=== PATIENT | female | born 1950 | race African-American/Black ===

== ENCOUNTER 2020-08-02 10:29 | Outpatient (CLI) | payer MEDICARE, MEDICAID ==
[~2020-08-02] VITALS: Ht 157.5 cm; Wt 80.3 kg
[2020-08-02 11:04] VITALS: BP 128/70
--- NOTE | 2020-08-02 14:30 | Consultation ---
DATE OF CONSULTATION: 08/02/2020 CONSULTING PHYSICIAN: Nikolas Celestin MD. CHIEF COMPLAINT: Pancreatic cyst. HISTORY OF PRESENT ILLNESS: The patient is a very pleasant 70-year-old female, seen in followup, referred to us by gastroenterology. She has had endoscopy and colonoscopy. Results are not available. Apparently, she had abdominal pain, had a CT of the abdomen and pelvis, which again we do not have the results showed evidence of pancreatic cyst and she was referred for EUS. PAST MEDICAL HISTORY: 1. History of NE. 2. Anemia. 3. Asthma. 4. Hypertension. 5. Hypercholesterolemia. 6. Diabetes. 7. COPD. 8. Hypothyroidism. PAST SURGICAL HISTORY: She had a hysterectomy, cholecystectomy, hernia repair and multiple back surgeries. MEDICATIONS: Please see medication reconciliation list. FAMILY HISTORY: Noncontributory. SOCIAL HISTORY: The patient denies any alcohol, but used to drink, quit in 2018. No IV drug abuse. ALLERGIES: To codeine. REVIEW OF SYSTEMS: Positive for constipation, rectal pain, bloating, and nausea. PHYSICAL EXAMINATION: VITAL SIGNS: Temperature is 97.4, blood pressure is 122/70, pulse is 62, respirations 20. HEENT: Normocephalic, atraumatic. Sclerae anicteric. NECK: Supple. No evidence of obvious lymphadenopathy. CARDIOVASCULAR: Regular rate and rhythm. Plus S1 and S2. LUNGS: Clear to auscultation bilaterally. ABDOMEN: Positive bowel sounds. Soft and nontender. No rebound. No guarding. No peritoneal sign. EXTREMITIES: No cyanosis, no clubbing, no edema. ASSESSMENT AND PLAN: This is a 70-year-old female, referred to us for evaluation of pancreatic cyst. Plan is to obtain the records including CT scan . Given the pancreatic cyst, age of 70, the patient will benefit from an endoscopic ultrasound evaluation. We will schedule as soon as authorization is obtained. Nikolas Celestin M.D. DR: YARED JOB#: [id number] CC:
[2020-08-03] MEDS ORDERED: GABAPENTIN600 MG ORAL (07:47)
[2020-08-03] MEDS ORDERED: METFORMIN HCL500 M1 ORAL (07:47)
[2020-08-03] MEDS ORDERED: FUROSEMIDE20 M1 ORAL (07:47)
[2020-08-03] MEDS ORDERED: FERROUS SULFAT325 MG ORAL (07:47)
[2020-08-03] MEDS ORDERED: ATORVASTATIN CA40 MG ORAL (07:47)
[2020-08-03] MEDS ORDERED: HYDRALAZINE HCL10 MG ORAL (07:47)
[2020-08-03] MEDS ORDERED: LISINOPRIL40 MG ORAL (07:47)
[2020-08-03] MEDS ORDERED: METHIMAZOLE10 MG PO (07:47)
[2020-08-03] MEDS ORDERED: HYDROCHLOROTHIA25 MG ORAL (07:47)
== END 2020-08-02 12:29 | disposition home or self-care (01) ==
LOC: PAN 10:29
DX: R10.9 Unspecified abdominal pain (principal); I25.2 Old myocardial infarction; I10 Essential (primary) hypertension; E78.00 Pure hypercholesterolemia, unspecified; E11.9 Type 2 diabetes mellitus without complications; J44.9 Chronic obstructive pulmonary disease, unspecified; E03.9 Hypothyroidism, unspecified; Z90.710 Acquired absence of both cervix and uterus; Z90.49 Acquired absence of other specified parts of digestive tract; Z88.6 Allergy status to analgesic agent; K59.00 Constipation, unspecified; R11.0 Nausea; R14.0 Abdominal distension (gaseous)
CPT/HCPCS: G0463

== ENCOUNTER 2020-09-20 10:57 | Outpatient (CLI) | payer MEDICARE, MEDICAID ==
[~2020-09-20 10:57] MED LIST: ATORVASTATIN CA40 MG ORAL; FERROUS SULFAT325 MG ORAL; FUROSEMIDE20 M1 ORAL; GABAPENTIN600 MG ORAL; HYDRALAZINE HCL10 MG ORAL; HYDROCHLOROTHIA25 MG ORAL; LISINOPRIL40 MG ORAL; METFORMIN HCL500 M1 ORAL; METHIMAZOLE10 MG PO
[2020-09-20 11:17] VITALS: BP 132/70
--- NOTE | 2020-09-20 12:11 | General Progress Note ---
Subjective ROS Limited/Unobtainable: Yes Allergies: Coded Allergies: CODEINE (Verified Allergy, Severe, Itching, 08/11/20) Objective Last 24 Hour Vital Signs Date Time Temp Pulse Resp B/P (MAP) Pulse Ox O2 Delivery O2 Flow Rate FiO2 09/20/20 11:17 97.7 77 16 132/70 93 General Appearance: alert EENT: normal ENT inspection Neck: supple Cardiovascular: normal rate Respiratory/Chest: decreased breath sounds Abdomen: normal bowel sounds, non tender, soft Extremities: non-tender Assessment/Plan Assessment/Plan: s/p EUS: SUMMARY OF FINDINGS: 1. Dilated pancreatic duct to about 5 mm. 2. Dilated common bile duct and proximally measured about 1 cm, went down to 8 and then at the ampulla above 4. 3. 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 4. A 1.2 cm calcification in the head of the pancreas with shadowing. RECOMMENDATIONS: At this time, we recommend patient to be observed. If patient becomes symptomatic, might benefit from ERCP and sphincterotomy for possible papillary stenosis causing both pancreatic duct and common bile duct dilatation. Also, patient needs followup imaging in 1 year for this cyst. patient still has symptoms plan ERCP for papillary stenosis labs on procedure day Nikolas Celestin MD Sep 20, 2020 12:11
== END 2020-09-20 12:57 | disposition home or self-care (01) ==
LOC: PAN 10:57
DX: K86.2 Cyst of pancreas (principal)
CPT/HCPCS: 99212

== ENCOUNTER 2020-10-10 07:49 | Inpatient (IN) | payer MEDICARE, MEDICAID ==
[2020-10-10] VITALS (11 sets, daily range): BP systolic 122–153; BP diastolic 75–84
[~2020-10-10] VITALS: Ht 160 cm; Wt 80.3 kg
[2020-10-10] MEDS ORDERED: Midazolam 2mg/2ml Inj ONE (07:50)
[2020-10-10] MEDS ORDERED: fentaNYL 100 mcg/2 mL IV ONE (07:50)
--- NOTE | 2020-10-10 07:56 | Anethesia Preoperative Eval ---
Anesthesia Pre-op PMH/ROS General Date of Evaluation: Oct 10, 2020 Time of Evaluation: 08:43 Anesthesiologist: christiano ASA Score: ASA 4 Mallampati Score Class I : Soft palate, uvula, fauces, pillars visible Class II: Soft palate, uvula, fauces visible Class III: Soft palate, base of uvula visible Class IV: Only hard plate visible Mallampati Classification: Class II Surgeon: emerson Diagnosis: pancreatic cysts Surgical Procedure: ercp Anesthesia History: none Social History: smoking - former tobacco Family History: no anesthesia problems Allergies: Coded Allergies: CODEINE (Verified Allergy, Severe, Itching, 10/10/20) Medications: see eMAR Patient NPO?: Yes Past Medical History Cardiovascular: Reports: HTN, other - hypercholesterolemia Pulmonary: Reports: asthma Gastrointestinal/Genitourinary: Reports: other - pancreatic cyst Endocrine: Reports: DM, hypothyroidism Musculoskeletal/Integumentary: Reports: OA PSxH Narrative: hysterectomy, bunionectomy, rotator cuff repair, back fusion, inguinal herniorrhapy, umbilical herniorrhaphy, cholecystectomy Anesthesia Pre-op Phys. Exam Physician Exam Last Vital Signs Date Time Temp Pulse Resp B/P (MAP) Pulse Ox O2 Delivery O2 Flow Rate FiO2 10/10/20 08:28 Room Air Constitutional: NAD Neurologic: CN 2-12 intact Cardiovascular: RRR Respiratory: CTA Gastrointestinal: S/NT/ND Airway Exam Mallampati Score: Class II MO: limited Neck: flexible TMD: 2fb ROM: limited Anesthesia Pre-op A/P Labs Labs Test 10/10/20 08:35 White Blood Count 8.0 K/UL (4.8-10.8) Red Blood Count 4.15 M/UL (4.20-5.40) Hemoglobin 11.0 G/DL (12.0-16.0) Hematocrit 32.2 % (37.0-47.0) Mean Corpuscular Volume 77 FL (80-99) Mean Corpuscular Hemoglobin 26.5 PG (27.0-31.0) Mean Corpuscular Hemoglobin Concent 34.2 G/DL (32.0-36.0) Red Cell Distribution Width 16.0 % (11.6-14.8) Platelet Count 352 K/UL (150-450) Mean Platelet Volume 5.4 FL (6.5-10.1) Neutrophils (%) (Auto) 57.4 % (45.0-75.0) Lymphocytes (%) (Auto) 29.5 % (20.0-45.0) Monocytes (%) (Auto) 6.6 % (1.0-10.0) Eosinophils (%) (Auto) 5.1 % (0.0-3.0) Basophils (%) (Auto) 1.4 % (0.0-2.0) Sodium Level 139 MMOL/L (136-145) Potassium Level 4.0 MMOL/L (3.5-5.1) Chloride Level 106 MMOL/L (98-107) Carbon Dioxide Level 25 MMOL/L (21-32) Anion Gap 9 mmol/L (5-15) Blood Urea Nitrogen 15 mg/dL (7-18) Creatinine 1.4 MG/DL (0.55-1.30) Estimat Glomerular Filtration Rate 45.1 mL/min (>60) Glucose Level 128 MG/DL (74-106) POC Whole Blood Glucose 138 MG/DL (74-106) Calcium Level 8.9 MG/DL (8.5-10.1) Total Bilirubin 0.3 MG/DL (0.2-1.0) Aspartate Amino Transf (AST/SGOT) 19 U/L (15-37) Alanine Aminotransferase (ALT/SGPT) 26 U/L (12-78) Alkaline Phosphatase 95 U/L (46-116) Total Protein 7.6 G/DL (6.4-8.2) Albumin 3.8 G/DL (3.4-5.0) Globulin 3.8 g/dL Albumin/Globulin Ratio 1.0 (1.0-2.7) Amylase Level 209 U/L (25-115) Lipase > 2000 U/L (73-393) Microbiology Date/Time Source Procedure Growth Status 10/10/20 08:05 Nasopharynx SARS-CoV-2 RdRp Gene Assay - Final Complete Labs Test 10/10/20 08:35 POC Whole Blood Glucose 138 MG/DL (74-106) Studies Pre-op Studies: EKG - sinus bradycardia Risk Assessment & Plan Assessment: asa4 Plan: mac Status Change Before Surgery: No Pre-Antibiotics Drug: Shaista Foster MD Oct 10, 2020 07:56
[2020-10-10] MEDS ORDERED: Midazolam 2mg/2ml Inj IVP PRN (08:00)
[2020-10-10] MEDS ORDERED: Atropine Inj 1mg/10ml Syr IVP PRN (08:00)
[2020-10-10] MEDS ORDERED: LR 1000ml 1,000 ML IVLG SCH (08:00)
[2020-10-10] MEDS ORDERED: DiphenhydrAMINE 50mg/ml Inj IVP PRN (08:00)
[2020-10-10] MEDS ORDERED: fentaNYL 100 mcg/2 mL IV PRN (08:00)
[2020-10-10 08:56] LABS: BASOPHILS % (AUTO) 1.4 % (0.0-2.0); EOSINOPHILS % (AUTO) 5.1 % (0.0-3.0); HEMATOCRIT 32.2 % (37.0-47.0); LYMPHOCYTES % (AUTO) 29.5 % (20.0-45.0); MEAN CORPUSCULAR VOLUME 77 FL (80-99); MONOCYTES % (AUTO) 6.6 % (1.0-10.0); NEUTROPHILS % (AUTO) 57.4 % (45.0-75.0); PLATELET COUNT 352 K/UL (150-450); RED BLOOD COUNT 4.15 M/UL (4.20-5.40)
[2020-10-10 09:18] LABS: ANION GAP 9 mmol/L (5-15); BLOOD UREA NITROGEN 15 mg/dL (7-18); CALCIUM 8.9 MG/DL (8.5-10.1); CARBON DIOXIDE 25 MMOL/L (21-32); CHLORIDE 106 MMOL/L (98-107); CREATININE 1.4 MG/DL (0.55-1.30); SODIUM 139 MMOL/L (136-145)
[2020-10-10 09:30] LABS: ALANINE AMINOTRANSFERASE 26 U/L (12-78); ALBUMIN 3.8 G/DL (3.4-5.0); ALKALINE PHOSPHATASE 95 U/L (46-116); AMYLASE 209 U/L (25-115); ASPARTATE AMINO TRANSFERASE 19 U/L (15-37); BILIRUBIN,TOTAL 0.3 MG/DL (0.2-1.0)
[2020-10-10] MEDS ORDERED: Iothalamate Meglumine 60% 30ML INJ ONE (09:43)
[2020-10-10] MEDS ORDERED: LR 1000ml 1,000 ML IV SCH (10:00)
--- NOTE | 2020-10-10 10:27 | Pre-Procedure Note/Attestation ---
Pre-Procedure Note/Attestation Complete Prior to Procedure Planned Procedure: not applicable Procedure Narrative: ercp Indications for Procedure Pre-Operative Diagnosis: papillary stenosis Attestation I attest that I discussed the nature of the procedure; its benefits; risks and complications; and alternatives (and the risks and benefits of such alternatives), prior to the procedure, with the patient (or the patient's legal small business sales representative). I attest that, if there was a reasonable possibility of needing a blood t ransfusion, the patient (or the patient's legal small business sales representative) was given the [facility] standardized written summary, pursuant to the Dar[place] Blood Safety Act ([place] Health and Safety Code # 1645, as amended). I attest that I re-evaluated the patient just prior to the surgery and that there has been no change in the patient's H&P, except as documented below: Nikolas Celestin MD Oct 10, 2020 10:27
--- NOTE | 2020-10-10 10:27 | Short Stay Surgery H&P ---
History of Present Illness History of Present Illness Chief Complaint see office note HPI Mirta Estrada is a 70 year old female who was admitted on for Pancriatic Cyst Patient History Allergies: Coded Allergies: CODEINE (Verified Allergy, Severe, Itching, 10/10/20) Medication History Scheduled Atorvastatin Calcium* (Atorvastatin Calcium*), Unknown Dose ORAL BEDTIME, (Reported) Ferrous Sulfate* (Ferrous Sulfate*), 325 MG ORAL DAILY, (Reported) Furosemide* (Lasix*), 20 MG ORAL PRN, (Reported) Gabapentin* (Gabapentin*), Unknown Dose ORAL THREE TIMES A DAY, (Reported) Hydralazine Hcl* (Hydralazine Hcl*), Unknown Dose ORAL EVERY 6 HOURS, (Reported) Hydrochlorothiazide* (Hydrochlorothiazide*), Unknown Dose ORAL DAILY, (Reported) Lisinopril* (Lisinopril*), 40 MG ORAL DAILY, (Reported) Metformin Hcl* (Metformin Hcl*), 500 MG ORAL TWICE A DAY, (Reported) Methimazole (Methimazole), Unknown Dose PO DAILY, (Reported) Physical Exam Vital Signs Last Vital Signs Date Time Temp Pulse Resp B/P (MAP) Pulse Ox O2 Delivery O2 Flow Rate FiO2 10/10/20 08:47 97.0 65 20 122/81 98 Room Air Labs Laboratory Tests Test 10/10/20 08:35 White Blood Count 8.0 K/UL (4.8-10.8) Red Blood Count 4.15 M/UL (4.20-5.40) L Hemoglobin 11.0 G/DL (12.0-16.0) L Hematocrit 32.2 % (37.0-47.0) L Mean Corpuscular Volume 77 FL (80-99) L Mean Corpuscular Hemoglobin 26.5 PG (27.0-31.0) L Mean Corpuscular Hemoglobin Concent 34.2 G/DL (32.0-36.0) Red Cell Distribution Width 16.0 % (11.6-14.8) H Platelet Count 352 K/UL (150-450) Mean Platelet Volume 5.4 FL (6.5-10.1) L Neutrophils (%) (Auto) 57.4 % (45.0-75.0) Lymphocytes (%) (Auto) 29.5 % (20.0-45.0) Monocytes (%) (Auto) 6.6 % (1.0-10.0) Eosinophils (%) (Auto) 5.1 % (0.0-3.0) H Basophils (%) (Auto) 1.4 % (0.0-2.0) Sodium Level 139 MMOL/L (136-145) Potassium Level 4.0 MMOL/L (3.5-5.1) Chloride Level 106 MMOL/L (98-107) Carbon Dioxide Level 25 MMOL/L (21-32) Anion Gap 9 mmol/L (5-15) Blood Urea Nitrogen 15 mg/dL (7-18) Creatinine 1.4 MG/DL (0.55-1.30) H Estimat Glomerular Filtration Rate 45.1 mL/min (>60) Glucose Level 128 MG/DL (74-106) H POC Whole Blood Glucose 138 MG/DL (74-106) H Calcium Level 8.9 MG/DL (8.5-10.1) Total Bilirubin 0.3 MG/DL (0.2-1.0) Aspartate Amino Transf (AST/SGOT) 19 U/L (15-37) Alanine Aminotransferase (ALT/SGPT) 26 U/L (12-78) Alkaline Phosphatase 95 U/L (46-116) Total Protein 7.6 G/DL (6.4-8.2) Albumin 3.8 G/DL (3.4-5.0) Globulin 3.8 g/dL Albumin/Globulin Ratio 1.0 (1.0-2.7) Amylase Level 209 U/L (25-115) H Lipase > 2000 U/L (73-393) H Plan Attestation Are the patient's medical conditions optimized for surgery? Nikolas Celestin MD Oct 10, 2020 10:27
[2020-10-10] MEDS ORDERED: LR 1000ml ONE (10:30)
[2020-10-10] MEDS ORDERED: Lidocaine 1% MPF 10mg/ml 5ml ONE (10:30)
[2020-10-10] MEDS ORDERED: Hydromorphone 0.5mg/0.5ml inj IVP SCH (12:00)
[2020-10-10] MEDS ORDERED: Hydromorphone 0.5mg/0.5ml inj ONE (12:01)
--- NOTE | 2020-10-10 12:05 | Immediate Post-Op Evaluation ---
Immediate Post-Op Evalulation Immediate Post-Op Evalulation Procedure: egd/ercp Date of Evaluation: Oct 10, 2020 Time of Evaluation: 11:58 IV Fluids: 525ml lr Blood Products: none Estimated Blood Loss: negligible Blood Pressure Systolic: 140 Blood Pressure Diastolic: 83 Pulse Rate: 93 Respiratory Rate: 18 O2 Sat by Pulse Oximetry: 100 Temperature (Fahrenheit): 97.1 Pain Score (1-10): 0 Nausea: No Vomiting: No Complications none Patient Status: awake, reacts, patent Hydration Status: adequate Drug: Shaista Foster MD Oct 10, 2020 12:05
--- NOTE | 2020-10-10 12:06 | 48 Hour Post Anesthesia Eval ---
Post Anesthesia Evaluation Procedure: egd/ercp Date of Evaluation: Oct 10, 2020 Time of Evaluation: 12:05 Blood Pressure Systolic: 147 0: 80 Pulse Rate: 80 Respiratory Rate: 18 Temperature (Fahrenheit): 97.1 O2 Sat by Pulse Oximetry: 100 Airway: patent Nausea: No Vomiting: No Pain Intensity: 0 Hydration Status: adequate Cardiopulmonary Status: stable Mental Status/LOC: patient returned to baseline Post-Anesthesia Complications: none Follow-up care needed: N/A Shaista Azar MD Oct 10, 2020 12:06
--- NOTE | 2020-10-10 13:14 | Endoscopy Procedure Note ---
Endoscopy Procedure Note General Indication for Procedure: pancreatitis Procedures Performed: ERCP Operative Findings/Diagnosis: same Specimen: none Pt Tolerated Procedure Well: Yes Estimated Blood Loss: none Anesthesia Anesthesiologist: irene Anesthesia: MAC Inserted Devices Implant(s) used?: No GI Core Measures 50 yrs or older w/o bx or poly: Not Applicable 10yrs. F/U recommended: Not Applicable Nikolas Celestin MD Oct 10, 2020 13:14
--- NOTE | 2020-10-10 14:22 | Diagnostic Imaging Report ---
INDICATION: Pain, intraoperative TECHNIQUE: Intraoperative imaging Fluoroscopy time: 135.3 seconds Total dose: 1.14 mGym2 Total number of images: 9 COMPARISON: None FINDINGS: Intraoperative images document opacification of the common bile duct, subsequent opacification of intrahepatic ducts, subsequent deployment of stone extraction balloon IMPRESSION: Intraoperative imaging as described
--- NOTE | 2020-10-10 15:00 | Procedure Note ---
DATE OF PROCEDURE: 10/10/2020 NOTE: INCOMPLETE DICTATION SURGEON: Nikolas Celestin M.D. ANESTHESIOLOGIST: Shaista Edmondson M.D. PROCEDURE: ERCP, sphincterotomy, balloon sweep. USED INSTRUMENT: Olympus ERCP Scope. INDICATION: . The procedure, risks, benefits, and possible consequences, including hemorrhage, aspiration, perforation and infection, and alternative treatments, were explained to the patient/legal guardian by Dr. Nikolas Celestin and the patient/legal guardian understood and accepted these risks. Nikolas Celestin M.D. DR: KATIANA JOB#: [id number] CC:
--- NOTE | 2020-10-10 15:00 | Procedure Note ---
DATE OF PROCEDURE: 10/10/2020 SURGEON: Nikolas Celestin MD CHIEF COMPLAINT: Abdominal pain, pancreatitis. REASON FOR PROCEDURE: The procedure, risks, benefits, and possible consequences, including hemorrhage, aspiration, perforation and infection, and alternative treatments, were explained to the patient/legal guardian by Dr. Nikolas Celestin and the patient/legal guardian understood and accepted these risks. DESCRIPTION OF PROCEDURE: After informed consent was obtained and patient was adequately sedated, first upper endoscopy was performed because patient had evidence of black tarry stools. Olympus upper endoscope was advanced from mouth into the second portion of the duodenum and retroflexion was performed in the stomach. Patient had evidence of hiatal hernia, small. No evidence of any esophagitis. In the stomach, there was some mild gastritis. At this time, the upper endoscope was retrieved. ERCP scope was introduced. Using a sphincterotome, common bile duct was selectively cannulated. Initial cholangiogram showed dilated common bile duct to about roughly 10 mm with tapering down at the ampulla above 4 mm. This suggestive of papillary stenosis. Patient has no gallbladder. Over a guidewire, 95% sphincterotomy was performed and then a balloon was used to sweep the duct multiple times and perform balloon occlusion cholangiogram. At this time, the scope was retrieved and procedure was terminated. SUMMARY OF FINDINGS: 1. Positive papillary stenosis with dilated common bile duct to about 10 mm. 2. Status post ERCP and sphincterotomy. 3. Status post balloon occlusion cholangiogram. 4. Status post EGD. RECOMMENDATIONS: Patient had evidence of lipase on admission before procedure of over 2000, so patient has currently pancreatitis. Given, we also performed ERCP, we are going to admit the patient for observation overnight. IV fluids for hydration. Pain management and we will see if the procedure helped with her symptoms. Nikolas Celestin M.D. DR: JAYJAY JOB#: [id number] CC:
[2020-10-10] MEDS: Hydromorphone 0.5mg/0.5ml inj IVP PRN ×3 (16:27→23:30)
--- NOTE | 2020-10-10 22:56 | Internal Med Progress Note ---
Subjective Physician Name Zacarias Escobar Attending Physician Nikolas Celestin MD Current Medications Medications (Trade) Dose Ordered Sig/Angely Route PRN Reason Start Time Stop Time Status Last Admin Dose Admin Hydromorphone HCl (Dilaudid) 0.5 mg Q4H PRN IVP Pain Scale (6-10) 10/10/20 13:15 10/17/20 13:14 10/10/20 20:28 Lactated Ringer's 1,000 ml @ 0 mls/hr Q0M IV 10/10/20 10:00 11/09/20 09:59 Sodium Chloride 1,000 ml @ 125 mls/hr Q8H IV 10/10/20 11:45 11/09/20 11:44 10/10/20 16:16 Allergies: Coded Allergies: CODEINE (Verified Allergy, Severe, Itching, 10/10/20) Subjective awake, alert. responsive, C/O severe epigastric pain, S/P ERCP today Objective Last Vital Signs Date Time Temp Pulse Resp B/P (MAP) Pulse Ox O2 Delivery O2 Flow Rate FiO2 10/10/20 21:00 Room Air 10/10/20 20:00 99.0 65 18 153/80 (104) 95 10/10/20 12:20 3 Laboratory Tests Test 10/10/20 08:35 White Blood Count 8.0 K/UL (4.8-10.8) Red Blood Count 4.15 M/UL (4.20-5.40) L Hemoglobin 11.0 G/DL (12.0-16.0) L Hematocrit 32.2 % (37.0-47.0) L Mean Corpuscular Volume 77 FL (80-99) L Mean Corpuscular Hemoglobin 26.5 PG (27.0-31.0) L Mean Corpuscular Hemoglobin Concent 34.2 G/DL (32.0-36.0) Red Cell Distribution Width 16.0 % (11.6-14.8) H Platelet Count 352 K/UL (150-450) Mean Platelet Volume 5.4 FL (6.5-10.1) L Neutrophils (%) (Auto) 57.4 % (45.0-75.0) Lymphocytes (%) (Auto) 29.5 % (20.0-45.0) Monocytes (%) (Auto) 6.6 % (1.0-10.0) Eosinophils (%) (Auto) 5.1 % (0.0-3.0) H Basophils (%) (Auto) 1.4 % (0.0-2.0) Sodium Level 139 MMOL/L (136-145) Potassium Level 4.0 MMOL/L (3.5-5.1) Chloride Level 106 MMOL/L (98-107) Carbon Dioxide Level 25 MMOL/L (21-32) Anion Gap 9 mmol/L (5-15) Blood Urea Nitrogen 15 mg/dL (7-18) Creatinine 1.4 MG/DL (0.55-1.30) H Estimat Glomerular Filtration Rate 45.1 mL/min (>60) Glucose Level 128 MG/DL (74-106) H POC Whole Blood Glucose 138 MG/DL (74-106) H Calcium Level 8.9 MG/DL (8.5-10.1) Total Bilirubin 0.3 MG/DL (0.2-1.0) Aspartate Amino Transf (AST/SGOT) 19 U/L (15-37) Alanine Aminotransferase (ALT/SGPT) 26 U/L (12-78) Alkaline Phosphatase 95 U/L (46-116) Total Protein 7.6 G/DL (6.4-8.2) Albumin 3.8 G/DL (3.4-5.0) Globulin 3.8 g/dL Albumin/Globulin Ratio 1.0 (1.0-2.7) Amylase Level 209 U/L (25-115) H Lipase > 2000 U/L (73-393) H Microbiology Date/Time Source Procedure Growth Status 10/10/20 08:05 Nasopharynx SARS-CoV-2 RdRp Gene Assay - Final Complete Objective General: No acute distress, awake and alert HEENT: NCAT, sclera anicteric, PERRL, EOMI. Neck: Supple, no significant jugular venous distention, Lungs: Good inspiratory effort, clear to auscultation bilaterally, no Wheeze or Rales. Heart: Regular rate and rhythm, normal S1/S2, no murmurs/gallops Abdomen: soft, Epigastric tender, nondistended. Normoactive bowel sounds, Obesity. / Rectal: Refused and deferred. Extremities: No Cyanosis , clubbing or edema. Neuro: A&O x 3, Able to move all extremities Skin: warm, no rashes or lesions Psych: Normal mood and affect Assessment/Plan Assessment/Plan 1. Pancreatic cyst, S/P ERCP. 2. DM T2 3. HTN 4. Obesity 5. Hyperthyroidism 6. Dyslipidemia. Plan: Pain control monitor BS F/U with Dr. Celestin recommendations IVF Monitor BP Zacarias Escobar MD Oct 10, 2020 22:56
[2020-10-10] MEDS: HydrALAZINE 25mg tab ORAL SCH (23:16)
[2020-10-10] MEDS: methIMAzole 10mg tab ORAL SCH (23:16)
[2020-10-11] VITALS: BP 154/84
[2020-10-11 04:00] VITALS: BP 125/71
[2020-10-11] MEDS: Hydromorphone 0.5mg/0.5ml inj IVP PRN ×6 (04:20→21:52)
[2020-10-11] MEDS: NovoLOG Insulin Flexpen SUBQ SCH ×4 (06:27→21:21)
[2020-10-11 08:00] VITALS: BP 162/85
[2020-10-11 08:40] LABS: BASOPHILS % (AUTO) 0.9 % (0.0-2.0); EOSINOPHILS % (AUTO) 3.7 % (0.0-3.0); HEMATOCRIT 31.7 % (37.0-47.0); HEMOGLOBIN 10.3 G/DL (12.0-16.0); LYMPHOCYTES % (AUTO) 36.2 % (20.0-45.0); MEAN CORPUSCULAR VOLUME 81 FL (80-99); MONOCYTES % (AUTO) 7.8 % (1.0-10.0); NEUTROPHILS % (AUTO) 51.4 % (45.0-75.0); PLATELET COUNT 316 K/UL (150-450); RED BLOOD COUNT 3.91 M/UL (4.20-5.40); WHITE BLOOD COUNT 7.4 K/UL (4.8-10.8)
[2020-10-11] MEDS ORDERED: methIMAzole 10mg tab ORAL SCH (09:00)
[2020-10-11] MEDS: HydrALAZINE 25mg tab ORAL SCH ×4 (09:03→23:28)
[2020-10-11 09:09] LABS: ALANINE AMINOTRANSFERASE 27 U/L (12-78); ALBUMIN 3.4 G/DL (3.4-5.0); ALBUMIN/GLOBULIN RATIO 0.9 (1.0-2.7); ALKALINE PHOSPHATASE 95 U/L (46-116); AMYLASE 269 U/L (25-115); ANION GAP 8 mmol/L (5-15); ASPARTATE AMINO TRANSFERASE 22 U/L (15-37); BILIRUBIN,TOTAL 0.4 MG/DL (0.2-1.0); BLOOD UREA NITROGEN 11 mg/dL (7-18); CALCIUM 8.6 MG/DL (8.5-10.1); CARBON DIOXIDE 25 MMOL/L (21-32); CHLORIDE 103 MMOL/L (98-107); CHOLESTEROL 180 MG/DL (< 200); CREATININE 1.1 MG/DL (0.55-1.30); HDL CHOLESTEROL 36 MG/DL (40-60); SODIUM 136 MMOL/L (136-145); TRIGLYCERIDES 187 MG/DL (30-150)
[2020-10-11 09:11] LABS: PHOSPHORUS 3.8 MG/DL (2.5-4.9)
[2020-10-11] MEDS: methIMAzole 10mg tab ORAL SCH (09:16)
[2020-10-11] MEDS: Lisinopril 20mg tab ORAL SCH (09:16)
[2020-10-11 12:00] VITALS: BP 173/73
--- NOTE | 2020-10-11 12:23 | General Progress Note ---
Subjective ROS Limited/Unobtainable: Yes Allergies: Coded Allergies: CODEINE (Verified Allergy, Severe, Itching, 10/10/20) Objective Last 24 Hour Vital Signs Date Time Temp Pulse Resp B/P (MAP) Pulse Ox O2 Delivery O2 Flow Rate FiO2 10/11/20 09:16 162/85 10/11/20 09:03 162/85 10/11/20 09:00 Room Air 10/11/20 08:00 98.0 68 18 162/85 (110) 98 10/11/20 04:00 98.3 65 18 125/71 (89) 98 10/11/20 00:00 98.6 63 18 154/84 (107) 99 10/10/20 23:16 153/80 10/10/20 21:00 Room Air 10/10/20 20:00 99.0 65 18 153/80 (104) 95 10/10/20 16:00 98.4 75 18 138/84 (102) 99 10/10/20 15:00 Room Air 10/10/20 14:20 96.9 62 16 134/80 (98) 98 10/10/20 12:50 97.1 73 15 137/84 100 Room Air 10/10/20 12:36 97.2 10/10/20 12:35 78 13 132/82 100 Room Air Intake and Output 10/10/20 10/11/20 19:00 07:00 Intake Total 625 ml 750 ml Output Total 1000 ml Balance 625 ml -250 ml Intake IV Total 625 ml 750 ml Output Urine Total 1000 ml # Voids 3 3 Laboratory Tests 10/11/20 05:36: POC Whole Blood Glucose 104 10/11/20 07:45: White Blood Count 7.4, Red Blood Count 3.91L, Hemoglobin 10.3L, Hematocrit 31.7L , Mean Corpuscular Volume 81, Mean Corpuscular Hemoglobin 26.4L, Mean Corpuscular Hemoglobin Concent 32.6, Red Cell Distribution Width 15.0H, Platelet Count 316, Mean Platelet Volume 5.9L, Neutrophils (%) (Auto) 51.4, Lymphocytes (%) (Auto) 36.2, Monocytes (%) (Auto) 7.8, Eosinophils (%) (Auto) 3.7H, Basophils (%) (Auto) 0.9, Sodium Level 136, Potassium Level 4.0, Chloride Level 103, Carbon Dioxide Level 25, Anion Gap 8, Blood Urea Nitrogen 11, Creatinine 1.1, Estimat Glomerular Filtration Rate 59.5, Glucose Level 87, Calcium Level 8.6, Phosphorus Level 3.8, Magnesium Level 1.7L, Total Bilirubin 0.4, Aspartate Amino Transf (AST/SGOT) 22, Alanine Aminotransferase (ALT/SGPT) 27, Alkaline Phosphatase 95, Total Protein 7.0, Albumin 3.4, Globulin 3.6, Albumin/Globulin Ratio 0.9L, Triglycerides Level 187H, Cholesterol Level 180, LDL Cholesterol 113H, HDL Cholesterol 36L, Cholesterol/HDL Ratio 5.0H, Amylase Level 269H, Lipase > 2000H, CA 19-9 Antigen [Pending] Height (Feet): 5 Height (Inches): 3.00 Weight (Pounds): 177 General Appearance: alert EENT: PERRL/EOMI Neck: supple Cardiovascular: normal rate Abdomen: hypoactive bowel sounds, tender Extremities: non-tender Assessment/Plan Assessment/Plan: pancreatitis panc cyst s/p ERCP ivf pain control clears repeat labs will fu Nikolas Celestin MD Oct 11, 2020 12:23
[2020-10-11] MEDS: D5NS 1,000 ML IV SCH ×2 (14:26→23:28)
[2020-10-11 16:00] VITALS: BP 167/76
--- NOTE | 2020-10-11 17:16 | Internal Med Progress Note ---
Subjective Date of Service: Oct 11, 2020 Physician Name Pierce Sánchez Attending Physician Nikolas Celestin MD Current Medications Medications (Trade) Dose Ordered Sig/Angely Route PRN Reason Start Time Stop Time Status Last Admin Dose Admin Dextrose (Dextrose 50%) 25 ml Q30M PRN IV Hypoglycemia 10/10/20 23:00 01/08/21 22:59 Dextrose (Dextrose 50%) 50 ml Q30M PRN IV Hypoglycemia 10/10/20 23:00 01/08/21 22:59 Dextrose/Sodium Chloride 1,000 ml @ 100 mls/hr Q10H IV 10/11/20 13:15 11/10/20 13:14 10/11/20 14:26 Gabapentin (Neurontin) 300 mg THREE TIMES A DAY ORAL 10/10/20 23:00 11/09/20 22:59 10/11/20 12:48 Hydralazine HCl (Apresoline) 25 mg TID ORAL 10/10/20 23:00 01/08/21 22:59 10/11/20 12:49 Hydromorphone HCl (Dilaudid) 0.5 mg EVERY 3 HOURS PRN IVP For Pain 10/10/20 22:45 10/17/20 22:44 10/11/20 14:27 Insulin Aspart (NovoLOG) BEFORE MEALS AND HS SUBQ 10/11/20 06:30 01/09/21 06:29 Lisinopril (PriniviL) 40 mg DAILY ORAL 10/11/20 09:00 11/10/20 08:59 10/11/20 09:16 Methimazole (Tapazole) 10 mg DAILY ORAL 10/10/20 23:00 11/10/20 08:59 10/11/20 09:16 Allergies: Coded Allergies: CODEINE (Verified Allergy, Severe, Itching, 10/10/20) ROS Limited/Unobtainable: No Constitutional: Reports: no symptoms HEENT: Reports: no symptoms Cardiovascular: Reports: no symptoms Respiratory: Reports: no symptoms Gastrointestinal/Abdominal: Reports: no symptoms Genitourinary: Reports: no symptoms Neurologic/Psychiatric: Reports: no symptoms Subjective 70 YO F admitted with pancreatic cyst. S/P ERCP and sphincterotomy 10/10/20. Cover for [facility] - Dr Escobar Objective Last Vital Signs Date Time Temp Pulse Resp B/P (MAP) Pulse Ox O2 Delivery O2 Flow Rate FiO2 10/11/20 16:00 98.2 58 18 167/76 (106) 98 10/11/20 09:00 Room Air 10/10/20 12:20 3 Laboratory Tests Test 10/11/20 05:36 10/11/20 07:45 10/11/20 12:37 10/11/20 16:51 POC Whole Blood Glucose 104 MG/DL (74-106) 83 MG/DL (74-106) 110 MG/DL (74-106) H White Blood Count 7.4 K/UL (4.8-10.8) Red Blood Count 3.91 M/UL (4.20-5.40) L Hemoglobin 10.3 G/DL (12.0-16.0) L Hematocrit 31.7 % (37.0-47.0) L Mean Corpuscular Volume 81 FL (80-99) Mean Corpuscular Hemoglobin 26.4 PG (27.0-31.0) L Mean Corpuscular Hemoglobin Concent 32.6 G/DL (32.0-36.0) Red Cell Distribution Width 15.0 % (11.6-14.8) H Platelet Count 316 K/UL (150-450) Mean Platelet Volume 5.9 FL (6.5-10.1) L Neutrophils (%) (Auto) 51.4 % (45.0-75.0) Lymphocytes (%) (Auto) 36.2 % (20.0-45.0) Monocytes (%) (Auto) 7.8 % (1.0-10.0) Eosinophils (%) (Auto) 3.7 % (0.0-3.0) H Basophils (%) (Auto) 0.9 % (0.0-2.0) Sodium Level 136 MMOL/L (136-145) Potassium Level 4.0 MMOL/L (3.5-5.1) Chloride Level 103 MMOL/L (98-107) Carbon Dioxide Level 25 MMOL/L (21-32) Anion Gap 8 mmol/L (5-15) Blood Urea Nitrogen 11 mg/dL (7-18) Creatinine 1.1 MG/DL (0.55-1.30) Estimat Glomerular Filtration Rate 59.5 mL/min (>60) Glucose Level 87 MG/DL (74-106) Calcium Level 8.6 MG/DL (8.5-10.1) Phosphorus Level 3.8 MG/DL (2.5-4.9) Magnesium Level 1.7 MG/DL (1.8-2.4) L Total Bilirubin 0.4 MG/DL (0.2-1.0) Aspartate Amino Transf (AST/SGOT) 22 U/L (15-37) Alanine Aminotransferase (ALT/SGPT) 27 U/L (12-78) Alkaline Phosphatase 95 U/L (46-116) Total Protein 7.0 G/DL (6.4-8.2) Albumin 3.4 G/DL (3.4-5.0) Globulin 3.6 g/dL Albumin/Globulin Ratio 0.9 (1.0-2.7) L Triglycerides Level 187 MG/DL (30-150) H Cholesterol Level 180 MG/DL (< 200) LDL Cholesterol 113 mg/dL (<100) H HDL Cholesterol 36 MG/DL (40-60) L Cholesterol/HDL Ratio 5.0 (3.3-4.4) H Amylase Level 269 U/L (25-115) H Lipase > 2000 U/L (73-393) H CA 19-9 Antigen Pending Microbiology Date/Time Source Procedure Growth Status 10/10/20 08:05 Nasopharynx SARS-CoV-2 RdRp Gene Assay - Final Complete Intake and Output 10/10/20 10/11/20 19:00 07:00 Intake Total 625 ml 750 ml Output Total 1000 ml Balance 625 ml -250 ml Intake IV Total 625 ml 750 ml Output Urine Total 1000 ml # Voids 3 3 Objective Objective General: No acute distress, awake and alert HEENT: NCAT, sclera anicteric, PERRL, EOMI. Neck: Supple, no significant jugular venous distention, Lungs: Good inspiratory effort, clear to auscultation bilaterally, no Wheeze or Rales. Heart: Regular rate and rhythm, normal S1/S2, no murmurs/gallops Abdomen: soft, Epigastric tender, nondistended. Normoactive bowel sounds, Obesity. / Rectal: Refused and deferred. Extremities: No Cyanosis , clubbing or edema. Neuro: A&O x 3, Able to move all extremities Skin: warm, no rashes or lesions Psych: Normal mood and affect Assessment/Plan Assessment/Plan Assessment/Plan Assessment/Plan 1. Pancreatic cyst, S/P ERCP. 2. DM T2 3. HTN 4. Obesity 5. Hyperthyroidism 6. Dyslipidemia. Plan: Pain control monitor BS F/U with Dr. Celestin recommendations IVF Monitor BP S/P ERCP and sphincterotomy 10/10/20 Pierce Sánchez MD Oct 11, 2020 17:16
[2020-10-11 19:53] VITALS: BP 132/68
[2020-10-12] VITALS (7 sets, daily range): BP systolic 150–167; BP diastolic 67–87
[2020-10-12] MEDS: Hydromorphone 0.5mg/0.5ml inj IVP PRN ×7 (01:08→23:55)
[2020-10-12] MEDS: NovoLOG Insulin Flexpen SUBQ SCH ×4 (05:40→20:50)
[2020-10-12 07:28] LABS: BASOPHILS % (AUTO) 1.4 % (0.0-2.0); HEMATOCRIT 30.5 % (37.0-47.0); LYMPHOCYTES % (AUTO) 27.6 % (20.0-45.0); MEAN CORPUSCULAR VOLUME 80 FL (80-99); MONOCYTES % (AUTO) 9.2 % (1.0-10.0); NEUTROPHILS % (AUTO) 57.9 % (45.0-75.0); PLATELET COUNT 314 K/UL (150-450); RED BLOOD COUNT 3.83 M/UL (4.20-5.40); RED CELL DISTRIBUTION WIDTH 14.1 % (11.6-14.8); WHITE BLOOD COUNT 6.8 K/UL (4.8-10.8)
[2020-10-12 07:46] LABS: ALANINE AMINOTRANSFERASE 23 U/L (12-78); ALBUMIN 3.3 G/DL (3.4-5.0); ALKALINE PHOSPHATASE 94 U/L (46-116); AMYLASE 159 U/L (25-115); ANION GAP 6 mmol/L (5-15); ASPARTATE AMINO TRANSFERASE 18 U/L (15-37); BILIRUBIN,TOTAL 0.4 MG/DL (0.2-1.0); BLOOD UREA NITROGEN 9 mg/dL (7-18); CALCIUM 8.8 MG/DL (8.5-10.1); CARBON DIOXIDE 27 MMOL/L (21-32); CHLORIDE 104 MMOL/L (98-107); CREATININE 1.1 MG/DL (0.55-1.30); POTASSIUM 3.7 MMOL/L (3.5-5.1); SODIUM 136 MMOL/L (136-145)
--- NOTE | 2020-10-12 08:40 | General Progress Note ---
Subjective ROS Limited/Unobtainable: Yes Allergies: Coded Allergies: CODEINE (Verified Allergy, Severe, Itching, 10/10/20) Objective Last 24 Hour Vital Signs Date Time Temp Pulse Resp B/P (MAP) Pulse Ox O2 Delivery O2 Flow Rate FiO2 10/12/20 04:00 98.1 98 18 152/83 (106) 98 10/12/20 00:00 98.2 72 20 150/84 (106) 99 10/11/20 23:28 150/84 10/11/20 20:14 Room Air 10/11/20 19:53 97.8 64 18 132/68 (89) 96 10/11/20 17:17 167/76 10/11/20 16:00 98.2 58 18 167/76 (106) 98 10/11/20 12:49 173/73 10/11/20 12:00 98.8 73 18 173/73 (106) 98 10/11/20 09:16 162/85 10/11/20 09:03 162/85 10/11/20 09:00 Room Air Intake and Output 10/11/20 10/12/20 19:00 07:00 Intake Total 800 ml 600 ml Balance 800 ml 600 ml Intake Oral 400 ml 600 ml IV Total 400 ml # Voids 4 4 Laboratory Tests 10/11/20 12:37: POC Whole Blood Glucose 83 10/11/20 16:51: POC Whole Blood Glucose 110H 10/11/20 21:06: POC Whole Blood Glucose 201H 10/12/20 05:35: POC Whole Blood Glucose 184H 10/12/20 07:04: White Blood Count 6.8, Red Blood Count 3.83L, Hemoglobin 10.0L, Hematocrit 30.5L , Mean Corpuscular Volume 80, Mean Corpuscular Hemoglobin 26.1L, Mean Corpuscular Hemoglobin Concent 32.8, Red Cell Distribution Width 14.1, Platelet Count 314, Mean Platelet Volume 5.9L, Neutrophils (%) (Auto) 57.9, Lymphocytes (%) (Auto) 27.6, Monocytes (%) (Auto) 9.2, Eosinophils (%) (Auto) 4.0H, Basophils (%) (Auto) 1.4, Sodium Level 136, Potassium Level 3.7, Chloride Level 104, Carbon Dioxide Level 27, Anion Gap 6, Blood Urea Nitrogen 9, Creatinine 1.1, Estimat Glomerular Filtration Rate 59.5, Glucose Level 157H, Calcium Level 8.8, Total Bilirubin 0.4, Aspartate Amino Transf (AST/SGOT) 18, Alanine Aminotransferase (ALT/SGPT) 23, Alkaline Phosphatase 94, Total Protein 6.7, Albumin 3.3L, Globulin 3.4, Albumin/Globulin Ratio 1.0, Amylase Level 159H, Lipase > 2000H Height (Feet): 5 Height (Inches): 3.00 Weight (Pounds): 177 General Appearance: alert EENT: normal ENT inspection Neck: supple Cardiovascular: normal rate Respiratory/Chest: lungs clear Abdomen: hypoactive bowel sounds, tender Extremities: non-tender Assessment/Plan Assessment/Plan: pancreatitis panc cyst s/p ERCP ivf pain control full liquid diet CT fu ca 19-9 repeat labs will fu Nikolas Celestin MD Oct 12, 2020 08:40
[2020-10-12] MEDS ORDERED: 1/2 NS 1000ml IV ONE (09:00)
[2020-10-12] MEDS: Lisinopril 20mg tab ORAL SCH (09:06)
[2020-10-12] MEDS: methIMAzole 10mg tab ORAL SCH (09:07)
[2020-10-12] MEDS: HydrALAZINE 25mg tab ORAL SCH ×3 (09:07→17:04)
[2020-10-12] MEDS: D5NS 1,000 ML IV SCH ×2 (09:15→17:04)
--- NOTE | 2020-10-12 12:21 | Diagnostic Imaging Report ---
Clinical Indication: Abdominal pain, history of pancreatitis and pancreatic cyst Technique: No oral contrast utilized, per emergency room physician request IV administration nonionic contrast. Arterial and venous phase spiral acquisitions obtained through the abdomen and pelvis. Multiplanar reconstructions were generated. Total dose length product 908 mGycm. CTDIvol(s) 23 mGy. Dose reduction achieved using automated exposure control Comparison: none Findings: Exam is limited, as streak artifact from spinal fusion hardware obscures a significant portion of the pancreatic head and uncinate process. The pancreatic duct is dilated, measuring up to 9 mm in diameter. Numerous calcifications are seen within the pancreatic head and uncinate process. There is what appears to be a cyst posterior to the pancreatic head/uncinate. This measures approximately 2.5 x 1.6 by approximately 5.7 cm craniocaudad. It is not well demonstrated due to the above-mentioned artifacts. It is equivocally bilobed. Numerous calcifications are seen about the pancreatic head. The common bile duct is likewise poorly visualized, probably not dilated. There is very mild prominence of the central intrahepatic ducts. A few gas bubbles are seen in the segment 8 duct, presumably related to recent intervention. No focal liver lesion. The spleen, adrenals are unremarkable. Subcentimeter low attenuation lesions are seen in the kidneys bilaterally, too small to characterize but most likely representing benign simple cysts. No renal or ureteral calculi, hydronephrosis, or hydroureter. The uterus is absent. No pelvic mass or adenopathy. There is fairly extensive colonic diverticulosis. No evidence of acute diverticulitis. No small bowel distention or small bowel wall thickening. The appendix is normal. No free or loculated intraperitoneal gas or fluid is evident. There is wall thickening of the distal esophagus. The stomach is unremarkable. The included lung bases demonstrate posterior dependent atelectatic changes. The heart is borderline enlarged. The bones demonstrate evidence of prior laminectomies of L1-L4, posterior fusion hardware bridging L1-L3, and bone graft material bridging the lower lumbar posterior elements. There is evidence of prior hardware removal in the lower segments. Impression: Limited exam, due to streak artifact from spinal fusion hardware obscuring the area of interest Evidence of chronic calcifying pancreatitis, with calcification of the pancreatic head and uncinate and marked ectasia of the pancreatic duct 2.5 x 1.6 x 5.7 cm cystic lesion posterior to the pancreatic head and uncinate process. This is not well-demonstrated, due to streak artifact. Given the above findings, most likely represents a pseudocyst. Cystic neoplasm is also possible. Gas bubbles within the intrahepatic bile ducts, presumably related to recent biliary intervention Thick-walled distal esophagus. Could indicate esophagitis. Correlate with clinical findings Colonic diverticulosis. No evidence of diverticulitis Borderline cardiomegaly Other findings as noted, including evidence of prior spinal fusion surgery, posterior dependent pulmonary atelectatic changes, prior hysterectomy, probable bilateral renal cysts The CT scanner at [facility] is accredited by the [employer] and the scans are performed using protocols designed to limit radiation exposure to as low as reasonably achievable to attain images of sufficient resolution adequate for diagnostic evaluation.
--- NOTE | 2020-10-12 16:51 | Internal Med Progress Note ---
Subjective Date of Service: Oct 12, 2020 Physician Name Pierce Sánchez Attending Physician Nikolas Celestin MD Current Medications Medications (Trade) Dose Ordered Sig/Angely Route PRN Reason Start Time Stop Time Status Last Admin Dose Admin Dextrose (Dextrose 50%) 25 ml Q30M PRN IV Hypoglycemia 10/10/20 23:00 01/08/21 22:59 Dextrose (Dextrose 50%) 50 ml Q30M PRN IV Hypoglycemia 10/10/20 23:00 01/08/21 22:59 Dextrose/Sodium Chloride 1,000 ml @ 100 mls/hr Q10H IV 10/11/20 13:15 11/10/20 13:14 10/11/20 23:28 Gabapentin (Neurontin) 300 mg THREE TIMES A DAY ORAL 10/10/20 23:00 11/09/20 22:59 10/12/20 12:29 Hydralazine HCl (Apresoline) 50 mg TID ORAL 10/11/20 22:15 01/08/21 22:59 10/12/20 12:29 Hydromorphone HCl (Dilaudid) 0.5 mg EVERY 3 HOURS PRN IVP For Pain 10/10/20 22:45 10/17/20 22:44 10/12/20 12:40 Insulin Aspart (NovoLOG) BEFORE MEALS AND HS SUBQ 10/11/20 06:30 01/09/21 06:29 10/12/20 12:35 Lisinopril (PriniviL) 40 mg DAILY ORAL 10/11/20 09:00 11/10/20 08:59 10/12/20 09:06 Methimazole (Tapazole) 10 mg DAILY ORAL 10/10/20 23:00 11/10/20 08:59 10/12/20 09:07 Allergies: Coded Allergies: CODEINE (Verified Allergy, Severe, Itching, 10/10/20) ROS Limited/Unobtainable: No Constitutional: Reports: no symptoms HEENT: Reports: no symptoms Cardiovascular: Reports: no symptoms Respiratory: Reports: no symptoms Gastrointestinal/Abdominal: Reports: abdominal pain Genitourinary: Reports: no symptoms Neurologic/Psychiatric: Reports: no symptoms Subjective 70 YO F admitted with pancreatic cyst. S/P ERCP and sphincterotomy 10/10/20. Cover for [facility] - Dr Escobar Objective Last Vital Signs Date Time Temp Pulse Resp B/P (MAP) Pulse Ox O2 Delivery O2 Flow Rate FiO2 10/12/20 16:00 97.7 67 18 163/83 (109) 97 10/11/20 20:14 Room Air 10/10/20 12:20 3 Laboratory Tests Test 10/11/20 16:51 10/11/20 21:06 10/12/20 05:35 10/12/20 07:04 POC Whole Blood Glucose 110 MG/DL (74-106) H 201 MG/DL (74-106) H 184 MG/DL (74-106) H White Blood Count 6.8 K/UL (4.8-10.8) Red Blood Count 3.83 M/UL (4.20-5.40) L Hemoglobin 10.0 G/DL (12.0-16.0) L Hematocrit 30.5 % (37.0-47.0) L Mean Corpuscular Volume 80 FL (80-99) Mean Corpuscular Hemoglobin 26.1 PG (27.0-31.0) L Mean Corpuscular Hemoglobin Concent 32.8 G/DL (32.0-36.0) Red Cell Distribution Width 14.1 % (11.6-14.8) Platelet Count 314 K/UL (150-450) Mean Platelet Volume 5.9 FL (6.5-10.1) L Neutrophils (%) (Auto) 57.9 % (45.0-75.0) Lymphocytes (%) (Auto) 27.6 % (20.0-45.0) Monocytes (%) (Auto) 9.2 % (1.0-10.0) Eosinophils (%) (Auto) 4.0 % (0.0-3.0) H Basophils (%) (Auto) 1.4 % (0.0-2.0) Sodium Level 136 MMOL/L (136-145) Potassium Level 3.7 MMOL/L (3.5-5.1) Chloride Level 104 MMOL/L (98-107) Carbon Dioxide Level 27 MMOL/L (21-32) Anion Gap 6 mmol/L (5-15) Blood Urea Nitrogen 9 mg/dL (7-18) Creatinine 1.1 MG/DL (0.55-1.30) Estimat Glomerular Filtration Rate 59.5 mL/min (>60) Glucose Level 157 MG/DL (74-106) H Calcium Level 8.8 MG/DL (8.5-10.1) Total Bilirubin 0.4 MG/DL (0.2-1.0) Aspartate Amino Transf (AST/SGOT) 18 U/L (15-37) Alanine Aminotransferase (ALT/SGPT) 23 U/L (12-78) Alkaline Phosphatase 94 U/L (46-116) Total Protein 6.7 G/DL (6.4-8.2) Albumin 3.3 G/DL (3.4-5.0) L Globulin 3.4 g/dL Albumin/Globulin Ratio 1.0 (1.0-2.7) Amylase Level 159 U/L (25-115) H Lipase > 2000 U/L (73-393) H Test 10/12/20 12:26 POC Whole Blood Glucose 154 MG/DL (74-106) H Microbiology Date/Time Source Procedure Growth Status 10/10/20 08:05 Nasopharynx SARS-CoV-2 RdRp Gene Assay - Final Complete Intake and Output 10/11/20 10/12/20 19:00 07:00 Intake Total 800 ml 700 ml Balance 800 ml 700 ml Intake Oral 400 ml 600 ml IV Total 400 ml 100 ml # Voids 4 4 Objective Objective General: No acute distress, awake and alert HEENT: NCAT, sclera anicteric, PERRL, EOMI. Neck: Supple, no significant jugular venous distention, Lungs: Good inspiratory effort, clear to auscultation bilaterally, no Wheeze or Rales. Heart: Regular rate and rhythm, normal S1/S2, no murmurs/gallops Abdomen: soft, Epigastric tender, nondistended. Normoactive bowel sounds, Obesity. / Rectal: Refused and deferred. Extremities: No Cyanosis , clubbing or edema. Neuro: A&O x 3, Able to move all extremities Skin: warm, no rashes or lesions Psych: Normal mood and affect Assessment/Plan Assessment/Plan Assessment/Plan Assessment/Plan 1. Pancreatic cyst, S/P ERCP. 2. DM T2 3. HTN 4. Obesity 5. Hyperthyroidism 6. Dyslipidemia. Plan: Pain control monitor BS F/U with Dr. Celestin recommendations IVF Monitor BP S/P ERCP and sphincterotomy 10/10/20 Pierce Sánchez MD Oct 12, 2020 16:51
[2020-10-13] VITALS (7 sets, daily range): BP systolic 143–169; BP diastolic 70–93
[2020-10-13] MEDS: D5NS 1,000 ML IV SCH (04:03)
[2020-10-13] MEDS: Hydromorphone 0.5mg/0.5ml inj IVP PRN ×6 (05:00→23:29)
[2020-10-13] MEDS: NovoLOG Insulin Flexpen SUBQ SCH ×4 (06:11→20:16)
[2020-10-13 07:57] LABS: BASOPHILS % (AUTO) 0.7 % (0.0-2.0); EOSINOPHILS % (AUTO) 4.8 % (0.0-3.0); HEMATOCRIT 32.4 % (37.0-47.0); HEMOGLOBIN 9.8 G/DL (12.0-16.0); LYMPHOCYTES % (AUTO) 31.2 % (20.0-45.0); MEAN CORPUSCULAR VOLUME 86 FL (80-99); MONOCYTES % (AUTO) 9.9 % (1.0-10.0); NEUTROPHILS % (AUTO) 53.4 % (45.0-75.0); PLATELET COUNT 287 K/UL (150-450); RED BLOOD COUNT 3.77 M/UL (4.20-5.40); RED CELL DISTRIBUTION WIDTH 14.2 % (11.6-14.8)
[2020-10-13 08:07] LABS: ALANINE AMINOTRANSFERASE 20 U/L (12-78); ALBUMIN 3.3 G/DL (3.4-5.0); ALBUMIN/GLOBULIN RATIO 0.9 (1.0-2.7); ALKALINE PHOSPHATASE 90 U/L (46-116); AMYLASE 106 U/L (25-115); ANION GAP 9 mmol/L (5-15); ASPARTATE AMINO TRANSFERASE 18 U/L (15-37); BILIRUBIN,TOTAL 0.3 MG/DL (0.2-1.0); BLOOD UREA NITROGEN 6 mg/dL (7-18); CALCIUM 8.4 MG/DL (8.5-10.1); CARBON DIOXIDE 25 MMOL/L (21-32); CHLORIDE 105 MMOL/L (98-107); POTASSIUM 3.6 MMOL/L (3.5-5.1); SODIUM 139 MMOL/L (136-145)
[2020-10-13] MEDS: methIMAzole 10mg tab ORAL SCH (08:56)
[2020-10-13] MEDS: HydrALAZINE 25mg tab ORAL SCH ×3 (08:56→17:58)
[2020-10-13] MEDS: Lisinopril 20mg tab ORAL SCH (08:56)
[2020-10-13] MEDS ORDERED: Creon DR 36,000 units cap ORAL PRN (09:30)
--- NOTE | 2020-10-13 09:30 | General Progress Note ---
Subjective ROS Limited/Unobtainable: Yes Allergies: Coded Allergies: CODEINE (Verified Allergy, Severe, Itching, 10/10/20) Objective Last 24 Hour Vital Signs Date Time Temp Pulse Resp B/P (MAP) Pulse Ox O2 Delivery O2 Flow Rate FiO2 10/13/20 08:56 156/77 10/13/20 08:56 156/77 10/13/20 08:00 98.0 62 16 156/77 (103) 98 10/13/20 05:00 97.5 64 18 158/79 (105) 97 10/13/20 00:00 98.0 75 18 169/93 (118) 97 10/12/20 21:00 Room Air 10/12/20 20:00 97.8 65 18 165/87 (113) 97 10/12/20 19:01 70 167/81 (109) 10/12/20 17:04 163/83 10/12/20 16:00 97.7 67 18 163/83 (109) 97 10/12/20 12:29 160/74 10/12/20 12:00 97.8 66 18 160/74 (102) 97 Intake and Output 10/12/20 10/13/20 19:00 07:00 Intake Total 2000 ml 1650 ml Balance 2000 ml 1650 ml Intake Oral 1200 ml 450 ml IV Total 800 ml 1200 ml # Voids 6 4 # Bowel Movements 2 Laboratory Tests 10/12/20 12:26: POC Whole Blood Glucose 154H 10/12/20 16:50: POC Whole Blood Glucose 131H 10/12/20 20:48: POC Whole Blood Glucose 163H 10/13/20 05:20: White Blood Count 6.0, Red Blood Count 3.77L, Hemoglobin 9.8L, Hematocrit 32.4L, Mean Corpuscular Volume 86, Mean Corpuscular Hemoglobin 26.1L, Mean Corpuscular Hemoglobin Concent 30.4L, Red Cell Distribution Width 14.2, Platelet Count 287, Mean Platelet Volume 5.8L, Neutrophils (%) (Auto) 53.4, Lymphocytes (%) (Auto) 31.2, Monocytes (%) (Auto) 9.9, Eosinophils (%) (Auto) 4.8H, Basophils (%) (Auto) 0.7, Sodium Level 139, Potassium Level 3.6, Chloride Level 105, Carbon Dioxide Level 25, Anion Gap 9, Blood Urea Nitrogen 6L, Creatinine 1.0, Estimat Glomerular Filtration Rate > 60, Glucose Level 155H, Calcium Level 8.4L, Total Bilirubin 0.3, Aspartate Amino Transf (AST/SGOT) 18, Alanine Aminotransferase (ALT/SGPT) 20, Alkaline Phosphatase 90, Total Protein 6.9, Albumin 3.3L, Globulin 3.6, Albumin/Globulin Ratio 0.9L, Amylase Level 106, Lipase 1643H 10/13/20 06:08: POC Whole Blood Glucose 184H Height (Feet): 5 Height (Inches): 3.00 Weight (Pounds): 177 General Appearance: no apparent distress EENT: normal ENT inspection Neck: supple Cardiovascular: normal rate Respiratory/Chest: decreased breath sounds Abdomen: normal bowel sounds, non tender, soft Extremities: non-tender Assessment/Plan Assessment/Plan: pancreatitis panc cyst s/p ERCP ivf>>will mariposa pain control low fat diet CT >> reviewed fu ca 19-9 repeat labs add juve monge planning will fu Nikolas Celestin MD Oct 13, 2020 09:30
[2020-10-13] MEDS: Creon DR 36,000 units cap ORAL SCH ×2 (12:21→16:52)
--- NOTE | 2020-10-13 19:36 | Internal Med Progress Note ---
Subjective Date of Service: Oct 13, 2020 Physician Name PrincessPierce Attending Physician Nikolas Celestin MD Current Medications Medications (Trade) Dose Ordered Sig/Angely Route PRN Reason Start Time Stop Time Status Last Admin Dose Admin Amylase/Lipase/ Protease (Herbert OLIVAS 36,000 units cap) 1 ea TIWM ORAL 10/13/20 12:00 01/11/21 11:59 10/13/20 16:52 Amylase/Lipase/ Protease (Herbert OLIVAS 36,000 units cap) 1 ea WITH SNACKS PRN ORAL with snacks 10/13/20 09:30 01/11/21 09:29 Dextrose (Dextrose 50%) 25 ml Q30M PRN IV Hypoglycemia 10/10/20 23:00 01/08/21 22:59 Dextrose (Dextrose 50%) 50 ml Q30M PRN IV Hypoglycemia 10/10/20 23:00 01/08/21 22:59 Gabapentin (Neurontin) 300 mg THREE TIMES A DAY ORAL 10/10/20 23:00 11/09/20 22:59 10/13/20 17:58 Hydralazine HCl (Apresoline) 50 mg TID ORAL 10/11/20 22:15 01/08/21 22:59 10/13/20 17:58 Hydromorphone HCl (Dilaudid) 0.5 mg EVERY 3 HOURS PRN IVP For Pain 10/10/20 22:45 10/17/20 22:44 10/13/20 16:45 Insulin Aspart (NovoLOG) BEFORE MEALS AND HS SUBQ 10/11/20 06:30 01/09/21 06:29 10/13/20 06:11 Lisinopril (PriniviL) 40 mg DAILY ORAL 10/11/20 09:00 11/10/20 08:59 10/13/20 08:56 Methimazole (Tapazole) 10 mg DAILY ORAL 10/10/20 23:00 11/10/20 08:59 10/13/20 08:56 Allergies: Coded Allergies: CODEINE (Verified Allergy, Severe, Itching, 10/10/20) ROS Limited/Unobtainable: No Constitutional: Reports: no symptoms HEENT: Reports: no symptoms Cardiovascular: Reports: no symptoms Respiratory: Reports: no symptoms Gastrointestinal/Abdominal: Reports: abdominal pain Genitourinary: Reports: no symptoms Neurologic/Psychiatric: Reports: no symptoms Subjective 70 YO F admitted with pancreatic cyst. S/P ERCP and sphincterotomy 10/10/20. Cover for Int [facility] - Dr Escobar Objective Last Vital Signs Date Time Temp Pulse Resp B/P (MAP) Pulse Ox O2 Delivery O2 Flow Rate FiO2 10/13/20 17:58 151/92 10/13/20 16:00 98.6 73 20 100 10/13/20 09:00 Room Air 10/10/20 12:20 3 Laboratory Tests Test 10/12/20 20:48 10/13/20 05:20 10/13/20 06:08 10/13/20 12:20 POC Whole Blood Glucose 163 MG/DL (74-106) H 184 MG/DL (74-106) H Pending White Blood Count 6.0 K/UL (4.8-10.8) Red Blood Count 3.77 M/UL (4.20-5.40) L Hemoglobin 9.8 G/DL (12.0-16.0) L Hematocrit 32.4 % (37.0-47.0) L Mean Corpuscular Volume 86 FL (80-99) Mean Corpuscular Hemoglobin 26.1 PG (27.0-31.0) L Mean Corpuscular Hemoglobin Concent 30.4 G/DL (32.0-36.0) L Red Cell Distribution Width 14.2 % (11.6-14.8) Platelet Count 287 K/UL (150-450) Mean Platelet Volume 5.8 FL (6.5-10.1) L Neutrophils (%) (Auto) 53.4 % (45.0-75.0) Lymphocytes (%) (Auto) 31.2 % (20.0-45.0) Monocytes (%) (Auto) 9.9 % (1.0-10.0) Eosinophils (%) (Auto) 4.8 % (0.0-3.0) H Basophils (%) (Auto) 0.7 % (0.0-2.0) Sodium Level 139 MMOL/L (136-145) Potassium Level 3.6 MMOL/L (3.5-5.1) Chloride Level 105 MMOL/L (98-107) Carbon Dioxide Level 25 MMOL/L (21-32) Anion Gap 9 mmol/L (5-15) Blood Urea Nitrogen 6 mg/dL (7-18) L Creatinine 1.0 MG/DL (0.55-1.30) Estimat Glomerular Filtration Rate > 60 mL/min (>60) Glucose Level 155 MG/DL (74-106) H Calcium Level 8.4 MG/DL (8.5-10.1) L Total Bilirubin 0.3 MG/DL (0.2-1.0) Aspartate Amino Transf (AST/SGOT) 18 U/L (15-37) Alanine Aminotransferase (ALT/SGPT) 20 U/L (12-78) Alkaline Phosphatase 90 U/L (46-116) Total Protein 6.9 G/DL (6.4-8.2) Albumin 3.3 G/DL (3.4-5.0) L Globulin 3.6 g/dL Albumin/Globulin Ratio 0.9 (1.0-2.7) L Amylase Level 106 U/L (25-115) Lipase 1643 U/L (73-393) H Test 10/13/20 16:43 POC Whole Blood Glucose Pending Intake and Output 10/12/20 10/13/20 19:00 07:00 Intake Total 2000 ml 1650 ml Balance 2000 ml 1650 ml Intake Oral 1200 ml 450 ml IV Total 800 ml 1200 ml # Voids 6 4 # Bowel Movements 2 Objective Objective General: No acute distress, awake and alert HEENT: NCAT, sclera anicteric, PERRL, EOMI. Neck: Supple, no significant jugular venous distention, Lungs: Good inspiratory effort, clear to auscultation bilaterally, no Wheeze or Rales. Heart: Regular rate and rhythm, normal S1/S2, no murmurs/gallops Abdomen: soft, Epigastric tender, nondistended. Normoactive bowel sounds, Obesity. / Rectal: Refused and deferred. Extremities: No Cyanosis , clubbing or edema. Neuro: A&O x 3, Able to move all extremities Skin: warm, no rashes or lesions Psych: Normal mood and affect Assessment/Plan Assessment/Plan Assessment/Plan Assessment/Plan 1. Pancreatic cyst, S/P ERCP. 2. DM T2 3. HTN 4. Obesity 5. Hyperthyroidism 6. Dyslipidemia. Plan: Pain control monitor BS F/U with Dr. Celestin recommendations IVF Monitor BP S/P ERCP and sphincterotomy 10/10/20 Tolerating low fat diet Continue Pierce Tanner MD Oct 13, 2020 19:36
[2020-10-14] MEDS: Hydromorphone 0.5mg/0.5ml inj IVP PRN ×6 (03:33→23:19)
[2020-10-14 04:00] VITALS: BP 152/80
[2020-10-14] MEDS: NovoLOG Insulin Flexpen SUBQ SCH ×4 (05:57→20:34)
[2020-10-14] MEDS: Creon DR 36,000 units cap ORAL SCH ×3 (06:29→17:06)
[2020-10-14 07:20] LABS: BASOPHILS % (AUTO) 1.3 % (0.0-2.0); EOSINOPHILS % (AUTO) 5.6 % (0.0-3.0); HEMATOCRIT 32.8 % (37.0-47.0); HEMOGLOBIN 9.9 G/DL (12.0-16.0); LYMPHOCYTES % (AUTO) 35.2 % (20.0-45.0); MEAN CORPUSCULAR VOLUME 87 FL (80-99); MONOCYTES % (AUTO) 9.6 % (1.0-10.0); NEUTROPHILS % (AUTO) 48.3 % (45.0-75.0); PLATELET COUNT 295 K/UL (150-450); RED BLOOD COUNT 3.75 M/UL (4.20-5.40); RED CELL DISTRIBUTION WIDTH 14.8 % (11.6-14.8); WHITE BLOOD COUNT 6.7 K/UL (4.8-10.8)
[2020-10-14 07:46] LABS: CALCIUM 9.2 MG/DL (8.5-10.1); CREATININE 1.1 MG/DL (0.55-1.30)
[2020-10-14 07:48] VITALS: BP 132/68
[2020-10-14] MEDS: methIMAzole 10mg tab ORAL SCH (08:17)
[2020-10-14] MEDS: HydrALAZINE 25mg tab ORAL SCH ×3 (08:18→17:06)
[2020-10-14] MEDS: Lisinopril 20mg tab ORAL SCH (08:18)
[2020-10-14 12:07] VITALS: BP 143/80
--- NOTE | 2020-10-14 15:20 | Internal Med Progress Note ---
Subjective Date of Service: Oct 14, 2020 Physician Name Pierce Sánchez Attending Physician Nikolas Celestin MD Current Medications Medications (Trade) Dose Ordered Sig/Angely Route PRN Reason Start Time Stop Time Status Last Admin Dose Admin Amylase/Lipase/ Protease (Herbert OLIVAS 36,000 units cap) 1 ea TIWM ORAL 10/13/20 12:00 01/11/21 11:59 10/14/20 12:19 Amylase/Lipase/ Protease (Herbert OLIVAS 36,000 units cap) 1 ea WITH SNACKS PRN ORAL with snacks 10/13/20 09:30 01/11/21 09:29 Dextrose (Dextrose 50%) 25 ml Q30M PRN IV Hypoglycemia 10/10/20 23:00 01/08/21 22:59 Dextrose (Dextrose 50%) 50 ml Q30M PRN IV Hypoglycemia 10/10/20 23:00 01/08/21 22:59 Gabapentin (Neurontin) 300 mg THREE TIMES A DAY ORAL 10/10/20 23:00 11/09/20 22:59 10/14/20 12:16 Hydralazine HCl (Apresoline) 50 mg TID ORAL 10/11/20 22:15 01/08/21 22:59 10/14/20 12:16 Hydromorphone HCl (Dilaudid) 0.5 mg EVERY 3 HOURS PRN IVP For Pain 10/10/20 22:45 10/17/20 22:44 10/14/20 12:25 Insulin Aspart (NovoLOG) BEFORE MEALS AND HS SUBQ 10/11/20 06:30 01/09/21 06:29 10/14/20 12:18 Lisinopril (PriniviL) 40 mg DAILY ORAL 10/11/20 09:00 11/10/20 08:59 10/14/20 08:18 Methimazole (Tapazole) 10 mg DAILY ORAL 10/10/20 23:00 11/10/20 08:59 10/14/20 08:17 Allergies: Coded Allergies: CODEINE (Verified Allergy, Severe, Itching, 10/10/20) ROS Limited/Unobtainable: No Constitutional: Reports: no symptoms HEENT: Reports: no symptoms Cardiovascular: Reports: no symptoms Respiratory: Reports: no symptoms Gastrointestinal/Abdominal: Reports: abdominal pain Genitourinary: Reports: no symptoms Neurologic/Psychiatric: Reports: no symptoms Subjective 70 YO F admitted with pancreatic cyst. S/P ERCP and sphincterotomy 10/10/20. Cover for [facility] - Dr Escobar Objective Last Vital Signs Date Time Temp Pulse Resp B/P (MAP) Pulse Ox O2 Delivery O2 Flow Rate FiO2 10/14/20 12:16 143/80 10/14/20 12:07 98.5 61 18 98 10/14/20 09:00 Room Air 10/10/20 12:20 3 Laboratory Tests Test 10/13/20 16:43 10/13/20 20:14 10/14/20 05:20 10/14/20 05:37 POC Whole Blood Glucose Pending 133 MG/DL (74-106) H 122 MG/DL (74-106) H White Blood Count 6.7 K/UL (4.8-10.8) Red Blood Count 3.75 M/UL (4.20-5.40) L Hemoglobin 9.9 G/DL (12.0-16.0) L Hematocrit 32.8 % (37.0-47.0) L Mean Corpuscular Volume 87 FL (80-99) Mean Corpuscular Hemoglobin 26.5 PG (27.0-31.0) L Mean Corpuscular Hemoglobin Concent 30.4 G/DL (32.0-36.0) L Red Cell Distribution Width 14.8 % (11.6-14.8) Platelet Count 295 K/UL (150-450) Mean Platelet Volume 5.7 FL (6.5-10.1) L Neutrophils (%) (Auto) 48.3 % (45.0-75.0) Lymphocytes (%) (Auto) 35.2 % (20.0-45.0) Monocytes (%) (Auto) 9.6 % (1.0-10.0) Eosinophils (%) (Auto) 5.6 % (0.0-3.0) H Basophils (%) (Auto) 1.3 % (0.0-2.0) Sodium Level 139 MMOL/L (136-145) Potassium Level 4.0 MMOL/L (3.5-5.1) Chloride Level 104 MMOL/L (98-107) Carbon Dioxide Level 29 MMOL/L (21-32) Anion Gap 6 mmol/L (5-15) Blood Urea Nitrogen 6 mg/dL (7-18) L Creatinine 1.1 MG/DL (0.55-1.30) Estimat Glomerular Filtration Rate 59.5 mL/min (>60) Glucose Level 111 MG/DL (74-106) H Calcium Level 9.2 MG/DL (8.5-10.1) Amylase Level 107 U/L (25-115) Lipase 1767 U/L (73-393) H Test 10/14/20 11:03 POC Whole Blood Glucose 142 MG/DL (74-106) H Intake and Output 10/13/20 10/14/20 19:00 07:00 Intake Total 700 ml 480 ml Balance 700 ml 480 ml Intake Oral 700 ml 480 ml # Voids 4 Objective Objective General: No acute distress, awake and alert HEENT: NCAT, sclera anicteric, PERRL, EOMI. Neck: Supple, no significant jugular venous distention, Lungs: Good inspiratory effort, clear to auscultation bilaterally, no Wheeze or Rales. Heart: Regular rate and rhythm, normal S1/S2, no murmurs/gallops Abdomen: soft, Epigastric tender, nondistended. Normoactive bowel sounds, Obesity. / Rectal: Refused and deferred. Extremities: No Cyanosis , clubbing or edema. Neuro: A&O x 3, Able to move all extremities Skin: warm, no rashes or lesions Psych: Normal mood and affect Assessment/Plan Assessment/Plan Assessment/Plan Assessment/Plan 1. Pancreatic cyst, S/P ERCP. 2. DM T2 3. HTN 4. Obesity 5. Hyperthyroidism 6. Dyslipidemia. Plan: Pain control monitor BS F/U with Dr. Celestin recommendations IVF Monitor BP S/P ERCP and sphincterotomy 10/10/20 Tolerating full liquid diet Continue Pierce Tanner MD Oct 14, 2020 15:20
[2020-10-14] MEDS ORDERED: D5NS 1000ml IV ONE (15:53)
[2020-10-14 15:57] VITALS: BP 142/74
[2020-10-14 20:28] VITALS: BP 160/82
--- NOTE | 2020-10-14 21:35 | General Progress Note ---
Subjective Allergies: Coded Allergies: CODEINE (Verified Allergy, Severe, Itching, 10/10/20) Objective Last 24 Hour Vital Signs Date Time Temp Pulse Resp B/P (MAP) Pulse Ox O2 Delivery O2 Flow Rate FiO2 10/14/20 21:00 Room Air 10/14/20 20:28 98.1 62 18 160/82 (108) 97 10/14/20 17:06 142/74 10/14/20 16:52 98.5 10/14/20 15:57 98.5 56 16 142/74 (96) 100 10/14/20 12:16 143/80 10/14/20 12:07 98.5 61 18 143/80 (101) 98 10/14/20 09:00 Room Air 10/14/20 08:51 98.5 10/14/20 08:18 132/68 10/14/20 08:18 132/68 10/14/20 07:48 98.5 62 16 132/68 (89) 96 10/14/20 04:00 98.0 61 20 152/80 (104) 98 10/13/20 23:57 97.5 66 20 154/77 (102) 98 Intake and Output 10/13/20 10/14/20 19:00 07:00 Intake Total 700 ml 480 ml Balance 700 ml 480 ml Intake Oral 700 ml 480 ml # Voids 4 Laboratory Tests 10/14/20 05:20: White Blood Count 6.7, Red Blood Count 3.75L, Hemoglobin 9.9L, Hematocrit 32.8L, Mean Corpuscular Volume 87, Mean Corpuscular Hemoglobin 26.5L, Mean Corpuscular Hemoglobin Concent 30.4L, Red Cell Distribution Width 14.8, Platelet Count 295, Mean Platelet Volume 5.7L, Neutrophils (%) (Auto) 48.3, Lymphocytes (%) (Auto) 35.2, Monocytes (%) (Auto) 9.6, Eosinophils (%) (Auto) 5.6H, Basophils (%) (Auto) 1.3, Sodium Level 139, Potassium Level 4.0, Chloride Level 104, Carbon Dioxide Level 29, Anion Gap 6, Blood Urea Nitrogen 6L, Creatinine 1.1, Estimat Glomerular Filtration Rate 59.5, Glucose Level 111H, Calcium Level 9.2, Amylase Level 107, Lipase 1767H 10/14/20 05:37: POC Whole Blood Glucose 122H 10/14/20 11:03: POC Whole Blood Glucose 142H 10/14/20 16:44: POC Whole Blood Glucose 121H 10/14/20 20:31: POC Whole Blood Glucose 167H Height (Feet): 5 Height (Inches): 3.00 Weight (Pounds): 177 Assessment/Plan Assessment/Plan: Assessment - chronic calcific pancreatitis - pancreas cyst - s/p ERCP - pancreatitis - diverticulosis Recommendations - po as tolerated - supportive care - pain control - IVF - follow labs - follow symptoms Nirmal Pardo MD Oct 14, 2020 21:35
[2020-10-14 23:23] VITALS: BP 143/73
[2020-10-15] MEDS: Hydromorphone 0.5mg/0.5ml inj IVP PRN ×6 (03:41→23:30)
[2020-10-15 03:47] VITALS: BP 153/72
[2020-10-15 05:55] LABS: BASOPHILS % (AUTO) 1.6 % (0.0-2.0); EOSINOPHILS % (AUTO) 6.3 % (0.0-3.0); HEMATOCRIT 34.4 % (37.0-47.0); HEMOGLOBIN 10.9 G/DL (12.0-16.0); LYMPHOCYTES % (AUTO) 35.7 % (20.0-45.0); MEAN CORPUSCULAR VOLUME 82 FL (80-99); MONOCYTES % (AUTO) 9.7 % (1.0-10.0); NEUTROPHILS % (AUTO) 46.7 % (45.0-75.0); PLATELET COUNT 306 K/UL (150-450); RED BLOOD COUNT 4.18 M/UL (4.20-5.40); RED CELL DISTRIBUTION WIDTH 14.7 % (11.6-14.8); WHITE BLOOD COUNT 5.5 K/UL (4.8-10.8)
[2020-10-15 06:15] LABS: CREATININE 1.1 MG/DL (0.55-1.30); POTASSIUM 3.6 MMOL/L (3.5-5.1)
[2020-10-15 06:21] LABS: CALCIUM 9.4 MG/DL (8.5-10.1)
[2020-10-15] MEDS: NovoLOG Insulin Flexpen SUBQ SCH ×4 (06:24→20:32)
[2020-10-15] MEDS: Creon DR 36,000 units cap ORAL SCH ×3 (06:25→17:09)
[2020-10-15 08:00] VITALS: BP 135/80
[2020-10-15] MEDS ORDERED: D5NS 1000ml IV ONE ×2 (09:30→09:31)
[2020-10-15] MEDS: methIMAzole 10mg tab ORAL SCH (09:44)
[2020-10-15] MEDS: Lisinopril 20mg tab ORAL SCH (09:44)
[2020-10-15] MEDS: HydrALAZINE 25mg tab ORAL SCH ×3 (09:45→17:09)
[2020-10-15 12:00] VITALS: BP 157/69
--- NOTE | 2020-10-15 14:43 | Internal Med Progress Note ---
Subjective Date of Service: Oct 15, 2020 Physician Name Pierce Sánchez Attending Physician Nikolas Celestin MD Current Medications Medications (Trade) Dose Ordered Sig/Angely Route PRN Reason Start Time Stop Time Status Last Admin Dose Admin Amylase/Lipase/ Protease (Herbert OLIVAS 36,000 units cap) 1 ea TIWM ORAL 10/13/20 12:00 01/11/21 11:59 10/15/20 12:40 Amylase/Lipase/ Protease (Herbert OLIVAS 36,000 units cap) 1 ea WITH SNACKS PRN ORAL with snacks 10/13/20 09:30 01/11/21 09:29 Dextrose (Dextrose 50%) 25 ml Q30M PRN IV Hypoglycemia 10/10/20 23:00 01/08/21 22:59 Dextrose (Dextrose 50%) 50 ml Q30M PRN IV Hypoglycemia 10/10/20 23:00 01/08/21 22:59 Gabapentin (Neurontin) 300 mg THREE TIMES A DAY ORAL 10/10/20 23:00 11/09/20 22:59 10/15/20 12:41 Hydralazine HCl (Apresoline) 50 mg TID ORAL 10/11/20 22:15 01/08/21 22:59 10/15/20 12:41 Hydromorphone HCl (Dilaudid) 0.5 mg EVERY 3 HOURS PRN IVP For Pain 10/10/20 22:45 10/17/20 22:44 10/15/20 10:54 Insulin Aspart (NovoLOG) BEFORE MEALS AND HS SUBQ 10/11/20 06:30 01/09/21 06:29 10/15/20 12:40 Lisinopril (PriniviL) 40 mg DAILY ORAL 10/11/20 09:00 11/10/20 08:59 10/15/20 09:44 Methimazole (Tapazole) 10 mg DAILY ORAL 10/10/20 23:00 11/10/20 08:59 10/15/20 09:44 Allergies: Coded Allergies: CODEINE (Verified Allergy, Severe, Itching, 10/10/20) ROS Limited/Unobtainable: No Constitutional: Reports: no symptoms HEENT: Reports: no symptoms Cardiovascular: Reports: no symptoms Respiratory: Reports: no symptoms Gastrointestinal/Abdominal: Reports: abdominal pain Genitourinary: Reports: no symptoms Neurologic/Psychiatric: Reports: no symptoms Subjective 70 YO F admitted with pancreatic cyst. S/P ERCP and sphincterotomy 10/10/20. Cover for [facility] - Dr Escobar Objective Last Vital Signs Date Time Temp Pulse Resp B/P (MAP) Pulse Ox O2 Delivery O2 Flow Rate FiO2 10/15/20 12:41 157/69 10/15/20 12:00 98.1 58 18 96 10/15/20 09:00 Room Air 10/10/20 12:20 3 Laboratory Tests Test 10/14/20 16:44 10/14/20 20:31 10/15/20 05:05 10/15/20 06:24 POC Whole Blood Glucose 121 MG/DL (74-106) H 167 MG/DL (74-106) H 136 MG/DL (74-106) H White Blood Count 5.5 K/UL (4.8-10.8) Red Blood Count 4.18 M/UL (4.20-5.40) L Hemoglobin 10.9 G/DL (12.0-16.0) L Hematocrit 34.4 % (37.0-47.0) L Mean Corpuscular Volume 82 FL (80-99) Mean Corpuscular Hemoglobin 26.1 PG (27.0-31.0) L Mean Corpuscular Hemoglobin Concent 31.8 G/DL (32.0-36.0) L Red Cell Distribution Width 14.7 % (11.6-14.8) Platelet Count 306 K/UL (150-450) Mean Platelet Volume 5.8 FL (6.5-10.1) L Neutrophils (%) (Auto) 46.7 % (45.0-75.0) Lymphocytes (%) (Auto) 35.7 % (20.0-45.0) Monocytes (%) (Auto) 9.7 % (1.0-10.0) Eosinophils (%) (Auto) 6.3 % (0.0-3.0) H Basophils (%) (Auto) 1.6 % (0.0-2.0) Sodium Level 138 MMOL/L (136-145) Potassium Level 3.6 MMOL/L (3.5-5.1) Chloride Level 103 MMOL/L (98-107) Carbon Dioxide Level 29 MMOL/L (21-32) Anion Gap 6 mmol/L (5-15) Blood Urea Nitrogen 8 mg/dL (7-18) Creatinine 1.1 MG/DL (0.55-1.30) Estimat Glomerular Filtration Rate 59.5 mL/min (>60) Glucose Level 121 MG/DL (74-106) H Calcium Level 9.4 MG/DL (8.5-10.1) Test 10/15/20 12:29 POC Whole Blood Glucose 192 MG/DL (74-106) H Intake and Output 10/14/20 10/15/20 19:00 07:00 Intake Total 480 ml 600 ml Balance 480 ml 600 ml Intake Oral 480 ml 600 ml # Voids 2 3 Objective Objective General: No acute distress, awake and alert HEENT: NCAT, sclera anicteric, PERRL, EOMI. Neck: Supple, no significant jugular venous distention, Lungs: Good inspiratory effort, clear to auscultation bilaterally, no Wheeze or Rales. Heart: Regular rate and rhythm, normal S1/S2, no murmurs/gallops Abdomen: soft, Epigastric tender, nondistended. Normoactive bowel sounds, Obesity. / Rectal: Refused and deferred. Extremities: No Cyanosis , clubbing or edema. Neuro: A&O x 3, Able to move all extremities Skin: warm, no rashes or lesions Psych: Normal mood and affect Assessment/Plan Assessment/Plan Assessment/Plan Assessment/Plan 1. Pancreatic cyst, S/P ERCP. 2. DM T2 3. HTN 4. Obesity 5. Hyperthyroidism 6. Dyslipidemia. Plan: Pain control monitor BS F/U with Dr. Celestin recommendations IVF Monitor BP S/P ERCP and sphincterotomy 10/10/20 Tolerating full liquid diet Continue Pierce Tanner MD Oct 15, 2020 14:43
[2020-10-15] MEDS ORDERED: CREON DR 36,001 EACH ORAL (14:47)
[2020-10-15 16:00] VITALS: BP 149/75
[2020-10-15 16:18] LABS: AMYLASE 102 U/L (25-115)
--- NOTE | 2020-10-15 19:36 | General Progress Note ---
Subjective Allergies: Coded Allergies: CODEINE (Verified Allergy, Severe, Itching, 10/10/20) Subjective above noted feels better less pain tolerating liquids Objective Last 24 Hour Vital Signs Date Time Temp Pulse Resp B/P (MAP) Pulse Ox O2 Delivery O2 Flow Rate FiO2 10/15/20 17:09 149/75 10/15/20 16:00 98.9 59 18 149/75 (99) 100 10/15/20 12:41 157/69 10/15/20 12:00 98.1 58 18 157/69 (98) 96 10/15/20 09:45 135/80 10/15/20 09:44 135/80 10/15/20 09:00 Room Air 10/15/20 08:00 98.2 58 16 135/80 (98) 96 10/15/20 03:47 97.3 55 16 153/72 (99) 97 10/14/20 23:23 98.1 57 18 143/73 (96) 98 10/14/20 21:00 Room Air 10/14/20 20:28 98.1 62 18 160/82 (108) 97 Intake and Output 10/14/20 10/15/20 19:00 07:00 Intake Total 480 ml 600 ml Balance 480 ml 600 ml Intake Oral 480 ml 600 ml # Voids 2 3 Laboratory Tests 10/14/20 20:31: POC Whole Blood Glucose 167H 10/15/20 05:05: White Blood Count 5.5, Red Blood Count 4.18L, Hemoglobin 10.9L, Hematocrit 34.4L , Mean Corpuscular Volume 82, Mean Corpuscular Hemoglobin 26.1L, Mean Corpuscular Hemoglobin Concent 31.8L, Red Cell Distribution Width 14.7, Platelet Count 306, Mean Platelet Volume 5.8L, Neutrophils (%) (Auto) 46.7, Lymphocytes (%) (Auto) 35.7, Monocytes (%) (Auto) 9.7, Eosinophils (%) (Auto) 6.3H, Basophils (%) (Auto) 1.6, Sodium Level 138, Potassium Level 3.6, Chloride Level 103, Carbon Dioxide Level 29, Anion Gap 6, Blood Urea Nitrogen 8, Creatinine 1.1, Estimat Glomerular Filtration Rate 59.5, Glucose Level 121H, Calcium Level 9.4, Amylase Level 102, Lipase 1617H 10/15/20 06:24: POC Whole Blood Glucose 136H 10/15/20 12:29: POC Whole Blood Glucose 192H 10/15/20 17:03: POC Whole Blood Glucose 121H Height (Feet): 5 Height (Inches): 3.00 Weight (Pounds): 177 Objective WDWN NCAT supple CTA RR abd soft ND, ? minimal central TTP no edema Assessment/Plan Assessment/Plan: Assessment - chronic calcific pancreatitis - pancreas cyst - s/p ERCP - pancreatitis - diverticulosis Recommendations - advance to low fat diet - supportive care - pain control - IVF - follow labs - follow symptoms - d/c planning for tomorrow. D/C with CREON 36,000 units, 2 PO TID with meals and 1 po TID prn with snacks Nirmal Pardo MD Oct 15, 2020 19:36
[2020-10-15 20:00] VITALS: BP 137/71
[2020-10-16] MEDS: Hydromorphone 0.5mg/0.5ml inj IVP PRN ×6 (03:32→20:40)
[2020-10-16 03:42] VITALS: BP 142/77
[2020-10-16 05:37] LABS: BASOPHILS % (AUTO) 1.6 % (0.0-2.0); EOSINOPHILS % (AUTO) 6.6 % (0.0-3.0); HEMATOCRIT 33.9 % (37.0-47.0); LYMPHOCYTES % (AUTO) 31.3 % (20.0-45.0); MEAN CORPUSCULAR VOLUME 82 FL (80-99); MONOCYTES % (AUTO) 9.3 % (1.0-10.0); NEUTROPHILS % (AUTO) 51.3 % (45.0-75.0); PLATELET COUNT 298 K/UL (150-450); RED BLOOD COUNT 4.15 M/UL (4.20-5.40); WHITE BLOOD COUNT 5.7 K/UL (4.8-10.8)
[2020-10-16 06:01] LABS: CALCIUM 9.5 MG/DL (8.5-10.1); CREATININE 1.1 MG/DL (0.55-1.30); POTASSIUM 3.6 MMOL/L (3.5-5.1)
[2020-10-16] MEDS: NovoLOG Insulin Flexpen SUBQ SCH ×4 (06:08→20:49)
[2020-10-16] MEDS: Creon DR 36,000 units cap ORAL SCH ×3 (07:04→16:49)
[2020-10-16 08:00] VITALS: BP 114/59
[2020-10-16] MEDS: HydrALAZINE 25mg tab ORAL SCH ×3 (09:00→17:27)
[2020-10-16] MEDS: Lisinopril 20mg tab ORAL SCH (09:36)
[2020-10-16] MEDS: methIMAzole 10mg tab ORAL SCH (09:36)
[2020-10-16 12:00] VITALS: BP 128/69
--- NOTE | 2020-10-16 15:29 | Internal Med Progress Note ---
Subjective Date of Service: Oct 16, 2020 Physician Name Pierce Sánchez Attending Physician Nikolas Celestin MD Current Medications Medications (Trade) Dose Ordered Sig/Angely Route PRN Reason Start Time Stop Time Status Last Admin Dose Admin Amylase/Lipase/ Protease (Herbert OLIVAS 36,000 units cap) 1 ea TIWM ORAL 10/13/20 12:00 01/11/21 11:59 10/16/20 12:07 Amylase/Lipase/ Protease (Herbert OLIVAS 36,000 units cap) 1 ea WITH SNACKS PRN ORAL with snacks 10/13/20 09:30 01/11/21 09:29 Dextrose (Dextrose 50%) 25 ml Q30M PRN IV Hypoglycemia 10/10/20 23:00 01/08/21 22:59 Dextrose (Dextrose 50%) 50 ml Q30M PRN IV Hypoglycemia 10/10/20 23:00 01/08/21 22:59 Gabapentin (Neurontin) 300 mg THREE TIMES A DAY ORAL 10/10/20 23:00 11/09/20 22:59 10/16/20 12:07 Hydralazine HCl (Apresoline) 50 mg TID ORAL 10/11/20 22:15 01/08/21 22:59 10/16/20 12:07 Hydromorphone HCl (Dilaudid) 0.5 mg EVERY 3 HOURS PRN IVP For Pain 10/10/20 22:45 10/17/20 22:44 10/16/20 13:11 Insulin Aspart (NovoLOG) BEFORE MEALS AND HS SUBQ 10/11/20 06:30 01/09/21 06:29 10/16/20 12:11 Lisinopril (PriniviL) 40 mg DAILY ORAL 10/11/20 09:00 11/10/20 08:59 10/16/20 09:36 Methimazole (Tapazole) 10 mg DAILY ORAL 10/10/20 23:00 11/10/20 08:59 10/16/20 09:36 Allergies: Coded Allergies: CODEINE (Verified Allergy, Severe, Itching, 10/10/20) ROS Limited/Unobtainable: No Constitutional: Reports: no symptoms HEENT: Reports: no symptoms Cardiovascular: Reports: no symptoms Respiratory: Reports: no symptoms Gastrointestinal/Abdominal: Reports: abdominal pain Genitourinary: Reports: no symptoms Neurologic/Psychiatric: Reports: no symptoms Subjective 70 YO F admitted with pancreatic cyst. S/P ERCP and sphincterotomy 10/10/20. Cover for [facility] - Dr Escobar Objective Last Vital Signs Date Time Temp Pulse Resp B/P (MAP) Pulse Ox O2 Delivery O2 Flow Rate FiO2 10/16/20 12:07 128/69 10/16/20 12:00 98.4 60 16 98 10/16/20 08:29 Room Air 10/10/20 12:20 3 Laboratory Tests Test 10/15/20 17:03 10/15/20 20:30 10/16/20 05:15 10/16/20 05:59 POC Whole Blood Glucose 121 MG/DL (74-106) H Pending 119 MG/DL (74-106) H White Blood Count 5.7 K/UL (4.8-10.8) Red Blood Count 4.15 M/UL (4.20-5.40) L Hemoglobin 11.0 G/DL (12.0-16.0) L Hematocrit 33.9 % (37.0-47.0) L Mean Corpuscular Volume 82 FL (80-99) Mean Corpuscular Hemoglobin 26.4 PG (27.0-31.0) L Mean Corpuscular Hemoglobin Concent 32.4 G/DL (32.0-36.0) Red Cell Distribution Width 15.0 % (11.6-14.8) H Platelet Count 298 K/UL (150-450) Mean Platelet Volume 6.3 FL (6.5-10.1) L Neutrophils (%) (Auto) 51.3 % (45.0-75.0) Lymphocytes (%) (Auto) 31.3 % (20.0-45.0) Monocytes (%) (Auto) 9.3 % (1.0-10.0) Eosinophils (%) (Auto) 6.6 % (0.0-3.0) H Basophils (%) (Auto) 1.6 % (0.0-2.0) Sodium Level 137 MMOL/L (136-145) Potassium Level 3.6 MMOL/L (3.5-5.1) Chloride Level 103 MMOL/L (98-107) Carbon Dioxide Level 29 MMOL/L (21-32) Anion Gap 5 mmol/L (5-15) Blood Urea Nitrogen 10 mg/dL (7-18) Creatinine 1.1 MG/DL (0.55-1.30) Estimat Glomerular Filtration Rate 59.5 mL/min (>60) Glucose Level 138 MG/DL (74-106) H Calcium Level 9.5 MG/DL (8.5-10.1) Lipase 1923 U/L (73-393) H Test 10/16/20 12:01 POC Whole Blood Glucose 158 MG/DL (74-106) H Intake and Output 10/15/20 10/16/20 19:00 07:00 Intake Total 800 ml 480 ml Balance 800 ml 480 ml Intake Oral 800 ml 480 ml # Voids 6 2 Objective Objective General: No acute distress, awake and alert HEENT: NCAT, sclera anicteric, PERRL, EOMI. Neck: Supple, no significant jugular venous distention, Lungs: Good inspiratory effort, clear to auscultation bilaterally, no Wheeze or Rales. Heart: Regular rate and rhythm, normal S1/S2, no murmurs/gallops Abdomen: soft, Epigastric tender, nondistended. Normoactive bowel sounds, Obesity. / Rectal: Refused and deferred. Extremities: No Cyanosis , clubbing or edema. Neuro: A&O x 3, Able to move all extremities Skin: warm, no rashes or lesions Psych: Normal mood and affect Assessment/Plan Assessment/Plan Assessment/Plan Assessment/Plan 1. Pancreatic cyst, S/P ERCP. 2. DM T2 3. HTN 4. Obesity 5. Hyperthyroidism 6. Dyslipidemia. Plan: Pain control monitor BS F/U with Dr. Celestin recommendations IVF Monitor BP S/P ERCP and sphincterotomy 10/10/20 Tolerating full liquid diet Continue Pierce Tanner MD Oct 16, 2020 15:29
[2020-10-16 16:00] VITALS: BP 142/70
--- NOTE | 2020-10-16 19:42 | General Progress Note ---
Subjective Allergies: Coded Allergies: CODEINE (Verified Allergy, Severe, Itching, 10/10/20) Subjective above noted feels better less pain tolerating po Objective Last 24 Hour Vital Signs Date Time Temp Pulse Resp B/P (MAP) Pulse Ox O2 Delivery O2 Flow Rate FiO2 10/16/20 17:27 142/70 10/16/20 16:00 98.8 62 16 142/70 (94) 98 10/16/20 12:07 128/69 10/16/20 12:00 98.4 60 16 128/69 (88) 98 10/16/20 09:36 114/59 10/16/20 09:00 114/59 10/16/20 08:29 Room Air 10/16/20 08:00 98.5 64 16 114/59 (77) 95 10/16/20 03:42 98.1 61 16 142/77 (98) 97 10/15/20 21:00 Room Air 10/15/20 20:00 98.0 60 17 137/71 (93) 95 Intake and Output 10/15/20 10/16/20 19:00 07:00 Intake Total 800 ml 480 ml Balance 800 ml 480 ml Intake Oral 800 ml 480 ml # Voids 6 2 Laboratory Tests 10/15/20 20:30: POC Whole Blood Glucose [Pending] 10/16/20 05:15: White Blood Count 5.7, Red Blood Count 4.15L, Hemoglobin 11.0L, Hematocrit 33.9L , Mean Corpuscular Volume 82, Mean Corpuscular Hemoglobin 26.4L, Mean Corpuscular Hemoglobin Concent 32.4, Red Cell Distribution Width 15.0H, Platelet Count 298, Mean Platelet Volume 6.3L, Neutrophils (%) (Auto) 51.3, Lymphocytes (%) (Auto) 31.3, Monocytes (%) (Auto) 9.3, Eosinophils (%) (Auto) 6.6H, Basophils (%) (Auto) 1.6, Sodium Level 137, Potassium Level 3.6, Chloride Level 103, Carbon Dioxide Level 29, Anion Gap 5, Blood Urea Nitrogen 10, Creatinine 1.1, Estimat Glomerular Filtration Rate 59.5, Glucose Level 138H, Calcium Level 9.5, Lipase 1923H 10/16/20 05:59: POC Whole Blood Glucose 119H 10/16/20 12:01: POC Whole Blood Glucose 158H 10/16/20 16:42: POC Whole Blood Glucose 137H Height (Feet): 5 Height (Inches): 3.00 Weight (Pounds): 177 Objective WDWN NCAT supple CTA RR abd soft ND, ? minimal central TTP no edema Assessment/Plan Assessment/Plan: Assessment - chronic calcific pancreatitis - pancreas cyst - s/p ERCP - pancreatitis - diverticulosis Recommendations - low fat diet diet - supportive care - pain control - IVF - follow labs - follow symptoms - D/C planning with CREON 36,000 units, 2 PO TID with meals and 1 po TID prn with snacks Nirmal Pardo MD Oct 16, 2020 19:42
[2020-10-16 20:00] VITALS: BP 153/66
[2020-10-17] MEDS: Hydromorphone 0.5mg/0.5ml inj IVP PRN ×4 (03:38→14:43)
[2020-10-17 04:00] VITALS: BP 143/64
[2020-10-17] MEDS: NovoLOG Insulin Flexpen SUBQ SCH ×2 (05:47→11:26)
[2020-10-17 06:36] LABS: BASOPHILS % (AUTO) 1.6 % (0.0-2.0); EOSINOPHILS % (AUTO) 7.4 % (0.0-3.0); HEMATOCRIT 34.4 % (37.0-47.0); LYMPHOCYTES % (AUTO) 37.6 % (20.0-45.0); MEAN CORPUSCULAR VOLUME 82 FL (80-99); MONOCYTES % (AUTO) 9.6 % (1.0-10.0); NEUTROPHILS % (AUTO) 43.8 % (45.0-75.0); PLATELET COUNT 302 K/UL (150-450); RED BLOOD COUNT 4.19 M/UL (4.20-5.40); RED CELL DISTRIBUTION WIDTH 14.6 % (11.6-14.8); WHITE BLOOD COUNT 5.1 K/UL (4.8-10.8)
[2020-10-17] MEDS: Creon DR 36,000 units cap ORAL SCH ×2 (06:58→11:23)
[2020-10-17 07:21] LABS: ALANINE AMINOTRANSFERASE 21 U/L (12-78); ALBUMIN 3.4 G/DL (3.4-5.0); ALBUMIN/GLOBULIN RATIO 0.9 (1.0-2.7); ALKALINE PHOSPHATASE 96 U/L (46-116); ANION GAP 6 mmol/L (5-15); ASPARTATE AMINO TRANSFERASE 18 U/L (15-37); BILIRUBIN,TOTAL 0.3 MG/DL (0.2-1.0); BLOOD UREA NITROGEN 15 mg/dL (7-18); CALCIUM 9.6 MG/DL (8.5-10.1); CARBON DIOXIDE 28 MMOL/L (21-32); CHLORIDE 103 MMOL/L (98-107); CREATININE 1.2 MG/DL (0.55-1.30); POTASSIUM 3.8 MMOL/L (3.5-5.1); SODIUM 137 MMOL/L (136-145)
[2020-10-17 08:00] VITALS: BP 109/63
[2020-10-17] MEDS: Lisinopril 20mg tab ORAL SCH (09:15)
[2020-10-17] MEDS: methIMAzole 10mg tab ORAL SCH (09:16)
[2020-10-17] MEDS: HydrALAZINE 25mg tab ORAL SCH ×2 (09:16→13:42)
--- NOTE | 2020-10-17 11:39 | General Progress Note ---
Subjective ROS Limited/Unobtainable: Yes Allergies: Coded Allergies: CODEINE (Verified Allergy, Severe, Itching, 10/10/20) Objective Last 24 Hour Vital Signs Date Time Temp Pulse Resp B/P (MAP) Pulse Ox O2 Delivery O2 Flow Rate FiO2 10/17/20 09:16 109/63 10/17/20 09:15 109/63 10/17/20 04:00 98.6 63 17 143/64 (90) 93 10/16/20 21:00 Room Air 10/16/20 20:00 99.0 62 17 153/66 (95) 95 10/16/20 17:27 142/70 10/16/20 16:00 98.8 62 16 142/70 (94) 98 10/16/20 12:07 128/69 10/16/20 12:00 98.4 60 16 128/69 (88) 98 Intake and Output 10/16/20 10/17/20 19:00 07:00 Intake Total 1500 ml 500 ml Balance 1500 ml 500 ml Intake Oral 1500 ml 500 ml # Voids 4 2 Laboratory Tests 10/16/20 12:01: POC Whole Blood Glucose 158H 10/16/20 16:42: POC Whole Blood Glucose 137H 10/16/20 20:44: POC Whole Blood Glucose 150H 10/17/20 05:10: White Blood Count 5.1, Red Blood Count 4.19L, Hemoglobin 11.0L, Hematocrit 34.4L , Mean Corpuscular Volume 82, Mean Corpuscular Hemoglobin 26.1L, Mean Corpuscular Hemoglobin Concent 31.8L, Red Cell Distribution Width 14.6, Platelet Count 302, Mean Platelet Volume 6.0L, Neutrophils (%) (Auto) 43.8L, Lymphocytes (%) (Auto) 37.6, Monocytes (%) (Auto) 9.6, Eosinophils (%) (Auto) 7.4H, Basophils (%) (Auto) 1.6, Sodium Level 137, Potassium Level 3.8, Chloride Level 103, Carbon Dioxide Level 28, Anion Gap 6, Blood Urea Nitrogen 15, Creatinine 1.2, Estimat Glomerular Filtration Rate 53.8, Glucose Level 137H, Calcium Level 9.6, Total Bilirubin 0.3, Aspartate Amino Transf (AST/SGOT) 18, Alanine Aminotransferase (ALT/SGPT) 21, Alkaline Phosphatase 96, Total Protein 7.2, Albumin 3.4, Globulin 3.8, Albumin/Globulin Ratio 0.9L, Lipase > 2000H 10/17/20 05:45: POC Whole Blood Glucose 182H 10/17/20 11:02: POC Whole Blood Glucose [Pending] Height (Feet): 5 Height (Inches): 3.00 Weight (Pounds): 177 General Appearance: no apparent distress EENT: PERRL/EOMI Neck: supple Cardiovascular: normal rate Respiratory/Chest: decreased breath sounds Abdomen: normal bowel sounds, non tender, soft Extremities: non-tender Assessment/Plan Assessment/Plan: pancreatitis panc cyst s/p ERCP pain control low fat diet CT >> reviewed fu ca 19-9 repeat labs juve monge planning will fu Nikolas Celestin MD Oct 17, 2020 11:39
[2020-10-17 12:00] VITALS: BP 112/63
[2020-10-17 13:42] VITALS: BP 112/63
--- NOTE | 2020-10-20 13:14 | Discharge Summary ---
Discharge Summary Discharge Summary _ DATE OF ADMISSION: 10/10/2020 DATE OF DISCHARGE: 10/17/2020 DISCHARGED BY:Dr Escobar REASON FOR ADMISSION: 70 years old female with past medical history of hypertension, hypercholesterolemia, hypothyroidism, diabetes mellitus, admitted for pancreatic cyst. CONSULTANTS: GI specialist Dr. Celestin [facility] COURSE: Patient admitted to medical surgical floor. Lipase was over 2000. Patient required ERCP Patient started on the IV hydration Pain management was addressed Patient undergone endoscopy , since she complained of black tarry stools. 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 Patient also undergone ERCP and sphincterectomy and balloon occlusion cholang iogram. Postprocedure patient started on clear liquid diet , advanced as tolerated. CT scan of abdomen and pelvis revealed chronic calcifying pancreatitis with calcification of the pancreatic head and uncinate and marked ectasia of the pancreatic duct. 2.5 x 1.6 x 5.7 cm cystic lesion posterior to the pancreatic head and uncinate process. Most likely representing a pseudocyst. Cystic neoplasm was possibility. Colonic diverticulosis without evidence of diverticulitis. Pain was controlled . Patient was advanced to low-fat diet and was able to tolerate it. Patient started on Creon. CA 19-9 pending at the time of this dictation. Home medication continued . Lipid panel was stable. Blood pressure and blood sugar were stable with current regimen. Tapazole provided. Patient clinically stabilized and was ready for discharge . FINAL DIAGNOSES: Chronic calcific pancreatitis Pancreatic cyst Status post ERCP and sphincterotomy Status post balloon occlusion cholangiogram Status post EGD Diverticulosis Hypertension Diabetes mellitus type 2 Dyslipidemia Hyperthyroidism Obesity DISCHARGE MEDICATIONS: See Medication Reconciliation list. DISCHARGE INSTRUCTIONS: Patient was discharged home. Follow-up with a primary care provider in 1 week. I have been assigned to dictate discharge summary for this account. I was not involved in the patient's management. Kaur Gagnon NP Oct 20, 2020 13:14
== END 2020-10-17 15:07 | disposition home or self-care (01) | DRG 282 ==
LOC: GAS 07:49 → 3E 14:38
PROC: 0F798ZZ Dilation of Common Bile Duct, Via Natural or Artificial Opening Endoscopic (ICD-10-PCS; principal; 2020-10-10 11:19)
PROC: BF101ZZ Fluoroscopy of Bile Ducts using Low Osmolar Contrast (ICD-10-PCS; 2020-10-10 11:19)
DX: K86.2 Cyst of pancreas (principal); K83.1 Obstruction of bile duct; E66.9 Obesity, unspecified; K85.90 Acute pancreatitis without necrosis or infection, unspecified; Z68.31 Body mass index [BMI] 31.0-31.9, adult; I10 Essential (primary) hypertension; K86.1 Other chronic pancreatitis; E05.90 Thyrotoxicosis, unspecified without thyrotoxic crisis or storm; K44.9 Diaphragmatic hernia without obstruction or gangrene; K29.70 Gastritis, unspecified, without bleeding; Z88.6 Allergy status to analgesic agent; Z90.49 Acquired absence of other specified parts of digestive tract; E11.9 Type 2 diabetes mellitus without complications; E78.5 Hyperlipidemia, unspecified; K57.90 Diverticulosis of intestine, part unspecified, without perforation or abscess without bleeding
CPT/HCPCS: 36415; 74177; 74328; 76000; 80048; 80053; 80061; 82150; 82962; 83690; 83735; 84100; 85025; 93005; 94003; 94150; J1815; J2250; U0002

== ENCOUNTER 2020-10-24 13:48 | Outpatient (CLI) | payer MEDICARE, MEDICAID ==
[~2020-10-24 13:48] MED LIST changes: +CREON DR 36,001 EACH ORAL
--- NOTE | 2020-10-25 15:05 | General Progress Note ---
Subjective ROS Limited/Unobtainable: Yes Allergies: Coded Allergies: CODEINE (Verified Allergy, Severe, Itching, 10/10/20) Objective General Appearance: alert EENT: PERRL/EOMI Neck: normal alignment Cardiovascular: normal rate Respiratory/Chest: lungs clear Abdomen: soft, hypoactive bowel sounds, tender Extremities: non-tender Assessment/Plan Assessment/Plan: pancreatitis panc cyst s/p ERCP pain control low fat diet CT >> reviewed fu ca 19-9>> normal repeat labs for today needs close out patient fu creon will Nikolas Kathleen MD Oct 25, 2020 15:05
== END 2020-10-24 15:48 | disposition home or self-care (01) ==
LOC: PAN 13:48
DX: K85.90 Acute pancreatitis without necrosis or infection, unspecified (principal); K86.2 Cyst of pancreas; Z88.6 Allergy status to analgesic agent
CPT/HCPCS: 99212

== ENCOUNTER 2020-11-30 13:54 | Inpatient (IN) | payer MEDICARE, MEDICAID ==
[~2020-11-30] VITALS: Ht 160 cm; Wt 77.6 kg
[2020-11-30] MEDS ORDERED: Morphine Sulfate 4mg/ml Inj (IV USE ONLY) IVP ONE ×2 (15:00→17:30)
--- NOTE | 2020-11-30 15:03 | Emergency Room Report ---
History of Present Illness General Chief Complaint: Abdominal Pain Present Illness HPI 70-year-old female with a history of idiopathic pancreatitis here with abdominal pain and nausea and vomiting. Patient says that this feels similar to her pancreatitis attacks in the past. Says the pain is sharp in nature, located in the epigastrium, does not otherwise radiate. Says that she has been vomiting multiple times per day for 3 days. Nonbilious nonbloody vomit. Denies headache, vision change, fevers, chills, chest pain, palpitations, shortness of breath, back pain, diarrhea, dysuria, change in stool color or caliber. 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 COVID-19 Screening: Negative COVID-19 COVID-19 Testing Source: JOB DEVELOPMENT SPECIALIST Nursing Documentation-[facility] Past Medical History: No History, Except For Hx Cardiac Problems: Yes - angina Hx Hypertension: Yes - high cholesterol Hx Asthma: Yes Hx Diabetes: Yes Hx Cancer: No Hx Gastrointestinal Problems: Yes - PANCREATIC CYST Hx Neurological Problems: No Review of Systems All Other Systems: negative except mentioned in HPI Physical Exam Vital Signs Date Time Temp Pulse Resp B/P (MAP) Pulse Ox O2 Delivery O2 Flow Rate FiO2 11/30/20 14:06 99.0 106 20 167/104 (125) 97 Room Air Sp02 EP Interpretation: reviewed, normal General Appearance: no apparent distress, alert, non-toxic Head: normocephalic, atraumatic Eyes: bilateral eye normal inspection, bilateral eye PERRL ENT: hearing grossly normal, normal pharynx, no angioedema, normal voice Neck: full range of motion, supple/symm/no masses Respiratory: chest non-tender, lungs clear, normal breath sounds, speaking full sentences Cardiovascular #1: regular rate, rhythm, no edema Cardiovascular #2: 2+ carotid (R), 2+ carotid (L), 2+ radial (R), 2+ radial (L), 2+ dorsalis pedis (R), 2+ dorsalis pedis (L) Gastrointestinal: normal bowel sounds, soft, non-distended, no guarding, no rebound, other - Moderate epigastric abdominal tenderness on palpation. No rebound or guarding or distention Rectal: deferred Genitourinary: normal inspection, no CVA tenderness Musculoskeletal: back normal, normal range of motion, gait/station normal, non- tender Neurologic: alert, motor strength/tone normal, oriented x3, sensory intact, responsive, speech normal Psychiatric: judgement/insight normal, memory normal, mood/affect normal, no suicidal/homicidal ideation Lymphatic: no adenopathy Medical Decision Making Diagnostic Impression: Primary Impression: Abdominal pain Additional Impressions: Pancreatitis UTI (urinary tract infection) ER Course Laboratory Tests Test 11/30/20 14:50 11/30/20 16:00 White Blood Count 9.9 K/UL (4.8-10.8) Red Blood Count 5.37 M/UL (4.20-5.40) Hemoglobin 13.7 G/DL (12.0-16.0) Hematocrit 42.8 % (37.0-47.0) Mean Corpuscular Volume 80 FL (80-99) Mean Corpuscular Hemoglobin 25.4 PG (27.0-31.0) L Mean Corpuscular Hemoglobin Concent 32.0 G/DL (32.0-36.0) Red Cell Distribution Width 14.6 % (11.6-14.8) Platelet Count 385 K/UL (150-450) Mean Platelet Volume 5.9 FL (6.5-10.1) L Neutrophils (%) (Auto) 70.4 % (45.0-75.0) Lymphocytes (%) (Auto) 20.6 % (20.0-45.0) Monocytes (%) (Auto) 7.4 % (1.0-10.0) Eosinophils (%) (Auto) 0.7 % (0.0-3.0) Basophils (%) (Auto) 0.9 % (0.0-2.0) Urine Color Yellow Urine Appearance Slightly cloudy Urine pH 5 (4.5-8.0) Urine Specific [place] 1.015 (1.005-1.035) Urine Protein 3+ (NEGATIVE) H Urine Glucose (UA) Negative (NEGATIVE) Urine Ketones 1+ (NEGATIVE) H Urine Blood 1+ (NEGATIVE) H Urine Nitrite Negative (NEGATIVE) Urine Bilirubin Negative (NEGATIVE) Urine Urobilinogen 1 MG/DL (0.0-1.0) H Urine Leukocyte Esterase 1+ (NEGATIVE) H Urine RBC 0-2 /HPF (0 - 2) Urine WBC 2-4 /HPF (0 - 2) Urine Squamous Epithelial Cells Moderate /LPF (NONE/OCC) H Urine Bacteria Few /HPF (NONE) Urine Opiates Screen Negative (NEGATIVE) Urine Barbiturates Screen Negative (NEGATIVE) Phencyclidine (PCP) Screen Negative (NEGATIVE) Urine Amphetamines Screen Negative (NEGATIVE) Urine Benzodiazepines Screen Negative (NEGATIVE) Urine Cocaine Screen Negative (NEGATIVE) Urine Marijuana (THC) Screen Negative (NEGATIVE) Sodium Level 137 MMOL/L (136-145) Potassium Level 4.9 MMOL/L (3.5-5.1) Chloride Level 100 MMOL/L (98-107) Carbon Dioxide Level 26 MMOL/L (21-32) Anion Gap 11 mmol/L (5-15) Blood Urea Nitrogen 34 mg/dL (7-18) H Creatinine 2.1 MG/DL (0.55-1.30) H Estimated Glomerular Filtration Rate 28.2 mL/min (>60) Glucose Level 149 MG/DL (74-106) H Calcium Level 10.2 MG/DL (8.5-10.1) H Total Bilirubin 0.4 MG/DL (0.2-1.0) Aspartate Amino Transferase (AST) 16 U/L (15-37) Alanine Aminotransferase (ALT) 15 U/L (12-78) Alkaline Phosphatase 134 U/L (46-116) H Troponin I 0.007 ng/mL (0.000-0.056) Total Protein 8.3 G/DL (6.4-8.2) H Albumin 4.1 G/DL (3.4-5.0) Globulin 4.2 g/dL Albumin/Globulin Ratio 1.0 (1.0-2.7) Lipase 1792 U/L (73-393) H Serum Alcohol < 3 mg/dL 70-year-old female with history of idiopathic pancreatitis here with abdominal pain. Patient was hemodynamically stable and neurovascular intact in the emergency department but complaining of severe epigastric abdominal pain. She required multiple doses of antiemetics and analgesic medication. Lipase around 1800. Other labs largely unremarkable. Patient also had evidence of urinary tract infection. She received ceftriaxone in the emergency department. To be admitted to [facility]. Last Vital Signs Date Time Temp Pulse Resp B/P (MAP) Pulse Ox O2 Delivery O2 Flow Rate FiO2 11/30/20 14:06 99.0 106 20 167/104 (125) 97 Room Air Devin Colby M.D. Nov 30, 2020 15:03
[2020-11-30 15:14] LABS: APPEARANCE,URINE SLIGHTLY CLOUDY; BILIRUBIN, URINE NEGATIVE (NEGATIVE); GLUCOSE, URINE (UA) NEGATIVE (NEGATIVE); KETONES,URINE 1+ (NEGATIVE); LEUKOCYTE ESTERASE ,URINE 1+ (NEGATIVE); NITRITE,URINE NEGATIVE (NEGATIVE); PH,URINE 5 (4.5-8.0); PROTEIN,URINE 3+ (NEGATIVE); UROBILINOGEN,URINE 1 MG/DL (0.0-1.0)
[2020-11-30 15:16] LABS: COLOR,URINE YELLOW
[2020-11-30 15:18] LABS: BASOPHILS % (AUTO) 0.9 % (0.0-2.0); EOSINOPHILS % (AUTO) 0.7 % (0.0-3.0); HEMATOCRIT 42.8 % (37.0-47.0); HEMOGLOBIN 13.7 G/DL (12.0-16.0); LYMPHOCYTES % (AUTO) 20.6 % (20.0-45.0); MEAN CORPUSCULAR VOLUME 80 FL (80-99); MONOCYTES % (AUTO) 7.4 % (1.0-10.0); NEUTROPHILS % (AUTO) 70.4 % (45.0-75.0); PLATELET COUNT 385 K/UL (150-450); RED BLOOD COUNT 5.37 M/UL (4.20-5.40); RED CELL DISTRIBUTION WIDTH 14.6 % (11.6-14.8); WHITE BLOOD COUNT 9.9 K/UL (4.8-10.8)
--- NOTE | 2020-11-30 15:18 | NUR ---
Patient presents to ER with a history of idiopathic pancreatitis. She is here with c/o of abdominal pain, nausea and vomiting up to 3 times daily. Patient says that this feels similar to her pancreatitis attacks in the past. Reports that her pain is sharp in the epigastrium area with no radiation. AAOX4.
[2020-11-30] MEDS ORDERED: cefTRIAXone 1 GM in NS 55 ML IVPB ONE (15:30)
[2020-11-30 16:16] LABS: ANION GAP 11 mmol/L (5-15); BLOOD UREA NITROGEN 34 mg/dL (7-18); CALCIUM 10.2 MG/DL (8.5-10.1); CARBON DIOXIDE 26 MMOL/L (21-32); CHLORIDE 100 MMOL/L (98-107); CREATININE 2.1 MG/DL (0.55-1.30); POTASSIUM 4.9 MMOL/L (3.5-5.1); SODIUM 137 MMOL/L (136-145)
[2020-11-30 16:21] LABS: ALANINE AMINOTRANSFERASE 15 U/L (12-78); ALBUMIN 4.1 G/DL (3.4-5.0); ALKALINE PHOSPHATASE 134 U/L (46-116); ASPARTATE AMINO TRANSFERASE 16 U/L (15-37); BILIRUBIN,TOTAL 0.4 MG/DL (0.2-1.0)
--- NOTE | 2020-11-30 19:10 | NUR ---
Report received from GONZALES Perry offgoing nurse. Patient is pleasant AOX4, Abdominal pain tolerable 3/10, no N/V at this time, pt is calm and comfortable. PBP right arm sitting 145/95, HR 108. 98.4 temp 100% on Room Air.
--- NOTE | 2020-11-30 19:42 | NUR ---
NURSE NOTES: Received telephone report from GONZALES Mcelroy (ED).
--- NOTE | 2020-11-30 19:45 | NUR ---
TRANSFER TO FLOOR: Patient transferred to [facility] as ordered, per Dr Lasha Arce. Report given to GONZALES Cheng. Belongings given to patient. Belonging log signed.
--- NOTE | 2020-11-30 19:54 | NUR ---
Patient transported to [facility]. Stable condition.
--- NOTE | 2020-11-30 20:00 | NUR ---
NURSE NOTES: Received pt from ED via gurney. Pt in bed, a&ox4, in room air. No s/s of acute distress & c/o 10/10 abdominal pain. Pt belongings checked & accounted for. Oriented to hospital facility and room. Med-recon done. Skin intact. IV site intact & S/L'd. Bed in lowest position, call light within reach. Will call Dr. Escobar for admission orders.
[2020-11-30 20:17] VITALS: BP 145/95
[2020-11-30 20:25] VITALS: BP 143/94
[2020-11-30] MEDS ORDERED: Morphine Sulfate 2mg/ml Inj(IV/IM USE ONLY) IVP PRN (20:45)
--- NOTE | 2020-11-30 20:45 | NUR ---
NURSE NOTES: Received admission orders from Dr. Escobar. Entered & carried out.
[2020-11-30] MEDS: Morphine Sulfate 4mg/ml Inj (IV USE ONLY) IVP PRN (21:42)
[2020-11-30] MEDS: NovoLOG Insulin Flexpen SUBQ SCH (22:00)
[2020-11-30] MEDS: Heparin 5000 units/ml inj SUBQ SCH (22:11)
--- NOTE | 2020-11-30 23:07 | History & Physical ---
History and Physical History & Physicial Job # Zacarias Escobar MD Nov 30, 2020 23:07
[2020-12-01] VITALS: BP 159/89
[2020-12-01] MEDS: HydrALAZINE 10mg Tab ORAL SCH ×3 (00:16→12:00)
--- NOTE | 2020-12-01 00:25 | NUR ---
NURSE NOTES: Pt's midnight med given. In no acute distress. Pain still 8/10; will give PRN pain med when due & pt verbalized understanding.
[2020-12-01] MEDS: Morphine Sulfate 4mg/ml Inj (IV USE ONLY) IVP PRN ×5 (03:24→23:50)
[2020-12-01 04:00] VITALS: BP 107/66
[2020-12-01] MEDS: Heparin 5000 units/ml inj SUBQ SCH ×3 (05:51→22:08)
[2020-12-01] MEDS: NovoLOG Insulin Flexpen SUBQ SCH ×4 (06:18→21:00)
[2020-12-01 06:36] LABS: BASOPHILS % (AUTO) 1.8 % (0.0-2.0); EOSINOPHILS % (AUTO) 2.1 % (0.0-3.0); HEMATOCRIT 38.9 % (37.0-47.0); LYMPHOCYTES % (AUTO) 36.7 % (20.0-45.0); MEAN CORPUSCULAR VOLUME 80 FL (80-99); MONOCYTES % (AUTO) 10.4 % (1.0-10.0); PLATELET COUNT 381 K/UL (150-450); RED BLOOD COUNT 4.84 M/UL (4.20-5.40); RED CELL DISTRIBUTION WIDTH 13.5 % (11.6-14.8); WHITE BLOOD COUNT 6.3 K/UL (4.8-10.8)
--- NOTE | 2020-12-01 06:41 | NUR ---
NURSE HAND-OFF: Important Events on Shift:new admit, iv hydration, pain management Patient Status: stable Diet: NPO except ice chips & PO meds Pending Orders: none Pending Results/Labs:none Pending MD notification:none Latest Vital Signs: Temperature 97.9 , Pulse 76 , B/P 107 /66 , Respiratory Rate 18 , O2 SAT 96 , Room Air, O2 Flow Rate . Vital Sign Comment: none Latest Montesinos Fall Score: 50 Fall Risk: High Risk Safety Measures: Call light Within Reach, Bed Alarm , Side Rails Side Rails x2, Bed position Low and Locked. Fall Precautions: Yellow Socks Door Sign Patient Fall Education Report given to GONZALES Oleary .
[2020-12-01 06:59] LABS: ALANINE AMINOTRANSFERASE 17 U/L (12-78); ALBUMIN 3.7 G/DL (3.4-5.0); ALBUMIN/GLOBULIN RATIO 0.9 (1.0-2.7); ALKALINE PHOSPHATASE 124 U/L (46-116); ANION GAP 12 mmol/L (5-15); ASPARTATE AMINO TRANSFERASE 17 U/L (15-37); BILIRUBIN,TOTAL 0.5 MG/DL (0.2-1.0); BLOOD UREA NITROGEN 31 mg/dL (7-18); CALCIUM 9.6 MG/DL (8.5-10.1); CARBON DIOXIDE 23 MMOL/L (21-32); CHLORIDE 103 MMOL/L (98-107); CHOLESTEROL 146 MG/DL (< 200); CREATININE 1.8 MG/DL (0.55-1.30); HDL CHOLESTEROL 29 MG/DL (40-60); PHOSPHORUS 4.4 MG/DL (2.5-4.9); POTASSIUM 4.1 MMOL/L (3.5-5.1); SODIUM 138 MMOL/L (136-145); TRIGLYCERIDES 149 MG/DL (30-150)
[2020-12-01 08:00] VITALS: BP 151/85
--- NOTE | 2020-12-01 08:33 | NUR ---
NURSE NOTES: Patient awake and alert and oriented,IV fluids infusing as ordered .Patient stating she has abdominal pain.Patient medicated for pain and patient requesting Zofran.Zofran given as ordered.Call light within reach.Patient is NPO.
[2020-12-01] MEDS ORDERED: Lisinopril 20mg tab ORAL SCH (09:00)
[2020-12-01] MEDS: methIMAzole 10mg tab ORAL SCH (10:02)
--- NOTE | 2020-12-01 10:55 | Consultation ---
History of Present Illness General Date patient seen: Dec 01, 2020 Reason for Hospitalization: Abdominal Pain Present Illness HPI This is a 70-year-old female known to me from prior presents with acute onset abdominal pain noted to have pancreatitis. Patient with history of open cho lecystectomy when she was 19 years old since has had intermittent episodes of pancreatitis states this is a very bad 1 with 9 out of 10 pain epigastric right upper quadrant. Positive nausea and emesis prior to arrival to hospital. Now feels a little bit better. Pain better with pain medication. Labs noted. Surgery called to evaluate assist with care. Patient seen, patient evaluate, chart reviewed. Allergies: Coded Allergies: CODEINE (Verified Allergy, Severe, Itching, 10/10/20) COVID-19 Screening Contact w/high risk pt: No Recent Travel to affected area: No Experienced COVID-19 symptoms?: No Medication History Scheduled Atorvastatin Calcium* (Atorvastatin Calcium*), Unknown Dose ORAL BEDTIME, (Reported) Ferrous Sulfate* (Ferrous Sulfate*), 325 MG ORAL DAILY, (Reported) Gabapentin* (Gabapentin*), Unknown Dose ORAL THREE TIMES A DAY, (Reported) Hydralazine Hcl* (Hydralazine Hcl*), Unknown Dose ORAL EVERY 6 HOURS, (Reported) Hydrochlorothiazide* (Hydrochlorothiazide*), Unknown Dose ORAL DAILY, (Reported) Lipase/Protease/Amylase (Creon Dr 36,000 Units Capsule), 1 EA ORAL TIWM Lisinopril* (Lisinopril*), 40 MG ORAL DAILY, (Reported) Metformin Hcl* (Metformin Hcl*), 500 MG ORAL TWICE A DAY, (Reported) Methimazole (Methimazole), Unknown Dose PO DAILY, (Reported) Patient History History Provided By: Patient, Medical Record, PMD Healthcare decision maker N Resuscitation status Advanced Directive on File Past Medical/Surgical History Past Medical/Surgical History: (1) FRANCISCA (acute kidney injury) (2) Dehydration (3) Electrolyte imbalance (4) DMII (diabetes mellitus, type 2) (5) HTN (hypertension) (6) UTI (urinary tract infection) (7) Abdominal pain (8) Pancreatitis Review of Systems Review of Symptoms General ROS: no weight loss or fever Psychological ROS: no depression or mood changes, no memory loss Ophthalmic ROS: no visual changes or eye irritation ENT ROS: no nasal congestion, hearing loss, dizziness Allergy and Immunology ROS: no allergic symptoms or urticaria Hematological and Lymphatic ROS: no swollen glands, unusual bleeding or bruising Endocrine ROS: no polyuria, polydipsia, weight changes, temperature intolerance Respiratory ROS: no cough, shortness of breath, or wheezing Cardiovascular ROS: no chest pain or dyspnea on exertion Gastrointestinal ROS: + abdominal pain, bright red blood in stool. Musculoskeletal ROS: no myalgias or arthralgias Neurological ROS: no TIA or stroke symptoms Dermatological ROS: no new or changing skin lesions, rashes or pruritis Physical Exam Physical Exam General appearance: alert, cooperative, no distress, appears stated age Head: Normocephalic, without obvious abnormality, atraumatic Eyes: conjunctivae/corneas clear. PERRL, EOM's intact. Fundi benign Throat: Lips, mucosa, and tongue normal. Teeth and gums normal Neck: supple, symmetrical, trachea midline, no adenopathy, thyroid: not enlarged, symmetric, no tenderness/mass/nodules, no carotid bruit and no JVD Lungs: clear to auscultation bilaterally Heart: regular rate and rhythm, S1, S2 normal, no murmur, click, rub or gallop Abdomen: soft, epigastric-tender. Bowel sounds normal. No masses, no organomegaly Extremities: extremities normal, atraumatic, no cyanosis or edema Pulses: 2+ and symmetric Skin: Skin color, texture, turgor normal. No rashes or lesions Neurologic: Grossly normal Last 24 Hour Vital Signs Date Time Temp Pulse Resp B/P (MAP) Pulse Ox O2 Delivery O2 Flow Rate FiO2 12/01/20 10:01 151/89 12/01/20 09:00 Room Air 12/01/20 08:00 97.9 96 22 151/85 (107) 100 12/01/20 05:50 107/66 12/01/20 04:00 97.9 76 18 107/66 (80) 96 12/01/20 00:16 159/89 12/01/20 00:00 99.0 88 17 159/89 (112) 97 11/30/20 22:14 Room Air 11/30/20 20:25 98.8 112 20 143/94 (110) 98 11/30/20 20:17 98.4 108 18 145/95 100 11/30/20 19:58 98.4 108 18 145/95 100 11/30/20 15:05 Room Air 11/30/20 15:05 Room Air 11/30/20 14:06 99.0 106 20 167/104 (125) 97 Room Air Intake and Output 11/30/20 12/01/20 19:00 07:00 Intake Total 675 ml Balance 675 ml Intake IV Total 675 ml # Voids 2 Laboratory Tests Test 11/30/20 14:50 11/30/20 16:00 11/30/20 22:20 12/01/20 06:00 White Blood Count 9.9 K/UL (4.8-10.8) 6.3 K/UL (4.8-10.8) Red Blood Count 5.37 M/UL (4.20-5.40) 4.84 M/UL (4.20-5.40) Hemoglobin 13.7 G/DL (12.0-16.0) 12.0 G/DL (12.0-16.0) Hematocrit 42.8 % (37.0-47.0) 38.9 % (37.0-47.0) Mean Corpuscular Volume 80 FL (80-99) 80 FL (80-99) Mean Corpuscular Hemoglobin 25.4 PG (27.0-31.0) L 24.9 PG (27.0-31.0) L Mean Corpuscular Hemoglobin Concent 32.0 G/DL (32.0-36.0) 31.0 G/DL (32.0-36.0) L Red Cell Distribution Width 14.6 % (11.6-14.8) 13.5 % (11.6-14.8) Platelet Count 385 K/UL (150-450) 381 K/UL (150-450) Mean Platelet Volume 5.9 FL (6.5-10.1) L 5.7 FL (6.5-10.1) L Neutrophils (%) (Auto) 70.4 % (45.0-75.0) 49.0 % (45.0-75.0) Lymphocytes (%) (Auto) 20.6 % (20.0-45.0) 36.7 % (20.0-45.0) Monocytes (%) (Auto) 7.4 % (1.0-10.0) 10.4 % (1.0-10.0) H Eosinophils (%) (Auto) 0.7 % (0.0-3.0) 2.1 % (0.0-3.0) Basophils (%) (Auto) 0.9 % (0.0-2.0) 1.8 % (0.0-2.0) Urine Color Yellow Urine Appearance Slightly cloudy Urine pH 5 (4.5-8.0) Urine Specific [place] 1.015 (1.005-1.035) Urine Protein 3+ (NEGATIVE) H Urine Glucose (UA) Negative (NEGATIVE) Urine Ketones 1+ (NEGATIVE) H Urine Blood 1+ (NEGATIVE) H Urine Nitrite Negative (NEGATIVE) Urine Bilirubin Negative (NEGATIVE) Urine Urobilinogen 1 MG/DL (0.0-1.0) H Urine Leukocyte Esterase 1+ (NEGATIVE) H Urine RBC 0-2 /HPF (0 - 2) Urine WBC 2-4 /HPF (0 - 2) Urine Squamous Epithelial Cells Moderate /LPF (NONE/OCC) H Urine Bacteria Few /HPF (NONE) Urine Opiates Screen Negative (NEGATIVE) Urine Barbiturates Screen Negative (NEGATIVE) Phencyclidine (PCP) Screen Negative (NEGATIVE) Urine Amphetamines Screen Negative (NEGATIVE) Urine Benzodiazepines Screen Negative (NEGATIVE) Urine Cocaine Screen Negative (NEGATIVE) Urine Marijuana (THC) Screen Negative (NEGATIVE) Sodium Level 137 MMOL/L (136-145) 138 MMOL/L (136-145) Potassium Level 4.9 MMOL/L (3.5-5.1) 4.1 MMOL/L (3.5-5.1) Chloride Level 100 MMOL/L (98-107) 103 MMOL/L (98-107) Carbon Dioxide Level 26 MMOL/L (21-32) 23 MMOL/L (21-32) Anion Gap 11 mmol/L (5-15) 12 mmol/L (5-15) Blood Urea Nitrogen 34 mg/dL (7-18) H 31 mg/dL (7-18) H Creatinine 2.1 MG/DL (0.55-1.30) H 1.8 MG/DL (0.55-1.30) H Estimat Glomerular Filtration Rate 28.2 mL/min (>60) 33.7 mL/min (>60) Glucose Level 149 MG/DL (74-106) H 106 MG/DL (74-106) Calcium Level 10.2 MG/DL (8.5-10.1) H 9.6 MG/DL (8.5-10.1) Total Bilirubin 0.4 MG/DL (0.2-1.0) 0.5 MG/DL (0.2-1.0) Aspartate Amino Transf (AST/SGOT) 16 U/L (15-37) 17 U/L (15-37) Alanine Aminotransferase (ALT/SGPT) 15 U/L (12-78) 17 U/L (12-78) Alkaline Phosphatase 134 U/L (46-116) H 124 U/L (46-116) H Troponin I 0.007 ng/mL (0.000-0.056) Total Protein 8.3 G/DL (6.4-8.2) H 7.7 G/DL (6.4-8.2) Albumin 4.1 G/DL (3.4-5.0) 3.7 G/DL (3.4-5.0) Globulin 4.2 g/dL 4.0 g/dL Albumin/Globulin Ratio 1.0 (1.0-2.7) 0.9 (1.0-2.7) L Lipase 1792 U/L (73-393) H 703 U/L (73-393) H Serum Alcohol < 3 mg/dL POC Whole Blood Glucose 115 MG/DL (74-106) H Hemoglobin A1c 7.8 % (4.3-6.0) H Phosphorus Level 4.4 MG/DL (2.5-4.9) Magnesium Level 2.0 MG/DL (1.8-2.4) Triglycerides Level 149 MG/DL (30-150) Cholesterol Level 146 MG/DL (< 200) LDL Cholesterol 94 mg/dL (<100) HDL Cholesterol 29 MG/DL (40-60) L Cholesterol/HDL Ratio 5.0 (3.3-4.4) H Height (Feet): 5 Height (Inches): 3.00 Weight (Pounds): 171 Medications Current Medications Medications (Trade) Dose Ordered Sig/Angely Route PRN Reason Start Time Stop Time Status Last Admin Dose Admin Acetaminophen (Tylenol) 650 mg Q6H PRN ORAL Headache 11/30/20 20:45 12/30/20 20:44 Acetaminophen (Tylenol) 650 mg Q6H PRN ORAL fever>100.4 11/30/20 21:00 12/30/20 20:59 Acetaminophen (Tylenol) 650 mg Q6H PRN ORAL pain 1-3 11/30/20 21:00 12/30/20 20:59 Dextrose (Dextrose 50%) 25 ml Q30M PRN IV Hypoglycemia 11/30/20 20:45 02/28/21 20:44 Dextrose (Dextrose 50%) 50 ml Q30M PRN IV Hypoglycemia 11/30/20 20:45 02/28/21 20:44 Gabapentin (Neurontin) 600 mg THREE TIMES A DAY ORAL 12/01/20 09:00 12/31/20 08:59 12/01/20 10:01 Heparin Sodium (Porcine) (Heparin 5000 units/ml) 5,000 units EVERY 8 HOURS SUBQ 11/30/20 22:00 01/14/21 21:59 12/01/20 05:51 Hydralazine HCl (Apresoline) 10 mg Q6HR ORAL 12/01/20 00:00 03/01/21 00:00 12/01/20 00:16 Insulin Aspart (NovoLOG) BEFORE MEALS AND HS SUBQ 11/30/20 22:00 02/28/21 21:59 Lisinopril (PriniviL) 40 mg DAILY ORAL 12/01/20 09:00 12/31/20 08:59 12/01/20 10:01 Methimazole (Tapazole) 10 mg DAILY ORAL 12/01/20 09:00 12/31/20 08:59 12/01/20 10:02 Morphine Sulfate (Morphine Sulfate) 2 mg Q4H PRN IVP Moderate Pain (Pain Scale 4-6) 11/30/20 20:45 12/07/20 20:44 Morphine Sulfate (Morphine Sulfate) 4 mg Q4H PRN IVP Severe Pain (Pain Scale 7-10) 11/30/20 20:45 12/07/20 20:44 12/01/20 08:33 Ondansetron HCl (Zofran) 4 mg Q4H PRN IVP Nausea & Vomiting 11/30/20 20:45 12/30/20 20:44 12/01/20 08:29 Sodium Chloride 1,000 ml @ 75 mls/hr [id number] IV 11/30/20 21:00 12/30/20 20:59 11/30/20 21:52 Assessment/Plan Problem List: (1) UTI (urinary tract infection) ICD Codes: N39.0 - Urinary tract infection, site not specified SNOMED: 46358712 (2) Abdominal pain ICD Codes: R10.9 - Unspecified abdominal pain SNOMED: 69202513 (3) Dehydration ICD Codes: E86.0 - Dehydration SNOMED: 85703306 (4) Pancreatitis Assessment & Plan: 7-year-old female with recurrent pancreatitis. History of cholecystectomy. Nausea vomiting now resolving. Abdominal pain significant states that this is a much worse episode than priors. Labs noted. No current imaging. Imaging from last admission about a month ago reviewed. Recommend repeating CT/MRI to ensure no pancreatic necrosis or complication or worsening fluid collection or cyst. N.p.o. IV fluids IV antibiotics pain control monitor urine output with fall with recommendations. Thank you letting participate in patient's care MRI from 10/2020 As noted on the CT scan, there is extensive pancreatic ductal dilation. This is most pronounced proximally, where the duct measures up to 1.3 cm in diameter. There is some distal tapering, but still with substantial dilation out to the tail. Side branches are also distended. There are calcifications in the region of the pancreatic head, better demonstrated on CT. Some of these presumably reflect sequela of chronic pancreatitis. 1 of these calcifications may correlate with a filling defect in the proximal duct in the pancreatic head measuring maximum of 8 mm in the coronal plane on series 3, image 21 and 6 mm in the axial plane on series 5, image 25. Question an intraductal stone contributing to the dilation/obstruction. Complicating assessment is a mass along the posterior-leftward aspect of the pancreatic head and uncinate process. This correlates with the cystic lesion seen on CT. It measures 6 x 3.4 x 3 cm in greatest craniocaudal, transverse, and anteroposterior dimensions respectively on series 9, image 67 and series 5, image 26. The mass is markedly hyperintense on T2 and mildly hypointense on T1-weighted sequences. It is primarily cystic with numerous locules. Postcontrast, there is no clear enhancing nodular or other component. It is difficult to exclude a connection with the main pancreatic duct as this is immediately adjacent. The common bile duct is of normal caliber for patient's age. No choledocholithiasis is. The gallbladder is absent. Bilateral renal cysts, largest in the parapelvic lower pole measures 2 cm. No hydronephrosis. Incidental note of cardiomegaly, colonic diverticula, and lumbar fusion. IMPRESSION: Pancreatic ductal dilation. While this can be seen with chronic pancreatitis, would question an obstructing calculus in the proximal main duct. Consider ERCP. 6 cm cystic mass along the posterior pancreatic head and uncinate process. Some features suggesting a serous cystic neoplasm, but not entirely classic appearance. This would be extremely large for a side branch intraductal papillary mucinous neoplasm, but this possibility is not excluded. I am not confident that this is a pseudocyst. Consideration for a endoscopic ultrasound evaluation. If this is not pursued, would at least recommend a 6 month follow-up to assess for stability. ICD Codes: K85.90 - Acute pancreatitis without necrosis or infection, unspecified SNOMED: 18258518 (5) Electrolyte imbalance ICD Codes: E87.8 - Other disorders of electrolyte and fluid balance, not elsewhere classified SNOMED: 886910532 (6) HTN (hypertension) ICD Codes: I10 - Essential (primary) hypertension SNOMED: 10187260 (7) FRANCISCA (acute kidney injury) ICD Codes: N17.9 - Acute kidney failure, unspecified SNOMED: 6233750, 65852770 (8) DMII (diabetes mellitus, type 2) ICD Codes: E11.9 - Type 2 diabetes mellitus without complications SNOMED: 28707553 Eriberto Bailey Dec 01, 2020 10:55
[2020-12-01 12:00] VITALS: BP 152/82
--- NOTE | 2020-12-01 12:36 | Consultation ---
Consult Note Consult Note I am asked to evaluate the patient at the request of Dr. Escobar for management of renal failure and fluid and electrolyte imbalance Patient known to me from her previous admissions in third week of October is here at the [facility] Emergency room note: Chief Complaint: Abdominal Pain 70-year-old female with a history of idiopathic pancreatitis here with abdominal pain and nausea and vomiting. Patient says that this feels similar to her pancreatitis attacks in the past. Says the pain is sharp in nature, located in the epigastrium, does not otherwise radiate. Says that she has been vomiting multiple times per day for 3 days. Nonbilious nonbloody vomit. Denies headache, vision change, fevers, chills, chest pain, palpitations, shortness of breath, back pain, diarrhea, dysuria, change in stool color or caliber. 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 GENERAL: Patient awake, responsive, in no acute distress. HEAD AND NECK: Pupils are equal and reactive to light. Extraocular movements are intact. Neck was supple. No JVD. LUNGS: Good air entry with no wheezing or rales. HEART: S1, S2. Regular rhythm. No murmurs or gallops. ABDOMEN: Soft, nondistended. Tender in the epigastric area. No rebound tenderness. No fluid shift. EXTREMITIES: No cyanosis, clubbing, or edema. NEUROLOGIC: Cranial nerves II through XII are grossly intact. Motor strength is 5/5 in all extremities. Gait is intact. RECTAL/GENITOURINARY: Refused and deferred. PSYCHIATRIC: Mood and affect is intact. LABORATORY DATA: WBC of 9.9, hemoglobin of 13, hematocrit 42, platelets 385. Sodium 137, potassium 4.9, chloride 100, bicarb 26, BUN 34, creatinine 2.1, GFR is 28, glucose level is 149, calcium is 10.2. Alkaline phosphatase 134, ALT of 16, AST of 15. First troponin 0.007. Lipase is 1792. UA is +3 protein, +1 ketone, +1 leukocytes. Urine drug screen is negative. Alcohol level is less than 3. . Assessment/Plan 70-year-old female admitted with abdominal pain Serum creatinine 2.1 on admission Acute kidney injury Dehydration Diabetes type 2 Pancreatitis Hypertension Thyroid disease Asthma Previous ERCP UTI Hydrate BP control, adjust blood pressure medications Keep the blood sugar in check Avoid nephrotoxic's Urine studies Monitor renal parameters Per consultants Bhupinder Huynh MD Dec 01, 2020 12:36
[2020-12-01] MEDS ORDERED: Creon DR 36,000 units cap ORAL SCH (13:30)
--- NOTE | 2020-12-01 13:30 | General Progress Note ---
Subjective ROS Limited/Unobtainable: Yes Allergies: Coded Allergies: CODEINE (Verified Allergy, Severe, Itching, 10/10/20) Objective Last 24 Hour Vital Signs Date Time Temp Pulse Resp B/P (MAP) Pulse Ox O2 Delivery O2 Flow Rate FiO2 12/01/20 10:01 151/89 12/01/20 09:00 Room Air 12/01/20 08:00 97.9 96 22 151/85 (107) 100 12/01/20 05:50 107/66 12/01/20 04:00 97.9 76 18 107/66 (80) 96 12/01/20 00:16 159/89 12/01/20 00:00 99.0 88 17 159/89 (112) 97 11/30/20 22:14 Room Air 11/30/20 20:25 98.8 112 20 143/94 (110) 98 11/30/20 20:17 98.4 108 18 145/95 100 11/30/20 19:58 98.4 108 18 145/95 100 11/30/20 15:05 Room Air 11/30/20 15:05 Room Air 11/30/20 14:06 99.0 106 20 167/104 (125) 97 Room Air l Intake and Output 11/30/20 12/01/20 19:00 07:00 Intake Total 675 ml Balance 675 ml Intake IV Total 675 ml # Voids 2 Laboratory Tests 11/30/20 14:50: White Blood Count 9.9, Red Blood Count 5.37, Hemoglobin 13.7, Hematocrit 42.8, Mean Corpuscular Volume 80, Mean Corpuscular Hemoglobin 25.4L, Mean Corpuscular Hemoglobin Concent 32.0, Red Cell Distribution Width 14.6, Platelet Count 385, Mean Platelet Volume 5.9L, Neutrophils (%) (Auto) 70.4, Lymphocytes (%) (Auto) 20.6, Monocytes (%) (Auto) 7.4, Eosinophils (%) (Auto) 0.7, Basophils (%) (Auto) 0.9, Urine Color Yellow, Urine Appearance Slightly cloudy, Urine pH 5, Urine Specific [place] 1.015, Urine Protein 3+H, Urine Glucose (UA) Negative, Urine Ketones 1+H, Urine Blood 1+H, Urine Nitrite Negative, Urine Bilirubin Negative, Urine Urobilinogen 1H, Urine Leukocyte Esterase 1+H, Urine RBC 0-2, Urine WBC 2- 4, Urine Squamous Epithelial Cells ModerateH, Urine Bacteria Few, Urine Opiates Screen Negative, Urine Barbiturates Screen Negative, Phencyclidine (PCP) Screen Negative, Urine Amphetamines Screen Negative, Urine Benzodiazepines Screen Negative, Urine Cocaine Screen Negative, Urine Marijuana (THC) Screen Negative 11/30/20 16:00: Sodium Level 137, Potassium Level 4.9, Chloride Level 100, Carbon Dioxide Level 26, Anion Gap 11, Blood Urea Nitrogen 34H, Creatinine 2.1H, Estimat Glomerular Filtration Rate 28.2, Glucose Level 149H, Calcium Level 10.2H, Total Bilirubin 0.4, Aspartate Amino Transf (AST/SGOT) 16, Alanine Aminotransferase (ALT/SGPT) 15, Alkaline Phosphatase 134H, Troponin I 0.007, Total Protein 8.3H, Albumin 4.1, Globulin 4.2, Albumin/Globulin Ratio 1.0, Lipase 1792H, Serum Alcohol < 3 11/30/20 22:20: POC Whole Blood Glucose 115H 12/01/20 06:00: White Blood Count 6.3, Red Blood Count 4.84, Hemoglobin 12.0, Hematocrit 38.9, Mean Corpuscular Volume 80, Mean Corpuscular Hemoglobin 24.9L, Mean Corpuscular Hemoglobin Concent 31.0L, Red Cell Distribution Width 13.5, Platelet Count 381, Mean Platelet Volume 5.7L, Neutrophils (%) (Auto) 49.0, Lymphocytes (%) (Auto) 36.7, Monocytes (%) (Auto) 10.4H, Eosinophils (%) (Auto) 2.1, Basophils (%) (Auto) 1.8, Sodium Level 138, Potassium Level 4.1, Chloride Level 103, Carbon Dioxide Level 23, Anion Gap 12, Blood Urea Nitrogen 31H, Creatinine 1.8H, Estimat Glomerular Filtration Rate 33.7, Glucose Level 106, Calcium Level 9.6, Total Bilirubin 0.5, Aspartate Amino Transf (AST/SGOT) 17, Alanine Aminotransferase (ALT/SGPT) 17, Alkaline Phosphatase 124H, Total Protein 7.7, A lbumin 3.7, Globulin 4.0, Albumin/Globulin Ratio 0.9L, Lipase 703H, Hemoglobin A1c 7.8H, Phosphorus Level 4.4, Magnesium Level 2.0, Triglycerides Level 149, Cholesterol Level 146, LDL Cholesterol 94, HDL Cholesterol 29L, Cholesterol/HDL Ratio 5.0H 12/01/20 12:18: POC Whole Blood Glucose [Pending] Height (Feet): 5 Height (Inches): 3.00 Weight (Pounds): 171 Assessment/Plan Assessment/Plan: Assessment/Plan Assessment/Plan: pancreatitis abd pain nausea anemia pancreatic cyst recent ERCP pain control juve chahal ordered CT repeat labs in am Nikolas Celestin MD Dec 01, 2020 13:30
[2020-12-01] MEDS: HydrALAZINE 25mg tab ORAL SCH ×2 (14:17→22:01)
--- NOTE | 2020-12-01 14:31 | Internal Med Progress Note ---
Subjective Physician Name Zacarias Escobar Attending Physician Zacarias Escobar MD Current Medications Medications (Trade) Dose Ordered Sig/Angely Route PRN Reason Start Time Stop Time Status Last Admin Dose Admin Acetaminophen (Tylenol) 650 mg Q6H PRN ORAL Headache 11/30/20 20:45 12/30/20 20:44 Acetaminophen (Tylenol) 650 mg Q6H PRN ORAL fever>100.4 11/30/20 21:00 12/30/20 20:59 Acetaminophen (Tylenol) 650 mg Q6H PRN ORAL pain 1-3 11/30/20 21:00 12/30/20 20:59 Amylase/Lipase/ Protease (Herbert OLIVAS 36,000 units cap) 1 ea TIWM ORAL 12/01/20 17:00 03/01/21 16:59 Amylase/Lipase/ Protease (Herbert OLIVAS 36,000 units cap) 1 ea WITH SNACKS ORAL 12/01/20 13:30 03/01/21 13:29 Barium Sulfate (Readi-Cat 2) 450 ml NOW PRN ORAL Radiology Procedure 12/01/20 13:30 12/03/20 13:29 Clonidine HCl (Catapres Tab) 0.1 mg Q4H PRN ORAL BP above 160 syst 12/01/20 12:45 03/01/21 12:44 Dextrose (Dextrose 50%) 25 ml Q30M PRN IV Hypoglycemia 11/30/20 20:45 02/28/21 20:44 Dextrose (Dextrose 50%) 50 ml Q30M PRN IV Hypoglycemia 11/30/20 20:45 02/28/21 20:44 Famotidine (Pepcid I.v.) 20 mg Q12HR IVP 12/01/20 21:00 12/31/20 20:59 Gabapentin (Neurontin) 600 mg THREE TIMES A DAY ORAL 12/01/20 09:00 12/31/20 08:59 12/01/20 14:18 Heparin Sodium (Porcine) (Heparin 5000 units/ml) 5,000 units EVERY 8 HOURS SUBQ 11/30/20 22:00 01/14/21 21:59 12/01/20 14:17 Hydralazine HCl (Apresoline) 25 mg Q8HR ORAL 12/01/20 14:00 03/01/21 00:00 12/01/20 14:17 Insulin Aspart (NovoLOG) BEFORE MEALS AND HS SUBQ 11/30/20 22:00 02/28/21 21:59 Methimazole (Tapazole) 10 mg DAILY ORAL 12/01/20 09:00 12/31/20 08:59 12/01/20 10:02 Morphine Sulfate (Morphine Sulfate) 2 mg Q4H PRN IVP Moderate Pain (Pain Scale 4-6) 11/30/20 20:45 12/07/20 20:44 Morphine Sulfate (Morphine Sulfate) 4 mg Q4H PRN IVP Severe Pain (Pain Scale 7-10) 11/30/20 20:45 12/07/20 20:44 12/01/20 12:52 Ondansetron HCl (Zofran) 4 mg Q4H PRN IVP Nausea & Vomiting 11/30/20 20:45 12/30/20 20:44 12/01/20 12:41 Sodium Chloride 1,000 ml @ 100 mls/hr Q10H IV 11/30/20 21:00 12/30/20 20:59 12/01/20 11:58 Allergies: Coded Allergies: CODEINE (Verified Allergy, Severe, Itching, 10/10/20) Subjective awake, alert, responsive, decreased abdominal pain, decreased nausea, denies any vomiting, lipase: 703. Objective Last Vital Signs Date Time Temp Pulse Resp B/P (MAP) Pulse Ox O2 Delivery O2 Flow Rate FiO2 12/01/20 14:17 131/73 12/01/20 09:00 Room Air 12/01/20 08:00 97.9 96 22 100 Laboratory Tests Test 11/30/20 14:50 11/30/20 16:00 11/30/20 22:20 12/01/20 06:00 White Blood Count 9.9 K/UL (4.8-10.8) 6.3 K/UL (4.8-10.8) Red Blood Count 5.37 M/UL (4.20-5.40) 4.84 M/UL (4.20-5.40) Hemoglobin 13.7 G/DL (12.0-16.0) 12.0 G/DL (12.0-16.0) Hematocrit 42.8 % (37.0-47.0) 38.9 % (37.0-47.0) Mean Corpuscular Volume 80 FL (80-99) 80 FL (80-99) Mean Corpuscular Hemoglobin 25.4 PG (27.0-31.0) L 24.9 PG (27.0-31.0) L Mean Corpuscular Hemoglobin Concent 32.0 G/DL (32.0-36.0) 31.0 G/DL (32.0-36.0) L Red Cell Distribution Width 14.6 % (11.6-14.8) 13.5 % (11.6-14.8) Platelet Count 385 K/UL (150-450) 381 K/UL (150-450) Mean Platelet Volume 5.9 FL (6.5-10.1) L 5.7 FL (6.5-10.1) L Neutrophils (%) (Auto) 70.4 % (45.0-75.0) 49.0 % (45.0-75.0) Lymphocytes (%) (Auto) 20.6 % (20.0-45.0) 36.7 % (20.0-45.0) Monocytes (%) (Auto) 7.4 % (1.0-10.0) 10.4 % (1.0-10.0) H Eosinophils (%) (Auto) 0.7 % (0.0-3.0) 2.1 % (0.0-3.0) Basophils (%) (Auto) 0.9 % (0.0-2.0) 1.8 % (0.0-2.0) Urine Color Yellow Urine Appearance Slightly cloudy Urine pH 5 (4.5-8.0) Urine Specific [place] 1.015 (1.005-1.035) Urine Protein 3+ (NEGATIVE) H Urine Glucose (UA) Negative (NEGATIVE) Urine Ketones 1+ (NEGATIVE) H Urine Blood 1+ (NEGATIVE) H Urine Nitrite Negative (NEGATIVE) Urine Bilirubin Negative (NEGATIVE) Urine Urobilinogen 1 MG/DL (0.0-1.0) H Urine Leukocyte Esterase 1+ (NEGATIVE) H Urine RBC 0-2 /HPF (0 - 2) Urine WBC 2-4 /HPF (0 - 2) Urine Squamous Epithelial Cells Moderate /LPF (NONE/OCC) H Urine Bacteria Few /HPF (NONE) Urine Opiates Screen Negative (NEGATIVE) Urine Barbiturates Screen Negative (NEGATIVE) Phencyclidine (PCP) Screen Negative (NEGATIVE) Urine Amphetamines Screen Negative (NEGATIVE) Urine Benzodiazepines Screen Negative (NEGATIVE) Urine Cocaine Screen Negative (NEGATIVE) Urine Marijuana (THC) Screen Negative (NEGATIVE) Sodium Level 137 MMOL/L (136-145) 138 MMOL/L (136-145) Potassium Level 4.9 MMOL/L (3.5-5.1) 4.1 MMOL/L (3.5-5.1) Chloride Level 100 MMOL/L (98-107) 103 MMOL/L (98-107) Carbon Dioxide Level 26 MMOL/L (21-32) 23 MMOL/L (21-32) Anion Gap 11 mmol/L (5-15) 12 mmol/L (5-15) Blood Urea Nitrogen 34 mg/dL (7-18) H 31 mg/dL (7-18) H Creatinine 2.1 MG/DL (0.55-1.30) H 1.8 MG/DL (0.55-1.30) H Estimat Glomerular Filtration Rate 28.2 mL/min (>60) 33.7 mL/min (>60) Glucose Level 149 MG/DL (74-106) H 106 MG/DL (74-106) Calcium Level 10.2 MG/DL (8.5-10.1) H 9.6 MG/DL (8.5-10.1) Total Bilirubin 0.4 MG/DL (0.2-1.0) 0.5 MG/DL (0.2-1.0) Aspartate Amino Transf (AST/SGOT) 16 U/L (15-37) 17 U/L (15-37) Alanine Aminotransferase (ALT/SGPT) 15 U/L (12-78) 17 U/L (12-78) Alkaline Phosphatase 134 U/L (46-116) H 124 U/L (46-116) H Troponin I 0.007 ng/mL (0.000-0.056) Total Protein 8.3 G/DL (6.4-8.2) H 7.7 G/DL (6.4-8.2) Albumin 4.1 G/DL (3.4-5.0) 3.7 G/DL (3.4-5.0) Globulin 4.2 g/dL 4.0 g/dL Albumin/Globulin Ratio 1.0 (1.0-2.7) 0.9 (1.0-2.7) L Lipase 1792 U/L (73-393) H 703 U/L (73-393) H Serum Alcohol < 3 mg/dL POC Whole Blood Glucose 115 MG/DL (74-106) H Hemoglobin A1c 7.8 % (4.3-6.0) H Phosphorus Level 4.4 MG/DL (2.5-4.9) Magnesium Level 2.0 MG/DL (1.8-2.4) Triglycerides Level 149 MG/DL (30-150) Cholesterol Level 146 MG/DL (< 200) LDL Cholesterol 94 mg/dL (<100) HDL Cholesterol 29 MG/DL (40-60) L Cholesterol/HDL Ratio 5.0 (3.3-4.4) H Test 12/01/20 12:18 POC Whole Blood Glucose Pending Intake and Output 11/30/20 12/01/20 19:00 07:00 Intake Total 675 ml Balance 675 ml Intake IV Total 675 ml # Voids 2 Objective General: No acute distress, awake and alert HEENT: NCAT, sclera anicteric, PERRL, EOMI. Neck: Supple, no significant jugular venous distention, Lungs: Good inspiratory effort, no accessory muscle use, clear to auscultation bilaterally, no Wheeze or Rales. Heart: Regular rate and rhythm, normal S1/S2, no murmurs/gallops Abdomen: soft, decreased epigastric tenderness, nondistended. Normoactive bowel sounds. / Rectal: Refused and deferred. Extremities: No Cyanosis , clubbing or edema. Neuro: A&O x 3, Able to move all extremities Skin: warm, no rashes or lesions Psych: Normal mood and affect Assessment/Plan Assessment/Plan (1) acute kidney injury on chronic renal insufficiency. (2) Abdominal pain (3) Dehydration (4) Acute recurrent Pancreatitis (5) Diabetic type II (6) hypertension. (7) dyslipidemia. Plan: Monitor laboratory Pain medication IV hydration Advance diet as tolerated CODE STATUS: Full code DVT prophylaxis: Heparin subcu Follow-up with GI, nephrology, surgery recommendations. Zacarias Escobar MD Dec 01, 2020 14:31
--- NOTE | 2020-12-01 15:16 | NUR ---
CASE MANAGEMENT:REVIEW 70 YR OLD FEMALE WALKED INTO ER CC: NAUSEA,VOMITING AND ABDOMINAL PAIN SI: PANCREATITIS. UTI 98.9 106 20 167/104 97% ON RA LIPASE+1792 BUN+34 CR+2.1 IS: 1L NS BOLUS IV ZOFRAN IV MORPHINE IV ROCEPHIN : TO MED/SURG 4 EAST PLAN: MRI ABDOMEN
--- NOTE | 2020-12-01 15:59 | NUR ---
INSURANCE CLINICALS/REVIEW FAXED TO [facility] ( ) Fax Clinicals: [phone] CM: Lauren Khalil
[2020-12-01 16:00] VITALS: BP 134/75
--- NOTE | 2020-12-01 17:27 | Diagnostic Imaging Report ---
Indication: Abdominal pain, nausea, anemia, history of pancreatitis Technique: Spiral acquisitions obtained through the abdomen and pelvis. Patient ingested oral contrast. No IV contrast utilized, reason not stated.. Multiplanar reconstructions were generated. Total dose length product 493 mGycm. CTDIvol(s) 10 mGy. Dose reduction achieved using automated exposure control Comparison: 10/12/2020 contrast study Findings: Small bowel loops are dilated and fluid-filled. There is a transition point to normal caliber small bowel in the upper pelvis, images 70 through 79 of series 16. Distal small bowel is nondilated. This is a new finding. There is extensive distal colonic diverticulosis. No evidence of diverticulitis. Anterior peritoneal midline density may be hernia repair material. The appendix is normal. No free or loculated intraperitoneal gas is evident. There is a small amount of free intraperitoneal fluid over the dome of the liver. The stomach is distended. There is a small hiatal hernia. There is evidence of some distal esophageal wall thickening. The lack of IV contrast limits assessment of the solid organs. The gallbladder is not visualized, possibly absent. No biliary ductal dilatation. There is a single bubble of gas within the right lobe bile ducts. This is also evident previously. The pancreas is heterogeneous, demonstrates calcifications in the pancreatic head. The pancreatic duct is ectatic; this is better visualized on the prior scan evident with contrast. The spleen is unremarkable except for accessory splenule. The adrenals and kidneys are unremarkable. No retroperitoneal or mesenteric mass or adenopathy. The uterus is absent. The bladder is distended. No pelvic mass or adenopathy. The included lung bases demonstrate atelectasis and a mosaic attenuation pattern. The bones demonstrate evidence of prior lumbar spine fusion surgery. Impression: Evidence of small bowel obstruction, point of obstruction at the level of the mid ileum. Dr. Celestin notified of this critical value finding at the time of interpretation Pancreatic calcifications, ectatic pancreatic duct and possible pancreatic cyst, likely on the basis of chronic calcifying pancreatitis. Note that the cyst is less well-demonstrated than on the prior contrast study Small amount of free intraperitoneal fluid Small hiatal hernia, possibly with some distal esophageal wall thickening. Colonic diverticulosis. No evidence of diverticulitis Postsurgical changes as described, including evidence of prior cholecystectomy, prior hysterectomy, possible anterior abdominal wall repair. Distended bladder Gas bubble within the right lobe bile ducts, also evident previously, probably related to prior endobiliary intervention The CT scanner at [facility] is accredited by the [employer] and the scans are performed using protocols designed to limit radiation exposure to as low as reasonably achievable to attain images of sufficient resolution adequate for diagnostic evaluation.
[2020-12-01] MEDS: Creon DR 36,000 units cap ORAL SCH (17:55)
--- NOTE | 2020-12-01 18:17 | Diagnostic Imaging Report ---
Indication: Abdominal pain, previously abnormal pancreas Technique: Coronal and axial single shot fast spin-echo breath-hold, axial T2 FRFSE, 2-D thick slab MRCP, AXIAL 2-D FIESTA fat saturated, axial 3-D dual echo breath-hold, water weighted axial LAVA FLEX, revealed 3-D MRCP images were obtained of the abdomen. MIP reconstructions were generated of the bile ducts on an integrated workstation. Patient did not wish to have IV contrast portion of the exam Comparison: 10/28/2020, also abdomen pelvis CT scan of earlier the same day Findings: Motion artifact from breathing limits assessment. The gallbladder has been removed. There is mild ectasia of the extrahepatic bile ducts at the hepatic hilum, there are measuring up to 12 mm in diameter, although the common bile duct is normal in caliber. No evidence of choledocholithiasis. Again demonstrated is marked ectasia of the pancreatic duct. Cystic lesion of the uncinate process measures approximately 2.5 x 1.4 cm orthogonal axial dimensions by about 5 cm craniocaudad.. It is difficult to distinguish this from the adjacent dilated main pancreatic duct. Dilated small bowel loops are demonstrated, also reported on CT scan of earlier the same date. This was not evident on the previous study. Trace free intraperitoneal fluid is demonstrated over the dome of the liver The spleen, liver and adrenals are unremarkable. Bilateral small renal cysts are noted. Impression: Complex pancreatic cystic lesion, also previously demonstrated, not optimally delineated, probably not significant changed since previous study. Mild extra hepatic ductal dilatation. The hepatic hilum, without evidence of downstream obstructive lesion, also previously described Dilated small bowel loops, demonstrated on recent CT scan and thought to indicate small bowel obstruction Small amount of free intraperitoneal fluid Prior cholecystectomy Incidental finding small renal cysts
--- NOTE | 2020-12-01 19:25 | NUR ---
NURSE NOTES: Patient IV restarted,pain medication and Zofran given.Will endorse to oncoming RN to reassess .
--- NOTE | 2020-12-01 19:45 | NUR ---
NURSE HAND-OFF: Devan RN Important Events on Shift:[pain medication,nausea medication.] Patient Status: [full code.] Diet: [clear liquids] Pending Orders: 12/02/20 labs in AM[] Pending Results/Labs:[] Pending MD notification:[] Latest Vital Signs: Temperature 98.8 , Pulse 87 , B/P 134 /75 , Respiratory Rate 21 , O2 SAT 97 , Room Air, O2 Flow Rate . Vital Sign Comment: [] Latest Montesinos Fall Score: 50 Fall Risk: High Risk Safety Measures: Call light Within Reach, Bed Alarm Zone 1, Side Rails Side Rails x2, Bed position Low and Locked. Fall Precautions: Door Sign Patient Fall Education Report given to [].
--- NOTE | 2020-12-01 19:46 | NUR ---
NURSE NOTES: The patient is alert and oriented x4 and is cooperative with her care with Resp even and unlabored and the is no evidence of SOB or acute distress at this time.IV side on the left hand is intact and asymptomatic.The bed in lowest position, call light within easy reach and siderails up x1. will continue to monitor as indicated.
[2020-12-01 20:00] VITALS: BP 135/76
[2020-12-02] VITALS: BP 151/81
--- NOTE | 2020-12-02 01:14 | History and Physical Report ---
DATE OF ADMISSION: 11/30/2020 CHIEF COMPLAINT: Abdominal pain. HISTORY OF PRESENT ILLNESS: This is a 70-year-old very delightful female with past medical history significant for recurrent abdominal pain most likely secondary to recurrent pancreatitis, diabetes type 2, hypertension, dyslipidemia who presented to the emergency department complaining about abdominal pain mostly in the epigastric area. Patient stated the pain got progressively worsening associated with nausea, vomiting. Denies any diarrhea. Denies any fever, chills, dysuria, frequency, or hematuria. Shortly after initial evaluation in the emergency department, patient was admitted to the hospital with abdominal pain most likely secondary to recurrent pancreatitis. PAST MEDICAL HISTORY/PAST SURGICAL HISTORY: As above history of diabetes type 2, hypertension, dyslipidemia, history of open cholecystectomy at age of 19, history of ERCP by Dr. Celestin. Patient has a history of angina in the past, asthma, and pancreatic cyst. MEDICATIONS: At home, please refer to medication reconciliation. ALLERGIES: Codeine with itching. SOCIAL HISTORY: Denies any smoking, alcohol, or drugs. FAMILY HISTORY: Noncontributory. REVIEW OF SYSTEMS: Mostly as above. Denies any dysuria, frequency, or hematuria. Denies any hemoptysis or hematochezia. Denies any suicidal or homicidal ideation. Complained about nausea and vomiting. Complained about abdominal pain. PHYSICAL EXAMINATION: VITAL SIGNS: On admission from the emergency department, patient was noted to have temperature 99.0, pulse of 106, respirations 20, blood pressure 167/104. GENERAL: Patient awake, responsive, in no acute distress. HEAD AND NECK: Pupils are equal and reactive to light. Extraocular movements are intact. Neck was supple. No JVD. LUNGS: Good air entry with no wheezing or rales. HEART: S1, S2. Regular rhythm. No murmurs or gallops. ABDOMEN: Soft, nondistended. Tender in the epigastric area. No rebound tenderness. No fluid shift. EXTREMITIES: No cyanosis, clubbing, or edema. NEUROLOGIC: Cranial nerves II through XII are grossly intact. Motor strength is 5/5 in all extremities. Gait is intact. RECTAL/GENITOURINARY: Refused and deferred. PSYCHIATRIC: Mood and affect is intact. LABORATORY DATA: WBC of 9.9, hemoglobin of 13, hematocrit 42, platelets 385. Sodium 137, potassium 4.9, chloride 100, bicarb 26, BUN 34, creatinine 2.1, GFR is 28, glucose level is 149, calcium is 10.2. Alkaline phosphatase 134, ALT of 16, AST of 15. First troponin 0.007. Lipase is 1792. UA is +3 protein, +1 ketone, +1 leukocytes. Urine drug screen is negative. Alcohol level is less than 3. ASSESSMENT: 1. Abdominal pain, most likely secondary to recurrent pancreatitis. 2. Acute kidney injury on chronic renal insufficiency. 3. Dehydration. 4. Uncontrolled diabetes type 2. 5. Hypertension. 6. Pancreatic cyst. 7. Dyslipidemia. PLAN: Admit patient to monitored unit. We will consider to start the patient on IV hydration. We will hold off on oral intake. Keep the patient NPO. Follow up with Dr. Celestin consultation from Gastroenterology as well as Dr. Bhupinder Huynh from Nephrology and Dr. Eriberto Bailey from General Surgery. Monitor laboratory in the morning. Pain medication. Code status is Full Code. DVT prophylaxis, heparin subcutaneous. Zacarias Escobar M.D. DR: KRYSTA JOB#: [id number] CC:
[2020-12-02 04:00] VITALS: BP_SYST 159; BP_SYST 259; BP_DIAS 84
[2020-12-02] MEDS: Morphine Sulfate 4mg/ml Inj (IV USE ONLY) IVP PRN ×5 (04:18→22:23)
[2020-12-02] MEDS: HydrALAZINE 25mg tab ORAL SCH ×2 (06:09→13:17)
[2020-12-02] MEDS: Heparin 5000 units/ml inj SUBQ SCH ×3 (06:14→21:49)
[2020-12-02] MEDS: NovoLOG Insulin Flexpen SUBQ SCH ×4 (06:30→21:48)
--- NOTE | 2020-12-02 06:55 | NUR ---
NURSE NOTES: The patient remained alert and stable and does not appear to be in any active distress. She received her PRN morphine sulfate twice last night due to severe pain.will continue to monitor as indicated.
[2020-12-02 07:08] LABS: BASOPHILS % (AUTO) 1.7 % (0.0-2.0); EOSINOPHILS % (AUTO) 1.2 % (0.0-3.0); HEMATOCRIT 37.4 % (37.0-47.0); HEMOGLOBIN 11.5 G/DL (12.0-16.0); LYMPHOCYTES % (AUTO) 33.8 % (20.0-45.0); MEAN CORPUSCULAR VOLUME 82 FL (80-99); MONOCYTES % (AUTO) 8.5 % (1.0-10.0); NEUTROPHILS % (AUTO) 54.8 % (45.0-75.0); PLATELET COUNT 357 K/UL (150-450); RED BLOOD COUNT 4.58 M/UL (4.20-5.40); RED CELL DISTRIBUTION WIDTH 13.5 % (11.6-14.8); WHITE BLOOD COUNT 6.9 K/UL (4.8-10.8)
--- NOTE | 2020-12-02 07:18 | NUR ---
NURSE HAND-OFF: Important Events on Shift:Alert and cooperative Patient Status: Diet: Pending Orders: Pending Results/Labs: Pending MD notification: Latest Vital Signs: Temperature 98.3 , Pulse 97 , B/P 159 /84 , Respiratory Rate 21 , O2 SAT 94 , Room Air, O2 Flow Rate . Vital Sign Comment: Latest Montesinos Fall Score: 50 Fall Risk: High Risk Safety Measures: Call light Within Reach, Bed Alarm Zone 1, Side Rails Side Rails x2, Bed position Low and Locked. Fall Precautions: Door Sign Patient Fall Education Report given to .
[2020-12-02 08:00] VITALS: BP_SYST 127; BP_SYST 129; BP_DIAS 72
--- NOTE | 2020-12-02 08:01 | NUR ---
NURSE NOTES: pt is asleep in bed. respiration is even and unlabored on room air. pt is arousable, offered breakfast. pt said she wants to eat later; pt verbalized moderate abdominal pain 4/10. pain medication is not due at this time. call light within reach, will follow plan of care.
--- NOTE | 2020-12-02 08:05 | NUR ---
CASE MANAGEMENT:REVIEW 12/02/20 SI: PANCREATITIS. UTI SBO @ [facility] 98.3 97 21 159/84 94% ON RA HGB-11.5 IS: IVF@100/HR IV PEPCID Q12 CREON PO TIWM HYDRALAZINE PO Q8HRS TAPAZOLE PO QD NEURONTIN PO TID HEPARIN SQ Q12 IV MORPHINE Q4HRS PRN : MED/SURG STATUS DCP: FROM HOME PLAN; PER GI"S RECOMMENDATIONS
[2020-12-02 08:21] LABS: ALANINE AMINOTRANSFERASE 15 U/L (12-78); ALBUMIN 3.6 G/DL (3.4-5.0); ALBUMIN/GLOBULIN RATIO 1.1 (1.0-2.7); ALKALINE PHOSPHATASE 118 U/L (46-116); AMYLASE 52 U/L (25-115); ANION GAP 10 mmol/L (5-15); ASPARTATE AMINO TRANSFERASE 23 U/L (15-37); BILIRUBIN,TOTAL 0.5 MG/DL (0.2-1.0); BLOOD UREA NITROGEN 30 mg/dL (7-18); CALCIUM 9.2 MG/DL (8.5-10.1); CARBON DIOXIDE 23 MMOL/L (21-32); CHLORIDE 102 MMOL/L (98-107); CHOLESTEROL 148 MG/DL (< 200); CREATININE 1.6 MG/DL (0.55-1.30); HDL CHOLESTEROL 31 MG/DL (40-60); SODIUM 135 MMOL/L (136-145); TRIGLYCERIDES 125 MG/DL (30-150)
[2020-12-02 08:28] LABS: CREATINE KINASE 133 U/L (26-308); GAMMA GLUTAMYL TRANSPEPTIDASE 44 U/L (5-85); PHOSPHORUS 4.8 MG/DL (2.5-4.9)
[2020-12-02] MEDS: Creon DR 36,000 units cap ORAL SCH ×3 (08:56→18:11)
[2020-12-02] MEDS: methIMAzole 10mg tab ORAL SCH (08:57)
--- NOTE | 2020-12-02 11:45 | Surgery Progress Note ---
Surgery Progress Note Subjective Additional Comments tolerating diet labs improving no n/v states still with pain but mild better Objective Last 24 Hour Vital Signs Date Time Temp Pulse Resp B/P (MAP) Pulse Ox O2 Delivery O2 Flow Rate FiO2 12/02/20 09:00 Room Air 12/02/20 08:00 98.3 73 20 127/72 (90) 99 12/02/20 08:00 98.3 73 20 129/72 (91) 95 12/02/20 06:09 159/84 12/02/20 04:00 98.3 97 21 159/84 (109) 94 12/02/20 00:00 98.5 91 20 151/81 (104) 95 12/01/20 22:01 135/76 12/01/20 21:00 Room Air 12/01/20 20:00 97.9 94 20 135/76 (95) 94 12/01/20 16:00 98.8 87 21 134/75 (94) 97 12/01/20 14:17 131/73 12/01/20 12:00 98.0 94 21 152/82 (105) 98 I&O Intake and Output 12/01/20 12/02/20 19:00 07:00 Intake Total 900 ml 1200 ml Output Total 800 ml Balance 100 ml 1200 ml Intake IV Total 900 ml 1200 ml Output Urine Total 800 ml # Voids 1 Cardiovascular: RSR Respiratory: clear Abdomen: soft, flat, non-tender, present bowel sounds, non-distended Extremities: no edema, no tenderness, no cyanosis Laboratory Tests Test 12/01/20 12:18 12/01/20 16:00 12/01/20 17:31 12/01/20 20:38 POC Whole Blood Glucose Pending 83 MG/DL (74-106) 94 MG/DL (74-106) Urine Random Sodium 69 mmol/L (20-110) Test 12/02/20 05:25 12/02/20 06:14 White Blood Count 6.9 K/UL (4.8-10.8) Red Blood Count 4.58 M/UL (4.20-5.40) Hemoglobin 11.5 G/DL (12.0-16.0) L Hematocrit 37.4 % (37.0-47.0) Mean Corpuscular Volume 82 FL (80-99) Mean Corpuscular Hemoglobin 25.2 PG (27.0-31.0) L Mean Corpuscular Hemoglobin Concent 30.8 G/DL (32.0-36.0) L Red Cell Distribution Width 13.5 % (11.6-14.8) Platelet Count 357 K/UL (150-450) Mean Platelet Volume 5.6 FL (6.5-10.1) L Neutrophils (%) (Auto) 54.8 % (45.0-75.0) Lymphocytes (%) (Auto) 33.8 % (20.0-45.0) Monocytes (%) (Auto) 8.5 % (1.0-10.0) Eosinophils (%) (Auto) 1.2 % (0.0-3.0) Basophils (%) (Auto) 1.7 % (0.0-2.0) Erythrocyte Sedimentation Rate 27 MM/HR (0-30) Prothrombin Time 11.4 SEC (9.30-11.50) Prothromb Time International Ratio 1.0 (0.9-1.1) Activated Partial Thromboplast Time 26 SEC (23-33) Sodium Level 135 MMOL/L (136-145) L Potassium Level 5.0 MMOL/L (3.5-5.1) Chloride Level 102 MMOL/L (98-107) Carbon Dioxide Level 23 MMOL/L (21-32) Anion Gap 10 mmol/L (5-15) Blood Urea Nitrogen 30 mg/dL (7-18) H Creatinine 1.6 MG/DL (0.55-1.30) H Estimat Glomerular Filtration Rate 38.5 mL/min (>60) Glucose Level 87 MG/DL (74-106) Lactic Acid Level 0.90 mmol/L (0.4-2.0) Uric Acid 9.5 MG/DL (2.6-7.2) H Calcium Level 9.2 MG/DL (8.5-10.1) Phosphorus Level 4.8 MG/DL (2.5-4.9) Magnesium Level 1.9 MG/DL (1.8-2.4) Total Bilirubin 0.5 MG/DL (0.2-1.0) Gamma Glutamyl Transpeptidase 44 U/L (5-85) Aspartate Amino Transf (AST/SGOT) 23 U/L (15-37) Alanine Aminotransferase (ALT/SGPT) 15 U/L (12-78) Alkaline Phosphatase 118 U/L (46-116) H Total Creatine Kinase 133 U/L (26-308) C-Reactive Protein, Quantitative 0.5 mg/dL (0.00-0.90) Pro-B-Type Natriuretic Peptide 68 pg/mL (0-125) Total Protein 6.9 G/DL (6.4-8.2) Albumin 3.6 G/DL (3.4-5.0) Globulin 3.3 g/dL Albumin/Globulin Ratio 1.1 (1.0-2.7) Triglycerides Level 125 MG/DL (30-150) Cholesterol Level 148 MG/DL (< 200) LDL Cholesterol 90 mg/dL (<100) HDL Cholesterol 31 MG/DL (40-60) L Cholesterol/HDL Ratio 4.8 (3.3-4.4) H Amylase Level 52 U/L (25-115) Lipase 479 U/L (73-393) H Vitamin B12 Level 535 PG/ML (193-986) Vitamin D 25-Hydroxy Pending 25-Hydroxy Vitamin D2 Pending 25-Hydroxy Vitamin D3 Pending Folate 20.0 NG/ML (8.6-58.9) Thyroid Stimulating Hormone (TSH) 0.011 uiU/mL (0.358-3.740) Free Thyroxine 1.62 NG/DL (0.76-1.46) H Free Triiodothyronine 2.9 pg/mL (2.3-4.2) POC Whole Blood Glucose 92 MG/DL (74-106) Plan Problems: (1) UTI (urinary tract infection) (2) Abdominal pain (3) Dehydration (4) Pancreatitis Assessment & Plan: 7-year-old female with recurrent pancreatitis. History of cholecystectomy. Nausea vomiting now resolving. Abdominal pain significant states that this is a much worse episode than priors. Labs noted. No current imaging. Imaging from last admission about a month ago reviewed. Recommend repeating CT/MRI to ensure no pancreatic necrosis or complication or worsening fluid collection or cyst. N.p.o. IV fluids IV antibiotics pain control monitor urine output with fall with recommendations. Thank you letting participate in patient's care MRI from 10/2020 As noted on the CT scan, there is extensive pancreatic ductal dilation. This is most pronounced proximally, where the duct measures up to 1.3 cm in diameter. There is some distal tapering, but still with substantial dilation out to the tail. Side branches are also distended. There are calcifications in the region of the pancreatic head, better demonstrated on CT. Some of these presumably reflect sequela of chronic pancreatitis. 1 of these calcifications may correlate with a filling defect in the proximal duct in the pancreatic head measuring maximum of 8 mm in the coronal plane on series 3, image 21 and 6 mm in the axial plane on series 5, image 25. Question an intraductal stone contributing to the dilation/obstruction. Complicating assessment is a mass along the posterior-leftward aspect of the pancreatic head and uncinate process. This correlates with the cystic lesion seen on CT. It measures 6 x 3.4 x 3 cm in greatest craniocaudal, transverse, and anteroposterior dimensions respectively on series 9, image 67 and series 5, image 26. The mass is markedly hyperintense on T2 and mildly hypointense on T1-weighted sequences. It is primarily cystic with numerous locules. Postcontrast, there is no clear enhancing nodular or other component. It is difficult to exclude a connection with the main pancreatic duct as this is immediately adjacent. The common bile duct is of normal caliber for patient's age. No choledocholithiasis is. The gallbladder is absent. Bilateral renal cysts, largest in the parapelvic lower pole measures 2 cm. No hydronephrosis. Incidental note of cardiomegaly, colonic diverticula, and lumbar fusion. IMPRESSION: Pancreatic ductal dilation. While this can be seen with chronic pancreatitis, would question an obstructing calculus in the proximal main duct. Consider ERCP. 6 cm cystic mass along the posterior pancreatic head and uncinate process. Some features suggesting a serous cystic neoplasm, but not entirely classic appearance. This would be extremely large for a side branch intraductal papillary mucinous neoplasm, but this possibility is not excluded. I am not confident that this is a pseudocyst. Consideration for a endoscopic ultrasound evaluation. If this is not pursued, would at least recommend a 6 month follow-up to assess for stability. (5) Electrolyte imbalance (6) HTN (hypertension) (7) FRANCISCA (acute kidney injury) (8) DMII (diabetes mellitus, type 2) Eriberto Bailey Dec 02, 2020 11:45
[2020-12-02 12:00] VITALS: BP 153/79
[2020-12-02] MEDS ORDERED: GABAPENTIN800 MG ORAL (13:41)
[2020-12-02] MEDS ORDERED: CREON DR 36,001 EACH PO (13:41)
--- NOTE | 2020-12-02 13:51 | Nephrology Progress Note ---
Assessment/Plan Problem List: (1) FRANCISCA (acute kidney injury) (2) DMII (diabetes mellitus, type 2) (3) HTN (hypertension) (4) Electrolyte imbalance (5) Dehydration (6) UTI (urinary tract infection) (7) Pancreatitis Assessment 70-year-old female admitted with abdominal pain Serum creatinine 2.1 on admission Acute kidney injury Dehydration Diabetes type 2 Pancreatitis Hypertension Thyroid disease Asthma Previous ERCP UTI Plan December 02: Labs reviewed. Serum creatinine lowering. Electrolytes within normal limits. On clear liquid. Continue per consultants. Previously: Hydrate BP control, adjust blood pressure medications Keep the blood sugar in check Avoid nephrotoxic's Urine studies Monitor renal parameters Per consultants Subjective ROS Limited/Unobtainable: No Constitutional: Reports: malaise, weakness Objective Objective Last 24 Hour Vital Signs Date Time Temp Pulse Resp B/P (MAP) Pulse Ox O2 Delivery O2 Flow Rate FiO2 12/02/20 13:17 153/79 12/02/20 12:00 97.9 83 21 153/79 (103) 99 12/02/20 09:00 Room Air 12/02/20 08:00 98.3 73 20 127/72 (90) 99 12/02/20 08:00 98.3 73 20 129/72 (91) 95 12/02/20 06:09 159/84 12/02/20 04:00 98.3 97 21 159/84 (109) 94 12/02/20 00:00 98.5 91 20 151/81 (104) 95 12/01/20 22:01 135/76 12/01/20 21:00 Room Air 12/01/20 20:00 97.9 94 20 135/76 (95) 94 12/01/20 16:00 98.8 87 21 134/75 (94) 97 12/01/20 14:17 131/73 Intake and Output 12/01/20 12/02/20 19:00 07:00 Intake Total 900 ml 1200 ml Output Total 800 ml Balance 100 ml 1200 ml Intake IV Total 900 ml 1200 ml Output Urine Total 800 ml # Voids 1 Current Medications Medications (Trade) Dose Ordered Sig/Angely Route PRN Reason Start Time Stop Time Status Last Admin Dose Admin Acetaminophen (Tylenol) 650 mg Q6H PRN ORAL Headache 11/30/20 20:45 12/30/20 20:44 Acetaminophen (Tylenol) 650 mg Q6H PRN ORAL fever>100.4 11/30/20 21:00 12/30/20 20:59 Acetaminophen (Tylenol) 650 mg Q6H PRN ORAL pain 1-3 11/30/20 21:00 12/30/20 20:59 Amylase/Lipase/ Protease (Herbert OLIVAS 36,000 units cap) 1 ea TIWM ORAL 12/01/20 17:00 03/01/21 16:59 12/02/20 12:40 Amylase/Lipase/ Protease (Herbert OLIVAS 36,000 units cap) 1 ea WITH SNACKS ORAL 12/01/20 13:30 03/01/21 13:29 Barium Sulfate (Readi-Cat 2) 450 ml NOW PRN ORAL Radiology Procedure 12/01/20 13:30 12/03/20 13:29 12/01/20 15:14 Clonidine HCl (Catapres Tab) 0.1 mg Q4H PRN ORAL BP above 160 syst 12/01/20 12:45 03/01/21 12:44 Dextrose (Dextrose 50%) 25 ml Q30M PRN IV Hypoglycemia 11/30/20 20:45 02/28/21 20:44 Dextrose (Dextrose 50%) 50 ml Q30M PRN IV Hypoglycemia 11/30/20 20:45 02/28/21 20:44 Famotidine (Pepcid I.v.) 20 mg Q12HR IVP 12/01/20 21:00 12/31/20 20:59 12/02/20 08:56 Gabapentin (Neurontin) 600 mg THREE TIMES A DAY ORAL 12/01/20 09:00 12/31/20 08:59 12/02/20 12:40 Heparin Sodium (Porcine) (Heparin 5000 units/ml) 5,000 units EVERY 8 HOURS SUBQ 11/30/20 22:00 01/14/21 21:59 12/02/20 06:14 Hydralazine HCl (Apresoline) 25 mg Q8HR ORAL 12/01/20 14:00 03/01/21 00:00 12/02/20 13:17 Insulin Aspart (NovoLOG) BEFORE MEALS AND HS SUBQ 11/30/20 22:00 02/28/21 21:59 Methimazole (Tapazole) 10 mg DAILY ORAL 12/01/20 09:00 12/31/20 08:59 12/02/20 08:57 Morphine Sulfate (Morphine Sulfate) 2 mg Q4H PRN IVP Moderate Pain (Pain Scale 4-6) 11/30/20 20:45 12/07/20 20:44 Morphine Sulfate (Morphine Sulfate) 4 mg Q4H PRN IVP Severe Pain (Pain Scale 7-10) 11/30/20 20:45 12/07/20 20:44 12/02/20 13:17 Ondansetron HCl (Zofran) 4 mg Q4H PRN IVP Nausea & Vomiting 11/30/20 20:45 12/30/20 20:44 12/02/20 13:18 Sodium Chloride 1,000 ml @ 100 mls/hr Q10H IV 11/30/20 21:00 12/30/20 20:59 12/02/20 06:31 Laboratory Tests 12/01/20 16:00: Urine Random Sodium 69 12/01/20 17:31: POC Whole Blood Glucose 83 12/01/20 20:38: POC Whole Blood Glucose 94 12/02/20 05:25: White Blood Count 6.9, Red Blood Count 4.58, Hemoglobin 11.5L, Hematocrit 37.4, Mean Corpuscular Volume 82, Mean Corpuscular Hemoglobin 25.2L, Mean Corpuscular Hemoglobin Concent 30.8L, Red Cell Distribution Width 13.5, Platelet Count 357, Mean Platelet Volume 5.6L, Neutrophils (%) (Auto) 54.8, Lymphocytes (%) (Auto) 33.8, Monocytes (%) (Auto) 8.5, Eosinophils (%) (Auto) 1.2, Basophils (%) (Auto) 1.7, Erythrocyte Sedimentation Rate 27, Prothrombin Time 11.4, Prothromb Time International Ratio 1.0, Activated Partial Thromboplast Time 26, Sodium Level 135L, Potassium Level 5.0, Chloride Level 102, Carbon Dioxide Level 23, Anion Gap 10, Blood Urea Nitrogen 30H, Creatinine 1.6H, Estimat Glomerular Filtration Rate 38.5, Glucose Level 87, Lactic Acid Level 0.90, Uric Acid 9.5H, Calcium Level 9.2, Phosphorus Level 4.8, Magnesium Level 1.9, Total Bilirubin 0.5, Gamma Glutamyl Transpeptidase 44, Aspartate Amino Transf (AST/SGOT) 23, Alanine Aminotransferase (ALT/SGPT) 15, Alkaline Phosphatase 118H, Total Creatine Kinase 133, C-Reactive Protein, Quantitative 0.5, Pro-B-Type Natriuretic Peptide 68, Total Protein 6.9, Albumin 3.6, Globulin 3.3, Albumin/Globulin Ratio 1.1, Triglycerides Level 125, Cholesterol Level 148, LDL Cholesterol 90, HDL Cholesterol 31L, Cholesterol/HDL Ratio 4.8H, Amylase Level 52, Lipase 479H, Vitamin B12 Level 535, Vitamin D 25-Hydroxy [Pending], 25-Hydroxy Vitamin D2 [Pending], 25-Hydroxy Vitamin D3 [Pending], Folate 20.0, Thyroid Stimulating Hormone (TSH) 0.011L, Free Thyroxine 1.62H, Free Triiodothyronine 2.9 12/02/20 06:14: POC Whole Blood Glucose 92 12/02/20 12:00: POC Whole Blood Glucose 113H Height (Feet): 5 Height (Inches): 3.00 Weight (Pounds): 171 General Appearance: no apparent distress Cardiovascular: normal rate Respiratory/Chest: decreased breath sounds Abdomen: distended Bhupinder Huynh MD Dec 02, 2020 13:51
--- NOTE | 2020-12-02 14:02 | General Progress Note ---
Subjective ROS Limited/Unobtainable: Yes Allergies: Coded Allergies: CODEINE (Verified Allergy, Severe, Itching, 10/10/20) Objective Last 24 Hour Vital Signs Date Time Temp Pulse Resp B/P (MAP) Pulse Ox O2 Delivery O2 Flow Rate FiO2 12/02/20 13:17 153/79 12/02/20 12:00 97.9 83 21 153/79 (103) 99 12/02/20 09:00 Room Air 12/02/20 08:00 98.3 73 20 127/72 (90) 99 12/02/20 08:00 98.3 73 20 129/72 (91) 95 12/02/20 06:09 159/84 12/02/20 04:00 98.3 97 21 159/84 (109) 94 12/02/20 00:00 98.5 91 20 151/81 (104) 95 12/01/20 22:01 135/76 12/01/20 21:00 Room Air 12/01/20 20:00 97.9 94 20 135/76 (95) 94 12/01/20 16:00 98.8 87 21 134/75 (94) 97 12/01/20 14:17 131/73 Intake and Output 12/01/20 12/02/20 19:00 07:00 Intake Total 900 ml 1200 ml Output Total 800 ml Balance 100 ml 1200 ml IV Total 900 ml 1200 ml Output Urine Total 800 ml # Voids 1 Laboratory Tests 12/01/20 16:00: Urine Random Sodium 69 12/01/20 17:31: POC Whole Blood Glucose 83 12/01/20 20:38: POC Whole Blood Glucose 94 12/02/20 05:25: White Blood Count 6.9, Red Blood Count 4.58, Hemoglobin 11.5L, Hematocrit 37.4, Mean Corpuscular Volume 82, Mean Corpuscular Hemoglobin 25.2L, Mean Corpuscular Hemoglobin Concent 30.8L, Red Cell Distribution Width 13.5, Platelet Count 357, Mean Platelet Volume 5.6L, Neutrophils (%) (Auto) 54.8, Lymphocytes (%) (Auto) 33.8, Monocytes (%) (Auto) 8.5, Eosinophils (%) (Auto) 1.2, Basophils (%) (Auto) 1.7, Erythrocyte Sedimentation Rate 27, Prothrombin Time 11.4, Prothromb Time International Ratio 1.0, Activated Partial Thromboplast Time 26, Sodium Level 135L, Potassium Level 5.0, Chloride Level 102, Carbon Dioxide Level 23, Anion Gap 10, Blood Urea Nitrogen 30H, Creatinine 1.6H, Estimat Glomerular Filtration Rate 38.5, Glucose Level 87, Lactic Acid Level 0.90, Uric Acid 9.5H, Calcium Level 9.2, Phosphorus Level 4.8, Magnesium Level 1.9, Total Bilirubin 0.5, Gamma Glutamyl Transpeptidase 44, Aspartate Amino Transf (AST/SGOT) 23, Alanine Aminotransferase (ALT/SGPT) 15, Alkaline Phosphatase 118H, Total Creatine Kinase 133, C-Reactive Protein, Quantitative 0.5, Pro-B-Type Natriuretic Peptide 68, Total Protein 6.9, Albumin 3.6, Globulin 3.3, Albumin/Globulin Ratio 1.1, Triglycerides Level 125, Cholesterol Level 148, LDL Cholesterol 90, HDL Cholesterol 31L, Cholesterol/HDL Ratio 4.8H, Amylase Level 52, Lipase 479H, Vitamin B12 Level 535, Vitamin D 25-Hydroxy [Pending], 25-Hydroxy Vitamin D2 [Pending], 25-Hydroxy Vitamin D3 [Pending], Folate 20.0, Thyroid Stimulating H ormone (TSH) 0.011L, Free Thyroxine 1.62H, Free Triiodothyronine 2.9 12/02/20 06:14: POC Whole Blood Glucose 92 12/02/20 12:00: POC Whole Blood Glucose 113H Height (Feet): 5 Height (Inches): 3.00 Weight (Pounds): 171 General Appearance: alert EENT: normal ENT inspection Neck: supple Cardiovascular: normal rate Respiratory/Chest: decreased breath sounds Abdomen: hypoactive bowel sounds, tender Extremities: non-tender Assessment/Plan Assessment/Plan: Assessment/Plan Assessment/Plan: pancreatitis abd pain nausea anemia pancreatic cyst recent ERCP pain control creon tirso ct>> SBO>>>fu surg repeat labs in Nikolas Fraser MD Dec 02, 2020 14:02
[2020-12-02] MEDS: D5NS 1,000 ML IV SCH (14:51)
[2020-12-02 16:00] VITALS: BP 147/72
--- NOTE | 2020-12-02 16:28 | Internal Med Progress Note ---
Subjective Physician Name Zacarias Escobar Attending Physician Zacarias Escobar MD Current Medications Medications (Trade) Dose Ordered Sig/Angely Route PRN Reason Start Time Stop Time Status Last Admin Dose Admin Acetaminophen (Tylenol) 650 mg Q6H PRN ORAL Headache 11/30/20 20:45 12/30/20 20:44 Acetaminophen (Tylenol) 650 mg Q6H PRN ORAL fever>100.4 11/30/20 21:00 12/30/20 20:59 Acetaminophen (Tylenol) 650 mg Q6H PRN ORAL pain 1-3 11/30/20 21:00 12/30/20 20:59 Amylase/Lipase/ Protease (Herbert OLIVAS 36,000 units cap) 1 ea TIWM ORAL 12/01/20 17:00 03/01/21 16:59 12/02/20 12:40 Amylase/Lipase/ Protease (Herbert OLIVAS 36,000 units cap) 1 ea WITH SNACKS ORAL 12/01/20 13:30 03/01/21 13:29 Barium Sulfate (Readi-Cat 2) 450 ml NOW PRN ORAL Radiology Procedure 12/01/20 13:30 12/03/20 13:29 12/01/20 15:14 Clonidine HCl (Catapres Tab) 0.1 mg Q4H PRN ORAL BP above 160 syst 12/01/20 12:45 03/01/21 12:44 Dextrose (Dextrose 50%) 25 ml Q30M PRN IV Hypoglycemia 11/30/20 20:45 02/28/21 20:44 Dextrose (Dextrose 50%) 50 ml Q30M PRN IV Hypoglycemia 11/30/20 20:45 02/28/21 20:44 Dextrose/Sodium Chloride 1,000 ml @ 50 mls/hr Q20H IV 12/02/20 14:00 01/01/21 13:59 12/02/20 14:51 Famotidine (Pepcid I.v.) 20 mg Q12HR IVP 12/01/20 21:00 12/31/20 20:59 12/02/20 08:56 Gabapentin (Neurontin) 600 mg THREE TIMES A DAY ORAL 12/01/20 09:00 12/31/20 08:59 12/02/20 12:40 Heparin Sodium (Porcine) (Heparin 5000 units/ml) 5,000 units EVERY 8 HOURS SUBQ 11/30/20 22:00 01/14/21 21:59 12/02/20 13:52 Hydralazine HCl (Apresoline) 25 mg Q8HR ORAL 12/01/20 14:00 03/01/21 00:00 12/02/20 13:17 Insulin Aspart (NovoLOG) BEFORE MEALS AND HS SUBQ 11/30/20 22:00 02/28/21 21:59 Methimazole (Tapazole) 10 mg DAILY ORAL 12/01/20 09:00 12/31/20 08:59 12/02/20 08:57 Morphine Sulfate (Morphine Sulfate) 2 mg Q4H PRN IVP Moderate Pain (Pain Scale 4-6) 11/30/20 20:45 12/07/20 20:44 Morphine Sulfate (Morphine Sulfate) 4 mg Q4H PRN IVP Severe Pain (Pain Scale 7-10) 11/30/20 20:45 12/07/20 20:44 12/02/20 13:17 Ondansetron HCl (Zofran) 4 mg Q4H PRN IVP Nausea & Vomiting 11/30/20 20:45 12/30/20 20:44 12/02/20 13:18 Allergies: Coded Allergies: CODEINE (Verified Allergy, Severe, Itching, 10/10/20) Subjective awake, alert, responsive, decreased abdominal pain, decreased nausea, denies any vomiting, lipase: 479. CR: 1.6 improving renal function. Objective Last Vital Signs Date Time Temp Pulse Resp B/P (MAP) Pulse Ox O2 Delivery O2 Flow Rate FiO2 12/02/20 13:17 153/79 12/02/20 12:00 97.9 83 21 99 12/02/20 09:00 Room Air Laboratory Tests Test 12/01/20 17:31 12/01/20 20:38 12/02/20 05:25 12/02/20 06:14 POC Whole Blood Glucose 83 MG/DL (74-106) 94 MG/DL (74-106) 92 MG/DL (74-106) White Blood Count 6.9 K/UL (4.8-10.8) Red Blood Count 4.58 M/UL (4.20-5.40) Hemoglobin 11.5 G/DL (12.0-16.0) L Hematocrit 37.4 % (37.0-47.0) Mean Corpuscular Volume 82 FL (80-99) Mean Corpuscular Hemoglobin 25.2 PG (27.0-31.0) L Mean Corpuscular Hemoglobin Concent 30.8 G/DL (32.0-36.0) L Red Cell Distribution Width 13.5 % (11.6-14.8) Platelet Count 357 K/UL (150-450) Mean Platelet Volume 5.6 FL (6.5-10.1) L Neutrophils (%) (Auto) 54.8 % (45.0-75.0) Lymphocytes (%) (Auto) 33.8 % (20.0-45.0) Monocytes (%) (Auto) 8.5 % (1.0-10.0) Eosinophils (%) (Auto) 1.2 % (0.0-3.0) Basophils (%) (Auto) 1.7 % (0.0-2.0) Erythrocyte Sedimentation Rate 27 MM/HR (0-30) Prothrombin Time 11.4 SEC (9.30-11.50) Prothromb Time International Ratio 1.0 (0.9-1.1) Activated Partial Thromboplast Time 26 SEC (23-33) Sodium Level 135 MMOL/L (136-145) L Potassium Level 5.0 MMOL/L (3.5-5.1) Chloride Level 102 MMOL/L (98-107) Carbon Dioxide Level 23 MMOL/L (21-32) Anion Gap 10 mmol/L (5-15) Blood Urea Nitrogen 30 mg/dL (7-18) H Creatinine 1.6 MG/DL (0.55-1.30) H Estimat Glomerular Filtration Rate 38.5 mL/min (>60) Glucose Level 87 MG/DL (74-106) Lactic Acid Level 0.90 mmol/L (0.4-2.0) Uric Acid 9.5 MG/DL (2.6-7.2) H Calcium Level 9.2 MG/DL (8.5-10.1) Phosphorus Level 4.8 MG/DL (2.5-4.9) Magnesium Level 1.9 MG/DL (1.8-2.4) Total Bilirubin 0.5 MG/DL (0.2-1.0) Gamma Glutamyl Transpeptidase 44 U/L (5-85) Aspartate Amino Transf (AST/SGOT) 23 U/L (15-37) Alanine Aminotransferase (ALT/SGPT) 15 U/L (12-78) Alkaline Phosphatase 118 U/L (46-116) H Total Creatine Kinase 133 U/L (26-308) C-Reactive Protein, Quantitative 0.5 mg/dL (0.00-0.90) Pro-B-Type Natriuretic Peptide 68 pg/mL (0-125) Total Protein 6.9 G/DL (6.4-8.2) Albumin 3.6 G/DL (3.4-5.0) Globulin 3.3 g/dL Albumin/Globulin Ratio 1.1 (1.0-2.7) Triglycerides Level 125 MG/DL (30-150) Cholesterol Level 148 MG/DL (< 200) LDL Cholesterol 90 mg/dL (<100) HDL Cholesterol 31 MG/DL (40-60) L Cholesterol/HDL Ratio 4.8 (3.3-4.4) H Amylase Level 52 U/L (25-115) Lipase 479 U/L (73-393) H Vitamin B12 Level 535 PG/ML (193-986) Vitamin D 25-Hydroxy Pending 25-Hydroxy Vitamin D2 Pending 25-Hydroxy Vitamin D3 Pending Folate 20.0 NG/ML (8.6-58.9) Thyroid Stimulating Hormone (TSH) 0.011 uiU/mL (0.358-3.740) Free Thyroxine 1.62 NG/DL (0.76-1.46) H Free Triiodothyronine 2.9 pg/mL (2.3-4.2) Test 12/02/20 12:00 POC Whole Blood Glucose 113 MG/DL (74-106) H Intake and Output 12/01/20 12/02/20 19:00 07:00 Intake Total 900 ml 1200 ml Output Total 800 ml Balance 100 ml 1200 ml IV Total 900 ml 1200 ml Output Urine Total 800 ml # Voids 1 Objective General: No acute distress, awake and alert HEENT: NCAT, sclera anicteric, PERRL, EOMI. Neck: Supple, no significant jugular venous distention, Lungs: Good inspiratory effort, no accessory muscle use, clear to auscultation bilaterally, no Wheeze or Rales. Heart: Regular rate and rhythm, normal S1/S2, no murmurs/gallops Abdomen: soft, decreased epigastric tenderness, nondistended. Normoactive bowel sounds. / Rectal: Refused and deferred. Extremities: No Cyanosis , clubbing or edema. Neuro: A&O x 3, Able to move all extremities Skin: warm, no rashes or lesions Psych: Normal mood and affect Assessment/Plan Assessment/Plan (1) Acute kidney injury on chronic renal insufficiency. (2) Abdominal pain most likely due to acute pancreatitis. (3) Dehydration (4) Acute recurrent Pancreatitis (5) Diabetic type II (6) hypertension. (7) dyslipidemia. Plan: Monitor laboratory Pain medication IV hydration clear liquid diet CODE STATUS: Full code DVT prophylaxis: Heparin subcu Follow-up with GI, nephrology, surgery recommendations. Zacarias Escobar MD Dec 02, 2020 16:28
--- NOTE | 2020-12-02 17:02 | NUR ---
INSURANCE CLINICALS/REVIEW FAXED TO [facility] ( ) Fax Clinicals: [phone] CM: Lauren Khalil
[2020-12-02] MEDS: HydrALAZINE 50mg tab ORAL SCH ×2 (18:11→21:53)
--- NOTE | 2020-12-02 19:15 | NUR ---
NURSE HAND-OFF: Important Events on Shift:N/A Patient Status: STABLE Diet: Pending Orders: Pending Results/Labs: Pending MD notification: Latest Vital Signs: Temperature 98.3 , Pulse 77 , B/P 147 /72 , Respiratory Rate 21 , O2 SAT 97 , Room Air, O2 Flow Rate . Vital Sign Comment: STABLE Latest Montesinos Fall Score: 50 Fall Risk: High Risk Safety Measures: Call light Within Reach, Bed Alarm Zone 1, Side Rails Side Rails x2, Bed position Low and Locked. Fall Precautions: Door Sign Patient Fall Education Report given to NADINE.
[2020-12-02 20:00] VITALS: BP 127/79
[2020-12-03] VITALS: BP 93/89
[2020-12-03] MEDS: Morphine Sulfate 4mg/ml Inj (IV USE ONLY) IVP PRN ×5 (03:26→22:57)
[2020-12-03 04:00] VITALS: BP 106/71
[2020-12-03 05:48] LABS: BASOPHILS % (AUTO) 1.5 % (0.0-2.0); EOSINOPHILS % (AUTO) 4.1 % (0.0-3.0); HEMATOCRIT 32.5 % (37.0-47.0); LYMPHOCYTES % (AUTO) 40.8 % (20.0-45.0); MEAN CORPUSCULAR VOLUME 82 FL (80-99); MONOCYTES % (AUTO) 11.8 % (1.0-10.0); NEUTROPHILS % (AUTO) 41.9 % (45.0-75.0); PLATELET COUNT 312 K/UL (150-450); RED BLOOD COUNT 3.95 M/UL (4.20-5.40); RED CELL DISTRIBUTION WIDTH 13.9 % (11.6-14.8); WHITE BLOOD COUNT 5.8 K/UL (4.8-10.8)
[2020-12-03] MEDS: HydrALAZINE 50mg tab ORAL SCH ×3 (06:00→21:02)
[2020-12-03 06:13] LABS: ALBUMIN/GLOBULIN RATIO 0.9 (1.0-2.7); BILIRUBIN,TOTAL 0.3 MG/DL (0.2-1.0); CALCIUM 8.8 MG/DL (8.5-10.1); CREATININE 1.7 MG/DL (0.55-1.30)
[2020-12-03] MEDS: Heparin 5000 units/ml inj SUBQ SCH ×3 (06:33→21:04)
[2020-12-03] MEDS: NovoLOG Insulin Flexpen SUBQ SCH ×4 (06:34→21:00)
[2020-12-03] MEDS: Creon DR 36,000 units cap ORAL SCH ×3 (06:34→17:12)
--- NOTE | 2020-12-03 07:33 | NUR ---
NURSE HAND-OFF: Report given to GONZALES Gonzalez.
--- NOTE | 2020-12-03 07:35 | General Progress Note ---
Subjective ROS Limited/Unobtainable: Yes Allergies: Coded Allergies: CODEINE (Verified Allergy, Severe, Itching, 10/10/20) Objective Last 24 Hour Vital Signs Date Time Temp Pulse Resp B/P (MAP) Pulse Ox O2 Delivery O2 Flow Rate FiO2 12/03/20 06:00 106/71 12/03/20 04:00 97.6 84 18 106/71 (83) 96 12/03/20 00:00 97.8 86 18 93/89 (90) 96 12/02/20 21:53 127/79 12/02/20 21:00 Room Air 12/02/20 20:00 98.3 83 18 127/79 (95) 97 12/02/20 18:11 147/72 12/02/20 16:00 98.3 77 21 147/72 (97) 97 12/02/20 13:17 153/79 12/02/20 12:00 97.9 83 21 153/79 (103) 99 12/02/20 09:00 Room Air 12/02/20 08:00 98.3 73 20 127/72 (90) 99 12/02/20 08:00 98.3 73 20 129/72 (91) 95 Intake and Output 12/02/20 12/03/20 19:00 07:00 Intake Total 960 ml 150 ml Balance 960 ml 150 ml Intake Oral 960 ml 150 ml # Voids 3 Laboratory Tests 12/02/20 12:00: POC Whole Blood Glucose 113H 12/02/20 16:57: POC Whole Blood Glucose 203H 12/02/20 21:12: POC Whole Blood Glucose 251H 12/03/20 05:05: White Blood Count 5.8, Red Blood Count 3.95L, Hemoglobin 10.0L, Hematocrit 32.5L , Mean Corpuscular Volume 82, Mean Corpuscular Hemoglobin 25.2L, Mean Corpuscular Hemoglobin Concent 30.7L, Red Cell Distribution Width 13.9, Platelet Count 312, Mean Platelet Volume 6.1L, Neutrophils (%) (Auto) 41.9L, Lymphocytes (%) (Auto) 40.8, Monocytes (%) (Auto) 11.8H, Eosinophils (%) (Auto) 4.1H, Basophils (%) (Auto) 1.5, Sodium Level 138, Potassium Level 4.0, Chloride Level 105, Carbon Dioxide Level 26, Anion Gap 8, Blood Urea Nitrogen 26H, Creatinine 1.7H, Estimat Glomerular Filtration Rate 36.0, Glucose Level 184H, Calcium Level 8.8, Total Bilirubin 0.3, Aspartate Amino Transf (AST/SGOT) 18, Alanine Aminotra nsferase (ALT/SGPT) 13, Alkaline Phosphatase 98, Total Protein 6.4, Albumin 3.0L , Globulin 3.4, Albumin/Globulin Ratio 0.9L, Amylase Level 41, Lipase 412H Height (Feet): 5 Height (Inches): 3.00 Weight (Pounds): 171 General Appearance: alert EENT: PERRL/EOMI Neck: normal alignment Cardiovascular: normal rate Respiratory/Chest: decreased breath sounds Abdomen: hypoactive bowel sounds Extremities: non-tender Assessment/Plan Assessment/Plan: Assessment/Plan Assessment/Plan: pancreatitis abd pain nausea anemia pancreatic cyst possible SBO on last CT recent ERCP pain control creon tirso ct>> SBO>>>fu surg add bowel regimen kub repeat labs in am Nikolas Celestin MD Dec 03, 2020 07:35
[2020-12-03 08:00] VITALS: BP 139/86
--- NOTE | 2020-12-03 08:00 | NUR ---
NURSE NOTES: Report received from Yo and patient in bed [id number]. C/o pain of 10/10 and RN administered Morphine mg and Zofran. IV intact, patent, dry, asymptomatic. RN assisted patient to bedside commode for urination. Patient able to make needs known. Patient denies any respiratory distress. Vitals stable. Bed in lowest position and locked, side rails up X2. Patient asked for stool softener. RN notified Dr. Celestin. RNr received order to administer Colace. RN will administer the medication. Will continue to monitor.
[2020-12-03] MEDS: Docusate 100mg cap ORAL SCH ×2 (08:59→17:11)
[2020-12-03] MEDS: methIMAzole 10mg tab ORAL SCH (08:59)
--- NOTE | 2020-12-03 10:21 | Surgery Progress Note ---
Surgery Progress Note Subjective Symptoms: improved, tolerating diet, voiding well, passing flatus, BM Objective Last 24 Hour Vital Signs Date Time Temp Pulse Resp B/P (MAP) Pulse Ox O2 Delivery O2 Flow Rate FiO2 12/03/20 09:00 Room Air 12/03/20 08:21 97.6 12/03/20 08:00 97.2 79 18 139/86 (103) 98 12/03/20 06:00 106/71 12/03/20 04:00 97.6 84 18 106/71 (83) 96 12/03/20 00:00 97.8 86 18 93/89 (90) 96 12/02/20 21:53 127/79 12/02/20 21:00 Room Air 12/02/20 20:00 98.3 83 18 127/79 (95) 97 12/02/20 18:11 147/72 12/02/20 16:00 98.3 77 21 147/72 (97) 97 12/02/20 13:17 153/79 12/02/20 12:00 97.9 83 21 153/79 (103) 99 I&O Intake and Output 12/02/20 12/03/20 19:00 07:00 Intake Total 960 ml 150 ml Balance 960 ml 150 ml Intake Oral 960 ml 150 ml # Voids 3 Cardiovascular: RSR Respiratory: clear Abdomen: soft, flat, non-tender, present bowel sounds, non-distended Extremities: no edema, no tenderness, no cyanosis Laboratory Tests Test 12/02/20 12:00 12/02/20 16:57 12/02/20 21:12 12/03/20 05:05 POC Whole Blood Glucose 113 MG/DL (74-106) H 203 MG/DL (74-106) H 251 MG/DL (74-106) H White Blood Count 5.8 K/UL (4.8-10.8) Red Blood Count 3.95 M/UL (4.20-5.40) L Hemoglobin 10.0 G/DL (12.0-16.0) L Hematocrit 32.5 % (37.0-47.0) L Mean Corpuscular Volume 82 FL (80-99) Mean Corpuscular Hemoglobin 25.2 PG (27.0-31.0) L Mean Corpuscular Hemoglobin Concent 30.7 G/DL (32.0-36.0) L Red Cell Distribution Width 13.9 % (11.6-14.8) Platelet Count 312 K/UL (150-450) Mean Platelet Volume 6.1 FL (6.5-10.1) L Neutrophils (%) (Auto) 41.9 % (45.0-75.0) L Lymphocytes (%) (Auto) 40.8 % (20.0-45.0) Monocytes (%) (Auto) 11.8 % (1.0-10.0) H Eosinophils (%) (Auto) 4.1 % (0.0-3.0) H Basophils (%) (Auto) 1.5 % (0.0-2.0) Sodium Level 138 MMOL/L (136-145) Potassium Level 4.0 MMOL/L (3.5-5.1) Chloride Level 105 MMOL/L (98-107) Carbon Dioxide Level 26 MMOL/L (21-32) Anion Gap 8 mmol/L (5-15) Blood Urea Nitrogen 26 mg/dL (7-18) H Creatinine 1.7 MG/DL (0.55-1.30) H Estimat Glomerular Filtration Rate 36.0 mL/min (>60) Glucose Level 184 MG/DL (74-106) H Calcium Level 8.8 MG/DL (8.5-10.1) Total Bilirubin 0.3 MG/DL (0.2-1.0) Aspartate Amino Transf (AST/SGOT) 18 U/L (15-37) Alanine Aminotransferase (ALT/SGPT) 13 U/L (12-78) Alkaline Phosphatase 98 U/L (46-116) Total Protein 6.4 G/DL (6.4-8.2) Albumin 3.0 G/DL (3.4-5.0) L Globulin 3.4 g/dL Albumin/Globulin Ratio 0.9 (1.0-2.7) L Amylase Level 41 U/L (25-115) Lipase 412 U/L (73-393) H Plan Problems: (1) UTI (urinary tract infection) (2) Abdominal pain (3) Dehydration (4) Pancreatitis Assessment & Plan: 70-year-old female with recurrent pancreatitis. History of cholecystectomy. Nausea vomiting now resolving. Abdominal pain significant states that this is a much worse episode than priors. Labs noted. No current imaging. Imaging from last admission about a month ago reviewed. Recommend repeating CT/MRI to ensure no pancreatic necrosis or complication or worsening fluid collection or cyst. N.p.o. IV fluids IV antibiotics pain control monitor urine output with fall with recommendations. Thank you letting participate in patient's care improving CT noted MRI noted ? sbo small bowel series likely ileus given severity of pancreatitis MRI from 10/2020 As noted on the CT scan, there is extensive pancreatic ductal dilation. This is most pronounced proximally, where the duct measures up to 1.3 cm in diameter. There is some distal tapering, but still with substantial dilation out to the tail. Side branches are also distended. There are calcifications in the region of the pancreatic head, better demonstrated on CT. Some of these presumably reflect sequela of chronic pancreatitis. 1 of these calcifications may correlate with a filling defect in the proximal duct in the pancreatic head measuring maximum of 8 mm in the coronal plane on series 3, image 21 and 6 mm in the axial plane on series 5, image 25. Question an intraductal stone contributing to the dilation/obstruction. Complicating assessment is a mass along the posterior-leftward aspect of the pancreatic head and uncinate process. This correlates with the cystic lesion seen on CT. It measures 6 x 3.4 x 3 cm in greatest craniocaudal, transverse, and anteroposterior dimensions respectively on series 9, image 67 and series 5, image 26. The mass is markedly hyperintense on T2 and mildly hypointense on T1-weighted sequences. It is primarily cystic with numerous locules. Postcontrast, there is no clear enhancing nodular or other component. It is difficult to exclude a connection with the main pancreatic duct as this is immediately adjacent. The common bile duct is of normal caliber for patient's age. No choledocholithiasis is. The gallbladder is absent. Bilateral renal cysts, largest in the parapelvic lower pole measures 2 cm. No hydronephrosis. Incidental note of cardiomegaly, colonic diverticula, and lumbar fusion. IMPRESSION: Pancreatic ductal dilation. While this can be seen with chronic pancreatitis, would question an obstructing calculus in the proximal main duct. Consider ERCP. 6 cm cystic mass along the posterior pancreatic head and uncinate process. Some features suggesting a serous cystic neoplasm, but not entirely classic appearance. This would be extremely large for a side branch intraductal papillary mucinous neoplasm, but this possibility is not excluded. I am not confident that this is a pseudocyst. Consideration for a endoscopic ultrasound evaluation. If this is not pursued, would at least recommend a 6 month follow-up to assess for stability. (5) Electrolyte imbalance (6) HTN (hypertension) (7) FRANCISCA (acute kidney injury) (8) DMII (diabetes mellitus, type 2) Eriberto Bailey Dec 03, 2020 10:21
[2020-12-03] MEDS: D5NS 1,000 ML IV SCH (11:06)
--- NOTE | 2020-12-03 11:27 | Nephrology Progress Note ---
Assessment/Plan Problem List: (1) FRANCISCA (acute kidney injury) (2) DMII (diabetes mellitus, type 2) (3) HTN (hypertension) (4) Electrolyte imbalance (5) Dehydration (6) UTI (urinary tract infection) (7) Pancreatitis Assessment 70-year-old female admitted with abdominal pain Serum creatinine 2.1 on admission Acute kidney injury Dehydration Diabetes type 2 Pancreatitis Hypertension Thyroid disease Asthma Previous ERCP UTI Plan December 03: Labs reviewed. Serum creatinine 1.7. Patient on clear liquid. Clinically appears stable. Continue per GI. Patient has a small bowel obstruction on CT. December 02: Labs reviewed. Serum creatinine lowering. Electrolytes within normal limits. On clear liquid. Continue per consultants. Previously: Hydrate BP control, adjust blood pressure medications Keep the blood sugar in check Avoid nephrotoxic's Urine studies Monitor renal parameters Per consultants Subjective ROS Limited/Unobtainable: No Constitutional: Reports: malaise, weakness Objective Objective Last 24 Hour Vital Signs Date Time Temp Pulse Resp B/P (MAP) Pulse Ox O2 Delivery O2 Flow Rate FiO2 12/03/20 09:00 Room Air 12/03/20 08:21 97.6 12/03/20 08:00 97.2 79 18 139/86 (103) 98 12/03/20 06:00 106/71 12/03/20 04:00 97.6 84 18 106/71 (83) 96 12/03/20 00:00 97.8 86 18 93/89 (90) 96 12/02/20 21:53 127/79 12/02/20 21:00 Room Air 12/02/20 20:00 98.3 83 18 127/79 (95) 97 12/02/20 18:11 147/72 12/02/20 16:00 98.3 77 21 147/72 (97) 97 12/02/20 13:17 153/79 12/02/20 12:00 97.9 83 21 153/79 (103) 99 Current Medications Medications (Trade) Dose Ordered Sig/Angely Route PRN Reason Start Time Stop Time Status Last Admin Dose Admin Acetaminophen (Tylenol) 650 mg Q6H PRN ORAL Headache 11/30/20 20:45 12/30/20 20:44 Acetaminophen (Tylenol) 650 mg Q6H PRN ORAL fever>100.4 11/30/20 21:00 12/30/20 20:59 Acetaminophen (Tylenol) 650 mg Q6H PRN ORAL pain 1-3 11/30/20 21:00 12/30/20 20:59 Amylase/Lipase/ Protease (Herbert OLIVAS 36,000 units cap) 1 ea TIWM ORAL 12/01/20 17:00 03/01/21 16:59 12/03/20 06:34 Amylase/Lipase/ Protease (Herbert OLIVAS 36,000 units cap) 1 ea WITH SNACKS ORAL 12/01/20 13:30 03/01/21 13:29 Barium Sulfate (Readi-Cat 2) 450 ml NOW PRN ORAL Radiology Procedure 12/01/20 13:30 12/03/20 13:29 12/01/20 15:14 Clonidine HCl (Catapres Tab) 0.1 mg Q4H PRN ORAL BP above 160 syst 12/01/20 12:45 03/01/21 12:44 Dextrose (Dextrose 50%) 25 ml Q30M PRN IV Hypoglycemia 11/30/20 20:45 02/28/21 20:44 Dextrose (Dextrose 50%) 50 ml Q30M PRN IV Hypoglycemia 11/30/20 20:45 02/28/21 20:44 Dextrose/Sodium Chloride 1,000 ml @ 50 mls/hr Q20H IV 12/02/20 14:00 01/01/21 13:59 12/03/20 11:06 Docusate Sodium (Colace) 100 mg TWICE A DAY ORAL 12/03/20 09:00 01/02/21 08:59 12/03/20 08:59 Famotidine (Pepcid I.v.) 20 mg Q12HR IVP 12/01/20 21:00 12/31/20 20:59 12/03/20 08:59 Gabapentin (Neurontin) 600 mg THREE TIMES A DAY ORAL 12/01/20 09:00 12/31/20 08:59 12/03/20 08:59 Heparin Sodium (Porcine) (Heparin 5000 units/ml) 5,000 units EVERY 8 HOURS SUBQ 11/30/20 22:00 01/14/21 21:59 12/03/20 06:33 Hydralazine HCl (Apresoline) 50 mg Q8HR ORAL 12/02/20 16:30 03/01/21 00:00 12/02/20 21:53 Insulin Aspart (NovoLOG) BEFORE MEALS AND HS SUBQ 11/30/20 22:00 02/28/21 21:59 12/03/20 06:34 Linaclotide (Linzess) 72 mcg BEFORE BREAKFAST ORAL 12/04/20 06:30 03/04/21 06:29 Methimazole (Tapazole) 10 mg DAILY ORAL 12/01/20 09:00 12/31/20 08:59 12/03/20 08:59 Morphine Sulfate (Morphine Sulfate) 2 mg Q4H PRN IVP Moderate Pain (Pain Scale 4-6) 11/30/20 20:45 12/07/20 20:44 Morphine Sulfate (Morphine Sulfate) 4 mg Q4H PRN IVP Severe Pain (Pain Scale 7-10) 11/30/20 20:45 12/07/20 20:44 12/03/20 07:51 Ondansetron HCl (Zofran) 4 mg Q4H PRN IVP Nausea & Vomiting 11/30/20 20:45 12/30/20 20:44 12/03/20 07:59 Polyethylene Glycol (Miralax) 17 gm BEDTIME ORAL 12/03/20 21:00 01/02/21 20:59 Intake and Output 12/02/20 12/03/20 19:00 07:00 Intake Total 960 ml 150 ml Balance 960 ml 150 ml Intake Oral 960 ml 150 ml # Voids 3 Laboratory Tests 12/02/20 12:00: POC Whole Blood Glucose 113H 12/02/20 16:57: POC Whole Blood Glucose 203H 12/02/20 21:12: POC Whole Blood Glucose 251H 12/03/20 05:05: White Blood Count 5.8, Red Blood Count 3.95L, Hemoglobin 10.0L, Hematocrit 32.5L , Mean Corpuscular Volume 82, Mean Corpuscular Hemoglobin 25.2L, Mean Corpuscular Hemoglobin Concent 30.7L, Red Cell Distribution Width 13.9, Platelet Count 312, Mean Platelet Volume 6.1L, Neutrophils (%) (Auto) 41.9L, Lymphocytes (%) (Auto) 40.8, Monocytes (%) (Auto) 11.8H, Eosinophils (%) (Auto) 4.1H, Basophils (%) (Auto) 1.5, Sodium Level 138, Potassium Level 4.0, Chloride Level 105, Carbon Dioxide Level 26, Anion Gap 8, Blood Urea Nitrogen 26H, Creatinine 1.7H, Estimat Glomerular Filtration Rate 36.0, Glucose Level 184H, Calcium Level 8.8, Total Bilirubin 0.3, Aspartate Amino Transf (AST/SGOT) 18, Alanine Aminotransferase (ALT/SGPT) 13, Alkaline Phosphatase 98, Total Protein 6.4, Albumin 3.0L, Globulin 3.4, Albumin/Globulin Ratio 0.9L, Amylase Level 41, Lipase 412H Height (Feet): 5 Height (Inches): 3.00 Weight (Pounds): 171 General Appearance: no apparent distress Cardiovascular: normal rate Respiratory/Chest: decreased breath sounds Abdomen: distended Bhupinder Huynh MD Dec 03, 2020 11:27
[2020-12-03 12:00] VITALS: BP 155/88
--- NOTE | 2020-12-03 12:00 | NUR ---
NURSE NOTES: RN educated the patient to call RN whenever she eats so that RN can administer Creon. Patient verbalized understanding. Will continue to monitor.
--- NOTE | 2020-12-03 14:23 | NUR ---
INSURANCE CLINICALS FAXED TO [facility] ( ) Fax Clinicals: [phone] CM: Lauren Khalil
[2020-12-03 16:00] VITALS: BP 155/79
--- NOTE | 2020-12-03 16:44 | NUR ---
NURSE NOTES: Patient wants to talk to her doctor because she wants to know what her condition is. Per patient, pain medication is not relieving the pain. RN notified Dr. Bailey and Dr. Celestin. No further orders at this time.
--- NOTE | 2020-12-03 17:42 | Internal Med Progress Note ---
Subjective Date of Service: Dec 03, 2020 Physician Name Sánchez,Pierce Attending Physician Zacarias Escobar MD Current Medications Medications (Trade) Dose Ordered Sig/Angely Route PRN Reason Start Time Stop Time Status Last Admin Dose Admin Acetaminophen (Tylenol) 650 mg Q6H PRN ORAL Headache 11/30/20 20:45 12/30/20 20:44 Acetaminophen (Tylenol) 650 mg Q6H PRN ORAL fever>100.4 11/30/20 21:00 12/30/20 20:59 Acetaminophen (Tylenol) 650 mg Q6H PRN ORAL pain 1-3 11/30/20 21:00 12/30/20 20:59 Amylase/Lipase/ Protease (Herbert OLIVAS 36,000 units cap) 1 ea TIWM ORAL 12/01/20 17:00 03/01/21 16:59 12/03/20 17:12 Amylase/Lipase/ Protease (Herbert OLIVAS 36,000 units cap) 1 ea WITH SNACKS ORAL 12/01/20 13:30 03/01/21 13:29 Clonidine HCl (Catapres Tab) 0.1 mg Q4H PRN ORAL BP above 160 syst 12/01/20 12:45 03/01/21 12:44 Dextrose (Dextrose 50%) 25 ml Q30M PRN IV Hypoglycemia 11/30/20 20:45 02/28/21 20:44 Dextrose (Dextrose 50%) 50 ml Q30M PRN IV Hypoglycemia 11/30/20 20:45 02/28/21 20:44 Dextrose/Sodium Chloride 1,000 ml @ 50 mls/hr Q20H IV 12/02/20 14:00 01/01/21 13:59 12/03/20 11:06 Docusate Sodium (Colace) 100 mg TWICE A DAY ORAL 12/03/20 09:00 01/02/21 08:59 12/03/20 17:11 Famotidine (Pepcid I.v.) 20 mg Q12HR IVP 12/01/20 21:00 12/31/20 20:59 12/03/20 08:59 Gabapentin (Neurontin) 600 mg THREE TIMES A DAY ORAL 12/01/20 09:00 12/31/20 08:59 12/03/20 17:11 Heparin Sodium (Porcine) (Heparin 5000 units/ml) 5,000 units EVERY 8 HOURS SUBQ 11/30/20 22:00 01/14/21 21:59 12/03/20 14:47 Hydralazine HCl (Apresoline) 50 mg Q8HR ORAL 12/02/20 16:30 03/01/21 00:00 12/03/20 13:03 Insulin Aspart (NovoLOG) BEFORE MEALS AND HS SUBQ 11/30/20 22:00 02/28/21 21:59 12/03/20 17:09 Linaclotide (Linzess) 72 mcg BEFORE BREAKFAST ORAL 12/04/20 06:30 03/04/21 06:29 Methimazole (Tapazole) 10 mg DAILY ORAL 12/01/20 09:00 12/31/20 08:59 12/03/20 08:59 Morphine Sulfate (Morphine Sulfate) 2 mg Q4H PRN IVP Moderate Pain (Pain Scale 4-6) 11/30/20 20:45 12/07/20 20:44 Morphine Sulfate (Morphine Sulfate) 4 mg Q4H PRN IVP Severe Pain (Pain Scale 7-10) 11/30/20 20:45 12/07/20 20:44 12/03/20 12:46 Ondansetron HCl (Zofran) 4 mg Q4H PRN IVP Nausea & Vomiting 11/30/20 20:45 12/30/20 20:44 12/03/20 12:45 Polyethylene Glycol (Miralax) 17 gm BEDTIME ORAL 12/03/20 21:00 01/02/21 20:59 Allergies: Coded Allergies: CODEINE (Verified Allergy, Severe, Itching, 10/10/20) ROS Limited/Unobtainable: No Constitutional: Reports: no symptoms HEENT: Reports: no symptoms Cardiovascular: Reports: no symptoms Respiratory: Reports: no symptoms Gastrointestinal/Abdominal: Reports: abdominal pain Genitourinary: Reports: no symptoms Neurologic/Psychiatric: Reports: no symptoms Subjective 70 YO F admitted with epigastric pain. Now pancreatitis. Cover for Int Jacinto-Dr Escobar Objective Last Vital Signs Date Time Temp Pulse Resp B/P (MAP) Pulse Ox O2 Delivery O2 Flow Rate FiO2 12/03/20 16:00 97.8 77 18 155/79 (104) 98 12/03/20 09:00 Room Air Laboratory Tests Test 12/02/20 21:12 12/03/20 05:05 12/03/20 12:28 POC Whole Blood Glucose 251 MG/DL (74-106) H 162 MG/DL (74-106) H White Blood Count 5.8 K/UL (4.8-10.8) Red Blood Count 3.95 M/UL (4.20-5.40) L Hemoglobin 10.0 G/DL (12.0-16.0) L Hematocrit 32.5 % (37.0-47.0) L Mean Corpuscular Volume 82 FL (80-99) Mean Corpuscular Hemoglobin 25.2 PG (27.0-31.0) L Mean Corpuscular Hemoglobin Concent 30.7 G/DL (32.0-36.0) L Red Cell Distribution Width 13.9 % (11.6-14.8) Platelet Count 312 K/UL (150-450) Mean Platelet Volume 6.1 FL (6.5-10.1) L Neutrophils (%) (Auto) 41.9 % (45.0-75.0) L Lymphocytes (%) (Auto) 40.8 % (20.0-45.0) Monocytes (%) (Auto) 11.8 % (1.0-10.0) H Eosinophils (%) (Auto) 4.1 % (0.0-3.0) H Basophils (%) (Auto) 1.5 % (0.0-2.0) Sodium Level 138 MMOL/L (136-145) Potassium Level 4.0 MMOL/L (3.5-5.1) Chloride Level 105 MMOL/L (98-107) Carbon Dioxide Level 26 MMOL/L (21-32) Anion Gap 8 mmol/L (5-15) Blood Urea Nitrogen 26 mg/dL (7-18) H Creatinine 1.7 MG/DL (0.55-1.30) H Estimat Glomerular Filtration Rate 36.0 mL/min (>60) Glucose Level 184 MG/DL (74-106) H Calcium Level 8.8 MG/DL (8.5-10.1) Total Bilirubin 0.3 MG/DL (0.2-1.0) Aspartate Amino Transf (AST/SGOT) 18 U/L (15-37) Alanine Aminotransferase (ALT/SGPT) 13 U/L (12-78) Alkaline Phosphatase 98 U/L (46-116) Total Protein 6.4 G/DL (6.4-8.2) Albumin 3.0 G/DL (3.4-5.0) L Globulin 3.4 g/dL Albumin/Globulin Ratio 0.9 (1.0-2.7) L Amylase Level 41 U/L (25-115) Lipase 412 U/L (73-393) H Intake and Output 12/02/20 12/03/20 19:00 07:00 Intake Total 960 ml 150 ml Balance 960 ml 150 ml Intake Oral 960 ml 150 ml # Voids 3 Objective Objective General: No acute distress, awake and alert HEENT: NCAT, sclera anicteric, PERRL, EOMI. Neck: Supple, no significant jugular venous distention, Lungs: Good inspiratory effort, no accessory muscle use, clear to auscultation bilaterally, no Wheeze or Rales. Heart: Regular rate and rhythm, normal S1/S2, no murmurs/gallops Abdomen: soft, decreased epigastric tenderness, nondistended. Normoactive bowel sounds. / Rectal: Refused and deferred. Extremities: No Cyanosis , clubbing or edema. Neuro: A&O x 3, Able to move all extremities Skin: warm, no rashes or lesions Psych: Normal mood and affect Assessment/Plan Assessment/Plan Assessment/Plan Assessment/Plan (1) Acute kidney injury on chronic renal insufficiency. (2) Abdominal pain most likely due to acute pancreatitis. (3) Dehydration (4) Acute recurrent Pancreatitis (5) Diabetic type II (6) hypertension. (7) dyslipidemia. Plan: Monitor laboratory Pain medication IV hydration clear liquid diet CODE STATUS: Full code DVT prophylaxis: Heparin subcu Follow-up with GI, nephrology, surgery recommendations. Pierce Sánchez MD Dec 03, 2020 17:42
--- NOTE | 2020-12-03 18:34 | NUR ---
NURSE NOTES: RN notified Dr. Escobar of patient's c/o of change in taste. She states the the food tastes bitter. No further orders at this time.
--- NOTE | 2020-12-03 19:20 | NUR ---
NURSE NOTES: received pt and report from GONZALES Villalba. pt alert and oriented x 4 with no acute s/s of distress and no co pain at the moment. no co sob or difficulty breathing. IV site clean dry and intact andn running fluid as ordered. plan of care discussed.
--- NOTE | 2020-12-03 19:36 | NUR ---
NURSE NOTES: RN received order from Dr. Escobar for Covid PCR. [employer] out of stock with any test supplies. RN tried to contact Ashly from [facility] as directed by the electronic coils supervisor Kori however she is not available. RN endorsed it to the next shift nurse Maurice.
--- NOTE | 2020-12-03 19:54 | NUR ---
NURSE HAND-OFF: Important Events on Shift:PCR test ordered, pain mgt Patient Status: in pain Diet: clear liquid diet Pending Orders: PCR Pending Results/Labs:PCR Pending MD notification:PCR Latest Vital Signs: Temperature 97.8 , Pulse 77 , B/P 155 /79 , Respiratory Rate 18 , O2 SAT 98 , Room Air, O2 Flow Rate . Vital Sign Comment: HTN Latest Montesinos Fall Score: 50 Fall Risk: High Risk Safety Measures: Call light Within Reach, Bed Alarm Zone 1, Side Rails Side Rails x2, Bed position Low and Locked. Fall Precautions: Door Sign Patient Fall Education Report given to Denton Richards.
[2020-12-03 20:00] VITALS: BP 140/86
[2020-12-03] MEDS: Miralax 17gm pkt ORAL SCH (21:02)
[2020-12-04 00:13] VITALS: BP 140/81
--- NOTE | 2020-12-04 00:13 | NUR ---
NURSE NOTES: pt currently asleep. vital signs are stable at this time. no co pain currently.
[2020-12-04] MEDS: Morphine Sulfate 4mg/ml Inj (IV USE ONLY) IVP PRN ×4 (02:58→22:18)
[2020-12-04 03:56] VITALS: BP 142/81
--- NOTE | 2020-12-04 03:57 | NUR ---
NURSE NOTES: vital signs stable at this time. pt with mild pain currently. pt got up and ambulated with walker to bathroom and voided. no acute s/s of distress.
[2020-12-04] MEDS: Linaclotide 72mcg ORAL SCH (05:37)
[2020-12-04] MEDS: HydrALAZINE 50mg tab ORAL SCH ×3 (05:37→21:15)
[2020-12-04] MEDS: D5NS 1,000 ML IV SCH (05:38)
[2020-12-04] MEDS: Heparin 5000 units/ml inj SUBQ SCH ×3 (05:39→21:16)
[2020-12-04] MEDS: NovoLOG Insulin Flexpen SUBQ SCH ×4 (05:40→21:17)
--- NOTE | 2020-12-04 06:14 | NUR ---
NURSE HAND-OFF: Important Events on Shift:pain management, fall risk Patient Status: stable Diet: clear liquid Pending Orders: NA Pending Results/Labs:NA Pending MD notification:NA Latest Vital Signs: Temperature 98.2 , Pulse 80 , B/P 145 /79 , Respiratory Rate 17 , O2 SAT 98 , Room Air, O2 Flow Rate . Vital Sign Comment: stable through the shift Latest Montesinos Fall Score: 50 Fall Risk: High Risk Safety Measures: Call light Within Reach, Bed Alarm Zone 1, Side Rails Side Rails x2, Bed position Low and Locked. Fall Precautions: Door Sign Patient Fall Education Report will be given to GONZALES Villalba.
[2020-12-04] MEDS: Creon DR 36,000 units cap ORAL SCH ×3 (06:53→17:49)
--- NOTE | 2020-12-04 07:56 | NUR ---
NURSE NOTES: RN received report from Denton and patient in bed. Patient is aaoX4, denies respiratory distress. Patient c/o abdominal discomfort. IV is intact, dry, patent. Plan of care communicated. Bed in lowest position, locked and bed alarm on. Call light within reach and able to make needs known. Will continue to monitor, administer meds as prescribed.
[2020-12-04 08:00] VITALS: BP 112/80
--- NOTE | 2020-12-04 09:12 | General Progress Note ---
Subjective ROS Limited/Unobtainable: Yes Allergies: Coded Allergies: CODEINE (Verified Allergy, Severe, Itching, 10/10/20) Objective Last 24 Hour Vital Signs Date Time Temp Pulse Resp B/P (MAP) Pulse Ox O2 Delivery O2 Flow Rate FiO2 12/04/20 08:00 97.7 71 18 112/80 (91) 95 12/04/20 05:37 145/79 12/04/20 03:56 98.2 80 17 142/81 (101) 98 12/04/20 00:13 97.8 80 18 140/81 (100) 98 12/03/20 21:02 140/86 12/03/20 21:00 Room Air 12/03/20 20:00 98.2 89 17 140/86 (104) 98 12/03/20 19:22 97.8 12/03/20 16:00 97.8 77 18 155/79 (104) 98 12/03/20 13:16 97.6 12/03/20 13:03 155/88 12/03/20 12:00 97.1 80 18 155/88 (110) 97 Intake and Output 12/03/20 12/04/20 19:00 07:00 Intake Total 350 ml 860 ml Balance 350 ml 860 ml IV Total 350 ml 500 ml Other 360 ml # Voids 3 Laboratory Tests 12/03/20 12:28: POC Whole Blood Glucose 162H 12/03/20 16:08: POC Whole Blood Glucose 203H 12/03/20 20:05: POC Whole Blood Glucose 128H 12/04/20 05:33: POC Whole Blood Glucose [Pending] Height (Feet): 5 Height (Inches): 3.00 Weight (Pounds): 171 General Appearance: no apparent distress EENT: normal ENT inspection Neck: supple Cardiovascular: normal rate Respiratory/Chest: decreased breath sounds Abdomen: hypoactive bowel sounds, tender Assessment/Plan Assessment/Plan: Assessment/Plan Assessment/Plan: pancreatitis abd pain nausea anemia pancreatic cyst possible SBO on last CT recent ERCP pain control creon tirso ct>> SBO>>>fu surg add bowel regimen kub repeat labs in am Nikolas Celestin MD Dec 04, 2020 09:12
[2020-12-04] MEDS ORDERED: Morphine Sulfate 2mg/ml Inj(IV/IM USE ONLY) IVP PRN (09:15)
[2020-12-04 09:34] LABS: BASOPHILS % (AUTO) 1.3 % (0.0-2.0); EOSINOPHILS % (AUTO) 4.3 % (0.0-3.0); HEMATOCRIT 34.9 % (37.0-47.0); HEMOGLOBIN 10.6 G/DL (12.0-16.0); LYMPHOCYTES % (AUTO) 29.1 % (20.0-45.0); MEAN CORPUSCULAR VOLUME 82 FL (80-99); MONOCYTES % (AUTO) 12.5 % (1.0-10.0); NEUTROPHILS % (AUTO) 52.8 % (45.0-75.0); PLATELET COUNT 305 K/UL (150-450); RED BLOOD COUNT 4.23 M/UL (4.20-5.40); RED CELL DISTRIBUTION WIDTH 13.6 % (11.6-14.8)
[2020-12-04] MEDS: Docusate 100mg cap ORAL SCH ×2 (09:50→17:49)
[2020-12-04] MEDS: methIMAzole 10mg tab ORAL SCH (09:50)
[2020-12-04 10:03] LABS: ALBUMIN 3.4 G/DL (3.4-5.0); ALBUMIN/GLOBULIN RATIO 0.9 (1.0-2.7); BILIRUBIN,TOTAL 0.3 MG/DL (0.2-1.0); CALCIUM 9.2 MG/DL (8.5-10.1); CREATININE 1.4 MG/DL (0.55-1.30); POTASSIUM 3.9 MMOL/L (3.5-5.1)
--- NOTE | 2020-12-04 11:00 | NUR ---
NURSE NOTES: RN found the patient eating cookies. RN reeducated the patient not to eat food that is not ordered. RN notified Dr. Bailey.
[2020-12-04 12:00] VITALS: BP 133/72
--- NOTE | 2020-12-04 12:27 | NUR ---
RD ASSESSMENT & RECOMMENDATIONS SEE CARE ACTIVITY FOR COMPLETE ASSESSMENT DAILY ESTIMATED NEEDS: Needs based on Pancreatitis 60kg abw 25-30 kcals/kg 5820-5928 total kcals 1-1.5 g protein/kg 60-90 g total protein 25-30 mL/kg 2906-8354 total fluid mLs NUTRITION DIAGNOSIS: Decreased fat needs r/t pancreatitis as evidenced by elevated Lipase (now 531) trending up. CURRENT DIET: CLD PO DIET RECOMMENDATIONS: Advance as able to CCHO LOW/ LOW FAT DIET ADDITIONAL RECOMMENDATIONS: 1) Soft easy chew r/t poor dentition 2) Niss / accuchecks 3) Monitor po intake, tolerance Add Ensure Clear TID w/ meals (0g fat)
--- NOTE | 2020-12-04 12:35 | Surgery Progress Note ---
Surgery Progress Note Subjective Symptoms: improved, tolerating diet, passing flatus Objective Last 24 Hour Vital Signs Date Time Temp Pulse Resp B/P (MAP) Pulse Ox O2 Delivery O2 Flow Rate FiO2 12/04/20 08:00 97.7 71 18 112/80 (91) 95 12/04/20 05:37 145/79 12/04/20 03:56 98.2 80 17 142/81 (101) 98 12/04/20 00:13 97.8 80 18 140/81 (100) 98 12/03/20 21:02 140/86 12/03/20 21:00 Room Air 12/03/20 20:00 98.2 89 17 140/86 (104) 98 12/03/20 19:22 97.8 12/03/20 16:00 97.8 77 18 155/79 (104) 98 12/03/20 13:16 97.6 12/03/20 13:03 155/88 I&O Intake and Output 12/03/20 12/04/20 19:00 07:00 Intake Total 350 ml 860 ml Balance 350 ml 860 ml IV Total 350 ml 500 ml Other 360 ml # Voids 3 Cardiovascular: RSR Respiratory: clear Abdomen: soft, flat, non-tender, present bowel sounds, non-distended Extremities: no edema Laboratory Tests Test 12/03/20 16:08 12/03/20 20:05 12/04/20 05:33 12/04/20 08:30 POC Whole Blood Glucose 203 MG/DL (74-106) H 128 MG/DL (74-106) H Pending Sodium Level 139 MMOL/L (136-145) Potassium Level 3.9 MMOL/L (3.5-5.1) Chloride Level 104 MMOL/L (98-107) Carbon Dioxide Level 25 MMOL/L (21-32) Anion Gap 10 mmol/L (5-15) Blood Urea Nitrogen 12 mg/dL (7-18) Creatinine 1.4 MG/DL (0.55-1.30) H Estimat Glomerular Filtration Rate 45.1 mL/min (>60) Glucose Level 185 MG/DL (74-106) H Calcium Level 9.2 MG/DL (8.5-10.1) Total Bilirubin 0.3 MG/DL (0.2-1.0) Aspartate Amino Transf (AST/SGOT) 15 U/L (15-37) Alanine Aminotransferase (ALT/SGPT) 17 U/L (12-78) Alkaline Phosphatase 101 U/L (46-116) Total Protein 7.2 G/DL (6.4-8.2) Albumin 3.4 G/DL (3.4-5.0) Globulin 3.8 g/dL Albumin/Globulin Ratio 0.9 (1.0-2.7) L Amylase Level 46 U/L (25-115) Lipase 531 U/L (73-393) H Test 12/04/20 08:42 12/04/20 11:55 White Blood Count 5.0 K/UL (4.8-10.8) Red Blood Count 4.23 M/UL (4.20-5.40) Hemoglobin 10.6 G/DL (12.0-16.0) L Hematocrit 34.9 % (37.0-47.0) L Mean Corpuscular Volume 82 FL (80-99) Mean Corpuscular Hemoglobin 25.1 PG (27.0-31.0) L Mean Corpuscular Hemoglobin Concent 30.5 G/DL (32.0-36.0) L Red Cell Distribution Width 13.6 % (11.6-14.8) Platelet Count 305 K/UL (150-450) Mean Platelet Volume 6.0 FL (6.5-10.1) L Neutrophils (%) (Auto) 52.8 % (45.0-75.0) Lymphocytes (%) (Auto) 29.1 % (20.0-45.0) Monocytes (%) (Auto) 12.5 % (1.0-10.0) H Eosinophils (%) (Auto) 4.3 % (0.0-3.0) H Basophils (%) (Auto) 1.3 % (0.0-2.0) POC Whole Blood Glucose Pending Plan Problems: (1) UTI (urinary tract infection) (2) Abdominal pain Assessment & Plan: imaging noted possible sbo but likely ileus await small bowel study (3) Dehydration (4) Pancreatitis Assessment & Plan: 70-year-old female with recurrent pancreatitis. History of cholecystectomy. Nausea vomiting now resolving. Abdominal pain significant states that this is a much worse episode than priors. Labs noted. No current imaging. Imaging from last admission about a month ago reviewed. Recommend repeating CT/MRI to ensure no pancreatic necrosis or complication or worsening fluid collection or cyst. N.p.o. IV fluids IV antibiotics pain control monitor urine output with fall with recommendations. Thank you letting participate in patient's care improving CT noted MRI noted ? sbo small bowel series likely ileus given severity of pancreatitis MRI from 10/2020 As noted on the CT scan, there is extensive pancreatic ductal dilation. This is most pronounced proximally, where the duct measures up to 1.3 cm in diameter. There is some distal tapering, but still with substantial dilation out to the tail. Side branches are also distended. There are calcifications in the region of the pancreatic head, better demonstrated on CT. Some of these presumably reflect sequela of chronic pancreatitis. 1 of these calcifications may correlate with a filling defect in the proximal duct in the pancreatic head measuring maximum of 8 mm in the coronal plane on series 3, image 21 and 6 mm in the axial plane on series 5, image 25. Question an intraductal stone contributing to the dilation/obstruction. Complicating assessment is a mass along the posterior-leftward aspect of the pancreatic head and uncinate process. This correlates with the cystic lesion seen on CT. It measures 6 x 3.4 x 3 cm in greatest craniocaudal, transverse, and anteroposterior dimensions respectively on series 9, image 67 and series 5, image 26. The mass is markedly hyperintense on T2 and mildly hypointense on T1-weighted sequences. It is primarily cystic with numerous locules. Postcontrast, there is no clear enhancing nodular or other component. It is difficult to exclude a connection with the main pancreatic duct as this is immediately adjacent. The common bile duct is of normal caliber for patient's age. No choledocholithiasis is. The gallbladder is absent. Bilateral renal cysts, largest in the parapelvic lower pole measures 2 cm. No hydronephrosis. Incidental note of cardiomegaly, colonic diverticula, and lumbar fusion. IMPRESSION: Pancreatic ductal dilation. While this can be seen with chronic pancreatitis, would question an obstructing calculus in the proximal main duct. Consider ERCP. 6 cm cystic mass along the posterior pancreatic head and uncinate process. Some features suggesting a serous cystic neoplasm, but not entirely classic appearance. This would be extremely large for a side branch intraductal papillary mucinous neoplasm, but this possibility is not excluded. I am not confident that this is a pseudocyst. Consideration for a endoscopic ultrasound evaluation. If this is not pursued, would at least recommend a 6 month follow-up to assess for stability. (5) Electrolyte imbalance (6) HTN (hypertension) (7) FRANCISCA (acute kidney injury) (8) DMII (diabetes mellitus, type 2) Eriberto Bailey Dec 04, 2020 12:35
--- NOTE | 2020-12-04 13:10 | Nephrology Progress Note ---
Assessment/Plan Problem List: (1) FRANCISCA (acute kidney injury) (2) DMII (diabetes mellitus, type 2) (3) HTN (hypertension) (4) Electrolyte imbalance (5) Dehydration (6) UTI (urinary tract infection) (7) Pancreatitis Assessment 70-year-old female admitted with abdominal pain Serum creatinine 2.1 on admission Acute kidney injury Dehydration Diabetes type 2 Pancreatitis Hypertension Thyroid disease Asthma Previous ERCP UTI Plan December 04: Labs reviewed. Serum creatinine almost within normal limit. Serum creatinine of 2.1 is down to 1.4. Patient on clear liquid diet. Small bowel follow-through order is in process. Continue per consultants. December 03: Labs reviewed. Serum creatinine 1.7. Patient on clear liquid. Clinically appears stable. Continue per GI. Patient has a small bowel obstruction on CT. December 02: Labs reviewed. Serum creatinine lowering. Electrolytes within normal limits. On clear liquid. Continue per consultants. Previously: Hydrate BP control, adjust blood pressure medications Keep the blood sugar in check Avoid nephrotoxic's Urine studies Monitor renal parameters Per consultants Subjective ROS Limited/Unobtainable: No Constitutional: Reports: malaise Objective Objective Last 24 Hour Vital Signs Date Time Temp Pulse Resp B/P (MAP) Pulse Ox O2 Delivery O2 Flow Rate FiO2 12/04/20 08:00 97.7 71 18 112/80 (91) 95 12/04/20 05:37 145/79 12/04/20 03:56 98.2 80 17 142/81 (101) 98 12/04/20 00:13 97.8 80 18 140/81 (100) 98 12/03/20 21:02 140/86 12/03/20 21:00 Room Air 12/03/20 20:00 98.2 89 17 140/86 (104) 98 12/03/20 19:22 97.8 12/03/20 16:00 97.8 77 18 155/79 (104) 98 12/03/20 13:16 97.6 Intake and Output 12/03/20 12/04/20 19:00 07:00 Intake Total 350 ml 860 ml Balance 350 ml 860 ml IV Total 350 ml 500 ml Other 360 ml # Voids 3 Current Medications Medications (Trade) Dose Ordered Sig/Angely Route PRN Reason Start Time Stop Time Status Last Admin Dose Admin Acetaminophen (Tylenol) 650 mg Q6H PRN ORAL Headache 11/30/20 20:45 12/30/20 20:44 Acetaminophen (Tylenol) 650 mg Q6H PRN ORAL fever>100.4 11/30/20 21:00 12/30/20 20:59 Acetaminophen (Tylenol) 650 mg Q6H PRN ORAL pain 1-3 11/30/20 21:00 12/30/20 20:59 Amylase/Lipase/ Protease (Herbert OLIVAS 36,000 units cap) 1 ea TIWM ORAL 12/01/20 17:00 03/01/21 16:59 12/04/20 12:55 Amylase/Lipase/ Protease (Herbert OLIVAS 36,000 units cap) 1 ea WITH SNACKS ORAL 12/01/20 13:30 03/01/21 13:29 Clonidine HCl (Catapres Tab) 0.1 mg Q4H PRN ORAL BP above 160 syst 12/01/20 12:45 03/01/21 12:44 Dextrose (Dextrose 50%) 25 ml Q30M PRN IV Hypoglycemia 11/30/20 20:45 02/28/21 20:44 Dextrose (Dextrose 50%) 50 ml Q30M PRN IV Hypoglycemia 11/30/20 20:45 02/28/21 20:44 Dextrose/Sodium Chloride 1,000 ml @ 50 mls/hr Q20H IV 12/02/20 14:00 01/01/21 13:59 12/04/20 05:38 Docusate Sodium (Colace) 100 mg TWICE A DAY ORAL 12/03/20 09:00 01/02/21 08:59 12/04/20 09:50 Famotidine (Pepcid I.v.) 20 mg Q12HR IVP 12/01/20 21:00 12/31/20 20:59 12/04/20 09:50 Gabapentin (Neurontin) 600 mg THREE TIMES A DAY ORAL 12/01/20 09:00 12/31/20 08:59 12/04/20 12:56 Heparin Sodium (Porcine) (Heparin 5000 units/ml) 5,000 units EVERY 8 HOURS SUBQ 11/30/20 22:00 01/14/21 21:59 12/04/20 05:39 Hydralazine HCl (Apresoline) 50 mg Q8HR ORAL 12/02/20 16:30 03/01/21 00:00 12/04/20 05:37 Insulin Aspart (NovoLOG) BEFORE MEALS AND HS SUBQ 11/30/20 22:00 02/28/21 21:59 12/04/20 05:40 Linaclotide (Linzess) 72 mcg BEFORE BREAKFAST ORAL 12/04/20 06:30 03/04/21 06:29 12/04/20 05:37 Methimazole (Tapazole) 10 mg DAILY ORAL 12/01/20 09:00 12/31/20 08:59 12/04/20 09:50 Morphine Sulfate (Morphine Sulfate) 4 mg Q4H PRN IVP Severe Pain (Pain Scale 7-10) 11/30/20 20:45 12/07/20 20:44 12/04/20 12:56 Morphine Sulfate (Morphine Sulfate) 4 mg Q4H PRN IVP Moderate Pain (Pain Scale 4-6) 12/04/20 09:15 12/07/20 20:44 Ondansetron HCl (Zofran) 4 mg Q4H PRN IVP Nausea & Vomiting 11/30/20 20:45 12/30/20 20:44 12/04/20 02:58 Polyethylene Glycol (Miralax) 17 gm BEDTIME ORAL 12/03/20 21:00 01/02/21 20:59 12/03/20 21:02 Laboratory Tests 12/03/20 16:08: POC Whole Blood Glucose 203H 12/03/20 20:05: POC Whole Blood Glucose 128H 12/04/20 05:33: POC Whole Blood Glucose [Pending] 12/04/20 08:30: Sodium Level 139, Potassium Level 3.9, Chloride Level 104, Carbon Dioxide Level 25, Anion Gap 10, Blood Urea Nitrogen 12, Creatinine 1.4H, Estimat Glomerular Filtration Rate 45.1, Glucose Level 185H, Calcium Level 9.2, Total Bilirubin 0.3, Aspartate Amino Transf (AST/SGOT) 15, Alanine Aminotransferase (ALT/SGPT) 17, Alkaline Phosphatase 101, Total Protein 7.2, Albumin 3.4, Globulin 3.8, Albumin/Globulin Ratio 0.9L, Amylase Level 46, Lipase 531H 12/04/20 08:42: White Blood Count 5.0, Red Blood Count 4.23, Hemoglobin 10.6L, Hematocrit 34.9L, Mean Corpuscular Volume 82, Mean Corpuscular Hemoglobin 25.1L, Mean Corpuscular Hemoglobin Concent 30.5L, Red Cell Distribution Width 13.6, Platelet Count 305, Mean Platelet Volume 6.0L, Neutrophils (%) (Auto) 52.8, Lymphocytes (%) (Auto) 29.1, Monocytes (%) (Auto) 12.5H, Eosinophils (%) (Auto) 4.3H, Basophils (%) (Auto) 1.3 12/04/20 11:55: POC Whole Blood Glucose [Pending] Height (Feet): 5 Height (Inches): 3.00 Weight (Pounds): 171 General Appearance: no apparent distress Cardiovascular: normal rate Respiratory/Chest: decreased breath sounds Abdomen: distended Bhupinder Huynh MD Dec 04, 2020 13:10
--- NOTE | 2020-12-04 13:52 | Diagnostic Imaging Report ---
FILM ABDOMEN INDICATION: Abdominal pain COMPARISON: CT abdomen 01 December 2020 FINDINGS: 2 frontal view of the abdomen demonstrates prominent air- filled loops of bowel with postoperative changes of the lumbar spine. Stable distention of the bowel loops from the prior study. No definite free air seen. Gas seen within the colon.. No evidence of organomegaly, abnormal calcifications or obvious soft tissue masses. The osseous structures are intact. IMPRESSION: Prominent air-filled loops of bowel from ileus or bowel obstruction with similar appearance to the prior study.
--- NOTE | 2020-12-04 15:26 | Internal Med Progress Note ---
Subjective Date of Service: Dec 04, 2020 Physician Name Sánchez,Pierce Attending Physician Zacarias Escobar MD Current Medications Medications (Trade) Dose Ordered Sig/Angely Route PRN Reason Start Time Stop Time Status Last Admin Dose Admin Acetaminophen (Tylenol) 650 mg Q6H PRN ORAL Headache 11/30/20 20:45 12/30/20 20:44 Acetaminophen (Tylenol) 650 mg Q6H PRN ORAL fever>100.4 11/30/20 21:00 12/30/20 20:59 Acetaminophen (Tylenol) 650 mg Q6H PRN ORAL pain 1-3 11/30/20 21:00 12/30/20 20:59 Amylase/Lipase/ Protease (Herbert OLIVAS 36,000 units cap) 1 ea TIWM ORAL 12/01/20 17:00 03/01/21 16:59 12/04/20 12:55 Amylase/Lipase/ Protease (Herbert OLIVAS 36,000 units cap) 1 ea WITH SNACKS ORAL 12/01/20 13:30 03/01/21 13:29 Clonidine HCl (Catapres Tab) 0.1 mg Q4H PRN ORAL BP above 160 syst 12/01/20 12:45 03/01/21 12:44 Dextrose (Dextrose 50%) 25 ml Q30M PRN IV Hypoglycemia 11/30/20 20:45 02/28/21 20:44 Dextrose (Dextrose 50%) 50 ml Q30M PRN IV Hypoglycemia 11/30/20 20:45 02/28/21 20:44 Dextrose/Sodium Chloride 1,000 ml @ 50 mls/hr Q20H IV 12/02/20 14:00 01/01/21 13:59 12/04/20 05:38 Docusate Sodium (Colace) 100 mg TWICE A DAY ORAL 12/03/20 09:00 01/02/21 08:59 12/04/20 09:50 Famotidine (Pepcid I.v.) 20 mg Q12HR IVP 12/01/20 21:00 12/31/20 20:59 12/04/20 09:50 Gabapentin (Neurontin) 600 mg THREE TIMES A DAY ORAL 12/01/20 09:00 12/31/20 08:59 12/04/20 12:56 Heparin Sodium (Porcine) (Heparin 5000 units/ml) 5,000 units EVERY 8 HOURS SUBQ 11/30/20 22:00 01/14/21 21:59 12/04/20 14:23 Hydralazine HCl (Apresoline) 50 mg Q8HR ORAL 12/02/20 16:30 03/01/21 00:00 12/04/20 14:19 Insulin Aspart (NovoLOG) BEFORE MEALS AND HS SUBQ 11/30/20 22:00 02/28/21 21:59 12/04/20 05:40 Linaclotide (Linzess) 72 mcg BEFORE BREAKFAST ORAL 12/04/20 06:30 03/04/21 06:29 12/04/20 05:37 Methimazole (Tapazole) 10 mg DAILY ORAL 12/01/20 09:00 12/31/20 08:59 12/04/20 09:50 Morphine Sulfate (Morphine Sulfate) 4 mg Q4H PRN IVP Severe Pain (Pain Scale 7-10) 11/30/20 20:45 12/07/20 20:44 12/04/20 12:56 Morphine Sulfate (Morphine Sulfate) 4 mg Q4H PRN IVP Moderate Pain (Pain Scale 4-6) 12/04/20 09:15 12/07/20 20:44 Ondansetron HCl (Zofran) 4 mg Q4H PRN IVP Nausea & Vomiting 11/30/20 20:45 12/30/20 20:44 12/04/20 02:58 Polyethylene Glycol (Miralax) 17 gm BEDTIME ORAL 12/03/20 21:00 01/02/21 20:59 12/03/20 21:02 Allergies: Coded Allergies: CODEINE (Verified Allergy, Severe, Itching, 10/10/20) ROS Limited/Unobtainable: No Constitutional: Reports: no symptoms HEENT: Reports: no symptoms Cardiovascular: Reports: no symptoms Respiratory: Reports: no symptoms Gastrointestinal/Abdominal: Reports: abdominal pain Genitourinary: Reports: no symptoms Neurologic/Psychiatric: Reports: no symptoms Subjective 70 YO F admitted with epigastric pain. Now pancreatitis. Cover for Int Jacinto-Dr Escobar Objective Last Vital Signs Date Time Temp Pulse Resp B/P (MAP) Pulse Ox O2 Delivery O2 Flow Rate FiO2 12/04/20 14:19 133/72 12/04/20 13:26 97.7 12/04/20 12:00 78 17 95 12/04/20 09:00 Room Air Laboratory Tests Test 12/03/20 16:08 12/03/20 20:05 12/04/20 05:33 12/04/20 08:30 POC Whole Blood Glucose 203 MG/DL (74-106) H 128 MG/DL (74-106) H 144 MG/DL (74-106) H Sodium Level 139 MMOL/L (136-145) Potassium Level 3.9 MMOL/L (3.5-5.1) Chloride Level 104 MMOL/L (98-107) Carbon Dioxide Level 25 MMOL/L (21-32) Anion Gap 10 mmol/L (5-15) Blood Urea Nitrogen 12 mg/dL (7-18) Creatinine 1.4 MG/DL (0.55-1.30) H Estimat Glomerular Filtration Rate 45.1 mL/min (>60) Glucose Level 185 MG/DL (74-106) H Calcium Level 9.2 MG/DL (8.5-10.1) Total Bilirubin 0.3 MG/DL (0.2-1.0) Aspartate Amino Transf (AST/SGOT) 15 U/L (15-37) Alanine Aminotransferase (ALT/SGPT) 17 U/L (12-78) Alkaline Phosphatase 101 U/L (46-116) Total Protein 7.2 G/DL (6.4-8.2) Albumin 3.4 G/DL (3.4-5.0) Globulin 3.8 g/dL Albumin/Globulin Ratio 0.9 (1.0-2.7) L Amylase Level 46 U/L (25-115) Lipase 531 U/L (73-393) H Test 12/04/20 08:42 12/04/20 11:55 White Blood Count 5.0 K/UL (4.8-10.8) Red Blood Count 4.23 M/UL (4.20-5.40) Hemoglobin 10.6 G/DL (12.0-16.0) L Hematocrit 34.9 % (37.0-47.0) L Mean Corpuscular Volume 82 FL (80-99) Mean Corpuscular Hemoglobin 25.1 PG (27.0-31.0) L Mean Corpuscular Hemoglobin Concent 30.5 G/DL (32.0-36.0) L Red Cell Distribution Width 13.6 % (11.6-14.8) Platelet Count 305 K/UL (150-450) Mean Platelet Volume 6.0 FL (6.5-10.1) L Neutrophils (%) (Auto) 52.8 % (45.0-75.0) Lymphocytes (%) (Auto) 29.1 % (20.0-45.0) Monocytes (%) (Auto) 12.5 % (1.0-10.0) H Eosinophils (%) (Auto) 4.3 % (0.0-3.0) H Basophils (%) (Auto) 1.3 % (0.0-2.0) POC Whole Blood Glucose 138 MG/DL (74-106) H Microbiology Date/Time Source Procedure Growth Status 12/03/20 21:00 Nasopharynx SARS-CoV-2 Antigen (Rapid)(YARELI) - Final Complete Intake and Output 12/03/20 12/04/20 19:00 07:00 Intake Total 350 ml 860 ml Balance 350 ml 860 ml IV Total 350 ml 500 ml Other 360 ml # Voids 3 Objective Objective General: No acute distress, awake and alert HEENT: NCAT, sclera anicteric, PERRL, EOMI. Neck: Supple, no significant jugular venous distention, Lungs: Good inspiratory effort, no accessory muscle use, clear to auscultation bilaterally, no Wheeze or Rales. Heart: Regular rate and rhythm, normal S1/S2, no murmurs/gallops Abdomen: soft, decreased epigastric tenderness, nondistended. Normoactive bowel sounds. / Rectal: Refused and deferred. Extremities: No Cyanosis , clubbing or edema. Neuro: A&O x 3, Able to move all extremities Skin: warm, no rashes or lesions Psych: Normal mood and affect Assessment/Plan Assessment/Plan Assessment/Plan Assessment/Plan (1) Acute kidney injury on chronic renal insufficiency. (2) Abdominal pain most likely due to acute pancreatitis. (3) Dehydration (4) Acute recurrent Pancreatitis (5) Diabetic type II (6) hypertension. (7) dyslipidemia. Plan: Monitor laboratory Pain medication IV hydration clear liquid diet CODE STATUS: Full code DVT prophylaxis: Heparin subcu Follow-up with GI, nephrology, surgery recommendations. Pierce Sánchez MD Dec 04, 2020 15:26
[2020-12-04 16:00] VITALS: BP 155/87
--- NOTE | 2020-12-04 19:22 | NUR ---
NURSE HAND-OFF: Important Events on Shift:pain management, education on sticking to clear liquid diet, xray on small intestine tomorrow Patient Status: in pain Diet: clear liquid diet Pending Orders: n/a Pending Results/Labs: n/a Pending MD notification:n/a Latest Vital Signs: Temperature 97.6 , Pulse 75 , B/P 155 /87 , Respiratory Rate 18 , O2 SAT 97 , Room Air, O2 Flow Rate . Vital Sign Comment: HTN Latest Montesinos Fall Score: 50 Fall Risk: High Risk Safety Measures: Call light Within Reach, Bed Alarm Zone 1, Side Rails Side Rails x2, Bed position Low and Locked. Fall Precautions: Door Sign Patient Fall Education Report given to [place].
[2020-12-04 20:00] VITALS: BP 128/74
[2020-12-04] MEDS: Miralax 17gm pkt ORAL SCH (21:00)
[2020-12-05 00:16] VITALS: BP 143/76
--- NOTE | 2020-12-05 00:17 | NUR ---
NURSE NOTES: vital signs are stable at this time. co pain but mild. will give pain med when due. no acute s/s of distress noted. pt aware of NPO status after midnight.
[2020-12-05] MEDS: D5NS 1,000 ML IV SCH ×2 (02:00→03:11)
[2020-12-05] MEDS: Morphine Sulfate 4mg/ml Inj (IV USE ONLY) IVP PRN ×5 (03:08→22:36)
[2020-12-05 03:32] VITALS: BP 150/91
--- NOTE | 2020-12-05 03:33 | NUR ---
NURSE NOTES: vital signs are stable. no acute distress noted. pt given pain medication, no co pain currently. pt watching tv in room.
[2020-12-05] MEDS: HydrALAZINE 50mg tab ORAL SCH ×3 (05:57→20:57)
[2020-12-05] MEDS: Linaclotide 72mcg ORAL SCH (05:58)
[2020-12-05] MEDS: Heparin 5000 units/ml inj SUBQ SCH ×3 (05:58→20:59)
[2020-12-05] MEDS: Creon DR 36,000 units cap ORAL SCH ×3 (05:59→17:00)
[2020-12-05] MEDS: NovoLOG Insulin Flexpen SUBQ SCH ×4 (05:59→20:58)
--- NOTE | 2020-12-05 06:26 | NUR ---
NURSE HAND-OFF: Important Events on Shift:pain management, safety and fall precaution Patient Status: stable Diet: NPO after midnight Pending Orders: NA Pending Results/Labs:NA Pending MD notification:NA Latest Vital Signs: Temperature 98.2 , Pulse 78 , B/P 150 /91 , Respiratory Rate 18 , O2 SAT 97 , Room Air, O2 Flow Rate . Vital Sign Comment: stable through the shift Latest Montesinos Fall Score: 50 Fall Risk: High Risk Safety Measures: Call light Within Reach, Bed Alarm Zone 1, Side Rails Side Rails x2, Bed position Low and Locked. Fall Precautions: Door Sign Patient Fall Education Report will be given to Rayne Loaiza RN.
--- NOTE | 2020-12-05 06:35 | General Progress Note ---
Subjective ROS Limited/Unobtainable: Yes Allergies: Coded Allergies: CODEINE (Verified Allergy, Severe, Itching, 10/10/20) Objective Last 24 Hour Vital Signs Date Time Temp Pulse Resp B/P (MAP) Pulse Ox O2 Delivery O2 Flow Rate FiO2 12/05/20 05:57 150/91 12/05/20 03:32 98.2 78 18 150/91 (110) 97 12/05/20 00:16 98.6 81 17 143/76 (98) 96 12/04/20 21:15 128/74 12/04/20 20:00 99.0 75 17 128/74 (92) 99 12/04/20 19:28 Room Air 12/04/20 18:47 97.6 12/04/20 16:00 97.6 75 18 155/87 (109) 97 12/04/20 14:19 133/72 12/04/20 13:26 97.7 12/04/20 12:00 96.8 78 17 133/72 (92) 95 12/04/20 09:00 Room Air 12/04/20 08:00 97.7 71 18 112/80 (91) 95 Intake and Output 12/04/20 12/05/20 19:00 07:00 Intake Total 300 ml 350 ml Balance 300 ml 350 ml IV Total 300 ml 350 ml # Voids 3 Laboratory Tests 12/04/20 08:30: Sodium Level 139, Potassium Level 3.9, Chloride Level 104, Carbon Dioxide Level 25, Anion Gap 10, Blood Urea Nitrogen 12, Creatinine 1.4H, Estimat Glomerular Filtration Rate 45.1, Glucose Level 185H, Calcium Level 9.2, Total Bilirubin 0.3, Aspartate Amino Transf (AST/SGOT) 15, Alanine Aminotransferase (ALT/SGPT) 17, Alkaline Phosphatase 101, Total Protein 7.2, Albumin 3.4, Globulin 3.8, Albumin/Globulin Ratio 0.9L, Amylase Level 46, Lipase 531H 12/04/20 08:42: White Blood Count 5.0, Red Blood Count 4.23, Hemoglobin 10.6L, Hematocrit 34.9L, Mean Corpuscular Volume 82, Mean Corpuscular Hemoglobin 25.1L, Mean Corpuscular Hemoglobin Concent 30.5L, Red Cell Distribution Width 13.6, Platelet Count 305, Mean Platelet Volume 6.0L, Neutrophils (%) (Auto) 52.8, Lymphocytes (%) (Auto) 29.1, Monocytes (%) (Auto) 12.5H, Eosinophils (%) (Auto) 4.3H, Basophils (%) (Auto) 1.3 12/04/20 11:55: POC Whole Blood Glucose 138H 12/04/20 16:19: POC Whole Blood Glucose 138H 12/04/20 20:18: POC Whole Blood Glucose 164H 12/05/20 05:38: POC Whole Blood Glucose 136H Height (Feet): 5 Height (Inches): 3.00 Weight (Pounds): 171 General Appearance: no apparent distress EENT: normal ENT inspection Neck: supple Cardiovascular: normal rate Respiratory/Chest: decreased breath sounds Abdomen: normal bowel sounds, non tender, soft Extremities: non-tender Assessment/Plan Assessment/Plan: Assessment/Plan Assessment/Plan: pancreatitis abd pain nausea anemia pancreatic cyst possible SBO on last CT recent ERCP pain control creon tirso ct>> SBO>>>fu surg add bowel regimen repeat labs in Nikolas Fraser MD Dec 05, 2020 06:35
--- NOTE | 2020-12-05 07:10 | NUR ---
NURSE NOTES: Received report from GONZALES Chawla. Rounding done with outgoing nurse. Pt a/o x 4, NPO for x-ray small intestine. No SOB noted. Rt AC IV is in placed. Bed in lowest position, call light within reach. Will continue to monitor.
[2020-12-05 07:20] LABS: BASOPHILS % (AUTO) 1.6 % (0.0-2.0); EOSINOPHILS % (AUTO) 5.4 % (0.0-3.0); HEMATOCRIT 34.2 % (37.0-47.0); HEMOGLOBIN 10.5 G/DL (12.0-16.0); LYMPHOCYTES % (AUTO) 32.3 % (20.0-45.0); MEAN CORPUSCULAR VOLUME 82 FL (80-99); MONOCYTES % (AUTO) 15.3 % (1.0-10.0); NEUTROPHILS % (AUTO) 45.4 % (45.0-75.0); PLATELET COUNT 295 K/UL (150-450); RED BLOOD COUNT 4.15 M/UL (4.20-5.40); RED CELL DISTRIBUTION WIDTH 13.5 % (11.6-14.8); WHITE BLOOD COUNT 4.6 K/UL (4.8-10.8)
[2020-12-05 07:23] LABS: ALBUMIN 3.3 G/DL (3.4-5.0); ALBUMIN/GLOBULIN RATIO 0.9 (1.0-2.7); BILIRUBIN,TOTAL 0.3 MG/DL (0.2-1.0); CALCIUM 9.4 MG/DL (8.5-10.1); CREATININE 1.3 MG/DL (0.55-1.30); POTASSIUM 4.1 MMOL/L (3.5-5.1)
[2020-12-05 08:00] VITALS: BP 143/79
[2020-12-05] MEDS: Docusate 100mg cap ORAL SCH ×2 (09:00→17:15)
[2020-12-05] MEDS: methIMAzole 10mg tab ORAL SCH (09:00)
--- NOTE | 2020-12-05 09:03 | Nephrology Progress Note ---
Assessment/Plan Problem List: (1) FRANCISCA (acute kidney injury) (2) DMII (diabetes mellitus, type 2) (3) HTN (hypertension) (4) Electrolyte imbalance (5) Dehydration (6) UTI (urinary tract infection) (7) Pancreatitis Assessment 70-year-old female admitted with abdominal pain Serum creatinine 2.1 on admission Acute kidney injury Dehydration Diabetes type 2 Pancreatitis Hypertension Thyroid disease Asthma Previous ERCP UTI Plan December 05: Labs reviewed. Renal parameters stable. Serum creatinine 1.3. Medication list reviewed. Not much to add from renal standpoint of view. Adjust blood pressure medication. Continue per consultants. December 04: Labs reviewed. Serum creatinine almost within normal limit. Serum creatinine of 2.1 is down to 1.4. Patient on clear liquid diet. Small bowel follow-through order is in process. Continue per consultants. December 03: Labs reviewed. Serum creatinine 1.7. Patient on clear liquid. Clinically appears stable. Continue per GI. Patient has a small bowel obstruction on CT. December 02: Labs reviewed. Serum creatinine lowering. Electrolytes within normal limits. On clear liquid. Continue per consultants. Previously: Hydrate BP control, adjust blood pressure medications Keep the blood sugar in check Avoid nephrotoxic's Urine studies Monitor renal parameters Per consultants Subjective ROS Limited/Unobtainable: No Constitutional: Reports: malaise Objective Objective Last 24 Hour Vital Signs Date Time Temp Pulse Resp B/P (MAP) Pulse Ox O2 Delivery O2 Flow Rate FiO2 12/05/20 08:00 98.4 77 20 143/79 (100) 96 12/05/20 05:57 150/91 12/05/20 03:32 98.2 78 18 150/91 (110) 97 12/05/20 00:16 98.6 81 17 143/76 (98) 96 12/04/20 21:15 128/74 12/04/20 20:00 99.0 75 17 128/74 (92) 99 12/04/20 19:28 Room Air 12/04/20 18:47 97.6 12/04/20 16:00 97.6 75 18 155/87 (109) 97 12/04/20 14:19 133/72 12/04/20 13:26 97.7 12/04/20 12:00 96.8 78 17 133/72 (92) 95 Intake and Output 12/04/20 12/05/20 19:00 07:00 Intake Total 300 ml 450 ml Balance 300 ml 450 ml IV Total 300 ml 350 ml Other 100 ml # Voids 3 2 Current Medications Medications (Trade) Dose Ordered Sig/Angely Route PRN Reason Start Time Stop Time Status Last Admin Dose Admin Acetaminophen (Tylenol) 650 mg Q6H PRN ORAL Headache 11/30/20 20:45 12/30/20 20:44 Acetaminophen (Tylenol) 650 mg Q6H PRN ORAL fever>100.4 11/30/20 21:00 12/30/20 20:59 Acetaminophen (Tylenol) 650 mg Q6H PRN ORAL pain 1-3 11/30/20 21:00 12/30/20 20:59 Amylase/Lipase/ Protease (Herbert OLIVAS 36,000 units cap) 1 ea TIWM ORAL 12/01/20 17:00 03/01/21 16:59 12/04/20 17:49 Amylase/Lipase/ Protease (Herbert OLIVAS 36,000 units cap) 1 ea WITH SNACKS ORAL 12/01/20 13:30 03/01/21 13:29 Clonidine HCl (Catapres Tab) 0.1 mg Q4H PRN ORAL BP above 160 syst 12/01/20 12:45 03/01/21 12:44 Dextrose (Dextrose 50%) 25 ml Q30M PRN IV Hypoglycemia 11/30/20 20:45 02/28/21 20:44 Dextrose (Dextrose 50%) 50 ml Q30M PRN IV Hypoglycemia 11/30/20 20:45 02/28/21 20:44 Dextrose/Sodium Chloride 1,000 ml @ 50 mls/hr Q20H IV 12/02/20 14:00 01/01/21 13:59 12/05/20 03:11 Docusate Sodium (Colace) 100 mg TWICE A DAY ORAL 12/03/20 09:00 01/02/21 08:59 12/04/20 17:49 Famotidine (Pepcid I.v.) 20 mg Q12HR IVP 12/01/20 21:00 12/31/20 20:59 12/05/20 08:22 Gabapentin (Neurontin) 600 mg THREE TIMES A DAY ORAL 12/01/20 09:00 12/31/20 08:59 12/04/20 17:49 Heparin Sodium (Porcine) (Heparin 5000 units/ml) 5,000 units EVERY 8 HOURS SUBQ 11/30/20 22:00 01/14/21 21:59 12/05/20 05:58 Hydralazine HCl (Apresoline) 50 mg Q8HR ORAL 12/02/20 16:30 03/01/21 00:00 12/05/20 05:57 Insulin Aspart (NovoLOG) BEFORE MEALS AND HS SUBQ 11/30/20 22:00 02/28/21 21:59 12/04/20 21:17 Linaclotide (Linzess) 72 mcg BEFORE BREAKFAST ORAL 12/04/20 06:30 03/04/21 06:29 12/04/20 05:37 Methimazole (Tapazole) 10 mg DAILY ORAL 12/01/20 09:00 12/31/20 08:59 12/04/20 09:50 Morphine Sulfate (Morphine Sulfate) 4 mg Q4H PRN IVP Severe Pain (Pain Scale 7-10) 11/30/20 20:45 12/07/20 20:44 12/05/20 08:22 Morphine Sulfate (Morphine Sulfate) 4 mg Q4H PRN IVP Moderate Pain (Pain Scale 4-6) 12/04/20 09:15 12/07/20 20:44 Ondansetron HCl (Zofran) 4 mg Q4H PRN IVP Nausea & Vomiting 11/30/20 20:45 12/30/20 20:44 12/05/20 08:22 Polyethylene Glycol (Miralax) 17 gm BEDTIME ORAL 12/03/20 21:00 01/02/21 20:59 12/03/20 21:02 Laboratory Tests 12/04/20 11:55: POC Whole Blood Glucose 138H 12/04/20 16:19: POC Whole Blood Glucose 138H 12/04/20 20:18: POC Whole Blood Glucose 164H 12/05/20 05:38: POC Whole Blood Glucose 136H 12/05/20 06:30: White Blood Count 4.6L, Red Blood Count 4.15L, Hemoglobin 10.5L, Hematocrit 34.2L, Mean Corpuscular Volume 82, Mean Corpuscular Hemoglobin 25.2L, Mean Corpuscular Hemoglobin Concent 30.6L, Red Cell Distribution Width 13.5, Platelet Count 295, Mean Platelet Volume 5.4L, Neutrophils (%) (Auto) 45.4, Lymphocytes (%) (Auto) 32.3, Monocytes (%) (Auto) 15.3H, Eosinophils (%) (Auto) 5.4H, Basophils (%) (Auto) 1.6, Sodium Level 139, Potassium Level 4.1, Chloride Level 105, Carbon Dioxide Level 25, Anion Gap 9, Blood Urea Nitrogen 9, Creatinine 1.3, Estimat Glomerular Filtration Rate 49.1, Glucose Level 135H, Calcium Level 9.4, Total Bilirubin 0.3, Aspartate Amino Transf (AST/SGOT) 19, Alanine Aminotransferase (ALT/SGPT) 16, Alkaline Phosphatase 97, Total Protein 7.1, Albumin 3.3L, Globulin 3.8, Albumin/Globulin Ratio 0.9L, Amylase Level 43, Lipase 342 Height (Feet): 5 Height (Inches): 3.00 Weight (Pounds): 171 General Appearance: no apparent distress Cardiovascular: normal rate Respiratory/Chest: decreased breath sounds Abdomen: distended Bhupinder Huynh MD Dec 05, 2020 09:03
--- NOTE | 2020-12-05 09:14 | NUR ---
NURSE NOTES: Patient is off the unit for x-ray small bowel w/ gastrografin in stable condition.
--- NOTE | 2020-12-05 11:13 | Surgery Progress Note ---
Surgery Progress Note Subjective Additional Comments pending GI contrast study no n/v +flatus labs noted Objective Last 24 Hour Vital Signs Date Time Temp Pulse Resp B/P (MAP) Pulse Ox O2 Delivery O2 Flow Rate FiO2 12/05/20 08:00 98.4 77 20 143/79 (100) 96 12/05/20 05:57 150/91 12/05/20 03:32 98.2 78 18 150/91 (110) 97 12/05/20 00:16 98.6 81 17 143/76 (98) 96 12/04/20 21:15 128/74 12/04/20 20:00 99.0 75 17 128/74 (92) 99 12/04/20 19:28 Room Air 12/04/20 18:47 97.6 12/04/20 16:00 97.6 75 18 155/87 (109) 97 12/04/20 14:19 133/72 12/04/20 13:26 97.7 12/04/20 12:00 96.8 78 17 133/72 (92) 95 I&O Intake and Output 12/04/20 12/05/20 19:00 07:00 Intake Total 300 ml 450 ml Balance 300 ml 450 ml IV Total 300 ml 350 ml Other 100 ml # Voids 3 2 Cardiovascular: RSR Respiratory: clear Abdomen: soft, distended, non-tender, present bowel sounds Extremities: no edema, no tenderness, no cyanosis Laboratory Tests Test 12/04/20 11:55 12/04/20 16:19 12/04/20 20:18 12/05/20 05:38 POC Whole Blood Glucose 138 MG/DL (74-106) H 138 MG/DL (74-106) H 164 MG/DL (74-106) H 136 MG/DL (74-106) H Test 12/05/20 06:30 White Blood Count 4.6 K/UL (4.8-10.8) L Red Blood Count 4.15 M/UL (4.20-5.40) L Hemoglobin 10.5 G/DL (12.0-16.0) L Hematocrit 34.2 % (37.0-47.0) L Mean Corpuscular Volume 82 FL (80-99) Mean Corpuscular Hemoglobin 25.2 PG (27.0-31.0) L Mean Corpuscular Hemoglobin Concent 30.6 G/DL (32.0-36.0) L Red Cell Distribution Width 13.5 % (11.6-14.8) Platelet Count 295 K/UL (150-450) Mean Platelet Volume 5.4 FL (6.5-10.1) L Neutrophils (%) (Auto) 45.4 % (45.0-75.0) Lymphocytes (%) (Auto) 32.3 % (20.0-45.0) Monocytes (%) (Auto) 15.3 % (1.0-10.0) H Eosinophils (%) (Auto) 5.4 % (0.0-3.0) H Basophils (%) (Auto) 1.6 % (0.0-2.0) Sodium Level 139 MMOL/L (136-145) Potassium Level 4.1 MMOL/L (3.5-5.1) Chloride Level 105 MMOL/L (98-107) Carbon Dioxide Level 25 MMOL/L (21-32) Anion Gap 9 mmol/L (5-15) Blood Urea Nitrogen 9 mg/dL (7-18) Creatinine 1.3 MG/DL (0.55-1.30) Estimat Glomerular Filtration Rate 49.1 mL/min (>60) Glucose Level 135 MG/DL (74-106) H Calcium Level 9.4 MG/DL (8.5-10.1) Total Bilirubin 0.3 MG/DL (0.2-1.0) Aspartate Amino Transf (AST/SGOT) 19 U/L (15-37) Alanine Aminotransferase (ALT/SGPT) 16 U/L (12-78) Alkaline Phosphatase 97 U/L (46-116) Total Protein 7.1 G/DL (6.4-8.2) Albumin 3.3 G/DL (3.4-5.0) L Globulin 3.8 g/dL Albumin/Globulin Ratio 0.9 (1.0-2.7) L Amylase Level 43 U/L (25-115) Lipase 342 U/L (73-393) Plan Problems: (1) UTI (urinary tract infection) (2) Abdominal pain Assessment & Plan: imaging noted possible sbo but likely ileus await small bowel study (3) Dehydration (4) Pancreatitis Assessment & Plan: 70-year-old female with recurrent pancreatitis. History of cholecystectomy. Nausea vomiting now resolving. Abdominal pain significant states that this is a much worse episode than priors. Labs noted. No current imaging. Imaging from last admission about a month ago reviewed. Recommend repeating CT/MRI to ensure no pancreatic necrosis or complication or worsening fluid collection or cyst. N.p.o. IV fluids IV antibiotics pain control monitor urine output with fall with recommendations. Thank you letting participate in patient's care improving CT noted MRI noted ? sbo small bowel series likely ileus given severity of pancreatitis MRI from 10/2020 As noted on the CT scan, there is extensive pancreatic ductal dilation. This is most pronounced proximally, where the duct measures up to 1.3 cm in diameter. There is some distal tapering, but still with substantial dilation out to the tail. Side branches are also distended. There are calcifications in the region of the pancreatic head, better demonstrated on CT. Some of these presumably reflect sequela of chronic pancreatitis. 1 of these calcifications may correlate with a filling defect in the proximal duct in the pancreatic head measuring maximum of 8 mm in the coronal plane on series 3, image 21 and 6 mm in the axial plane on series 5, image 25. Question an intraductal stone contributing to the dilation/obstruction. Complicating assessment is a mass along the posterior-leftward aspect of the pancreatic head and uncinate process. This correlates with the cystic lesion seen on CT. It measures 6 x 3.4 x 3 cm in greatest craniocaudal, transverse, and anteroposterior dimensions respectively on series 9, image 67 and series 5, image 26. The mass is markedly hyperintense on T2 and mildly hypointense on T1-weighted sequences. It is primarily cystic with numerous locules. Postcontrast, there is no clear enhancing nodular or other component. It is difficult to exclude a connection with the main pancreatic duct as this is immediately adjacent. The common bile duct is of normal caliber for patient's age. No choledocholithiasis is. The gallbladder is absent. Bilateral renal cysts, largest in the parapelvic lower pole measures 2 cm. No hydronephrosis. Incidental note of cardiomegaly, colonic diverticula, and lumbar fusion. IMPRESSION: Pancreatic ductal dilation. While this can be seen with chronic pancreatitis, would question an obstructing calculus in the proximal main duct. Consider ERCP. 6 cm cystic mass along the posterior pancreatic head and uncinate process. Some features suggesting a serous cystic neoplasm, but not entirely classic appearance. This would be extremely large for a side branch intraductal papillary mucinous neoplasm, but this possibility is not excluded. I am not confident that this is a pseudocyst. Consideration for a endoscopic ultrasound evaluation. If this is not pursued, would at least recommend a 6 month follow-up to assess for stability. (5) Electrolyte imbalance (6) HTN (hypertension) (7) FRANCISCA (acute kidney injury) (8) DMII (diabetes mellitus, type 2) Eriberto Bailey Dec 05, 2020 11:13
--- NOTE | 2020-12-05 11:39 | NUR ---
RADIOLOGY DEPT., SMALL BOWEL SERIE WITH GASTROGRIFFIN INCOMPLETE DUE TO PATIENT VOMITING ALL CONTRAST FOR THIS IMAGING EXAM. REPORT OF THIS EVENT WAS SHARED WITH [facility], DR. SHANTE ADAMES. RADIOLOGIST STATED HE WASN'T ABLE TO DETERMINE IF BLOCKAGE WAS EVIDENT. DICTATION WILL BE FORTH COMING.-P.DYE
[2020-12-05 12:00] VITALS: BP 152/75
[2020-12-05] MEDS ORDERED: Omnipaque-300 100ml vial INJ PRN (13:08)
--- NOTE | 2020-12-05 13:55 | NUR ---
NURSE NOTES: Patient is off for CT of abd.
--- NOTE | 2020-12-05 15:02 | Diagnostic Imaging Report ---
Indication: Abdominal pain, small bowel obstruction Technique: Small bowel follow-through. Patient was given oral contrast and subsequent radiographic images were obtained. Total number of images obtained: 8. Small bowel follow-through was carried out until approximately one hour after which patient vomited. Comparison: CT the abdomen and pelvis 12/01/2020 Findings: Patrol Mother radiograph demonstrates gaseous distention of multiple small bowel loops concerning for small bowel obstruction. No evidence to suggest free intraperitoneal air. Degenerative and postoperative changes are noted in the spine. Oral contrast was administered due to measuring mild dilatation of the duodenum. Oral contrast transits into proximal jejunal loops which are mildly distended. Oral contrast is not transited past the jejunum but on patient prominence. There is persistent dilatation of small bowel loops on image obtained following agent vomiting. At this point the exam was terminated. IMPRESSION: Incomplete exam as patient vomited approximately 1 hour after oral contrast administration. Persistent dilatation of small bowel loops throughout the abdomen concerning for small bowel obstruction, as seen on prior CT.
--- NOTE | 2020-12-05 15:53 | Diagnostic Imaging Report ---
Indication: Abdominal pain. Obstruction. Technique: CT of the abdomen and pelvis utilizing automated exposure control with intravenous contrast. Venous scanning performed. Axial, sagittal and coronal reformats presented. CT dose: Total DLP 766.8 mGycm; CTDI vol 15 mGy Comparison: CT abdomen 12/01/2020 Findings: Dependent atelectatic changes noted in the lung bases. Multifocal subsegmental atelectasis versus early infiltrate noted in the right lower lobe. No pneumothorax or pleural effusion. Partially imaged heart is mildly enlarged. There are coronary arterial and cardiac valvular calcifications. And punctate foci of pneumobilia again noted, similar to the prior exam. Hepatic contour is smooth. Patient again noted be status post cholecystectomy. Hepatic veins and portal veins appear patent. Spleen, adrenal glands unremarkable. Unchanged appearance of the pancreas with dilatation of the pancreatic duct and cystic lesion with calcifications in the region of the pancreatic head. No discrete peripancreatic inflammatory changes seen presently. Kidneys enhance symmetrically. The small cortical cysts are noted in the upper pole bilaterally. No hydronephrosis or perinephric collections. Patient again noted to be status post hysterectomy. Bladder is mildly distended but otherwise unremarkable. Persistent abnormal distention of small bowel loops concerning for a small bowel obstruction. Again there is a transition point in the right lower abdomen, area of the mid to distal ileum. The loops distal to the area of transition are decompressed. The appendix is normal in caliber and there are no periappendiceal inflammatory changes. No abnormal distention of the colon. There are colonic diverticula. No evidence of acute diverticulitis. Small amount of free fluid is noted within the peritoneal cavity, layering dependently in the pelvis. No free intraperitoneal air is seen. No pneumatosis intestinalis. Again there postsurgical changes underlying the anterior abdominal wall at the level of the umbilicus suggesting possible prior hernia repair (axial image #48). Small hiatal hernia is again seen. Extensive atherosclerotic vessel calcifications are noted. There are degenerative and postoperative changes in the spine with laminectomies and posterior fusion spanning from L1 to L3. IMPRESSION: * Persistent small bowel obstruction with transition point in the right lower abdomen, region of the mid to distal ileum. Findings are overall similar compared to exam of 12/01/2020. Small amount of free intraperitoneal fluid but no free peritoneal air. * Diverticulosis without evidence of acute diverticulitis. Normal appendix. * Status post hysterectomy and cholecystectomy. Surgical material adjacent to the anterior abdominal wall suggesting possible prior ventral hernia repair. * Small hiatal hernia and mild distal esophageal wall thickening. * Coronary arterial calcifications. * Postoperative changes of the lumbar spine, similar to the prior exam. * Interval development of some patchy opacities in the right lower lobe which may be related to dependent atelectasis although developing pneumonia not excluded. The CT scanner at [facility] is accredited by the [employer] and the scans are performed using protocols designed to limit radiation exposure to as low as reasonably achievable to attain images of sufficient resolution adequate for diagnostic evaluation.
[2020-12-05 16:00] VITALS: BP 157/88
--- NOTE | 2020-12-05 16:00 | NUR ---
NURSE NOTES: Results for CT of abd/pelves came up. Notified to Dr. Bailey and ordered NG tube insertion with low intermittent suction setting.
--- NOTE | 2020-12-05 18:22 | NUR ---
insurance CLINICALS FAXED TO [facility] ( ) Fax Clinicals: [phone] CM: Lauren Khalil
--- NOTE | 2020-12-05 18:30 | NUR ---
NURSE NOTES: Not able to insert NG tube and will endorse to operation shift supervisor nurse.
--- NOTE | 2020-12-05 18:49 | Internal Med Progress Note ---
Subjective Date of Service: Dec 05, 2020 Physician Name Sánchez,Pierce Attending Physician Zacarias Escobar MD Current Medications Medications (Trade) Dose Ordered Sig/Angely Route PRN Reason Start Time Stop Time Status Last Admin Dose Admin Acetaminophen (Tylenol) 650 mg Q6H PRN ORAL Headache 11/30/20 20:45 12/30/20 20:44 Acetaminophen (Tylenol) 650 mg Q6H PRN ORAL fever>100.4 11/30/20 21:00 12/30/20 20:59 Acetaminophen (Tylenol) 650 mg Q6H PRN ORAL pain 1-3 11/30/20 21:00 12/30/20 20:59 Amylase/Lipase/ Protease (Herbert OLIVAS 36,000 units cap) 1 ea TIWM ORAL 12/01/20 17:00 03/01/21 16:59 12/04/20 17:49 Amylase/Lipase/ Protease (Herbert OLIVAS 36,000 units cap) 1 ea WITH SNACKS ORAL 12/01/20 13:30 03/01/21 13:29 Clonidine HCl (Catapres Tab) 0.1 mg Q4H PRN ORAL BP above 160 syst 12/01/20 12:45 03/01/21 12:44 Dextrose (Dextrose 50%) 25 ml Q30M PRN IV Hypoglycemia 11/30/20 20:45 02/28/21 20:44 Dextrose (Dextrose 50%) 50 ml Q30M PRN IV Hypoglycemia 11/30/20 20:45 02/28/21 20:44 Dextrose/Sodium Chloride 1,000 ml @ 50 mls/hr Q20H IV 12/02/20 14:00 01/01/21 13:59 12/05/20 03:11 Docusate Sodium (Colace) 100 mg TWICE A DAY ORAL 12/03/20 09:00 01/02/21 08:59 12/04/20 17:49 Famotidine (Pepcid I.v.) 20 mg Q12HR IVP 12/01/20 21:00 12/31/20 20:59 12/05/20 08:22 Gabapentin (Neurontin) 600 mg THREE TIMES A DAY ORAL 12/01/20 09:00 12/31/20 08:59 12/04/20 17:49 Heparin Sodium (Porcine) (Heparin 5000 units/ml) 5,000 units EVERY 8 HOURS SUBQ 11/30/20 22:00 01/14/21 21:59 12/05/20 15:19 Hydralazine HCl (Apresoline) 50 mg Q8HR ORAL 12/02/20 16:30 03/01/21 00:00 12/05/20 05:57 Insulin Aspart (NovoLOG) BEFORE MEALS AND HS SUBQ 11/30/20 22:00 02/28/21 21:59 12/04/20 21:17 Iohexol (OMNIPAQUE-300 100ml) 100 ml ONCE PRN INJ radiology 12/05/20 13:08 12/07/20 23:59 Linaclotide (Linzess) 72 mcg BEFORE BREAKFAST ORAL 12/04/20 06:30 03/04/21 06:29 12/04/20 05:37 Methimazole (Tapazole) 10 mg DAILY ORAL 12/01/20 09:00 12/31/20 08:59 12/04/20 09:50 Morphine Sulfate (Morphine Sulfate) 4 mg Q4H PRN IVP Severe Pain (Pain Scale 7-10) 11/30/20 20:45 12/07/20 20:44 12/05/20 17:46 Morphine Sulfate (Morphine Sulfate) 4 mg Q4H PRN IVP Moderate Pain (Pain Scale 4-6) 12/04/20 09:15 12/07/20 20:44 Ondansetron HCl (Zofran) 4 mg Q4H PRN IVP Nausea & Vomiting 11/30/20 20:45 12/30/20 20:44 12/05/20 17:46 Polyethylene Glycol (Miralax) 17 gm BEDTIME ORAL 12/03/20 21:00 01/02/21 20:59 12/03/20 21:02 Allergies: Coded Allergies: CODEINE (Verified Allergy, Severe, Itching, 10/10/20) ROS Limited/Unobtainable: No Constitutional: Reports: no symptoms HEENT: Reports: no symptoms Cardiovascular: Reports: no symptoms Respiratory: Reports: no symptoms Gastrointestinal/Abdominal: Reports: abdominal pain Neurologic/Psychiatric: Reports: no symptoms Subjective 70 YO F admitted with epigastric pain. Now pancreatitis. Cover for Int Jacinto-Dr Escobar Objective Last Vital Signs Date Time Temp Pulse Resp B/P (MAP) Pulse Ox O2 Delivery O2 Flow Rate FiO2 12/05/20 16:00 99.0 81 20 157/88 (111) 95 12/05/20 09:00 Room Air Laboratory Tests Test 12/04/20 20:18 12/05/20 05:38 12/05/20 06:30 12/05/20 12:05 POC Whole Blood Glucose 164 MG/DL (74-106) H 136 MG/DL (74-106) H 121 MG/DL (74-106) H White Blood Count 4.6 K/UL (4.8-10.8) L Red Blood Count 4.15 M/UL (4.20-5.40) L Hemoglobin 10.5 G/DL (12.0-16.0) L Hematocrit 34.2 % (37.0-47.0) L Mean Corpuscular Volume 82 FL (80-99) Mean Corpuscular Hemoglobin 25.2 PG (27.0-31.0) L Mean Corpuscular Hemoglobin Concent 30.6 G/DL (32.0-36.0) L Red Cell Distribution Width 13.5 % (11.6-14.8) Platelet Count 295 K/UL (150-450) Mean Platelet Volume 5.4 FL (6.5-10.1) L Neutrophils (%) (Auto) 45.4 % (45.0-75.0) Lymphocytes (%) (Auto) 32.3 % (20.0-45.0) Monocytes (%) (Auto) 15.3 % (1.0-10.0) H Eosinophils (%) (Auto) 5.4 % (0.0-3.0) H Basophils (%) (Auto) 1.6 % (0.0-2.0) Sodium Level 139 MMOL/L (136-145) Potassium Level 4.1 MMOL/L (3.5-5.1) Chloride Level 105 MMOL/L (98-107) Carbon Dioxide Level 25 MMOL/L (21-32) Anion Gap 9 mmol/L (5-15) Blood Urea Nitrogen 9 mg/dL (7-18) Creatinine 1.3 MG/DL (0.55-1.30) Estimat Glomerular Filtration Rate 49.1 mL/min (>60) Glucose Level 135 MG/DL (74-106) H Calcium Level 9.4 MG/DL (8.5-10.1) Total Bilirubin 0.3 MG/DL (0.2-1.0) Aspartate Amino Transf (AST/SGOT) 19 U/L (15-37) Alanine Aminotransferase (ALT/SGPT) 16 U/L (12-78) Alkaline Phosphatase 97 U/L (46-116) Total Protein 7.1 G/DL (6.4-8.2) Albumin 3.3 G/DL (3.4-5.0) L Globulin 3.8 g/dL Albumin/Globulin Ratio 0.9 (1.0-2.7) L Amylase Level 43 U/L (25-115) Lipase 342 U/L (73-393) Test 12/05/20 17:01 POC Whole Blood Glucose 137 MG/DL (74-106) H Microbiology Date/Time Source Procedure Growth Status 12/03/20 21:00 Nasopharynx SARS-CoV-2 Antigen (Rapid)(YARELI) - Final Complete Intake and Output 12/04/20 12/05/20 19:00 07:00 Intake Total 300 ml 450 ml Balance 300 ml 450 ml IV Total 300 ml 350 ml Other 100 ml # Voids 3 2 Objective Objective General: No acute distress, awake and alert HEENT: NCAT, sclera anicteric, PERRL, EOMI. Neck: Supple, no significant jugular venous distention, Lungs: Good inspiratory effort, no accessory muscle use, clear to auscultation bilaterally, no Wheeze or Rales. Heart: Regular rate and rhythm, normal S1/S2, no murmurs/gallops Abdomen: soft, decreased epigastric tenderness, nondistended. Normoactive bowel sounds. / Rectal: Refused and deferred. Extremities: No Cyanosis , clubbing or edema. Neuro: A&O x 3, Able to move all extremities Skin: warm, no rashes or lesions Psych: Normal mood and affect Assessment/Plan Assessment/Plan Assessment/Plan Assessment/Plan (1) Acute kidney injury on chronic renal insufficiency. (2) Abdominal pain most likely due to acute pancreatitis. (3) Dehydration (4) Acute recurrent Pancreatitis (5) Diabetic type II (6) hypertension. (7) dyslipidemia. Plan: Monitor laboratory Pain medication IV hydration clear liquid diet CODE STATUS: Full code DVT prophylaxis: Heparin subcu Follow-up with GI, nephrology, surgery recommendations. Pierce Sánchez MD Dec 05, 2020 18:49
--- NOTE | 2020-12-05 19:22 | NUR ---
NURSE HAND-OFF: Important Events on Shift: CT of abd/pelvis done Patient Status: stable Diet: NPO Pending Orders: NG tube with low intermittent suction Pending Results/Labs:n/a Pending MD notification:n/a Latest Vital Signs: Temperature 99.0 , Pulse 81 , B/P 157 /88 , Respiratory Rate 20 , O2 SAT 95 , Room Air, O2 Flow Rate . Vital Sign Comment: stable Latest Montesinos Fall Score: 50 Fall Risk: High Risk Safety Measures: Call light Within Reach, Bed Alarm Zone 1, Side Rails Side Rails x2, Bed position Low and Locked. Fall Precautions: Door Sign Patient Fall Education Report given to GONZALES Tanner.
--- NOTE | 2020-12-05 20:01 | NUR ---
NURSE NOTES: Received patient awake, alert, verbal, resting in bed, comfortable.
[2020-12-05 20:27] VITALS: BP 173/89
[2020-12-05] MEDS: Miralax 17gm pkt ORAL SCH (20:59)
--- NOTE | 2020-12-05 22:58 | Diagnostic Imaging Report ---
EXAM: XR Abdomen, 2 Views CLINICAL HISTORY: NGT TECHNIQUE: Frontal view of the abdomen/pelvis with upright view of the abdomen. COMPARISON: No relevant prior studies available. FINDINGS: Intraperitoneal space: No free air. Gastrointestinal tract: Mildly prominent loops of small bowel, mildly improved as compared to recent imaging. Bones/joints: Post-surgical changes of the lumbar spine. Tubes, lines and devices: Enteric tube with side port below the gastroesophageal junction, suggesting appropriate gastric positioning. IMPRESSION: Appropriately positioned enteric tube.
[2020-12-06 00:12] VITALS: BP 124/52
[2020-12-06 04:00] VITALS: BP 112/70
[2020-12-06] MEDS: Morphine Sulfate 4mg/ml Inj (IV USE ONLY) IVP PRN ×4 (04:30→21:12)
[2020-12-06] MEDS: HydrALAZINE 50mg tab ORAL SCH (06:00)
[2020-12-06] MEDS: Heparin 5000 units/ml inj SUBQ SCH ×3 (06:00→22:23)
[2020-12-06] MEDS: NovoLOG Insulin Flexpen SUBQ SCH ×4 (06:09→21:00)
[2020-12-06] MEDS: Linaclotide 72mcg ORAL SCH (06:09)
[2020-12-06] MEDS: Creon DR 36,000 units cap ORAL SCH (06:10)
--- NOTE | 2020-12-06 06:32 | General Progress Note ---
Subjective ROS Limited/Unobtainable: Yes Allergies: Coded Allergies: CODEINE (Verified Allergy, Severe, Itching, 10/10/20) Objective Last 24 Hour Vital Signs Date Time Temp Pulse Resp B/P (MAP) Pulse Ox O2 Delivery O2 Flow Rate FiO2 12/06/20 06:00 112/70 12/06/20 04:56 98.8 12/06/20 04:00 98.4 92 18 112/70 (84) 98 12/06/20 00:12 98.8 110 18 124/52 (76) 94 12/05/20 23:10 98.5 12/05/20 21:47 Room Air 12/05/20 20:57 173/89 12/05/20 20:57 173/89 12/05/20 20:27 98.5 84 18 173/89 (117) 94 12/05/20 16:00 99.0 81 20 157/88 (111) 95 12/05/20 14:00 152/75 12/05/20 12:00 98.0 86 20 152/75 (100) 99 12/05/20 09:00 Room Air 12/05/20 08:00 98.4 77 20 143/79 (100) 96 Intake and Output 12/05/20 12/06/20 19:00 07:00 Intake Total 50 ml 500 ml Output Total 500 ml Balance 50 ml 0 ml IV Total 50 ml 500 ml Output Urine Total 500 ml # Voids 3 1 Laboratory Tests 12/05/20 12:05: POC Whole Blood Glucose 121H 12/05/20 17:01: POC Whole Blood Glucose 137H 12/05/20 20:43: POC Whole Blood Glucose 174H 12/06/20 05:26: POC Whole Blood Glucose 91 12/06/20 05:40: White Blood Count [Pending], Red Blood Count [Pending], Hemoglobin [Pending], Hematocrit [Pending], Mean Corpuscular Volume [Pending], Mean Corpuscular Hemoglobin [Pending], Mean Corpuscular Hemoglobin Concent [Pending], Red Cell Distribution Width [Pending], Platelet Count [Pending], Mean Platelet Volume [Pending], Neutrophils (%) (Auto) [Pending], Lymphocytes (%) (Auto) [Pending], Monocytes (%) (Auto) [Pending], Eosinophils (%) (Auto) [Pending], Basophils (%) (Auto) [Pending], Sodium Level [Pending], Potassium Level [Pending], Chloride Level [Pending], Carbon Dioxide Level [Pending], Blood Urea Nitrogen [Pending], Creatinine [Pending], Estimat Glomerular Filtration Rate [Pending], Glucose Level [Pending], Calcium Level [Pending], Total Bilirubin [Pending], Aspartate Amino Transf (AST/SGOT) [Pending], Alanine Aminotransferase (ALT/SGPT) [Pending], Alkaline Phosphatase [Pending], Total Protein [Pending], Albumin [Pending], Globulin [Pending], Amylase Level [Pending], Lipase [Pending] Height (Feet): 5 Height (Inches): 3.00 Weight (Pounds): 171 General Appearance: no apparent distress EENT: normal ENT inspection Neck: supple Cardiovascular: normal rate Respiratory/Chest: decreased breath sounds Abdomen: hypoactive bowel sounds Extremities: non-tender Assessment/Plan Assessment/Plan: Assessment/Plan Assessment/Plan: pancreatitis abd pain nausea anemia pancreatic cyst SBO recent ERCP pain control creon tirso ct>> SBO>>>fu surg bowel regimen NGT and NGT to suction improved amylase and lipase repeat labs in Nikolas Fraser MD Dec 06, 2020 06:32
[2020-12-06 06:44] LABS: BASOPHILS % (AUTO) 2.4 % (0.0-2.0); EOSINOPHILS % (AUTO) 4.1 % (0.0-3.0); HEMATOCRIT 34.6 % (37.0-47.0); HEMOGLOBIN 10.5 G/DL (12.0-16.0); LYMPHOCYTES % (AUTO) 34.4 % (20.0-45.0); MEAN CORPUSCULAR VOLUME 82 FL (80-99); MONOCYTES % (AUTO) 12.6 % (1.0-10.0); NEUTROPHILS % (AUTO) 46.5 % (45.0-75.0); PLATELET COUNT 280 K/UL (150-450); RED BLOOD COUNT 4.21 M/UL (4.20-5.40); RED CELL DISTRIBUTION WIDTH 13.2 % (11.6-14.8); WHITE BLOOD COUNT 5.5 K/UL (4.8-10.8)
[2020-12-06 06:58] LABS: ALBUMIN 3.3 G/DL (3.4-5.0); ALBUMIN/GLOBULIN RATIO 0.9 (1.0-2.7); BILIRUBIN,TOTAL 0.6 MG/DL (0.2-1.0); CALCIUM 9.7 MG/DL (8.5-10.1); CREATININE 1.5 MG/DL (0.55-1.30); POTASSIUM 3.7 MMOL/L (3.5-5.1)
--- NOTE | 2020-12-06 07:16 | NUR ---
NURSE HAND-OFF: Important Events on Shift:[]NGT-LIS Patient Status: [] Diet: []Strict NPO Pending Orders: [] Pending Results/Labs:[] Pending MD notification:[] Latest Vital Signs: Temperature 98.8 , Pulse 92 , B/P 112 /70 , Respiratory Rate 18 , O2 SAT 98 , Room Air, O2 Flow Rate . Vital Sign Comment: [] Latest Montesinos Fall Score: 50 Fall Risk: High Risk Safety Measures: Call light Within Reach, Bed Alarm Zone 1, Side Rails Side Rails x2, Bed position Low and Locked. Fall Precautions: Door Sign Patient Fall Education Report given to [].
--- NOTE | 2020-12-06 07:50 | NUR ---
NURSE NOTES: RN received from Flores and patient in bed. Patient is aaoX4, denies respiratory distress. Patient has NG suction draining. Plan of care communicated. Bed in lowest position, locked, bed alarm on. IV patent, dry, clean, asymptomatic. Side rails up X2. Call light within reach and patient able to make needs known.
[2020-12-06 08:00] VITALS: BP 110/58
[2020-12-06] MEDS: methIMAzole 10mg tab ORAL SCH ×2 (09:00→09:12)
[2020-12-06] MEDS: Docusate 100mg cap ORAL SCH ×2 (09:00→09:12)
--- NOTE | 2020-12-06 10:12 | Surgery Progress Note ---
Surgery Progress Note Subjective Additional Comments Patient seen and examined bedside. Was not able to tolerate the small bowel series yesterday had large emesis did not like the contrast. CT reviewed and ordered after identifying still potential bowel obstruction with transition point. Patient has had multiple prior surgeries including large open right cholecystectomy many years ago prior C-sections prior ventral hernia repair with mesh and is a very high risk patient. I do long discussion with the patient and her daughter over the phone in regards to the findings and care plan. Patient presented with pancreatitis which is resolved but continued to develop a new different type of abdominal pain which and work-up identified a small bowel obstruction. Given she is fairly stable examination is fairly benign we have plan together to initiate nonoperative management with NG tube decompression and bowel rest. If potential improvement with resolution of obstruction patient has a chance otherwise we will plan surgical intervention which is very high risk and complicated given her extensive surgical abdominal history. Patient and daughter expressed understanding expressed similar concerns given her history and understanding of choices including the risk benefits and alternatives to the current care plan. Objective Last 24 Hour Vital Signs Date Time Temp Pulse Resp B/P (MAP) Pulse Ox O2 Delivery O2 Flow Rate FiO2 12/06/20 06:00 112/70 12/06/20 04:56 98.8 12/06/20 04:00 98.4 92 18 112/70 (84) 98 12/06/20 00:12 98.8 110 18 124/52 (76) 94 12/05/20 23:10 98.5 12/05/20 21:47 Room Air 12/05/20 20:57 173/89 12/05/20 20:57 173/89 12/05/20 20:27 98.5 84 18 173/89 (117) 94 12/05/20 16:00 99.0 81 20 157/88 (111) 95 12/05/20 14:00 152/75 12/05/20 12:00 98.0 86 20 152/75 (100) 99 I&O Intake and Output 12/05/20 12/06/20 19:00 07:00 Intake Total 50 ml 600 ml Output Total 1600 ml Balance 50 ml -1000 ml IV Total 50 ml 600 ml Output Urine Total 500 ml Gastric Drainage Total 1100 ml # Voids 3 1 Cardiovascular: RSR Respiratory: clear Abdomen: soft, distended, non-tender, decreased bowel sounds Extremities: no edema, no tenderness, no cyanosis Laboratory Tests Test 12/05/20 12:05 12/05/20 17:01 12/05/20 20:43 12/06/20 05:26 POC Whole Blood Glucose 121 MG/DL (74-106) H 137 MG/DL (74-106) H 174 MG/DL (74-106) H 91 MG/DL (74-106) Test 12/06/20 05:40 White Blood Count 5.5 K/UL (4.8-10.8) Red Blood Count 4.21 M/UL (4.20-5.40) Hemoglobin 10.5 G/DL (12.0-16.0) L Hematocrit 34.6 % (37.0-47.0) L Mean Corpuscular Volume 82 FL (80-99) Mean Corpuscular Hemoglobin 25.0 PG (27.0-31.0) L Mean Corpuscular Hemoglobin Concent 30.4 G/DL (32.0-36.0) L Red Cell Distribution Width 13.2 % (11.6-14.8) Platelet Count 280 K/UL (150-450) Mean Platelet Volume 5.4 FL (6.5-10.1) L Neutrophils (%) (Auto) 46.5 % (45.0-75.0) Lymphocytes (%) (Auto) 34.4 % (20.0-45.0) Monocytes (%) (Auto) 12.6 % (1.0-10.0) H Eosinophils (%) (Auto) 4.1 % (0.0-3.0) H Basophils (%) (Auto) 2.4 % (0.0-2.0) H Sodium Level 141 MMOL/L (136-145) Potassium Level 3.7 MMOL/L (3.5-5.1) Chloride Level 104 MMOL/L (98-107) Carbon Dioxide Level 28 MMOL/L (21-32) Anion Gap 9 mmol/L (5-15) Blood Urea Nitrogen 9 mg/dL (7-18) Creatinine 1.5 MG/DL (0.55-1.30) H Estimat Glomerular Filtration Rate 41.7 mL/min (>60) Glucose Level 101 MG/DL (74-106) Calcium Level 9.7 MG/DL (8.5-10.1) Total Bilirubin 0.6 MG/DL (0.2-1.0) Aspartate Amino Transf (AST/SGOT) 22 U/L (15-37) Alanine Aminotransferase (ALT/SGPT) 21 U/L (12-78) Alkaline Phosphatase 101 U/L (46-116) Total Protein 6.9 G/DL (6.4-8.2) Albumin 3.3 G/DL (3.4-5.0) L Globulin 3.6 g/dL Albumin/Globulin Ratio 0.9 (1.0-2.7) L Amylase Level 46 U/L (25-115) Lipase 428 U/L (73-393) H Plan Problems: (1) UTI (urinary tract infection) (2) Abdominal pain Assessment & Plan: imaging noted possible sbo but likely ileus await small bowel study (3) Dehydration (4) Pancreatitis Assessment & Plan: 70-year-old female with recurrent pancreatitis. History of cholecystectomy. Nausea vomiting now resolving. Abdominal pain significant states that this is a much worse episode than priors. Labs noted. No current imaging. Imaging from last admission about a month ago reviewed. Recommend repeating CT/MRI to ensure no pancreatic necrosis or complication or worsening fluid collection or cyst. N.p.o. IV fluids IV antibiotics pain control monitor urine output with fall with recommendations. Thank you letting participate in patient's care improving CT noted MRI noted ? sbo small bowel series likely ileus given severity of pancreatitis MRI from 10/2020 As noted on the CT scan, there is extensive pancreatic ductal dilation. This is most pronounced proximally, where the duct measures up to 1.3 cm in diameter. There is some distal tapering, but still with substantial dilation out to the tail. Side branches are also distended. There are calcifications in the region of the pancreatic head, better demonstrated on CT. Some of these presumably reflect sequela of chronic pancreatitis. 1 of these calcifications may correlate with a filling defect in the proximal duct in the pancreatic head measuring maximum of 8 mm in the coronal plane on series 3, image 21 and 6 mm in the axial plane on series 5, image 25. Question an intraductal stone contributing to the dilation/obstruction. Complicating assessment is a mass along the posterior-leftward aspect of the pancreatic head and uncinate process. This correlates with the cystic lesion seen on CT. It measures 6 x 3.4 x 3 cm in greatest craniocaudal, transverse, and anteroposterior dimensions respectively on series 9, image 67 and series 5, image 26. The mass is markedly hyperintense on T2 and mildly hypointense on T1-weighted sequences. It is primarily cystic with numerous locules. Postcontrast, there is no clear enhancing nodular or other component. It is difficult to exclude a connection with the main pancreatic duct as this is immediately adjacent. The common bile duct is of normal caliber for patient's age. No choledocholithiasis is. The gallbladder is absent. Bilateral renal cysts, largest in the parapelvic lower pole measures 2 cm. No hydronephrosis. Incidental note of cardiomegaly, colonic diverticula, and lumbar fusion. IMPRESSION: Pancreatic ductal dilation. While this can be seen with chronic pancreatitis, would question an obstructing calculus in the proximal main duct. Consider ERCP. 6 cm cystic mass along the posterior pancreatic head and uncinate process. Some features suggesting a serous cystic neoplasm, but not entirely classic appearance. This would be extremely large for a side branch intraductal papillary mucinous neoplasm, but this possibility is not excluded. I am not confident that this is a pseudocyst. Consideration for a endoscopic ultrasound evaluation. If this is not pursued, would at least recommend a 6 month follow-up to assess for stability. (5) Electrolyte imbalance (6) HTN (hypertension) (7) FRANCISCA (acute kidney injury) (8) DMII (diabetes mellitus, type 2) (9) Small bowel obstruction Assessment & Plan: Was not able to tolerate the small bowel series yesterday had large emesis did not like the contrast. CT reviewed and ordered after identifying still potential bowel obstruction with transition point. Patient has had multiple prior surgeries including large open right cholecystectomy many years ago prior C-sections prior ventral hernia repair with mesh and is a very high risk patient. I do long discussion with the patient and her daughter over the phone in regards to the findings and care plan. Patient presented with pancreatitis which is resolved but continued to develop a new different type of abdominal pain which and work-up identified a small bowel obstruction. Given she is fairly stable examination is fairly benign we have plan together to initiate nonoperative management with NG tube decompression and bowel rest. If potential improvement with resolution of obstruction patient has a chance otherwise we will plan surgical intervention which is very high risk and complicated given her extensive surgical abdominal history. Patient and daughter expressed understanding expressed similar concerns given her history and understanding of choices including the risk benefits and alternatives to the current care plan. Dependent atelectatic changes noted in the lung bases. Multifocal subsegmental atelectasis versus early infiltrate noted in the right lower lobe. No pneumothorax or pleural effusion. Partially imaged heart is mildly enlarged. There are coronary arterial and cardiac valvular calcifications. And punctate foci of pneumobilia again noted, similar to the prior exam. Hepatic contour is smooth. Patient again noted be status post cholecystectomy. Hepatic veins and portal veins appear patent. Spleen, adrenal glands unremarkable. Unchanged appearance of the pancreas with dilatation of the pancreatic duct and cystic lesion with calcifications in the region of the pancreatic head. No discrete peripancreatic inflammatory changes seen presently. Kidneys enhance symmetrically. The small cortical cysts are noted in the upper pole bilaterally. No hydronephrosis or perinephric collections. Patient again noted to be status post hysterectomy. Bladder is mildly distended but otherwise unremarkable. Persistent abnormal distention of small bowel loops concerning for a small bowel obstruction. Again there is a transition point in the right lower abdomen, area of the mid to distal ileum. The loops distal to the area of transition are decompressed. The appendix is normal in caliber and there are no periappendiceal inflammatory changes. No abnormal distention of the colon. There are colonic diverticula. No evidence of acute diverticulitis. Small amount of free fluid is noted within the peritoneal cavity, layering dependently in the pelvis. No free intraperitoneal air is seen. No pneumatosis intestinalis. Again there postsurgical changes underlying the anterior abdominal wall at the level of the umbilicus suggesting possible prior hernia repair (axial image #48). Small hiatal hernia is again seen. Extensive atherosclerotic vessel calcifications are noted. There are degenerative and postoperative changes in the spine with laminectomies and posterior fusion spanning from L1 to L3. IMPRESSION: * Persistent small bowel obstruction with transition point in the right lower abdomen, region of the mid to distal ileum. Findings are overall similar compared to exam of 12/01/2020. Small amount of free intraperitoneal fluid but no free peritoneal air. * Diverticulosis without evidence of acute diverticulitis. Normal appendix. * Status post hysterectomy and cholecystectomy. Surgical material adjacent to the anterior abdominal wall suggesting possible prior ventral hernia repair. * Small hiatal hernia and mild distal esophageal wall thickening. * Coronary arterial calcifications. * Postoperative changes of the lumbar spine, similar to the prior exam. * Interval development of some patchy opacities in the right lower lobe which may be related to dependent atelectasis although developing pneumonia not excluded. Eriberto Pizarro Dec 06, 2020 10:12
[2020-12-06] MEDS ORDERED: Acetaminophen 650 MG SUPP RECTAL PRN (10:15)
--- NOTE | 2020-12-06 10:53 | Nephrology Progress Note ---
Assessment/Plan Problem List: (1) FRANCISCA (acute kidney injury) (2) DMII (diabetes mellitus, type 2) (3) HTN (hypertension) (4) Electrolyte imbalance (5) Dehydration (6) UTI (urinary tract infection) (7) Pancreatitis Assessment 70-year-old female admitted with abdominal pain Serum creatinine 2.1 on admission Acute kidney injury Dehydration Diabetes type 2 Pancreatitis Hypertension Thyroid disease Asthma Previous ERCP UTI Plan December 06: Labs reviewed. Serum creatinine up to 1.5. Patient offers no complaint. Medication list reviewed. Continue per GI. Continue to monitor renal parameters. December 05: Labs reviewed. Renal parameters stable. Serum creatinine 1.3. Medication list reviewed. Not much to add from renal standpoint of view. Adjust blood pressure medication. Continue per consultants. December 04: Labs reviewed. Serum creatinine almost within normal limit. Serum creatinine of 2.1 is down to 1.4. Patient on clear liquid diet. Small bowel follow-through order is in process. Continue per consultants. December 03: Labs reviewed. Serum creatinine 1.7. Patient on clear liquid. Clinically appears stable. Continue per GI. Patient has a small bowel obstruction on CT. December 02: Labs reviewed. Serum creatinine lowering. Electrolytes within normal limits. On clear liquid. Continue per consultants. Previously: Hydrate BP control, adjust blood pressure medications Keep the blood sugar in check Avoid nephrotoxic's Urine studies Monitor renal parameters Per consultants Subjective ROS Limited/Unobtainable: No Objective Objective Last 24 Hour Vital Signs Date Time Temp Pulse Resp B/P (MAP) Pulse Ox O2 Delivery O2 Flow Rate FiO2 12/06/20 06:00 112/70 12/06/20 04:56 98.8 12/06/20 04:00 98.4 92 18 112/70 (84) 98 12/06/20 00:12 98.8 110 18 124/52 (76) 94 12/05/20 23:10 98.5 12/05/20 21:47 Room Air 12/05/20 20:57 173/89 12/05/20 20:57 173/89 12/05/20 20:27 98.5 84 18 173/89 (117) 94 12/05/20 16:00 99.0 81 20 157/88 (111) 95 12/05/20 14:00 152/75 12/05/20 12:00 98.0 86 20 152/75 (100) 99 Intake and Output 12/05/20 12/06/20 19:00 07:00 Intake Total 50 ml 600 ml Output Total 1600 ml Balance 50 ml -1000 ml IV Total 50 ml 600 ml Output Urine Total 500 ml Gastric Drainage Total 1100 ml # Voids 3 1 Current Medications Medications (Trade) Dose Ordered Sig/Angely Route PRN Reason Start Time Stop Time Status Last Admin Dose Admin Acetaminophen (Tylenol) 650 mg Q4H PRN RECTAL Mild Pain (Pain Scale 1-3) 12/06/20 10:15 01/05/21 10:14 Clonidine HCl (Catapres Tab) 0.1 mg Q4H PRN ORAL BP above 160 syst 12/01/20 12:45 03/01/21 12:44 12/05/20 20:57 Dextrose (Dextrose 50%) 25 ml Q30M PRN IV Hypoglycemia 11/30/20 20:45 02/28/21 20:44 Dextrose (Dextrose 50%) 50 ml Q30M PRN IV Hypoglycemia 11/30/20 20:45 02/28/21 20:44 Dextrose/Sodium Chloride 1,000 ml @ 100 mls/hr Q10H IV 12/02/20 14:00 01/01/21 13:59 12/05/20 03:11 Famotidine (Pepcid I.v.) 20 mg Q12HR IVP 12/01/20 21:00 12/31/20 20:59 12/06/20 09:20 Heparin Sodium (Porcine) (Heparin 5000 units/ml) 5,000 units EVERY 8 HOURS SUBQ 11/30/20 22:00 01/14/21 21:59 12/05/20 15:19 Insulin Aspart (NovoLOG) BEFORE MEALS AND HS SUBQ 11/30/20 22:00 02/28/21 21:59 12/05/20 20:58 Iohexol (OMNIPAQUE-300 100ml) 100 ml ONCE PRN INJ radiology 12/05/20 13:08 12/07/20 23:59 Morphine Sulfate (Morphine Sulfate) 4 mg Q4H PRN IVP Severe Pain (Pain Scale 7-10) 11/30/20 20:45 12/07/20 20:44 12/06/20 10:29 Morphine Sulfate (Morphine Sulfate) 4 mg Q4H PRN IVP Moderate Pain (Pain Scale 4-6) 12/04/20 09:15 12/07/20 20:44 Ondansetron HCl (Zofran) 4 mg Q4H PRN IVP Nausea & Vomiting 11/30/20 20:45 12/30/20 20:44 12/05/20 17:46 Laboratory Tests 12/05/20 12:05: POC Whole Blood Glucose 121H 12/05/20 17:01: POC Whole Blood Glucose 137H 12/05/20 20:43: POC Whole Blood Glucose 174H 12/06/20 05:26: POC Whole Blood Glucose 91 12/06/20 05:40: White Blood Count 5.5, Red Blood Count 4.21, Hemoglobin 10.5L, Hematocrit 34.6L, Mean Corpuscular Volume 82, Mean Corpuscular Hemoglobin 25.0L, Mean Corpuscular Hemoglobin Concent 30.4L, Red Cell Distribution Width 13.2, Platelet Count 280, Mean Platelet Volume 5.4L, Neutrophils (%) (Auto) 46.5, Lymphocytes (%) (Auto) 34.4, Monocytes (%) (Auto) 12.6H, Eosinophils (%) (Auto) 4.1H, Basophils (%) (Auto) 2.4H, Sodium Level 141, Potassium Level 3.7, Chloride Level 104, Carbon Dioxide Level 28, Anion Gap 9, Blood Urea Nitrogen 9, Creatinine 1.5H, Estimat Glomerular Filtration Rate 41.7, Glucose Level 101, Calcium Level 9.7, Total Bilirubin 0.6, Aspartate Amino Transf (AST/SGOT) 22, Alanine Aminotransferase ( ALT/SGPT) 21, Alkaline Phosphatase 101, Total Protein 6.9, Albumin 3.3L, Globulin 3.6, Albumin/Globulin Ratio 0.9L, Amylase Level 46, Lipase 428H Height (Feet): 5 Height (Inches): 3.00 Weight (Pounds): 171 General Appearance: no apparent distress Cardiovascular: tachycardia Respiratory/Chest: decreased breath sounds Abdomen: distended Bhupinder Huynh MD Dec 06, 2020 10:53
[2020-12-06 12:00] VITALS: BP 119/58
--- NOTE | 2020-12-06 12:18 | NUR ---
RADIOLOGY DEPT., ABDOMEN X-RAY COMPLETED.-P.DYE
--- NOTE | 2020-12-06 14:05 | Diagnostic Imaging Report ---
EXAM: XRAY Abdomen 1v HISTORY: Reason For Exam: ABD PAIN COMPARISON: 12/05/2020. TECHNIQUE: 2 view of the abdomen obtained. FINDINGS: NG tube remains in place. Nonobstructive bowel gas pattern noted. Increased lucencies noted in the colon. Stable postoperative changes of the spine. There is no sign of free air. No pathologic calcification seen. IMPRESSION: NO CHANGE COMPARED PREVIOUS EXAM. NO SIGN OF ACUTE DISEASE.
[2020-12-06] MEDS: D5NS 1,000 ML IV SCH (14:13)
--- NOTE | 2020-12-06 15:16 | NUR ---
INSURANCE CLINICALS FAXED TO [facility] ( ) Fax Clinicals: [phone] CM: Lauren Khalil
[2020-12-06 16:00] VITALS: BP 147/78
--- NOTE | 2020-12-06 17:49 | Internal Med Progress Note ---
Subjective Date of Service: Dec 06, 2020 Physician Name SánchezPierce kinney Attending Physician Zacarias Escobar MD Current Medications Medications (Trade) Dose Ordered Sig/Angely Route PRN Reason Start Time Stop Time Status Last Admin Dose Admin Acetaminophen (Tylenol) 650 mg Q4H PRN RECTAL Mild Pain (Pain Scale 1-3) 12/06/20 10:15 01/05/21 10:14 Clonidine HCl (Catapres Tab) 0.1 mg Q4H PRN ORAL BP above 160 syst 12/01/20 12:45 03/01/21 12:44 12/05/20 20:57 Dextrose (Dextrose 50%) 25 ml Q30M PRN IV Hypoglycemia 11/30/20 20:45 02/28/21 20:44 Dextrose (Dextrose 50%) 50 ml Q30M PRN IV Hypoglycemia 11/30/20 20:45 02/28/21 20:44 Dextrose/Sodium Chloride 1,000 ml @ 100 mls/hr Q10H IV 12/02/20 14:00 01/01/21 13:59 12/06/20 14:13 Famotidine (Pepcid I.v.) 20 mg Q12HR IVP 12/01/20 21:00 12/31/20 20:59 12/06/20 09:20 Heparin Sodium (Porcine) (Heparin 5000 units/ml) 5,000 units EVERY 8 HOURS SUBQ 11/30/20 22:00 01/14/21 21:59 12/06/20 13:56 Insulin Aspart (NovoLOG) BEFORE MEALS AND HS SUBQ 11/30/20 22:00 02/28/21 21:59 12/05/20 20:58 Iohexol (OMNIPAQUE-300 100ml) 100 ml ONCE PRN INJ radiology 12/05/20 13:08 12/07/20 23:59 Morphine Sulfate (Morphine Sulfate) 4 mg Q4H PRN IVP Severe Pain (Pain Scale 7-10) 11/30/20 20:45 12/07/20 20:44 12/06/20 14:13 Morphine Sulfate (Morphine Sulfate) 4 mg Q4H PRN IVP Moderate Pain (Pain Scale 4-6) 12/04/20 09:15 12/07/20 20:44 Ondansetron HCl (Zofran) 4 mg Q4H PRN IVP Nausea & Vomiting 11/30/20 20:45 12/30/20 20:44 12/05/20 17:46 Allergies: Coded Allergies: CODEINE (Verified Allergy, Severe, Itching, 10/10/20) ROS Limited/Unobtainable: No Constitutional: Reports: no symptoms HEENT: Reports: no symptoms Cardiovascular: Reports: no symptoms Respiratory: Reports: no symptoms Gastrointestinal/Abdominal: Reports: abdominal pain Genitourinary: Reports: no symptoms Neurologic/Psychiatric: Reports: no symptoms Subjective 70 YO F admitted with epigastric pain. Now pancreatitis and small bowel obstruction. Cover for Int [facility]-Dr Escobar Objective Last Vital Signs Date Time Temp Pulse Resp B/P (MAP) Pulse Ox O2 Delivery O2 Flow Rate FiO2 12/06/20 14:43 98.8 12/06/20 06:00 112/70 12/06/20 04:00 92 18 98 12/05/20 21:47 Room Air Laboratory Tests Test 12/05/20 20:43 12/06/20 05:26 12/06/20 05:40 12/06/20 11:54 POC Whole Blood Glucose 174 MG/DL (74-106) H 91 MG/DL (74-106) 99 MG/DL (74-106) White Blood Count 5.5 K/UL (4.8-10.8) Red Blood Count 4.21 M/UL (4.20-5.40) Hemoglobin 10.5 G/DL (12.0-16.0) L Hematocrit 34.6 % (37.0-47.0) L Mean Corpuscular Volume 82 FL (80-99) Mean Corpuscular Hemoglobin 25.0 PG (27.0-31.0) L Mean Corpuscular Hemoglobin Concent 30.4 G/DL (32.0-36.0) L Red Cell Distribution Width 13.2 % (11.6-14.8) Platelet Count 280 K/UL (150-450) Mean Platelet Volume 5.4 FL (6.5-10.1) L Neutrophils (%) (Auto) 46.5 % (45.0-75.0) Lymphocytes (%) (Auto) 34.4 % (20.0-45.0) Monocytes (%) (Auto) 12.6 % (1.0-10.0) H Eosinophils (%) (Auto) 4.1 % (0.0-3.0) H Basophils (%) (Auto) 2.4 % (0.0-2.0) H Sodium Level 141 MMOL/L (136-145) Potassium Level 3.7 MMOL/L (3.5-5.1) Chloride Level 104 MMOL/L (98-107) Carbon Dioxide Level 28 MMOL/L (21-32) Anion Gap 9 mmol/L (5-15) Blood Urea Nitrogen 9 mg/dL (7-18) Creatinine 1.5 MG/DL (0.55-1.30) H Estimat Glomerular Filtration Rate 41.7 mL/min (>60) Glucose Level 101 MG/DL (74-106) Calcium Level 9.7 MG/DL (8.5-10.1) Total Bilirubin 0.6 MG/DL (0.2-1.0) Aspartate Amino Transf (AST/SGOT) 22 U/L (15-37) Alanine Aminotransferase (ALT/SGPT) 21 U/L (12-78) Alkaline Phosphatase 101 U/L (46-116) Total Protein 6.9 G/DL (6.4-8.2) Albumin 3.3 G/DL (3.4-5.0) L Globulin 3.6 g/dL Albumin/Globulin Ratio 0.9 (1.0-2.7) L Amylase Level 46 U/L (25-115) Lipase 428 U/L (73-393) H Test 12/06/20 17:08 POC Whole Blood Glucose 131 MG/DL (74-106) H Microbiology Date/Time Source Procedure Growth Status 12/03/20 21:00 Nasopharynx SARS-CoV-2 Antigen (Rapid)(YARELI) - Final Complete Intake and Output 12/05/20 12/06/20 19:00 07:00 Intake Total 50 ml 600 ml Output Total 1600 ml Balance 50 ml -1000 ml IV Total 50 ml 600 ml Output Urine Total 500 ml Gastric Drainage Total 1100 ml # Voids 3 1 Objective Objective General: No acute distress, awake and alert HEENT: NCAT, sclera anicteric, PERRL, EOMI. Neck: Supple, no significant jugular venous distention, Lungs: Good inspiratory effort, no accessory muscle use, clear to auscultation bilaterally, no Wheeze or Rales. Heart: Regular rate and rhythm, normal S1/S2, no murmurs/gallops Abdomen: soft, decreased epigastric tenderness, nondistended. Normoactive bowel sounds. / Rectal: Refused and deferred. Extremities: No Cyanosis , clubbing or edema. Neuro: A&O x 3, Able to move all extremities Skin: warm, no rashes or lesions Psych: Normal mood and affect Assessment/Plan Assessment/Plan Assessment/Plan Assessment/Plan (1) Acute kidney injury on chronic renal insufficiency. (2) Abdominal pain most likely due to acute pancreatitis. (3) Dehydration (4) Acute recurrent Pancreatitis (5) Diabetic type II (6) hypertension. (7) dyslipidemia. 8. Small bowel obstruction Plan: Monitor laboratory Pain medication IV hydration clear liquid diet CODE STATUS: Full code DVT prophylaxis: Heparin subcu Follow-up with GI, nephrology, surgery recommendations. NG tube to low wall intermediate suction Pierce Sánchez MD Dec 06, 2020 17:49
--- NOTE | 2020-12-06 18:30 | NUR ---
NURSE NOTES: RN educated the patient that Morphine may be causing constipation. Patient verbalized understanding and stated she will ask for it when it's absolutely necessary.
[2020-12-06 20:00] VITALS: BP 127/66
--- NOTE | 2020-12-06 20:00 | NUR ---
NURSE HAND-OFF: Important Events on Shift:monitor to see if the patient has BM Patient Status: stable Diet: NG suction Pending Orders: n/a Pending Results/Labs:n/a Pending MD notification:n/a Latest Vital Signs: Temperature 97.0 , Pulse 79 , B/P 147 /78 , Respiratory Rate 18 , O2 SAT 94 , Room Air, O2 Flow Rate . Vital Sign Comment: stable Latest Montesinos Fall Score: 50 Fall Risk: High Risk Safety Measures: Call light Within Reach, Bed Alarm Zone 1, Side Rails Side Rails x2, Bed position Low and Locked. Fall Precautions: Door Sign Patient Fall Education Report given to
--- NOTE | 2020-12-06 20:50 | NUR ---
NURSE NOTES: Patient in bed, awake, alert and verbally responsive. Able to make needs known. Complained of pain, will give PRn pain medication as ordered. Noted with right nare NG tube, suction low intermittent, draining. Abdomen is soft, flatus noted. Iv site, right arm, iv fluid is infusing as ordered. Bed in low and locked position. Provided safe environment. Call light is at bedside. Will continue plan of care.
[2020-12-07] VITALS (7 sets, daily range): BP systolic 106–155; BP diastolic 62–95
[2020-12-07] MEDS: D5NS 1,000 ML IV SCH ×3 (00:05→20:05)
[2020-12-07] MEDS: Morphine Sulfate 4mg/ml Inj (IV USE ONLY) IVP PRN ×4 (02:52→23:13)
[2020-12-07] MEDS: Heparin 5000 units/ml inj SUBQ SCH ×3 (05:51→22:21)
[2020-12-07] MEDS: NovoLOG Insulin Flexpen SUBQ SCH ×4 (05:57→21:00)
[2020-12-07 07:17] LABS: BASOPHILS % (AUTO) 0.6 % (0.0-2.0); EOSINOPHILS % (AUTO) 2.9 % (0.0-3.0); HEMATOCRIT 31.3 % (37.0-47.0); HEMOGLOBIN 9.7 G/DL (12.0-16.0); LYMPHOCYTES % (AUTO) 27.2 % (20.0-45.0); MEAN CORPUSCULAR VOLUME 81 FL (80-99); MONOCYTES % (AUTO) 10.4 % (1.0-10.0); PLATELET COUNT 271 K/UL (150-450); RED BLOOD COUNT 3.86 M/UL (4.20-5.40)
[2020-12-07 07:26] LABS: ALBUMIN 3.2 G/DL (3.4-5.0); ALBUMIN/GLOBULIN RATIO 0.9 (1.0-2.7); BILIRUBIN,TOTAL 0.2 MG/DL (0.2-1.0); CALCIUM 9.5 MG/DL (8.5-10.1); CREATININE 1.3 MG/DL (0.55-1.30); POTASSIUM 3.1 MMOL/L (3.5-5.1)
--- NOTE | 2020-12-07 09:28 | Diagnostic Imaging Report ---
Indication: Reason For Exam: ABD PAIN. Technique: One view abdomen COMPARISON: 12/06/2020 Findings: The bowel gas pattern is nonobstructive. Fusion hardware is noted in the lumbar spine. Linear density is noted in the left lung base unchanged. No gross free air or gross free fluid. NG tube is in the stomach. Impression: No change from one day prior..
--- NOTE | 2020-12-07 09:58 | General Progress Note ---
Subjective ROS Limited/Unobtainable: No Allergies: Coded Allergies: CODEINE (Verified Allergy, Severe, Itching, 10/10/20) Objective Last 24 Hour Vital Signs Date Time Temp Pulse Resp B/P (MAP) Pulse Ox O2 Delivery O2 Flow Rate FiO2 12/07/20 04:00 98.5 77 20 138/71 (93) 96 12/07/20 00:00 98.0 82 20 148/75 (99) 96 12/06/20 21:00 Room Air 12/06/20 20:00 98.3 93 19 127/66 (86) 97 12/06/20 16:00 97.0 79 18 147/78 (101) 94 12/06/20 14:43 98.8 12/06/20 12:00 97.7 98 18 119/58 (78) 99 12/06/20 10:59 98.8 Intake and Output 12/06/20 12/07/20 19:00 07:00 Output Total 1200 ml Balance -1200 ml Gastric Drainage Total 1200 ml # Voids 2 Laboratory Tests 12/06/20 11:54: POC Whole Blood Glucose 99 12/06/20 17:08: POC Whole Blood Glucose 131H 12/07/20 05:58: White Blood Count 7.0, Red Blood Count 3.86L, Hemoglobin 9.7L, Hematocrit 31.3L, Mean Corpuscular Volume 81, Mean Corpuscular Hemoglobin 25.1L, Mean Corpuscular Hemoglobin Concent 31.0L, Red Cell Distribution Width 13.0, Platelet Count 271, Mean Platelet Volume 6.1L, Neutrophils (%) (Auto) 59.0, Lymphocytes (%) (Auto) 27.2, Monocytes (%) (Auto) 10.4H, Eosinophils (%) (Auto) 2.9, Basophils (%) (Auto) 0.6, Erythrocyte Sedimentation Rate 60H, Prothrombin Time 11.3, Prothromb Time International Ratio 1.0, Activated Partial Thromboplast Time 23, Sodium Level 144, Potassium Level 3.1L, Chloride Level 105, Carbon Dioxide Level 29, Anion Gap 10, Blood Urea Nitrogen 7, Creatinine 1.3, Estimat Glomerular Filtration Rate 49.1, Glucose Level 108H, Lactic Acid Level 0.90, Calcium Level 9.5, Total Bilirubin 0.2, Aspartate Amino Transf (AST/SGOT) 17, Alanine Aminotransferase (ALT/SGPT) 19, Alkaline Phosphatase 98, C-Reactive Protein, Quantitative 1.0H, Total Protein 6.8, Albumin 3.2L, Globulin 3.6, Albumin/Globulin Ratio 0.9L, Amylase Level 53, Lipase 524H Height (Feet): 5 Height (Inches): 3.00 Weight (Pounds): 171 General Appearance: no apparent distress EENT: normal ENT inspection Neck: supple Cardiovascular: normal rate Respiratory/Chest: decreased breath sounds Abdomen: soft Extremities: non-tender Assessment/Plan Assessment/Plan: Assessment/Plan Assessment/Plan: pancreatitis abd pain nausea anemia pancreatic cyst SBO recent ERCP pain control creon zofran ct>> SBO>>>fu surg bowel regimen NGT and NGT to suction improved amylase and lipase repeat labs in Nikolas Fraser MD Dec 07, 2020 09:58
--- NOTE | 2020-12-07 11:31 | Nephrology Progress Note ---
Assessment/Plan Problem List: (1) FRANCISCA (acute kidney injury) (2) DMII (diabetes mellitus, type 2) (3) HTN (hypertension) (4) Electrolyte imbalance (5) Dehydration (6) UTI (urinary tract infection) (7) Pancreatitis Assessment 70-year-old female admitted with abdominal pain Serum creatinine 2.1 on admission Acute kidney injury Dehydration Diabetes type 2 Pancreatitis Hypertension Thyroid disease Asthma Previous ERCP UTI Plan December 07: Labs reviewed. Serum creatinine within normal limits. Low potassium addressed. Continue per consultants. December 06: Labs reviewed. Serum creatinine up to 1.5. Patient offers no complaint. Medication list reviewed. Continue per GI. Continue to monitor renal parameters. December 05: Labs reviewed. Renal parameters stable. Serum creatinine 1.3. Medication list reviewed. Not much to add from renal standpoint of view. Adjust blood pressure medication. Continue per consultants. December 04: Labs reviewed. Serum creatinine almost within normal limit. Serum creatinine of 2.1 is down to 1.4. Patient on clear liquid diet. Small bowel follow-through order is in process. Continue per consultants. December 03: Labs reviewed. Serum creatinine 1.7. Patient on clear liquid. Clinically appears stable. Continue per GI. Patient has a small bowel obstruction on CT. December 02: Labs reviewed. Serum creatinine lowering. Electrolytes within normal limits. On clear liquid. Continue per consultants. Previously: Hydrate BP control, adjust blood pressure medications Keep the blood sugar in check Avoid nephrotoxic's Urine studies Monitor renal parameters Per consultants Subjective ROS Limited/Unobtainable: No Objective Objective Last 24 Hour Vital Signs Date Time Temp Pulse Resp B/P (MAP) Pulse Ox O2 Delivery O2 Flow Rate FiO2 12/07/20 04:00 98.5 77 20 138/71 (93) 96 12/07/20 00:00 98.0 82 20 148/75 (99) 96 12/06/20 21:00 Room Air 12/06/20 20:00 98.3 93 19 127/66 (86) 97 12/06/20 16:00 97.0 79 18 147/78 (101) 94 12/06/20 14:43 98.8 12/06/20 12:00 97.7 98 18 119/58 (78) 99 Intake and Output 12/06/20 12/07/20 19:00 07:00 Output Total 1200 ml Balance -1200 ml Gastric Drainage Total 1200 ml # Voids 2 Current Medications Medications (Trade) Dose Ordered Sig/Angely Route PRN Reason Start Time Stop Time Status Last Admin Dose Admin Acetaminophen (Tylenol) 650 mg Q4H PRN RECTAL Mild Pain (Pain Scale 1-3) 12/06/20 10:15 01/05/21 10:14 Clonidine HCl (Catapres Tab) 0.1 mg Q4H PRN ORAL BP above 160 syst 12/01/20 12:45 03/01/21 12:44 12/05/20 20:57 Dextrose (Dextrose 50%) 25 ml Q30M PRN IV Hypoglycemia 11/30/20 20:45 02/28/21 20:44 Dextrose (Dextrose 50%) 50 ml Q30M PRN IV Hypoglycemia 11/30/20 20:45 02/28/21 20:44 Dextrose/Sodium Chloride 1,000 ml @ 100 mls/hr Q10H IV 12/02/20 14:00 01/01/21 13:59 12/06/20 14:13 Famotidine (Pepcid I.v.) 20 mg Q12HR IVP 12/01/20 21:00 12/31/20 20:59 12/07/20 09:28 Heparin Sodium (Porcine) (Heparin 5000 units/ml) 5,000 units EVERY 8 HOURS SUBQ 11/30/20 22:00 01/14/21 21:59 12/07/20 05:51 Insulin Aspart (NovoLOG) BEFORE MEALS AND HS SUBQ 11/30/20 22:00 02/28/21 21:59 12/05/20 20:58 Iohexol (OMNIPAQUE-300 100ml) 100 ml ONCE PRN INJ radiology 12/05/20 13:08 12/07/20 23:59 Morphine Sulfate (Morphine Sulfate) 4 mg Q4H PRN IVP Severe Pain (Pain Scale 7-10) 11/30/20 20:45 12/07/20 20:44 12/07/20 10:30 Morphine Sulfate (Morphine Sulfate) 4 mg Q4H PRN IVP Moderate Pain (Pain Scale 4-6) 12/04/20 09:15 12/07/20 20:44 Ondansetron HCl (Zofran) 4 mg Q4H PRN IVP Nausea & Vomiting 11/30/20 20:45 12/30/20 20:44 12/07/20 10:29 Laboratory Tests 12/06/20 11:54: POC Whole Blood Glucose 99 12/06/20 17:08: POC Whole Blood Glucose 131H 12/07/20 05:58: White Blood Count 7.0, Red Blood Count 3.86L, Hemoglobin 9.7L, Hematocrit 31.3L, Mean Corpuscular Volume 81, Mean Corpuscular Hemoglobin 25.1L, Mean Corpuscular Hemoglobin Concent 31.0L, Red Cell Distribution Width 13.0, Platelet Count 271, Mean Platelet Volume 6.1L, Neutrophils (%) (Auto) 59.0, Lymphocytes (%) (Auto) 27.2, Monocytes (%) (Auto) 10.4H, Eosinophils (%) (Auto) 2.9, Basophils (%) (Auto) 0.6, Erythrocyte Sedimentation Rate 60H, Prothrombin Time 11.3, Prothromb Time International Ratio 1.0, Activated Partial Thromboplast Time 23, Sodium Level 144, Potassium Level 3.1L, Chloride Level 105, Carbon Dioxide Level 29, Anion Gap 10, Blood Urea Nitrogen 7, Creatinine 1.3, Estimat Glomerular Filtration Rate 49.1, Glucose Level 108H, Lactic Acid Level 0.90, Calcium Level 9.5, Total Bilirubin 0.2, Aspartate Amino Transf (AST/SGOT) 17, Alanine Aminotransferase (ALT/SGPT) 19, Alkaline Phosphatase 98, C-Reactive Protein, Quantitative 1.0H, Total Protein 6.8, Albumin 3.2L, Globulin 3.6, Albumin/Globulin Ratio 0.9L, Amylase Level 53, Lipase 524H Height (Feet): 5 Height (Inches): 3.00 Weight (Pounds): 171 General Appearance: no apparent distress Cardiovascular: tachycardia Respiratory/Chest: decreased breath sounds Abdomen: distended Bhupinder Huynh MD Dec 07, 2020 11:31
--- NOTE | 2020-12-07 11:37 | Internal Med Progress Note ---
Subjective Date of Service: Dec 07, 2020 Physician Name Pierce Sánchez Attending Physician Zacarias Escobar MD Current Medications Medications (Trade) Dose Ordered Sig/Angely Route PRN Reason Start Time Stop Time Status Last Admin Dose Admin Acetaminophen (Tylenol) 650 mg Q4H PRN RECTAL Mild Pain (Pain Scale 1-3) 12/06/20 10:15 01/05/21 10:14 Clonidine HCl (Catapres Tab) 0.1 mg Q4H PRN ORAL BP above 160 syst 12/01/20 12:45 03/01/21 12:44 12/05/20 20:57 Dextrose (Dextrose 50%) 25 ml Q30M PRN IV Hypoglycemia 11/30/20 20:45 02/28/21 20:44 Dextrose (Dextrose 50%) 50 ml Q30M PRN IV Hypoglycemia 11/30/20 20:45 02/28/21 20:44 Dextrose/Sodium Chloride 1,000 ml @ 100 mls/hr Q10H IV 12/02/20 14:00 01/01/21 13:59 12/06/20 14:13 Famotidine (Pepcid I.v.) 20 mg Q12HR IVP 12/01/20 21:00 12/31/20 20:59 12/07/20 09:28 Heparin Sodium (Porcine) (Heparin 5000 units/ml) 5,000 units EVERY 8 HOURS SUBQ 11/30/20 22:00 01/14/21 21:59 12/07/20 05:51 Insulin Aspart (NovoLOG) BEFORE MEALS AND HS SUBQ 11/30/20 22:00 02/28/21 21:59 12/05/20 20:58 Iohexol (OMNIPAQUE-300 100ml) 100 ml ONCE PRN INJ radiology 12/05/20 13:08 12/07/20 23:59 Morphine Sulfate (Morphine Sulfate) 4 mg Q4H PRN IVP Severe Pain (Pain Scale 7-10) 11/30/20 20:45 12/07/20 20:44 12/07/20 10:30 Morphine Sulfate (Morphine Sulfate) 4 mg Q4H PRN IVP Moderate Pain (Pain Scale 4-6) 12/04/20 09:15 12/07/20 20:44 Ondansetron HCl (Zofran) 4 mg Q4H PRN IVP Nausea & Vomiting 11/30/20 20:45 12/30/20 20:44 12/07/20 10:29 Potassium Chloride 100 ml @ 100 mls/hr Q1HR IVPB 12/07/20 12:00 12/07/20 15:59 UNV Allergies: Coded Allergies: CODEINE (Verified Allergy, Severe, Itching, 10/10/20) ROS Limited/Unobtainable: No Constitutional: Reports: no symptoms HEENT: Reports: no symptoms Cardiovascular: Reports: no symptoms Respiratory: Reports: no symptoms Gastrointestinal/Abdominal: Reports: no symptoms Genitourinary: Reports: no symptoms Neurologic/Psychiatric: Reports: no symptoms Subjective 70 YO F admitted with epigastric pain. Now pancreatitis and small bowel obstruction. Cover for Int Jac[facility]-Dr Escobar Objective Last Vital Signs Date Time Temp Pulse Resp B/P (MAP) Pulse Ox O2 Delivery O2 Flow Rate FiO2 12/07/20 04:00 98.5 77 20 138/71 (93) 96 12/06/20 21:00 Room Air Laboratory Tests Test 12/06/20 11:54 12/06/20 17:08 12/07/20 05:58 POC Whole Blood Glucose 99 MG/DL (74-106) 131 MG/DL (74-106) H White Blood Count 7.0 K/UL (4.8-10.8) Red Blood Count 3.86 M/UL (4.20-5.40) L Hemoglobin 9.7 G/DL (12.0-16.0) L Hematocrit 31.3 % (37.0-47.0) L Mean Corpuscular Volume 81 FL (80-99) Mean Corpuscular Hemoglobin 25.1 PG (27.0-31.0) L Mean Corpuscular Hemoglobin Concent 31.0 G/DL (32.0-36.0) L Red Cell Distribution Width 13.0 % (11.6-14.8) Platelet Count 271 K/UL (150-450) Mean Platelet Volume 6.1 FL (6.5-10.1) L Neutrophils (%) (Auto) 59.0 % (45.0-75.0) Lymphocytes (%) (Auto) 27.2 % (20.0-45.0) Monocytes (%) (Auto) 10.4 % (1.0-10.0) H Eosinophils (%) (Auto) 2.9 % (0.0-3.0) Basophils (%) (Auto) 0.6 % (0.0-2.0) Erythrocyte Sedimentation Rate 60 MM/HR (0-30) H Prothrombin Time 11.3 SEC (9.30-11.50) Prothromb Time International Ratio 1.0 (0.9-1.1) Activated Partial Thromboplast Time 23 SEC (23-33) Sodium Level 144 MMOL/L (136-145) Potassium Level 3.1 MMOL/L (3.5-5.1) L Chloride Level 105 MMOL/L (98-107) Carbon Dioxide Level 29 MMOL/L (21-32) Anion Gap 10 mmol/L (5-15) Blood Urea Nitrogen 7 mg/dL (7-18) Creatinine 1.3 MG/DL (0.55-1.30) Estimat Glomerular Filtration Rate 49.1 mL/min (>60) Glucose Level 108 MG/DL (74-106) H Lactic Acid Level 0.90 mmol/L (0.4-2.0) Calcium Level 9.5 MG/DL (8.5-10.1) Total Bilirubin 0.2 MG/DL (0.2-1.0) Aspartate Amino Transf (AST/SGOT) 17 U/L (15-37) Alanine Aminotransferase (ALT/SGPT) 19 U/L (12-78) Alkaline Phosphatase 98 U/L (46-116) C-Reactive Protein, Quantitative 1.0 mg/dL (0.00-0.90) H Total Protein 6.8 G/DL (6.4-8.2) Albumin 3.2 G/DL (3.4-5.0) L Globulin 3.6 g/dL Albumin/Globulin Ratio 0.9 (1.0-2.7) L Amylase Level 53 U/L (25-115) Lipase 524 U/L (73-393) H Intake and Output 12/06/20 12/07/20 19:00 07:00 Output Total 1200 ml Balance -1200 ml Gastric Drainage Total 1200 ml # Voids 2 Objective Objective General: No acute distress, awake and alert HEENT: NCAT, sclera anicteric, PERRL, EOMI. Neck: Supple, no significant jugular venous distention, Lungs: Good inspiratory effort, no accessory muscle use, clear to auscultation bilaterally, no Wheeze or Rales. Heart: Regular rate and rhythm, normal S1/S2, no murmurs/gallops Abdomen: soft, decreased epigastric tenderness, nondistended. Normoactive bowel sounds. / Rectal: Refused and deferred. Extremities: No Cyanosis , clubbing or edema. Neuro: A&O x 3, Able to move all extremities Skin: warm, no rashes or lesions Psych: Normal mood and affect Assessment/Plan Assessment/Plan Assessment/Plan Assessment/Plan (1) Acute kidney injury on chronic renal insufficiency. (2) Abdominal pain most likely due to acute pancreatitis. (3) Dehydration (4) Acute recurrent Pancreatitis (5) Diabetic type II (6) hypertension. (7) dyslipidemia. 8. Small bowel obstruction Plan: Monitor laboratory Pain medication IV hydration clear liquid diet CODE STATUS: Full code DVT prophylaxis: Heparin subcu Follow-up with GI, nephrology, surgery recommendations. NG tube to low wall intermediate suction Pierce Sánchez MD Dec 07, 2020 11:37
--- NOTE | 2020-12-07 12:21 | NUR ---
RD ASSESSMENT & RECOMMENDATIONS SEE CARE ACTIVITY FOR COMPLETE ASSESSMENT DAILY ESTIMATED NEEDS: Needs based on Pancreatitis 60kg abw 25-30 kcals/kg 0824-0238 total kcals 1-1.5 g protein/kg 60-90 g total protein 25-30 mL/kg 2021-2161 total fluid mLs NUTRITION DIAGNOSIS: Decreased fat needs r/t pancreatitis as evidenced by elevated Lipase (now 524) trending up, NPO, NGT to LIS. CURRENT DIET: NOW NPO PO DIET RECOMMENDATIONS: Diet per MD ADDITIONAL RECOMMENDATIONS: 1) Soft easy chew r/t poor dentition 2) Niss / accuchecks 3) Monitor po intake, tolerance-> now NPO w/ NGT to LIS Add Ensure Clear TID w/ meals (0g fat) 4) Monitor NPO status, ability to start CLD
--- NOTE | 2020-12-07 13:17 | Surgery Progress Note ---
Surgery Progress Note Subjective Additional Comments 2.3L evacuated with NG tube now no longer green bile and gastric clear contents states feels better pain improved more comfortable passing flatus no bm kub without obstructive pattern Objective Last 24 Hour Vital Signs Date Time Temp Pulse Resp B/P (MAP) Pulse Ox O2 Delivery O2 Flow Rate FiO2 12/07/20 12:20 97.5 75 19 146/76 (99) 98 12/07/20 11:43 Room Air 12/07/20 08:00 97.7 73 19 154/81 (105) 96 12/07/20 04:00 98.5 77 20 138/71 (93) 96 12/07/20 00:00 98.0 82 20 148/75 (99) 96 12/06/20 21:00 Room Air 12/06/20 20:00 98.3 93 19 127/66 (86) 97 12/06/20 16:00 97.0 79 18 147/78 (101) 94 12/06/20 14:43 98.8 I&O Intake and Output 12/06/20 12/07/20 19:00 07:00 Output Total 1200 ml Balance -1200 ml Gastric Drainage Total 1200 ml # Voids 2 Cardiovascular: RSR Respiratory: clear Abdomen: soft, distended - less, non-tender, decreased bowel sounds Extremities: no edema, no tenderness, no cyanosis Laboratory Tests Test 12/06/20 17:08 12/07/20 05:58 12/07/20 12:13 POC Whole Blood Glucose 131 MG/DL (74-106) H 118 MG/DL (74-106) H White Blood Count 7.0 K/UL (4.8-10.8) Red Blood Count 3.86 M/UL (4.20-5.40) L Hemoglobin 9.7 G/DL (12.0-16.0) L Hematocrit 31.3 % (37.0-47.0) L Mean Corpuscular Volume 81 FL (80-99) Mean Corpuscular Hemoglobin 25.1 PG (27.0-31.0) L Mean Corpuscular Hemoglobin Concent 31.0 G/DL (32.0-36.0) L Red Cell Distribution Width 13.0 % (11.6-14.8) Platelet Count 271 K/UL (150-450) Mean Platelet Volume 6.1 FL (6.5-10.1) L Neutrophils (%) (Auto) 59.0 % (45.0-75.0) Lymphocytes (%) (Auto) 27.2 % (20.0-45.0) Monocytes (%) (Auto) 10.4 % (1.0-10.0) H Eosinophils (%) (Auto) 2.9 % (0.0-3.0) Basophils (%) (Auto) 0.6 % (0.0-2.0) Erythrocyte Sedimentation Rate 60 MM/HR (0-30) H Prothrombin Time 11.3 SEC (9.30-11.50) Prothromb Time International Ratio 1.0 (0.9-1.1) Activated Partial Thromboplast Time 23 SEC (23-33) Sodium Level 144 MMOL/L (136-145) Potassium Level 3.1 MMOL/L (3.5-5.1) L Chloride Level 105 MMOL/L (98-107) Carbon Dioxide Level 29 MMOL/L (21-32) Anion Gap 10 mmol/L (5-15) Blood Urea Nitrogen 7 mg/dL (7-18) Creatinine 1.3 MG/DL (0.55-1.30) Estimat Glomerular Filtration Rate 49.1 mL/min (>60) Glucose Level 108 MG/DL (74-106) H Lactic Acid Level 0.90 mmol/L (0.4-2.0) Calcium Level 9.5 MG/DL (8.5-10.1) Total Bilirubin 0.2 MG/DL (0.2-1.0) Aspartate Amino Transf (AST/SGOT) 17 U/L (15-37) Alanine Aminotransferase (ALT/SGPT) 19 U/L (12-78) Alkaline Phosphatase 98 U/L (46-116) C-Reactive Protein, Quantitative 1.0 mg/dL (0.00-0.90) H Total Protein 6.8 G/DL (6.4-8.2) Albumin 3.2 G/DL (3.4-5.0) L Globulin 3.6 g/dL Albumin/Globulin Ratio 0.9 (1.0-2.7) L Amylase Level 53 U/L (25-115) Lipase 524 U/L (73-393) H Plan Problems: (1) UTI (urinary tract infection) (2) Abdominal pain Assessment & Plan: imaging noted possible sbo but likely ileus await small bowel study (3) Dehydration (4) Pancreatitis Assessment & Plan: 70-year-old female with recurrent pancreatitis. History of cholecystectomy. Nausea vomiting now resolving. Abdominal pain significant states that this is a much worse episode than priors. Labs noted. No current imaging. Imaging from last admission about a month ago reviewed. Recommend repeating CT/MRI to ensure no pancreatic necrosis or complication or worsening fluid collection or cyst. N.p.o. IV fluids IV antibiotics pain control monitor urine output with fall with recommendations. Thank you letting participate in patient's care improving CT noted MRI noted ? sbo small bowel series likely ileus given severity of pancreatitis MRI from 10/2020 As noted on the CT scan, there is extensive pancreatic ductal dilation. This is most pronounced proximally, where the duct measures up to 1.3 cm in diameter. There is some distal tapering, but still with substantial dilation out to the tail. Side branches are also distended. There are calcifications in the region of the pancreatic head, better demonstrated on CT. Some of these presumably reflect sequela of chronic pancreatitis. 1 of these calcifications may correlate with a filling defect in the proximal duct in the pancreatic head measuring maximum of 8 mm in the coronal plane on series 3, image 21 and 6 mm in the axial plane on series 5, image 25. Question an intraductal stone contributing to the dilation/obstruction. Complicating assessment is a mass along the posterior-leftward aspect of the pancreatic head and uncinate process. This correlates with the cystic lesion seen on CT. It measures 6 x 3.4 x 3 cm in greatest craniocaudal, transverse, and anteroposterior dimensions respectively on series 9, image 67 and series 5, image 26. The mass is markedly hyperintense on T2 and mildly hypointense on T1-weighted sequences. It is primarily cystic with numerous locules. Postcontrast, there is no clear enhancing nodular or other component. It is difficult to exclude a connection with the main pancreatic duct as this is immediately adjacent. The common bile duct is of normal caliber for patient's age. No choledocholithiasis is. The gallbladder is absent. Bilateral renal cysts, largest in the parapelvic lower pole measures 2 cm. No hydronephrosis. Incidental note of cardiomegaly, colonic diverticula, and lumbar fusion. IMPRESSION: Pancreatic ductal dilation. While this can be seen with chronic pancreatitis, would question an obstructing calculus in the proximal main duct. Consider ERCP. 6 cm cystic mass along the posterior pancreatic head and uncinate process. Some features suggesting a serous cystic neoplasm, but not entirely classic appearance. This would be extremely large for a side branch intraductal papillary mucinous neoplasm, but this possibility is not excluded. I am not confident that this is a pseudocyst. Consideration for a endoscopic ultrasound evaluation. If this is not pursued, would at least recommend a 6 month follow-up to assess for stability. (5) Electrolyte imbalance (6) HTN (hypertension) (7) FRANCISCA (acute kidney injury) (8) DMII (diabetes mellitus, type 2) (9) Small bowel obstruction Assessment & Plan: Was not able to tolerate the small bowel series yesterday had large emesis did not like the contrast. CT reviewed and ordered after identifying still potential bowel obstruction with transition point. Patient has had multiple prior surgeries including large open right cholecystectomy many years ago prior C-sections prior ventral hernia repair with mesh and is a very high risk patient. I do long discussion with the patient and her daughter over the phone in regards to the findings and care plan. Patient presented with pancreatitis which is resolved but continued to develop a new different type of abdominal pain which and work-up identified a small bowel obstruction. Given she is fairly stable examination is fairly benign we have plan together to initiate nonoperative management with NG tube decompression and bowel rest. If potential improvement with resolution of obstruction patient has a chance otherwise we will plan surgical intervention which is very high risk and complicated given her extensive surgical abdominal history. Patient and tanya harper expressed understanding expressed similar concerns given her history and understanding of choices including the risk benefits and alternatives to the current care plan. Dependent atelectatic changes noted in the lung bases. Multifocal subsegmental atelectasis versus early infiltrate noted in the right lower lobe. No pneumothorax or pleural effusion. Partially imaged heart is mildly enlarged. There are coronary arterial and cardiac valvular calcifications. And punctate foci of pneumobilia again noted, similar to the prior exam. Hepatic contour is smooth. Patient again noted be status post cholecystectomy. Hepatic veins and portal veins appear patent. Spleen, adrenal glands unremarkable. Unchanged appearance of the pancreas with dilatation of the pancreatic duct and cystic lesion with calcifications in the region of the pancreatic head. No discrete peripancreatic inflammatory changes seen presently. Kidneys enhance symmetrically. The small cortical cysts are noted in the upper pole bilaterally. No hydronephrosis or perinephric collections. Patient again noted to be status post hysterectomy. Bladder is mildly distended but otherwise unremarkable. Persistent abnormal distention of small bowel loops concerning for a small bowel obstruction. Again there is a transition point in the right lower abdomen, area of the mid to distal ileum. The loops distal to the area of transition are decompressed. The appendix is normal in caliber and there are no periappendiceal inflammatory changes. No abnormal distention of the colon. There are colonic diverticula. No evidence of acute diverticulitis. Small amount of free fluid is noted within the peritoneal cavity, layering dependently in the pelvis. No free intraperitoneal air is seen. No pneumatosis intestinalis. Again there postsurgical changes underlying the anterior abdominal wall at the level of the umbilicus suggesting possible prior hernia repair (axial image #48). Small hiatal hernia is again seen. Extensive atherosclerotic vessel calcifications are noted. There are degenerative and postoperative changes in the spine with laminectomies and posterior fusion spanning from L1 to L3. IMPRESSION: * Persistent small bowel obstruction with transition point in the right lower abdomen, region of the mid to distal ileum. Findings are overall similar compared to exam of 12/01/2020. Small amount of free intraperitoneal fluid but no free perit bacon air. * Diverticulosis without evidence of acute diverticulitis. Normal appendix. * Status post hysterectomy and cholecystectomy. Surgical material adjacent to the anterior abdominal wall suggesting possible prior ventral hernia repair. * Small hiatal hernia and mild distal esophageal wall thickening. * Coronary arterial calcifications. * Postoperative changes of the lumbar spine, similar to the prior exam. * Interval development of some patchy opacities in the right lower lobe which may be related to dependent atelectasis although developing pneumonia not excluded. KUB Eriberto Keller Dec 07, 2020 13:17
[2020-12-08] VITALS: BP 150/77
[2020-12-08 04:00] VITALS: BP 154/85
[2020-12-08] MEDS: D5NS 1,000 ML IV SCH ×2 (06:10→20:38)
[2020-12-08] MEDS: Morphine Sulfate 4mg/ml Inj (IV USE ONLY) IVP PRN ×4 (06:11→21:55)
[2020-12-08] MEDS: Heparin 5000 units/ml inj SUBQ SCH ×3 (06:16→22:07)
[2020-12-08] MEDS: NovoLOG Insulin Flexpen SUBQ SCH ×4 (06:25→21:00)
[2020-12-08 08:26] VITALS: BP 144/67
[2020-12-08 09:09] LABS: BASOPHILS % (AUTO) 1.9 % (0.0-2.0); EOSINOPHILS % (AUTO) 2.4 % (0.0-3.0); HEMATOCRIT 29.3 % (37.0-47.0); HEMOGLOBIN 9.2 G/DL (12.0-16.0); LYMPHOCYTES % (AUTO) 24.2 % (20.0-45.0); MEAN CORPUSCULAR VOLUME 81 FL (80-99); MONOCYTES % (AUTO) 12.8 % (1.0-10.0); NEUTROPHILS % (AUTO) 58.7 % (45.0-75.0); PLATELET COUNT 257 K/UL (150-450); WHITE BLOOD COUNT 6.9 K/UL (4.8-10.8)
[2020-12-08 09:26] LABS: CALCIUM 8.7 MG/DL (8.5-10.1); CREATININE 1.2 MG/DL (0.55-1.30); POTASSIUM 3.2 MMOL/L (3.5-5.1)
--- NOTE | 2020-12-08 11:09 | Nephrology Progress Note ---
Assessment/Plan Problem List: (1) FRANCISCA (acute kidney injury) (2) DMII (diabetes mellitus, type 2) (3) HTN (hypertension) (4) Electrolyte imbalance (5) Dehydration (6) UTI (urinary tract infection) (7) Pancreatitis Assessment 70-year-old female admitted with abdominal pain Serum creatinine 2.1 on admission Acute kidney injury Dehydration Diabetes type 2 Pancreatitis Hypertension Thyroid disease Asthma Previous ERCP UTI Plan December 08: Labs reviewed. Renal parameters stable. Continue per consultants. Abnormal electrolytes addressed. December 07: Labs reviewed. Serum creatinine within normal limits. Low potassium addressed. Continue per consultants. December 06: Labs reviewed. Serum creatinine up to 1.5. Patient offers no complaint. Medication list reviewed. Continue per GI. Continue to monitor nj al parameters. December 05: Labs reviewed. Renal parameters stable. Serum creatinine 1.3. Medication list reviewed. Not much to add from renal standpoint of view. Adjust blood pressure medication. Continue per consultants. December 04: Labs reviewed. Serum creatinine almost within normal limit. Serum creatinine of 2.1 is down to 1.4. Patient on clear liquid diet. Small bowel follow-through order is in process. Continue per consultants. December 03: Labs reviewed. Serum creatinine 1.7. Patient on clear liquid. Clinically appears stable. Continue per GI. Patient has a small bowel obstruction on CT. December 02: Labs reviewed. Serum creatinine lowering. Electrolytes within normal limits. On clear liquid. Continue per consultants. Previously: Hydrate BP control, adjust blood pressure medications Keep the blood sugar in check Avoid nephrotoxic's Urine studies Monitor renal parameters Per consultants Subjective ROS Limited/Unobtainable: No Constitutional: Reports: malaise Objective Objective Last 24 Hour Vital Signs Date Time Temp Pulse Resp B/P (MAP) Pulse Ox O2 Delivery O2 Flow Rate FiO2 12/08/20 09:59 Room Air 12/08/20 08:26 98.0 70 19 144/67 (92) 95 12/08/20 04:00 98.1 74 17 154/85 (108) 95 12/08/20 00:00 98.4 75 17 150/77 (101) 95 12/07/20 21:00 Room Air 12/07/20 20:00 98.1 87 17 155/95 (115) 97 12/07/20 17:10 99.5 89 18 144/82 (102) 99 12/07/20 16:00 99.9 75 18 106/62 (77) 100 12/07/20 12:20 97.5 75 19 146/76 (99) 98 12/07/20 11:43 Room Air Intake and Output 12/07/20 12/08/20 19:00 07:00 Output Total 3 ml Balance -3 ml Output Urine Total 3 ml # Voids 4 Current Medications Medications (Trade) Dose Ordered Sig/Angely Route PRN Reason Start Time Stop Time Status Last Admin Dose Admin Acetaminophen (Tylenol) 650 mg Q4H PRN RECTAL Mild Pain (Pain Scale 1-3) 12/06/20 10:15 01/05/21 10:14 Clonidine HCl (Catapres Tab) 0.1 mg Q4H PRN ORAL BP above 160 syst 12/01/20 12:45 03/01/21 12:44 12/05/20 20:57 Dextrose (Dextrose 50%) 25 ml Q30M PRN IV Hypoglycemia 11/30/20 20:45 02/28/21 20:44 Dextrose (Dextrose 50%) 50 ml Q30M PRN IV Hypoglycemia 11/30/20 20:45 02/28/21 20:44 Dextrose/Sodium Chloride 1,000 ml @ 100 mls/hr Q10H IV 12/02/20 14:00 01/01/21 13:59 12/08/20 06:10 Famotidine (Pepcid I.v.) 20 mg Q12HR IVP 12/01/20 21:00 12/31/20 20:59 12/08/20 08:18 Heparin Sodium (Porcine) (Heparin 5000 units/ml) 5,000 units EVERY 8 HOURS SUBQ 11/30/20 22:00 01/14/21 21:59 12/08/20 06:16 Insulin Aspart (NovoLOG) BEFORE MEALS AND HS SUBQ 11/30/20 22:00 02/28/21 21:59 12/05/20 20:58 Morphine Sulfate (Morphine Sulfate) 2 mg Q4H PRN IVP Moderate Pain (Pain Scale 4-6) 12/07/20 23:00 12/14/20 22:59 Morphine Sulfate (Morphine Sulfate) 4 mg Q4H PRN IVP Severe Pain (Pain Scale 7-10) 12/07/20 23:00 12/14/20 22:59 12/08/20 06:11 Ondansetron HCl (Zofran) 4 mg Q4H PRN IVP Nausea & Vomiting 11/30/20 20:45 12/30/20 20:44 12/08/20 06:10 Laboratory Tests 12/07/20 12:13: POC Whole Blood Glucose 118H 12/07/20 17:05: POC Whole Blood Glucose 119H 12/08/20 08:30: White Blood Count 6.9, Red Blood Count 3.60L, Hemoglobin 9.2L, Hematocrit 29.3L, Mean Corpuscular Volume 81, Mean Corpuscular Hemoglobin 25.5L, Mean Corpuscular Hemoglobin Concent 31.4L, Red Cell Distribution Width 13.0, Platelet Count 257, Mean Platelet Volume 5.9L, Neutrophils (%) (Auto) 58.7, Lymphocytes (%) (Auto) 24.2, Monocytes (%) (Auto) 12.8H, Eosinophils (%) (Auto) 2.4, Basophils (%) (Auto) 1.9, Sodium Level 149H, Potassium Level 3.2L, Chloride Level 110H, Carbon Dioxide Level 33H, Anion Gap 6, Blood Urea Nitrogen 7, Creatinine 1.2, Estimat Glomerular Filtration Rate 53.8, Glucose Level 137H, Calcium Level 8.7 Height (Feet): 5 Height (Inches): 3.00 Weight (Pounds): 171 General Appearance: no apparent distress Cardiovascular: normal rate Respiratory/Chest: decreased breath sounds Abdomen: distended Bhupinder Huynh MD Dec 08, 2020 11:09
--- NOTE | 2020-12-08 11:24 | Surgery Progress Note ---
Surgery Progress Note Subjective Additional Comments states much improved no abd pain no n/v ng output declined and now clear gastric no longer bilious +bowel sounds abd exam benign passing flatus no bm discussed care plan. gi contrast study today Objective Last 24 Hour Vital Signs Date Time Temp Pulse Resp B/P (MAP) Pulse Ox O2 Delivery O2 Flow Rate FiO2 12/08/20 09:59 Room Air 12/08/20 08:26 98.0 70 19 144/67 (92) 95 12/08/20 04:00 98.1 74 17 154/85 (108) 95 12/08/20 00:00 98.4 75 17 150/77 (101) 95 12/07/20 21:00 Room Air 12/07/20 20:00 98.1 87 17 155/95 (115) 97 12/07/20 17:10 99.5 89 18 144/82 (102) 99 12/07/20 16:00 99.9 75 18 106/62 (77) 100 12/07/20 12:20 97.5 75 19 146/76 (99) 98 12/07/20 11:43 Room Air I&O Intake and Output 12/07/20 12/08/20 19:00 07:00 Output Total 3 ml Balance -3 ml Output Urine Total 3 ml # Voids 4 Cardiovascular: RSR Respiratory: clear Abdomen: soft, flat, non-tender, present bowel sounds, non-distended Extremities: no edema, no tenderness, no cyanosis Laboratory Tests Test 12/07/20 12:13 12/07/20 17:05 12/08/20 08:30 POC Whole Blood Glucose 118 MG/DL (74-106) H 119 MG/DL (74-106) H White Blood Count 6.9 K/UL (4.8-10.8) Red Blood Count 3.60 M/UL (4.20-5.40) L Hemoglobin 9.2 G/DL (12.0-16.0) L Hematocrit 29.3 % (37.0-47.0) L Mean Corpuscular Volume 81 FL (80-99) Mean Corpuscular Hemoglobin 25.5 PG (27.0-31.0) L Mean Corpuscular Hemoglobin Concent 31.4 G/DL (32.0-36.0) L Red Cell Distribution Width 13.0 % (11.6-14.8) Platelet Count 257 K/UL (150-450) Mean Platelet Volume 5.9 FL (6.5-10.1) L Neutrophils (%) (Auto) 58.7 % (45.0-75.0) Lymphocytes (%) (Auto) 24.2 % (20.0-45.0) Monocytes (%) (Auto) 12.8 % (1.0-10.0) H Eosinophils (%) (Auto) 2.4 % (0.0-3.0) Basophils (%) (Auto) 1.9 % (0.0-2.0) Sodium Level 149 MMOL/L (136-145) H Potassium Level 3.2 MMOL/L (3.5-5.1) L Chloride Level 110 MMOL/L (98-107) H Carbon Dioxide Level 33 MMOL/L (21-32) H Anion Gap 6 mmol/L (5-15) Blood Urea Nitrogen 7 mg/dL (7-18) Creatinine 1.2 MG/DL (0.55-1.30) Estimat Glomerular Filtration Rate 53.8 mL/min (>60) Glucose Level 137 MG/DL (74-106) H Calcium Level 8.7 MG/DL (8.5-10.1) Plan Problems: (1) UTI (urinary tract infection) (2) Abdominal pain Assessment & Plan: imaging noted possible sbo but likely ileus await small bowel study (3) Dehydration (4) Pancreatitis Assessment & Plan: 70-year-old female with recurrent pancreatitis. History of cholecystectomy. Nausea vomiting now resolving. Abdominal pain significant states that this is a much worse episode than priors. Labs noted. No current imaging. Imaging from last admission about a month ago reviewed. Recommend repeating CT/MRI to ensure no pancreatic necrosis or complication or worsening fluid collection or cyst. N.p.o. IV fluids IV antibiotics pain control monitor urine output with fall with recommendations. Thank you letting participate in patient's care improving CT noted MRI noted ? sbo small bowel series likely ileus given severity of pancreatitis MRI from 10/2020 As noted on the CT scan, there is extensive pancreatic ductal dilation. This is most pronounced proximally, where the duct measures up to 1.3 cm in diameter. There is some distal tapering, but still with substantial dilation out to the tail. Side branches are also distended. There are calcifications in the region of the pancreatic head, better demonstrated on CT. Some of these presumably reflect sequela of chronic pancreatitis. 1 of these calcifications may correlate with a filling defect in the proximal duct in the pancreatic head measuring maximum of 8 mm in the coronal plane on series 3, image 21 and 6 mm in the axial plane on series 5, image 25. Question an intraductal stone contributing to the dilation/obstruction. Complicating assessment is a mass along the posterior-leftward aspect of the pancreatic head and uncinate process. This correlates with the cystic lesion seen on CT. It measures 6 x 3.4 x 3 cm in greatest craniocaudal, transverse, and anteroposterior dimensions respectively on series 9, image 67 and series 5, image 26. The mass is markedly hyperintense on T2 and mildly hypointense on T1-weighted sequences. It is primarily cystic with numerous locules. Postcontrast, there is no clear enhancing nodular or other component. It is difficult to exclude a connection with the main pancreatic duct as this is immediately adjacent. The common bile duct is of normal caliber for patient's age. No choledocholithiasis is. The gallbladder is absent. Bilateral renal cysts, largest in the parapelvic lower pole measures 2 cm. No hydronephrosis. Incidental note of cardiomegaly, colonic diverticula, and lumbar fusion. IMPRESSION: Pancreatic ductal dilation. While this can be seen with chronic pancreatitis, would question an obstructing calculus in the proximal main duct. Consider ERCP. 6 cm cystic mass along the posterior pancreatic head and uncinate process. Some features suggesting a serous cystic neoplasm, but not entirely classic appearance. This would be extremely large for a side branch intraductal papillary mucinous neoplasm, but this possibility is not excluded. I am not confident that this is a pseudocyst. Consideration for a endoscopic ultrasound evaluation. If this is not pursued, would at least recommend a 6 month follow-up to assess for stability. (5) Electrolyte imbalance (6) HTN (hypertension) (7) FRANCISCA (acute kidney injury) (8) DMII (diabetes mellitus, type 2) (9) Small bowel obstruction Assessment & Plan: Was not able to tolerate the small bowel series yesterday had large emesis did not like the contrast. CT reviewed and ordered after identifying still potential bowel obstruction with transition point. Patient has had multiple prior surgeries including large open right cholecystectomy many years ago prior C-sections prior ventral hernia repair with mesh and is a very high risk patient. I do long discussion with the patient and her daughter over the phone in regards to the findings and care plan. Patient presented with pancreatitis which is resolved but continued to develop a new different type of abdominal pain which and work-up identified a small bowel obstruction. Given she is fairly stable examination is fairly benign we have plan together to initiate nonoperative management with NG tube decompression and bowel rest. If potential improvement with resolution of obstruction patient has a chance otherwise we will plan surgical intervention which is very high risk and complicated given her extensive surgical abdominal history. Patient and daughter expressed understanding expressed similar concerns given her history and understanding of choices including the risk benefits and alternatives to the current care plan. Dependent atelectatic changes noted in the lung bases. Multifocal subsegmental atelectasis versus early infiltrate noted in the right lower lobe. No pneumothorax or pleural effusion. Partially imaged heart is mildly enlarged. There are coronary arterial and cardiac valvular calcifications. And punctate foci of pneumobilia again noted, similar to the prior exam. Hepatic contour is smooth. Patient again noted be status post cholecystectomy. Hepatic veins and portal veins appear patent. Spleen, adrenal glands unremarkable. Unchanged appearance of the pancreas with dilatation of the pancreatic duct and cystic lesion with calcifications in the region of the pancreatic head. No discrete peripancreatic inflammatory changes seen presently. Kidneys enhance symmetrically. The small cortical cysts are noted in the upper pole bilaterally. No hydronephrosis or perinephric collections. Patient again noted to be status post hysterectomy. Bladder is mildly distended but otherwise unremarkable. Persistent abnormal distention of small bowel loops concerning for a small bowel obstruction. Again there is a transition point in the right lower abdomen, area of the mid to distal ileum. The loops distal to the area of transition are decompressed. The appendix is normal in caliber and there are no periappendiceal inflammatory changes. No abnormal distention of the colon. There are colonic diverticula. No evidence of acute diverticulitis. Small amount of free fluid is noted within the peritoneal cavity, layering dependently in the pelvis. No free intraperitoneal air is seen. No pneumatosis intestinalis. Again there postsurgical changes underlying the anterior abdominal wall at the level of the umbilicus suggesting possible prior hernia repair (axial image #48). Small hiatal hernia is again seen. Extensive atherosclerotic vessel calcifications are noted. There are degenerative and postoperative changes in the spine with laminectomies and posterior fusion spanning from L1 to L3. IMPRESSION: * Persistent small bowel obstruction with transition point in the right lower abdomen, region of the mid to distal ileum. Findings are overall similar compared to exam of 12/01/2020. Small amount of free intraperitoneal fluid but no free peritoneal air. * Diverticulosis without evidence of acute diverticulitis. Normal appendix. * Status post hysterectomy and cholecystectomy. Surgical material adjacent to the anterior abdominal wall suggesting possible prior ventral hernia repair. * Small hiatal hernia and mild distal esophageal wall thickening. * Coronary arterial calcifications. * Postoperative changes of the lumbar spine, similar to the prior exam. * Interval development of some patchy opacities in the right lower lobe which may be related to dependent atelectasis although developing pneumonia not excluded. Eriberto Pizarro Dec 08, 2020 11:24
[2020-12-08 12:00] VITALS: BP 162/88
--- NOTE | 2020-12-08 13:11 | General Progress Note ---
Subjective ROS Limited/Unobtainable: Yes Allergies: Coded Allergies: CODEINE (Verified Allergy, Severe, Itching, 10/10/20) Objective Last 24 Hour Vital Signs Date Time Temp Pulse Resp B/P (MAP) Pulse Ox O2 Delivery O2 Flow Rate FiO2 12/08/20 12:00 98.2 64 20 162/88 (112) 94 12/08/20 09:59 Room Air 12/08/20 08:26 98.0 70 19 144/67 (92) 95 12/08/20 04:00 98.1 74 17 154/85 (108) 95 12/08/20 00:00 98.4 75 17 150/77 (101) 95 12/07/20 21:00 Room Air 12/07/20 20:00 98.1 87 17 155/95 (115) 97 12/07/20 17:10 99.5 89 18 144/82 (102) 99 12/07/20 16:00 99.9 75 18 106/62 (77) 100 Intake and Output 12/07/20 12/08/20 19:00 07:00 Output Total 3 ml Balance -3 ml Output Urine Total 3 ml # Voids 4 Laboratory Tests 12/07/20 17:05: POC Whole Blood Glucose 119H 12/08/20 08:30: White Blood Count 6.9, Red Blood Count 3.60L, Hemoglobin 9.2L, Hematocrit 29.3L, Mean Corpuscular Volume 81, Mean Corpuscular Hemoglobin 25.5L, Mean Corpuscular Hemoglobin Concent 31.4L, Red Cell Distribution Width 13.0, Platelet Count 257, Mean Platelet Volume 5.9L, Neutrophils (%) (Auto) 58.7, Lymphocytes (%) (Auto) 24.2, Monocytes (%) (Auto) 12.8H, Eosinophils (%) (Auto) 2.4, Basophils (%) (Auto) 1.9, Sodium Level 149H, Potassium Level 3.2L, Chloride Level 110H, Carbon Dioxide Level 33H, Anion Gap 6, Blood Urea Nitrogen 7, Creatinine 1.2, Estimat Glomerular Filtration Rate 53.8, Glucose Level 137H, Calcium Level 8.7 Height (Feet): 5 Height (Inches): 3.00 Weight (Pounds): 171 General Appearance: no apparent distress EENT: normal ENT inspection Neck: supple Cardiovascular: normal rate Respiratory/Chest: decreased breath sounds Abdomen: normal bowel sounds, non tender, soft Extremities: non-tender Assessment/Plan Assessment/Plan: Assessment/Plan Assessment/Plan: pancreatitis abd pain nausea anemia pancreatic cyst SBO recent ERCP pain control creon zofran ct>> SBO>>>fu surg bowel regimen NGT and NGT to suction improved amylase and lipase pending SBFT repeat labs in Nikolas Fraser MD Dec 08, 2020 13:11
[2020-12-08 16:00] VITALS: BP 186/92
--- NOTE | 2020-12-08 16:52 | NUR ---
INSURANCE CLINICALS FAXED TO [facility] ( ) Fax Clinicals: [phone] CM: Lauren Khalil
--- NOTE | 2020-12-08 18:12 | General Progress Note ---
Subjective Date patient seen: Dec 08, 2020 Time patient seen: 15:00 ROS Limited/Unobtainable: Yes Allergies: Coded Allergies: CODEINE (Verified Allergy, Severe, Itching, 10/10/20) Subjective Getting GI study and X rays at the bedside Objective Last 24 Hour Vital Signs Date Time Temp Pulse Resp B/P (MAP) Pulse Ox O2 Delivery O2 Flow Rate FiO2 12/08/20 16:00 97.9 71 20 186/92 (123) 93 12/08/20 12:00 98.2 64 20 162/88 (112) 94 12/08/20 09:59 Room Air 12/08/20 08:26 98.0 70 19 144/67 (92) 95 12/08/20 04:00 98.1 74 17 154/85 (108) 95 12/08/20 00:00 98.4 75 17 150/77 (101) 95 12/07/20 21:00 Room Air 12/07/20 20:00 98.1 87 17 155/95 (115) 97 Intake and Output 12/07/20 12/08/20 19:00 07:00 Output Total 3 ml Balance -3 ml Output Urine Total 3 ml # Voids 4 Laboratory Tests 12/08/20 08:30: White Blood Count 6.9, Red Blood Count 3.60L, Hemoglobin 9.2L, Hematocrit 29.3L, Mean Corpuscular Volume 81, Mean Corpuscular Hemoglobin 25.5L, Mean Corpuscular Hemoglobin Concent 31.4L, Red Cell Distribution Width 13.0, Platelet Count 257, Mean Platelet Volume 5.9L, Neutrophils (%) (Auto) 58.7, Lymphocytes (%) (Auto) 24.2, Monocytes (%) (Auto) 12.8H, Eosinophils (%) (Auto) 2.4, Basophils (%) (Auto) 1.9, Sodium Level 149H, Potassium Level 3.2L, Chloride Level 110H, Carbon Dioxide Level 33H, Anion Gap 6, Blood Urea Nitrogen 7, Creatinine 1.2, Estimat Glomerular Filtration Rate 53.8, Glucose Level 137H, Calcium Level 8.7 Height (Feet): 5 Height (Inches): 3.00 Weight (Pounds): 171 General Appearance: WD/WN EENT: PERRL/EOMI Neck: non-tender Cardiovascular: normal rate Respiratory/Chest: lungs clear Abdomen: non tender Edema: trace edema Neurologic: bar tacker II-XII grossly normal Skin: normal pigmentation Assessment/Plan Assessment/Plan: Assessment/Plan Assessment/Plan (1) Acute kidney injury on chronic renal insufficiency. (2) Abdominal pain most likely due to acute pancreatitis. (3) Dehydration (4) Acute recurrent Pancreatitis (5) Diabetic type II (6) hypertension. (7) dyslipidemia. 8. Small bowel obstruction Plan: Monitor laboratory Pain medication IV hydration clear liquid diet CODE STATUS: Full code DVT prophylaxis: Heparin subcutaneous Follow-up with GI, nephrology, surgery recommendations. NG tube to low wall intermediate suction GI study today and follow up with surgery for next steps. Lynne Foote MD Dec 08, 2020 18:12
--- NOTE | 2020-12-08 19:20 | Cardiology Report ---
APPROVED REPORT EKG Measurement Heart [id number] <Conclusion> Normal sinus rhythm Right atrial enlargement Borderline ECG
[2020-12-08 20:00] VITALS: BP 182/92
[2020-12-09] VITALS (7 sets, daily range): BP systolic 117–173; BP diastolic 70–95
--- NOTE | 2020-12-09 00:02 | NUR ---
NURSE NOTES: Patient asleep in bed, on room air. With NG tube on the right nare connected to low intermittent suction. IV access on the left forearm running D5NS@ 100cc/hr and right forearm saline lock. Instructed to use call light for assistance. Bed in lowest and lock engaged. Will continue to monitor.
[2020-12-09] MEDS: Morphine Sulfate 4mg/ml Inj (IV USE ONLY) IVP PRN ×4 (02:46→21:56)
[2020-12-09] MEDS: Heparin 5000 units/ml inj SUBQ SCH ×3 (05:50→22:06)
[2020-12-09] MEDS: NovoLOG Insulin Flexpen SUBQ SCH ×4 (05:51→21:00)
[2020-12-09] MEDS: D5NS 1,000 ML IV SCH (05:53)
--- NOTE | 2020-12-09 06:02 | NUR ---
NURSE NOTES: RN aspirated 430 cc of NG tube output and used 130cc to flush catapres at 9pm last night. At midnight 280cc of gastric output taken out. At this time, almost nothing gotten from the tube. Patient verbalized " I feel better on my stomach."
[2020-12-09 06:39] LABS: BASOPHILS % (AUTO) 0.8 % (0.0-2.0); EOSINOPHILS % (AUTO) 3.1 % (0.0-3.0); HEMATOCRIT 33.2 % (37.0-47.0); MEAN CORPUSCULAR VOLUME 81 FL (80-99); MONOCYTES % (AUTO) 12.6 % (1.0-10.0); NEUTROPHILS % (AUTO) 51.5 % (45.0-75.0); PLATELET COUNT 278 K/UL (150-450); RED BLOOD COUNT 4.08 M/UL (4.20-5.40); RED CELL DISTRIBUTION WIDTH 13.1 % (11.6-14.8); WHITE BLOOD COUNT 7.9 K/UL (4.8-10.8)
[2020-12-09 07:01] LABS: ALBUMIN 3.1 G/DL (3.4-5.0); ALBUMIN/GLOBULIN RATIO 0.8 (1.0-2.7); BILIRUBIN,TOTAL 0.3 MG/DL (0.2-1.0); CALCIUM 8.7 MG/DL (8.5-10.1); CREATININE 1.4 MG/DL (0.55-1.30); POTASSIUM 3.4 MMOL/L (3.5-5.1)
--- NOTE | 2020-12-09 07:02 | NUR ---
NURSE NOTES: Patient just had a large loose BM.
--- NOTE | 2020-12-09 07:03 | NUR ---
NURSE HAND-OFF: Important Events on Shift: 1 large loose BM, gastric light green to almost clear output from NGT Patient Status: Diet:NPO except ice chips and meds Pending Orders: Pending Results/Labs: Pending MD notification: Latest Vital Signs: Temperature 98.2 , Pulse 58 , B/P 147 /78 , Respiratory Rate 16 , O2 SAT 95 , Room Air, O2 Flow Rate . Vital Sign Comment: Latest Montesinos Fall Score: 50 Fall Risk: High Risk Safety Measures: Call light Within Reach, Bed Alarm Zone 1, Side Rails Side Rails x2, Bed position Low and Locked. Fall Precautions: Door Sign Patient Fall Education Report given to GONZALES Oakley.
--- NOTE | 2020-12-09 07:14 | NUR ---
NURSE NOTES: Received patient resting comfortably in bed,patient awake, alert, oriented x4 no sign of distress, C/o minimal pain, IVF patent and infusing well, on NGT to LIS suction draining minimal output, on fall and aspiration precaution, Bed in lowest position, BSC provided, locked, bed alarm on.kept clean dry and comfortable Side rails up X2. Call light within reach and patient able to make needs known. corey pitts
--- NOTE | 2020-12-09 09:43 | Diagnostic Imaging Report ---
XRAY Small Bowel w/Gastrografin. CLINICAL HISTORY: Reason For Exam: ABD PAIN. COMPARISON: CT abdomen and pelvis 12/05/2020 FINDINGS: A small bowel series with Gastrografin obtained. [employer] Support Technician radiograph the abdomen demonstrates some residual GI contrast in the small bowel from prior small bowel series and CT. No distinct focal distention or obstruction noted. NG tube and stomach noted. Fixation hardware in the upper lumbar spine. After administration of contrast, serial KUBs are obtained. There is slow antegrade passage of contrast through the small bowel. Bowel loops are mildly prominent but not significantly distended and visualized mucosal pattern appear within normal limits.There is no mural nodularity or separation of loops. Contrast reached the splenic flexure by 5 hours and delayed images obtained the next morning show contrast to the rectum. No gross abnormality of the colon demonstrated. There is no mass or mass effect identified. IMPRESSION: TRANSIT OF CONTRAST THROUGH THE SMALL BOWEL IS SLOW PERHAPS REFLECTING A MILD GENERALIZED ILEUS BUT NO EVIDENCE OF SMALL BOWEL OBSTRUCTION.
--- NOTE | 2020-12-09 10:37 | Nephrology Progress Note ---
Assessment/Plan Problem List: (1) FRANCISCA (acute kidney injury) (2) DMII (diabetes mellitus, type 2) (3) HTN (hypertension) (4) Electrolyte imbalance (5) Dehydration (6) UTI (urinary tract infection) (7) Pancreatitis Assessment 70-year-old female admitted with abdominal pain Serum creatinine 2.1 on admission Acute kidney injury Dehydration Diabetes type 2 Pancreatitis Hypertension Thyroid disease Asthma Previous ERCP UTI Plan December 09: Labs are reviewed. Renal parameters stable. Abnormal electrolytes addressed. Per orders. Norvasc for high blood pressure initiated. December 08: Labs reviewed. Renal parameters stable. Continue per consultants. Abnormal electrolytes addressed. December 07: Labs reviewed. Serum creatinine within normal limits. Low potassium addressed. Continue per consultants. December 06: Labs reviewed. Serum creatinine up to 1.5. Patient offers no complaint. Medication list reviewed. Continue per GI. Continue to monitor renal parameters. December 05: Labs reviewed. Renal parameters stable. Serum creatinine 1.3. Medication list reviewed. Not much to add from renal standpoint of view. Adjust blood pressure medication. Continue per consultants. December 04: Labs reviewed. Serum creatinine almost within normal limit. Serum creatinine of 2.1 is down to 1.4. Patient on clear liquid diet. Small bowel follow-through order is in process. Continue per consultants. December 03: Labs reviewed. Serum creatinine 1.7. Patient on clear liquid. Clinically appears stable. Continue per GI. Patient has a small bowel obstruction on CT. December 02: Labs reviewed. Serum creatinine lowering. Electrolytes within normal limits. On clear liquid. Continue per consultants. Previously: Hydrate BP control, adjust blood pressure medications Keep the blood sugar in check Avoid nephrotoxic's Urine studies Monitor renal parameters Per consultants Subjective ROS Limited/Unobtainable: No Constitutional: Reports: malaise, weakness Objective Objective Last 24 Hour Vital Signs Date Time Temp Pulse Resp B/P (MAP) Pulse Ox O2 Delivery O2 Flow Rate FiO2 12/09/20 08:20 Room Air 12/09/20 08:10 97.9 58 18 146/76 (99) 93 12/09/20 04:00 98.2 58 16 147/78 (101) 95 12/09/20 00:00 97.3 64 16 153/82 (105) 93 12/08/20 21:00 Room Air 12/08/20 20:37 182/92 12/08/20 20:00 97.8 80 17 182/92 (122) 92 12/08/20 16:00 97.9 71 20 186/92 (123) 93 12/08/20 12:00 98.2 64 20 162/88 (112) 94 Intake and Output 12/08/20 12/09/20 19:00 07:00 Intake Total 100 ml 1100 ml Output Total 700 ml 600 ml Balance -600 ml 500 ml IV Total 100 ml 1100 ml Gastric Drainage Total 700 ml 600 ml # Voids 2 1 Current Medications Medications (Trade) Dose Ordered Sig/Angely Route PRN Reason Start Time Stop Time Status Last Admin Dose Admin Acetaminophen (Tylenol) 650 mg Q4H PRN RECTAL Mild Pain (Pain Scale 1-3) 12/06/20 10:15 01/05/21 10:14 Clonidine HCl (Catapres Tab) 0.1 mg Q4H PRN ORAL BP above 160 syst 12/01/20 12:45 03/01/21 12:44 12/09/20 12:14 Dextrose 1,000 ml @ 50 mls/hr Q20H IV 12/09/20 09:00 01/08/21 08:59 12/09/20 10:06 Dextrose (Dextrose 50%) 25 ml Q30M PRN IV Hypoglycemia 11/30/20 20:45 02/28/21 20:44 Dextrose (Dextrose 50%) 50 ml Q30M PRN IV Hypoglycemia 11/30/20 20:45 02/28/21 20:44 Famotidine (Pepcid I.v.) 20 mg Q12HR IVP 12/01/20 21:00 12/31/20 20:59 12/09/20 08:26 Heparin Sodium (Porcine) (Heparin 5000 units/ml) 5,000 units EVERY 8 HOURS SUBQ 11/30/20 22:00 01/14/21 21:59 12/09/20 05:50 Insulin Aspart (NovoLOG) BEFORE MEALS AND HS SUBQ 11/30/20 22:00 02/28/21 21:59 12/09/20 11:59 Morphine Sulfate (Morphine Sulfate) 2 mg Q4H PRN IVP Moderate Pain (Pain Scale 4-6) 12/07/20 23:00 12/14/20 22:59 Morphine Sulfate (Morphine Sulfate) 4 mg Q4H PRN IVP Severe Pain (Pain Scale 7-10) 12/07/20 23:00 12/14/20 22:59 12/09/20 12:14 Ondansetron HCl (Zofran) 4 mg Q4H PRN IVP Nausea & Vomiting 11/30/20 20:45 12/30/20 20:44 12/09/20 06:40 Laboratory Tests 12/08/20 11:42: POC Whole Blood Glucose 86 12/08/20 16:37: POC Whole Blood Glucose 133H 12/08/20 20:36: POC Whole Blood Glucose [Pending] 12/09/20 05:46: POC Whole Blood Glucose 147H 12/09/20 06:25: White Blood Count 7.9, Red Blood Count 4.08L, Hemoglobin 10.0L, Hematocrit 33.2L , Mean Corpuscular Volume 81, Mean Corpuscular Hemoglobin 24.5L, Mean Corpuscular Hemoglobin Concent 30.2L, Red Cell Distribution Width 13.1, Platelet Count 278, Mean Platelet Volume 6.0L, Neutrophils (%) (Auto) 51.5, Lymphocytes (%) (Auto) 32.0, Monocytes (%) (Auto) 12.6H, Eosinophils (%) (Auto) 3.1H, Basophils (%) (Auto) 0.8, Sodium Level 150H, Potassium Level 3.4L, Chloride Level 110H, Carbon Dioxide Level 35H, Anion Gap 5, Blood Urea Nitrogen 6L, Creatinine 1.4H, Estimat Glomerular Filtration Rate 45.1, Glucose Level 157H, Calcium Level 8.7, Total Bilirubin 0.3, Aspartate Amino Transf (AST/SGOT) 23, Alanine Aminotransferase (ALT/SGPT) 23, Alkaline Phosphatase 94, Total Protein 6.9, Albumin 3.1L, Globulin 3.8, Albumin/Globulin Ratio 0.8L, Amylase Level 52, Lipase 467H Height (Feet): 5 Height (Inches): 3.00 Weight (Pounds): 171 General Appearance: no apparent distress Cardiovascular: normal rate Respiratory/Chest: decreased breath sounds Abdomen: distended Bhupinder Huynh MD Dec 09, 2020 10:37
--- NOTE | 2020-12-09 13:03 | General Progress Note ---
Subjective ROS Limited/Unobtainable: Yes Allergies: Coded Allergies: CODEINE (Verified Allergy, Severe, Itching, 10/10/20) Objective Last 24 Hour Vital Signs Date Time Temp Pulse Resp B/P (MAP) Pulse Ox O2 Delivery O2 Flow Rate FiO2 12/09/20 12:14 173/90 12/09/20 12:12 97.4 65 18 173/90 (117) 93 12/09/20 08:20 Room Air 12/09/20 08:10 97.9 58 18 146/76 (99) 93 12/09/20 04:00 98.2 58 16 147/78 (101) 95 12/09/20 00:00 97.3 64 16 153/82 (105) 93 12/08/20 21:00 Room Air 12/08/20 20:37 182/92 12/08/20 20:00 97.8 80 17 182/92 (122) 92 12/08/20 16:00 97.9 71 20 186/92 (123) 93 Intake and Output 12/08/20 12/09/20 19:00 07:00 Intake Total 100 ml 1200 ml Output Total 700 ml 600 ml Balance -600 ml 600 ml IV Total 100 ml 1200 ml Gastric Drainage Total 700 ml 600 ml # Voids 2 1 Laboratory Tests 12/08/20 16:37: POC Whole Blood Glucose 133H 12/08/20 20:36: POC Whole Blood Glucose [Pending] 12/09/20 05:46: POC Whole Blood Glucose 147H 12/09/20 06:25: White Blood Count 7.9, Red Blood Count 4.08L, Hemoglobin 10.0L, Hematocrit 33.2L , Mean Corpuscular Volume 81, Mean Corpuscular Hemoglobin 24.5L, Mean Corpuscular Hemoglobin Concent 30.2L, Red Cell Distribution Width 13.1, Platelet Count 278, Mean Platelet Volume 6.0L, Neutrophils (%) (Auto) 51.5, Lymphocytes (%) (Auto) 32.0, Monocytes (%) (Auto) 12.6H, Eosinophils (%) (Auto) 3.1H, Basophils (%) (Auto) 0.8, Sodium Level 150H, Potassium Level 3.4L, Chloride Level 110H, Carbon Dioxide Level 35H, Anion Gap 5, Blood Urea Nitrogen 6L, Creatinine 1.4H, Estimat Glomerular Filtration Rate 45.1, Glucose Level 157H, Calcium Level 8.7, Total Bilirubin 0.3, Aspartate Amino Transf (AST/SGOT) 23, Alanine Aminotransferase (ALT/SGPT) 23, Alkaline Phosphatase 94, Total Protein 6.9, Albumin 3.1L, Globulin 3.8, Albumin/Globulin Ratio 0.8L, Amylase Level 52, Lipase 467H 12/09/20 11:57: POC Whole Blood Glucose 156H Height (Feet): 5 Height (Inches): 3.00 Weight (Pounds): 171 General Appearance: no apparent distress EENT: normal ENT inspection Neck: supple Cardiovascular: normal rate Respiratory/Chest: decreased breath sounds Abdomen: hypoactive bowel sounds Extremities: non-tender Assessment/Plan Assessment/Plan: Assessment/Plan Assessment/Plan: pancreatitis abd pain nausea anemia pancreatic cyst SBO recent ERCP pain control creon tirso ct>> SBO>>>fu surg bowel regimen NGT has been removed on clears improved amylase and lipase repeat labs in Nikolas Fraser MD Dec 09, 2020 13:03
--- NOTE | 2020-12-09 14:19 | NUR ---
INSURANCE CLINICALS FAXED TO [facility] ( ) Fax Clinicals: [phone] CM: Lauren Khalil
--- NOTE | 2020-12-09 15:13 | General Progress Note ---
Subjective Date patient seen: Dec 09, 2020 Time patient seen: 15:00 ROS Limited/Unobtainable: No Allergies: Coded Allergies: CODEINE (Verified Allergy, Severe, Itching, 10/10/20) Subjective Tolerating clear diet. Had BM today. Not out of bed yet or PT evaluation. Objective Last 24 Hour Vital Signs Date Time Temp Pulse Resp B/P (MAP) Pulse Ox O2 Delivery O2 Flow Rate FiO2 12/09/20 14:10 65 147/70 12/09/20 13:23 147/70 (95) 12/09/20 12:14 173/90 12/09/20 12:12 97.4 65 18 173/90 (117) 93 12/09/20 08:20 Room Air 12/09/20 08:10 97.9 58 18 146/76 (99) 93 12/09/20 04:00 98.2 58 16 147/78 (101) 95 12/09/20 00:00 97.3 64 16 153/82 (105) 93 12/08/20 21:00 Room Air 12/08/20 20:37 182/92 12/08/20 20:00 97.8 80 17 182/92 (122) 92 12/08/20 16:00 97.9 71 20 186/92 (123) 93 Intake and Output 12/08/20 12/09/20 19:00 07:00 Intake Total 100 ml 1200 ml Output Total 700 ml 600 ml Balance -600 ml 600 ml IV Total 100 ml 1200 ml Gastric Drainage Total 700 ml 600 ml # Voids 2 1 Laboratory Tests 12/08/20 16:37: POC Whole Blood Glucose 133H 12/08/20 20:36: POC Whole Blood Glucose [Pending] 12/09/20 05:46: POC Whole Blood Glucose 147H 12/09/20 06:25: White Blood Count 7.9, Red Blood Count 4.08L, Hemoglobin 10.0L, Hematocrit 33.2L , Mean Corpuscular Volume 81, Mean Corpuscular Hemoglobin 24.5L, Mean Corpuscular Hemoglobin Concent 30.2L, Red Cell Distribution Width 13.1, Platelet Count 278, Mean Platelet Volume 6.0L, Neutrophils (%) (Auto) 51.5, Lymphocytes (%) (Auto) 32.0, Monocytes (%) (Auto) 12.6H, Eosinophils (%) (Auto) 3.1H, Basophils (%) (Auto) 0.8, Sodium Level 150H, Potassium Level 3.4L, Chloride Level 110H, Carbon Dioxide Level 35H, Anion Gap 5, Blood Urea Nitrogen 6L, Creatinine 1.4H, Estimat Glomerular Filtration Rate 45.1, Glucose Level 157H, Calcium Level 8.7, Total Bilirubin 0.3, Aspartate Amino Transf (AST/SGOT) 23, Alanine Aminotransferase (ALT/SGPT) 23, Alkaline Phosphatase 94, Total Protein 6.9, Albumin 3.1L, Globulin 3.8, Albumin/Globulin Ratio 0.8L, Amylase Level 52, Lipase 467H 12/09/20 11:57: POC Whole Blood Glucose 156H Height (Feet): 5 Height (Inches): 3.00 Weight (Pounds): 171 General Appearance: WD/WN EENT: PERRL/EOMI Neck: non-tender Cardiovascular: normal peripheral pulses Respiratory/Chest: chest wall non-tender, lungs clear Abdomen: non tender, hypoactive bowel sounds 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 (2) Abdominal pain most likely due to acute pancreatitis. (3) Dehydration (4) Acute recurrent Pancreatitis (5) Diabetic type II (6) hypertension. (7) dyslipidemia. 8. Small bowel obstruction 9. Ileus Plan: Monitor laboratory Pain medication IV hydration clear liquid diet CODE STATUS: Full code DVT prophylaxis: Heparin subcutaneous Follow-up with GI, nephrology, surgery recommendations. NG tube to low wall intermediate suction GI study 12/08 without SBO and mild ileus noted. Appreciate GI and Surgery input. Titrate and advance diet as tolerated. PT evaluation for mobility ordered. Lynne Foote MD Dec 09, 2020 15:13
--- NOTE | 2020-12-09 17:20 | Surgery Progress Note ---
Surgery Progress Note Subjective Symptoms: improved, pain absent, tolerating diet, voiding well, passing flatus, BM Objective Last 24 Hour Vital Signs Date Time Temp Pulse Resp B/P (MAP) Pulse Ox O2 Delivery O2 Flow Rate FiO2 12/09/20 16:00 97.2 58 20 117/78 (91) 94 12/09/20 14:10 65 147/70 12/09/20 13:23 147/70 (95) 12/09/20 12:14 173/90 12/09/20 12:12 97.4 65 18 173/90 (117) 93 12/09/20 08:20 Room Air 12/09/20 08:10 97.9 58 18 146/76 (99) 93 12/09/20 04:00 98.2 58 16 147/78 (101) 95 12/09/20 00:00 97.3 64 16 153/82 (105) 93 12/08/20 21:00 Room Air 12/08/20 20:37 182/92 12/08/20 20:00 97.8 80 17 182/92 (122) 92 I&O Intake and Output 12/08/20 12/09/20 19:00 07:00 Intake Total 100 ml 1200 ml Output Total 700 ml 600 ml Balance -600 ml 600 ml IV Total 100 ml 1200 ml Gastric Drainage Total 700 ml 600 ml # Voids 2 1 Cardiovascular: RSR Respiratory: clear Abdomen: soft, flat, non-tender, present bowel sounds Extremities: no edema, no cyanosis Laboratory Tests Test 12/08/20 20:36 12/09/20 05:46 12/09/20 06:25 12/09/20 11:57 POC Whole Blood Glucose Pending 147 MG/DL (74-106) H 156 MG/DL (74-106) H White Blood Count 7.9 K/UL (4.8-10.8) Red Blood Count 4.08 M/UL (4.20-5.40) L Hemoglobin 10.0 G/DL (12.0-16.0) L Hematocrit 33.2 % (37.0-47.0) L Mean Corpuscular Volume 81 FL (80-99) Mean Corpuscular Hemoglobin 24.5 PG (27.0-31.0) L Mean Corpuscular Hemoglobin Concent 30.2 G/DL (32.0-36.0) L Red Cell Distribution Width 13.1 % (11.6-14.8) Platelet Count 278 K/UL (150-450) Mean Platelet Volume 6.0 FL (6.5-10.1) L Neutrophils (%) (Auto) 51.5 % (45.0-75.0) Lymphocytes (%) (Auto) 32.0 % (20.0-45.0) Monocytes (%) (Auto) 12.6 % (1.0-10.0) H Eosinophils (%) (Auto) 3.1 % (0.0-3.0) H Basophils (%) (Auto) 0.8 % (0.0-2.0) Sodium Level 150 MMOL/L (136-145) H Potassium Level 3.4 MMOL/L (3.5-5.1) L Chloride Level 110 MMOL/L (98-107) H Carbon Dioxide Level 35 MMOL/L (21-32) H Anion Gap 5 mmol/L (5-15) Blood Urea Nitrogen 6 mg/dL (7-18) L Creatinine 1.4 MG/DL (0.55-1.30) H Estimat Glomerular Filtration Rate 45.1 mL/min (>60) Glucose Level 157 MG/DL (74-106) H Calcium Level 8.7 MG/DL (8.5-10.1) Total Bilirubin 0.3 MG/DL (0.2-1.0) Aspartate Amino Transf (AST/SGOT) 23 U/L (15-37) Alanine Aminotransferase (ALT/SGPT) 23 U/L (12-78) Alkaline Phosphatase 94 U/L (46-116) Total Protein 6.9 G/DL (6.4-8.2) Albumin 3.1 G/DL (3.4-5.0) L Globulin 3.8 g/dL Albumin/Globulin Ratio 0.8 (1.0-2.7) L Amylase Level 52 U/L (25-115) Lipase 467 U/L (73-393) H Test 12/09/20 16:48 POC Whole Blood Glucose 107 MG/DL (74-106) H Plan Problems: (1) UTI (urinary tract infection) (2) Abdominal pain Assessment & Plan: imaging noted possible sbo but likely ileus await small bowel study (3) Dehydration (4) Pancreatitis Assessment & Plan: 70-year-old female with recurrent pancreatitis. History of cholecystectomy. Nausea vomiting now resolving. Abdominal pain significant states that this is a much worse episode than priors. Labs noted. No current imaging. Imaging from last admission about a month ago reviewed. Recommend repeating CT/MRI to ensure no pancreatic necrosis or complication or worsening fluid collection or cyst. N.p.o. IV fluids IV antibiotics pain control monitor urine output with fall with recommendations. Thank you letting participate in patient's care improving CT noted MRI noted ? sbo small bowel series likely ileus given severity of pancreatitis MRI from 10/2020 As noted on the CT scan, there is extensive pancreatic ductal dilation. This is most pronounced proximally, where the duct measures up to 1.3 cm in diameter. There is some distal tapering, but still with substantial dilation out to the tail. Side branches are also distended. There are calcifications in the region of the pancreatic head, better demonstrated on CT. Some of these presumably reflect sequela of chronic pancreatitis. 1 of these calcifications may correlate with a filling defect in the proximal duct in the pancreatic head measuring maximum of 8 mm in the coronal plane on series 3, image 21 and 6 mm in the axial plane on series 5, image 25. Question an intraductal stone contributing to the dilation/obstruction. Complicating assessment is a mass along the posterior-leftward aspect of the pancreatic head and uncinate process. This correlates with the cystic lesion seen on CT. It measures 6 x 3.4 x 3 cm in greatest craniocaudal, transverse, and anteroposterior dimensions respectively on series 9, image 67 and series 5, image 26. The mass is markedly hyperintense on T2 and mildly hypointense on T1-weighted sequences. It is primarily cystic with numerous locules. Postcontrast, there is no clear enhancing nodular or other component. It is difficult to exclude a connection with the main pancreatic duct as this is immediately adjacent. The common bile duct is of normal caliber for patient's age. No choledocholithiasis is. The gallbladder is absent. Bilateral renal cysts, largest in the parapelvic lower pole measures 2 cm. No hydronephrosis. Incidental note of cardiomegaly, colonic diverticula, and lumbar fusion. IMPRESSION: Pancreatic ductal dilation. While this can be seen with chronic pancreatitis, would question an obstructing calculus in the proximal main duct. Consider ERCP. 6 cm cystic mass along the posterior pancreatic head and uncinate process. Some features suggesting a serous cystic neoplasm, but not entirely classic appearance. This would be extremely large for a side branch intraductal papillary mucinous neoplasm, but this possibility is not excluded. I am not confident that this is a pseudocyst. Consideration for a endoscopic ultrasound evaluation. If this is not pursued, would at least recommend a 6 month follow-up to assess for stability. (5) Electrolyte imbalance (6) HTN (hypertension) (7) FRANCISCA (acute kidney injury) (8) DMII (diabetes mellitus, type 2) (9) Small bowel obstruction Assessment & Plan: Was not able to tolerate the small bowel series yesterday had large emesis did not like the contrast. CT reviewed and ordered after identifying still potential bowel obstruction with transition point. Patient has had multiple prior surgeries including large open right cholecystectomy many years ago prior C-sections prior ventral hernia repair with mesh and is a very high risk patient. I do long discussion with the patient and her daughter over the phone in regards to the findings and care plan. Patient presented with pancreatitis which is resolved but continued to develop a new different type of abdominal pain which and work-up identified a small bowel obstruction. Given she is fairly stable examination is fairly benign we have plan together to initiate nonoperative management with NG tube decompression and bowel rest. If potential improvement with resolution of obstruction patient has a chance otherw ise we will plan surgical intervention which is very high risk and complicated given her extensive surgical abdominal history. Patient and daughter expressed understanding expressed similar concerns given her history and understanding of choices including the risk benefits and alternatives to the current care plan. Dependent atelectatic changes noted in the lung bases. Multifocal subsegmental atelectasis versus early infiltrate noted in the right lower lobe. No pneumothorax or pleural effusion. Partially imaged heart is mildly enlarged. There are coronary arterial and cardiac valvular calcifications. And punctate foci of pneumobilia again noted, similar to the prior exam. Hepatic contour is smooth. Patient again noted be status post cholecystectomy. Hepatic veins and portal veins appear patent. Spleen, adrenal glands unremarkable. Unchanged appearance of the pancreas with dilatation of the pancreatic duct and cystic lesion with calcifications in the region of the pancreatic head. No discrete peripancreatic inflammatory changes seen presently. Kidneys enhance symmetrically. The small cortical cysts are noted in the upper pole bilaterally. No hydronephrosis or perinephric collections. Patient again noted to be status post hysterectomy. Bladder is mildly distended but otherwise unremarkable. Persistent abnormal distention of small bowel loops concerning for a small bowel obstruction. Again there is a transition point in the right lower abdomen, area of the mid to distal ileum. The loops distal to the area of transition are decompressed. The appendix is normal in caliber and there are no periappendiceal inflammatory changes. No abnormal distention of the colon. There are colonic diverticula. No evidence of acute diverticulitis. Small amount of free fluid is noted within the peritoneal cavity, layering dependently in the pelvis. No free intraperitoneal air is seen. No pneumatosis intestinalis. Again there postsurgical changes underlying the anterior abdominal wall at the level of the umbilicus suggesting possible prior hernia repair (axial image #48). Small hiatal hernia is again seen. Extensive atherosclerotic vessel calcifications are noted. There are degenerative and postoperative changes in the spine with laminectomies and posterior fusion spanning from L1 to L3. IMPRESSION: * Persistent small bowel obstruction with transition point in the right lower abdomen, region of the mid to distal ileum. Findings are overall similar compared to exam of 12/01/2020. Small amount of free intraperitoneal fluid but no free peritoneal air. * Diverticulosis without evidence of acute diverticulitis. Normal appendix. * Status post hysterectomy and cholecystectomy. Surgical material adjacent to the anterior abdominal wall suggesting possible prior ventral hernia repair. * Small hiatal hernia and mild distal esophageal wall thickening. * Coronary arterial calcifications. * Postoperative changes of the lumbar spine, similar to the prior exam. * Interval development of some patchy opacities in the right lower lobe which may be related to dependent atelectasis although developing pneumonia not excluded. KUB improving sbft neg ng d/c diet Eriberto Bailey Dec 09, 2020 17:20
[2020-12-09] MEDS: Morphine Sulfate 2mg/ml Inj(IV/IM USE ONLY) IVP PRN (17:50)
--- NOTE | 2020-12-09 19:57 | NUR ---
NURSE HAND-OFF: Important Events on Shift:[NGT dcd , started on clear liguid diet] Patient Status: [on going] Diet: [clear liquid diet] Pending Orders: [none] Pending Results/Labs:[none] Pending MD notification:[none] Latest Vital Signs: Temperature 97.2 , Pulse 58 , B/P 117 /78 , Respiratory Rate 20 , O2 SAT 94 , Room Air, O2 Flow Rate . Vital Sign Comment: [stable] Latest Montesinos Fall Score: 50 Fall Risk: High Risk Safety Measures: Call light Within Reach, Bed Alarm Zone 1, Side Rails Side Rails x2, Bed position Low and Locked. Fall Precautions: Door Sign Patient Fall Education Report given to [Mr Oumar RN].
[2020-12-10] VITALS: BP 120/65
[2020-12-10] MEDS: Morphine Sulfate 4mg/ml Inj (IV USE ONLY) IVP PRN ×2 (02:44→08:01)
[2020-12-10 04:00] VITALS: BP 140/74
--- NOTE | 2020-12-10 04:00 | NUR ---
patient resting comfortable in bed with no signs of distress noted. pain meds given as ordered. patient refused iv fluid stated that she has to go to the bathroom often and she using a walker and having hard time to push the iv pump. patient stated that she does not wants to wait for assistance and patient refused to use the bedside commode next to her. educate patient to call for help for assistance for safety. will reinforce as needed and continue to monitor
[2020-12-10] MEDS: NovoLOG Insulin Flexpen SUBQ SCH ×4 (06:02→21:07)
[2020-12-10] MEDS: Heparin 5000 units/ml inj SUBQ SCH ×3 (06:34→20:54)
--- NOTE | 2020-12-10 07:30 | NUR ---
NURSE NOTES: Received patient on bed, sitting on the egde of the bed, patient awake, alert, oriented x4 no sign of distress, C/o of moderate pain, HL patent refused IVF , on fall and aspiration precaution, Bed in lowest position, BSC provided, locked, bed alarm on.kept clean dry and comfortable Side rails up X2. Call light within reach and patient able to make needs known. corey pitts
[2020-12-10 08:00] VITALS: BP 151/94
--- NOTE | 2020-12-10 08:21 | NUR ---
RD ASSESSMENT & RECOMMENDATIONS SEE CARE ACTIVITY FOR COMPLETE ASSESSMENT DAILY ESTIMATED NEEDS: Needs based on Pancreatitis 60kg abw 25-30 kcals/kg 5699-0058 total kcals 1-1.5 g protein/kg 60-90 g total protein 25-30 mL/kg 2550-8830 total fluid mLs NUTRITION DIAGNOSIS: Decreased fat needs r/t pancreatitis as evidenced by elevated Lipase ([id number]), NGT to LIS now removed, diet advanced to CLD. CURRENT DIET: NOW CLD PO DIET RECOMMENDATIONS: Advance diet per MD -> LOW FAT, CCHO MED ADDITIONAL RECOMMENDATIONS: 1) Soft easy chew r/t poor dentition 2) Niss / accuchecks -> now added 3) Monitor po intake, tolerance-> now NGT to LIS removed, on CLD Add Ensure Clear TID w/ meals (0g fat) 4) Monitor for ability to advance diet.
--- NOTE | 2020-12-10 08:50 | Surgery Progress Note ---
Surgery Progress Note Subjective Additional Comments improving wants to stay on a liquid diet for today diarrhea no n/v Objective Last 24 Hour Vital Signs Date Time Temp Pulse Resp B/P (MAP) Pulse Ox O2 Delivery O2 Flow Rate FiO2 12/10/20 08:02 60 140/74 12/10/20 08:00 98.1 95 17 151/94 (113) 92 12/10/20 04:00 98.4 60 18 140/74 (96) 93 12/10/20 00:00 98.2 59 17 120/65 (83) 92 12/09/20 21:00 Room Air 12/09/20 20:00 97.6 68 19 136/95 (109) 95 12/09/20 16:00 97.2 58 20 117/78 (91) 94 12/09/20 14:10 65 147/70 12/09/20 13:23 147/70 (95) 12/09/20 12:14 173/90 12/09/20 12:12 97.4 65 18 173/90 (117) 93 I&O Intake and Output 12/09/20 12/10/20 19:00 07:00 Intake Total 890 ml 360 ml Output Total 600 ml Balance 290 ml 360 ml Intake Oral 240 ml 360 ml IV Total 650 ml Output Urine Total 600 ml # Voids 3 # Bowel Movements 1 Cardiovascular: RSR Respiratory: clear Abdomen: soft, flat, non-tender, present bowel sounds, non-distended Extremities: no edema, no tenderness, no cyanosis Laboratory Tests Test 12/09/20 11:57 12/09/20 16:48 12/09/20 19:57 12/10/20 05:37 POC Whole Blood Glucose 156 MG/DL (74-106) H 107 MG/DL (74-106) H Pending 98 MG/DL (74-106) Plan Problems: (1) UTI (urinary tract infection) (2) Abdominal pain Assessment & Plan: imaging noted possible sbo but likely ileus await small bowel study (3) Dehydration (4) Pancreatitis Assessment & Plan: 70-year-old female with recurrent pancreatitis. History of cholecystectomy. Nausea vomiting now resolving. Abdominal pain significant states that this is a much worse episode than priors. Labs noted. No current imaging. Imaging from last admission about a month ago reviewed. Recommend repeating CT/MRI to ensure no pancreatic necrosis or complication or worsening fluid collection or cyst. N.p.o. IV fluids IV antibiotics pain control monitor urine output with fall with recommendations. Thank you letting participate in patient's care improving CT noted MRI noted ? sbo small bowel series likely ileus given severity of pancreatitis MRI from 10/2020 As noted on the CT scan, there is extensive pancreatic ductal dilation. This is most pronounced proximally, where the duct measures up to 1.3 cm in diameter. There is some distal tapering, but still with substantial dilation out to the tail. Side branches are also distended. There are calcifications in the region of the pancreatic head, better demonstrated on CT. Some of these presumably reflect sequela of chronic pancreatitis. 1 of these calcifications may correlate with a filling defect in the proximal duct in the pancreatic head measuring maximum of 8 mm in the coronal plane on series 3, image 21 and 6 mm in the axial plane on series 5, image 25. Question an intraductal stone contributing to the dilation/obstruction. Complicating assessment is a mass along the posterior-leftward aspect of the pancreatic head and uncinate process. This correlates with the cystic lesion seen on CT. It measures 6 x 3.4 x 3 cm in greatest craniocaudal, transverse, and anteroposterior dimensions respectively on series 9, image 67 and series 5, image 26. The mass is markedly hyperintense on T2 and mildly hypointense on T1-weighted sequences. It is primarily cystic with numerous locules. Postcontrast, there is no clear enhancing nodular or other component. It is difficult to exclude a connection with the main pancreatic duct as this is immediately adjacent. The common bile duct is of normal caliber for patient's age. No choledocholithiasis is. The gallbladder is absent. Bilateral renal cysts, largest in the parapelvic lower pole measures 2 cm. No hydronephrosis. Incidental note of cardiomegaly, colonic diverticula, and lumbar fusion. IMPRESSION: Pancreatic ductal dilation. While this can be seen with chronic pancreatitis, would question an obstructing calculus in the proximal main duct. Consider ERCP. 6 cm cystic mass along the posterior pancreatic head and uncinate process. Some features suggesting a serous cystic neoplasm, but not entirely classic appearance. This would be extremely large for a side branch intraductal papillary mucinous neoplasm, but this possibility is not excluded. I am not confident that this is a pseudocyst. Consideration for a endoscopic ultrasound evaluation. If this is not pursued, would at least recommend a 6 month follow-up to assess for stability. (5) Electrolyte imbalance (6) HTN (hypertension) (7) FRANCISCA (acute kidney injury) (8) DMII (diabetes mellitus, type 2) (9) Small bowel obstruction Assessment & Plan: Was not able to tolerate the small bowel series yesterday had large emesis did not like the contrast. CT reviewed and ordered after identifying still potential bowel obstruction with transition point. Patient has had multiple prior surgeries including large open right cholecystectomy many years ago prior C-sections prior ventral hernia repair with mesh and is a very high risk patient. I do long discussion with the patient and her daughter over the phone in regards to the findings and care plan. Patient presented with pancreatitis which is resolved but continued to develop a new different type of abdominal pain which and work-up identified a small bowel obstruction. Given she is fairly stable examination is fairly benign we have plan together to initiate nonoperative management with NG tube decompression and bowel rest. If potential improvement with resolution of obstruction patient has a chance otherwise we will plan surgical intervention which is very high risk and complicated given her extensive surgical abdominal history. Patient and daughter expressed understanding expressed similar concerns given her history and understanding of choices including the risk benefits and alternatives to the current care plan. Dependent atelectatic changes noted in the lung bases. Multifocal subsegmental atelectasis versus early infiltrate noted in the right lower lobe. No pneumothorax or pleural effusion. Partially imaged heart is mildly enlarged. There are coronary arterial and cardiac valvular calcifications. And punctate foci of pneumobilia again noted, similar to the prior exam. Hepatic contour is smooth. Patient again noted be status post cholecystectomy. Hepatic veins and portal veins appear patent. Spleen, adrenal glands unremarkable. Unchanged appearance of the pancreas with dilatation of the pancreatic duct and cystic lesion with calcifications in the region of the pancreatic head. No discrete peripancreatic inflammatory changes seen presently. Kidneys enhance symmetrically. The small cortical cysts are noted in the upper pole bilaterally. No hydronephrosis or perinephric collections. Patient again noted to be status post hysterectomy. Bladder is mildly distended but otherwise unremarkable. Persistent abnormal distention of small bowel loops concerning for a small bowel obstruction. Again there is a transition point in the right lower abdomen, area of the mid to distal ileum. The loops distal to the area of transition are decompressed. The appendix is normal in caliber and there are no periappendiceal inflammatory changes. No abnormal distention of the colon. There are colonic diverticula. No evidence of acute diverticulitis. Small amount of free fluid is noted within the peritoneal cavity, layering dependently in the pelvis. No free intraperitoneal air is seen. No pneumatosis intestinalis. Again there postsurgical changes underlying the anterior abdominal wall at the level of the umbilicus suggesting possible prior hernia repair (axial image #48). Small hiatal hernia is again seen. Extensive atherosclerotic vessel calcifications are noted. There are degenerative and postoperative changes in the spine with laminectomies and posterior fusion spanning from L1 to L3. IMPRESSION: * Persistent small bowel obstruction with transition point in the right lower abdomen, region of the mid to distal ileum. Findings are overall similar compared to exam of 12/01/2020. Small amount of free intraperitoneal fluid but no free peritoneal air. * Diverticulosis without evidence of acute diverticulitis. Normal appendix. * Status post hysterectomy and cholecystectomy. Surgical material adjacent to the anterior abdominal wall suggesting possible prior ventral hernia repair. * Small hiatal hernia and mild distal esophageal wall thickening. * Coronary arterial calcifications. * Postoperative changes of the lumbar spine, similar to the prior exam. * Interval development of some patchy opacities in the right lower lobe which may be related to dependent atelectasis although developing pneumonia not excluded. KUB improving sbft neg ng d/c Eriberto Plummer Dec 10, 2020 08:50
[2020-12-10 12:00] VITALS: BP 145/82
[2020-12-10] MEDS: Morphine Sulfate 2mg/ml Inj(IV/IM USE ONLY) IVP PRN ×3 (12:57→21:17)
--- NOTE | 2020-12-10 13:23 | Nephrology Progress Note ---
Assessment/Plan Problem List: (1) FRANCISCA (acute kidney injury) (2) DMII (diabetes mellitus, type 2) (3) HTN (hypertension) (4) Electrolyte imbalance (5) Dehydration (6) UTI (urinary tract infection) (7) Pancreatitis Assessment 70-year-old female admitted with abdominal pain Serum creatinine 2.1 on admission Acute kidney injury Dehydration Diabetes type 2 Pancreatitis Hypertension Thyroid disease Asthma Previous ERCP UTI Plan December 10: No CHEM panel drawn today. Status quo. Labs reviewed. Blood pressure medication adjusted. Check lab tomorrow. December 09: Labs reviewed. Renal parameters stable. Abnormal electrolytes addressed. Per orders. Norvasc for high blood pressure initiated. December 08: Labs reviewed. Renal parameters stable. Continue per consultants. Abnormal electrolytes addressed. December 07: Labs reviewed. Serum creatinine within normal limits. Low potassium addressed. Continue per consultants. December 06: Labs reviewed. Serum creatinine up to 1.5. Patient offers no complaint. Medication list reviewed. Continue per GI. Continue to monitor renal parameters. December 05: Labs reviewed. Renal parameters stable. Serum creatinine 1.3. Medication list reviewed. Not much to add from renal standpoint of view. Adjust blood pressure medication. Continue per consultants. December 04: Labs reviewed. Serum creatinine almost within normal limit. Serum creatinine of 2.1 is down to 1.4. Patient on clear liquid diet. Small bowel follow-through order is in process. Continue per consultants. December 03: Labs reviewed. Serum creatinine 1.7. Patient on clear liquid. Clinically appears stable. Continue per GI. Patient has a small bowel obstruction on CT. December 02: Labs reviewed. Serum creatinine lowering. Electrolytes within normal limits. On clear liquid. Continue per consultants. Previously: Hydrate BP control, adjust blood pressure medications Keep the blood sugar in check Avoid nephrotoxic's Urine studies Monitor renal parameters Per consultants Subjective ROS Limited/Unobtainable: No Constitutional: Reports: malaise Objective Objective Last 24 Hour Vital Signs Date Time Temp Pulse Resp B/P (MAP) Pulse Ox O2 Delivery O2 Flow Rate FiO2 12/10/20 12:00 99.1 90 20 145/82 (103) 92 12/10/20 08:02 60 140/74 12/10/20 08:00 98.1 95 17 151/94 (113) 92 12/10/20 08:00 Room Air 12/10/20 04:00 98.4 60 18 140/74 (96) 93 12/10/20 00:00 98.2 59 17 120/65 (83) 92 12/09/20 21:00 Room Air 12/09/20 20:00 97.6 68 19 136/95 (109) 95 12/09/20 16:00 97.2 58 20 117/78 (91) 94 12/09/20 14:10 65 147/70 12/09/20 13:23 147/70 (95) Intake and Output 12/09/20 12/10/20 19:00 07:00 Intake Total 890 ml 360 ml Output Total 600 ml Balance 290 ml 360 ml Intake Oral 240 ml 360 ml IV Total 650 ml Output Urine Total 600 ml # Voids 3 # Bowel Movements 1 Current Medications Medications (Trade) Dose Ordered Sig/Angely Route PRN Reason Start Time Stop Time Status Last Admin Dose Admin Acetaminophen (Tylenol) 650 mg Q4H PRN RECTAL Mild Pain (Pain Scale 1-3) 12/06/20 10:15 01/05/21 10:14 Amlodipine Besylate (Norvasc) 5 mg DAILY ORAL 12/09/20 12:45 01/08/21 12:44 12/10/20 08:02 Clonidine HCl (Catapres Tab) 0.1 mg Q4H PRN ORAL BP above 160 syst 12/01/20 12:45 03/01/21 12:44 12/09/20 12:14 Dextrose 1,000 ml @ 50 mls/hr Q20H IV 12/09/20 09:00 01/08/21 08:59 12/10/20 04:53 Dextrose (Dextrose 50%) 25 ml Q30M PRN IV Hypoglycemia 11/30/20 20:45 02/28/21 20:44 Dextrose (Dextrose 50%) 50 ml Q30M PRN IV Hypoglycemia 11/30/20 20:45 02/28/21 20:44 Famotidine (Pepcid I.v.) 20 mg Q12HR IVP 12/01/20 21:00 12/31/20 20:59 12/10/20 08:01 Heparin Sodium (Porcine) (Heparin 5000 units/ml) 5,000 units EVERY 8 HOURS SUBQ 11/30/20 22:00 01/14/21 21:59 12/10/20 06:34 Insulin Aspart (NovoLOG) BEFORE MEALS AND HS SUBQ 11/30/20 22:00 02/28/21 21:59 12/09/20 11:59 Morphine Sulfate (Morphine Sulfate) 2 mg Q4H PRN IVP Moderate Pain (Pain Scale 4-6) 12/07/20 23:00 12/14/20 22:59 12/10/20 12:57 Morphine Sulfate (Morphine Sulfate) 4 mg Q4H PRN IVP Severe Pain (Pain Scale 7-10) 12/07/20 23:00 12/14/20 22:59 12/10/20 08:01 Ondansetron HCl (Zofran) 4 mg Q4H PRN IVP Nausea & Vomiting 11/30/20 20:45 12/30/20 20:44 12/09/20 21:50 Laboratory Tests 12/09/20 16:48: POC Whole Blood Glucose 107H 12/09/20 19:57: POC Whole Blood Glucose [Pending] 12/10/20 05:37: POC Whole Blood Glucose 98 Height (Feet): 5 Height (Inches): 3.00 Weight (Pounds): 171 General Appearance: no apparent distress Cardiovascular: tachycardia Respiratory/Chest: decreased breath sounds Abdomen: distended Bhupinder Huynh MD Dec 10, 2020 13:23
--- NOTE | 2020-12-10 14:12 | NUR ---
CASE MANAGEMENT:REVIEW 12/10/20 SI: FRANCISCA. UTI. PANCREATITIS 99.1 90 20 145/82 92% ON RA NO LABS FOR TODAY IS: IVF@50/HR NORVASC PO BID IV PEPCID Q12 HEPARIN SQ Q8HRS IV MORPHINE Q4HRS PRN : MED/SURG STATUS DCP: FROM HOME
[2020-12-10 16:07] VITALS: BP 134/75
--- NOTE | 2020-12-10 16:16 | NUR ---
PT Note PT wali completed, treatment initiated. Patient has muscle weakness, decreased postural stability and decreased gait tolerance. Patient can benefit from Pt services to increase her muscle strength and balance to improve her safety in mobility and gait to enable her to return home. Addendum: 12/10/20 at 1616 by CAMILLE CALLE PT Amended: Links added.
--- NOTE | 2020-12-10 16:45 | Internal Med Progress Note ---
Subjective Date of Service: Dec 10, 2020 Physician Name Pierce Sánchez Attending Physician Zacarias Escobar MD Current Medications Medications (Trade) Dose Ordered Sig/Angely Route PRN Reason Start Time Stop Time Status Last Admin Dose Admin Acetaminophen (Tylenol) 650 mg Q4H PRN RECTAL Mild Pain (Pain Scale 1-3) 12/06/20 10:15 01/05/21 10:14 Amlodipine Besylate (Norvasc) 5 mg BID ORAL 12/10/20 18:00 01/08/21 12:44 Clonidine HCl (Catapres Tab) 0.1 mg Q4H PRN ORAL BP above 160 syst 12/01/20 12:45 03/01/21 12:44 12/09/20 12:14 Dextrose 1,000 ml @ 50 mls/hr Q20H IV 12/09/20 09:00 01/08/21 08:59 12/10/20 04:53 Dextrose (Dextrose 50%) 25 ml Q30M PRN IV Hypoglycemia 11/30/20 20:45 02/28/21 20:44 Dextrose (Dextrose 50%) 50 ml Q30M PRN IV Hypoglycemia 11/30/20 20:45 02/28/21 20:44 Famotidine (Pepcid I.v.) 20 mg Q12HR IVP 12/01/20 21:00 12/31/20 20:59 12/10/20 08:01 Heparin Sodium (Porcine) (Heparin 5000 units/ml) 5,000 units EVERY 8 HOURS SUBQ 11/30/20 22:00 01/14/21 21:59 12/10/20 06:34 Insulin Aspart (NovoLOG) BEFORE MEALS AND HS SUBQ 11/30/20 22:00 02/28/21 21:59 12/09/20 11:59 Morphine Sulfate (Morphine Sulfate) 2 mg Q4H PRN IVP Moderate Pain (Pain Scale 4-6) 12/07/20 23:00 12/14/20 22:59 12/10/20 12:57 Morphine Sulfate (Morphine Sulfate) 4 mg Q4H PRN IVP Severe Pain (Pain Scale 7-10) 12/07/20 23:00 12/14/20 22:59 12/10/20 08:01 Ondansetron HCl (Zofran) 4 mg Q4H PRN IVP Nausea & Vomiting 11/30/20 20:45 12/30/20 20:44 12/09/20 21:50 Allergies: Coded Allergies: CODEINE (Verified Allergy, Severe, Itching, 10/10/20) ROS Limited/Unobtainable: No Constitutional: Reports: no symptoms HEENT: Reports: no symptoms Cardiovascular: Reports: no symptoms Respiratory: Reports: no symptoms Gastrointestinal/Abdominal: Reports: no symptoms Genitourinary: Reports: no symptoms Neurologic/Psychiatric: Reports: no symptoms Subjective 70 YO F admitted with epigastric pain. Now pancreatitis and small bowel obstruction. Cover for Int Med-Dr Escobar. Tolerating clear liquid diet Objective Last Vital Signs Date Time Temp Pulse Resp B/P (MAP) Pulse Ox O2 Delivery O2 Flow Rate FiO2 12/10/20 16:07 98.9 100 20 134/75 (94) 94 12/10/20 08:00 Room Air Laboratory Tests Test 12/09/20 16:48 12/09/20 19:57 12/10/20 05:37 POC Whole Blood Glucose 107 MG/DL (74-106) H Pending 98 MG/DL (74-106) Intake and Output 12/09/20 12/10/20 19:00 07:00 Intake Total 890 ml 360 ml Output Total 600 ml Balance 290 ml 360 ml Intake Oral 240 ml 360 ml IV Total 650 ml Output Urine Total 600 ml # Voids 3 # Bowel Movements 1 Objective Objective General: No acute distress, awake and alert HEENT: NCAT, sclera anicteric, PERRL, EOMI. Neck: Supple, no significant jugular venous distention, Lungs: Good inspiratory effort, no accessory muscle use, clear to auscultation bilaterally, no Wheeze or Rales. Heart: Regular rate and rhythm, normal S1/S2, no murmurs/gallops Abdomen: soft, decreased epigastric tenderness, nondistended. Normoactive bowel sounds. / Rectal: Refused and deferred. Extremities: No Cyanosis , clubbing or edema. Neuro: A&O x 3, Able to move all extremities Skin: warm, no rashes or lesions Psych: Normal mood and affect Assessment/Plan Assessment/Plan Assessment/Plan Assessment/Plan (1) Acute kidney injury on chronic renal insufficiency. (2) Abdominal pain most likely due to acute pancreatitis. (3) Dehydration (4) Acute recurrent Pancreatitis (5) Diabetic type II (6) hypertension. (7) dyslipidemia. 8. Small bowel obstruction/ileus Plan: Monitor laboratory Pain medication IV hydration clear liquid diet CODE STATUS: Full code DVT prophylaxis: Heparin subcu Follow-up with GI, nephrology, surgery recommendations. NG tube discontinued Pierce Sánchez MD Dec 10, 2020 16:45
--- NOTE | 2020-12-10 19:40 | NUR ---
NURSE NOTES: Received report from Carmen. VAN x 4, on NC 2l. IV site intact and patent but refusing IVF. Denies labored breathing or discomfort. No acute distress noted at this time. Bed locked, lowest position, alarm on, side rails up, call light within reach. Will continue to monitor.
[2020-12-10 20:00] VITALS: BP 160/81
--- NOTE | 2020-12-10 21:29 | General Progress Note ---
Subjective Allergies: Coded Allergies: CODEINE (Verified Allergy, Severe, Itching, 10/10/20) Subjective above note feels OK, but notes a bit of bloating NGT out on clears - tolerating well Objective Last 24 Hour Vital Signs Date Time Temp Pulse Resp B/P (MAP) Pulse Ox O2 Delivery O2 Flow Rate FiO2 12/10/20 20:53 160/81 12/10/20 20:43 Room Air 12/10/20 20:00 98.2 94 18 160/81 (107) 97 12/10/20 17:19 100 134/75 12/10/20 16:07 98.9 100 20 134/75 (94) 94 12/10/20 12:00 99.1 90 20 145/82 (103) 92 12/10/20 08:02 60 140/74 12/10/20 08:00 98.1 95 17 151/94 (113) 92 12/10/20 08:00 Room Air 12/10/20 04:00 98.4 60 18 140/74 (96) 93 12/10/20 00:00 98.2 59 17 120/65 (83) 92 Intake and Output 12/09/20 12/10/20 19:00 07:00 Intake Total 890 ml 360 ml Output Total 600 ml Balance 290 ml 360 ml Intake Oral 240 ml 360 ml IV Total 650 ml Output Urine Total 600 ml # Voids 3 # Bowel Movements 1 Laboratory Tests 12/10/20 05:37: POC Whole Blood Glucose 98 Height (Feet): 5 Height (Inches): 3.00 Weight (Pounds): 171 Objective WDWN NCAT supple CTA RR abd soft NT, slightly tympanitic no edema Assessment/Plan Status: stable Assessment/Plan: Assessment: pancreatitis abd pain nausea anemia pancreatic cyst SBO Plans s/p recent ERCP pain control creon tirso ct>> SBO>>>fu surg bowel regimen improved amylase and lipase Nirmal Pardo MD Dec 10, 2020 21:29
[2020-12-11] VITALS: BP 143/84
--- NOTE | 2020-12-11 00:32 | NUR ---
NURSE NOTES: Pt refused IVF and said I have to go to restroom to pee. Education given but still refused x 3
[2020-12-11] MEDS: Morphine Sulfate 2mg/ml Inj(IV/IM USE ONLY) IVP PRN ×5 (02:37→20:48)
[2020-12-11 04:00] VITALS: BP 145/74
[2020-12-11] MEDS: Heparin 5000 units/ml inj SUBQ SCH ×3 (05:34→21:09)
[2020-12-11] MEDS: NovoLOG Insulin Flexpen SUBQ SCH ×4 (05:34→21:06)
--- NOTE | 2020-12-11 06:25 | NUR ---
NURSE HAND-OFF: Important Events on Shift:pain management Patient Status: stable Diet: clear liq Pending Orders: [] Pending Results/Labs:[] Pending MD notification:[] Latest Vital Signs: Temperature 98.1 , Pulse 75 , B/P 145 /74 , Respiratory Rate 17 , O2 SAT 99 , Room Air, O2 Flow Rate . Vital Sign Comment: [] Latest [place] Fall Score: 50 Fall Risk: High Risk Safety Measures: Call light Within Reach, Bed Alarm Zone 1, Side Rails Side Rails x2, Bed position Low and Locked. Fall Precautions: Door Sign Patient Fall Education Addendum: 12/11/20 at 0656 by GAURI JENKINS RN RN NURSE NOTES: Report given to Carmen
[2020-12-11 06:33] LABS: BASOPHILS % (AUTO) 1.2 % (0.0-2.0); EOSINOPHILS % (AUTO) 3.5 % (0.0-3.0); HEMOGLOBIN 9.6 G/DL (12.0-16.0); LYMPHOCYTES % (AUTO) 32.5 % (20.0-45.0); MEAN CORPUSCULAR VOLUME 80 FL (80-99); MONOCYTES % (AUTO) 10.4 % (1.0-10.0); NEUTROPHILS % (AUTO) 52.4 % (45.0-75.0); PLATELET COUNT 214 K/UL (150-450); RED BLOOD COUNT 3.86 M/UL (4.20-5.40); RED CELL DISTRIBUTION WIDTH 12.7 % (11.6-14.8); WHITE BLOOD COUNT 7.1 K/UL (4.8-10.8)
[2020-12-11 07:06] LABS: ALBUMIN/GLOBULIN RATIO 0.9 (1.0-2.7); BILIRUBIN,TOTAL 0.4 MG/DL (0.2-1.0); CALCIUM 8.4 MG/DL (8.5-10.1); CREATININE 1.1 MG/DL (0.55-1.30); PHOSPHORUS 4.5 MG/DL (2.5-4.9); POTASSIUM 2.9 MMOL/L (3.5-5.1)
--- NOTE | 2020-12-11 07:12 | NUR ---
NURSE NOTES: Received patient sleeping no sign of distress HL patent refused IVF , on fall and aspiration precaution, Bed in lowest position, BSC provided, locked, bed alarm on.kept clean dry and comfortable Side rails up X2. Call light within reach and patient able to make needs known. corey pitts
[2020-12-11 08:30] VITALS: BP 133/77
--- NOTE | 2020-12-11 10:52 | Surgery Progress Note ---
Surgery Progress Note Subjective Symptoms: improved, tolerating diet, voiding well, passing flatus, BM Objective Last 24 Hour Vital Signs Date Time Temp Pulse Resp B/P (MAP) Pulse Ox O2 Delivery O2 Flow Rate FiO2 12/11/20 08:35 Room Air 12/11/20 08:30 98.1 79 17 133/77 (95) 99 12/11/20 08:23 75 145/74 12/11/20 04:00 98.1 75 17 145/74 (97) 99 12/11/20 00:00 98.1 88 20 143/84 (103) 96 12/10/20 20:53 160/81 12/10/20 20:43 Room Air 12/10/20 20:00 98.2 94 18 160/81 (107) 97 12/10/20 17:19 100 134/75 12/10/20 16:07 98.9 100 20 134/75 (94) 94 12/10/20 12:00 99.1 90 20 145/82 (103) 92 I&O Intake and Output 12/10/20 12/11/20 19:00 07:00 Intake Total 600 ml 360 ml Balance 600 ml 360 ml Intake Oral 600 ml 360 ml # Voids 4 1 # Bowel Movements 3 Cardiovascular: RSR Respiratory: clear Abdomen: soft, flat, non-tender, present bowel sounds, non-distended Extremities: no edema, no tenderness, no cyanosis Laboratory Tests Test 12/10/20 11:56 12/10/20 16:59 12/11/20 06:15 POC Whole Blood Glucose 115 MG/DL (74-106) H Pending White Blood Count 7.1 K/UL (4.8-10.8) Red Blood Count 3.86 M/UL (4.20-5.40) L Hemoglobin 9.6 G/DL (12.0-16.0) L Hematocrit 31.0 % (37.0-47.0) L Mean Corpuscular Volume 80 FL (80-99) Mean Corpuscular Hemoglobin 25.0 PG (27.0-31.0) L Mean Corpuscular Hemoglobin Concent 31.1 G/DL (32.0-36.0) L Red Cell Distribution Width 12.7 % (11.6-14.8) Platelet Count 214 K/UL (150-450) Mean Platelet Volume 6.3 FL (6.5-10.1) L Neutrophils (%) (Auto) 52.4 % (45.0-75.0) Lymphocytes (%) (Auto) 32.5 % (20.0-45.0) Monocytes (%) (Auto) 10.4 % (1.0-10.0) H Eosinophils (%) (Auto) 3.5 % (0.0-3.0) H Basophils (%) (Auto) 1.2 % (0.0-2.0) Sodium Level 144 MMOL/L (136-145) Potassium Level 2.9 MMOL/L (3.5-5.1) L Chloride Level 107 MMOL/L (98-107) Carbon Dioxide Level 27 MMOL/L (21-32) Anion Gap 10 mmol/L (5-15) Blood Urea Nitrogen 5 mg/dL (7-18) L Creatinine 1.1 MG/DL (0.55-1.30) Estimat Glomerular Filtration Rate 59.5 mL/min (>60) Glucose Level 98 MG/DL (74-106) Calcium Level 8.4 MG/DL (8.5-10.1) L Phosphorus Level 4.5 MG/DL (2.5-4.9) Magnesium Level 1.6 MG/DL (1.8-2.4) L Total Bilirubin 0.4 MG/DL (0.2-1.0) Aspartate Amino Transf (AST/SGOT) 18 U/L (15-37) Alanine Aminotransferase (ALT/SGPT) 22 U/L (12-78) Alkaline Phosphatase 89 U/L (46-116) Total Protein 6.3 G/DL (6.4-8.2) L Albumin 3.0 G/DL (3.4-5.0) L Globulin 3.3 g/dL Albumin/Globulin Ratio 0.9 (1.0-2.7) L Plan Problems: (1) UTI (urinary tract infection) (2) Abdominal pain Assessment & Plan: imaging noted possible sbo but likely ileus await small bowel study (3) Dehydration (4) Pancreatitis Assessment & Plan: 70-year-old female with recurrent pancreatitis. History of cholecystectomy. Nausea vomiting now resolving. Abdominal pain significant states that this is a much worse episode than priors. Labs noted. No current imaging. Imaging from last admission about a month ago reviewed. Recommend re peating CT/MRI to ensure no pancreatic necrosis or complication or worsening fluid collection or cyst. N.p.o. IV fluids IV antibiotics pain control monitor urine output with fall with recommendations. Thank you letting participate in patient's care improving CT noted MRI noted ? sbo small bowel series likely ileus given severity of pancreatitis MRI from 10/2020 As noted on the CT scan, there is extensive pancreatic ductal dilation. This is most pronounced proximally, where the duct measures up to 1.3 cm in diameter. There is some distal tapering, but still with substantial dilation out to the tail. Side branches are also distended. There are calcifications in the region of the pancreatic head, better demonstrated on CT. Some of these presumably reflect sequela of chronic pancreatitis. 1 of these calcifications may correlate with a filling defect in the proximal duct in the pancreatic head measuring maximum of 8 mm in the coronal plane on series 3, image 21 and 6 mm in the axial plane on series 5, image 25. Question an intraductal stone contributing to the dilation/obstruction. Complicating assessment is a mass along the posterior-leftward aspect of the pancreatic head and uncinate process. This correlates with the cystic lesion seen on CT. It measures 6 x 3.4 x 3 cm in greatest craniocaudal, transverse, and anteroposterior dimensions respectively on series 9, image 67 and series 5, image 26. The mass is markedly hyperintense on T2 and mildly hypointense on T1-weighted sequences. It is primarily cystic with numerous locules. Postcontrast, there is no clear enhancing nodular or other component. It is difficult to exclude a connection with the main pancreatic duct as this is immediately adjacent. The common bile duct is of normal caliber for patient's age. No choledocholithiasis is. The gallbladder is absent. Bilateral renal cysts, largest in the parapelvic lower pole measures 2 cm. No hydronephrosis. Incidental note of cardiomegaly, colonic diverticula, and lumbar fusion. IMPRESSION: Pancreatic ductal dilation. While this can be seen with chronic pancreatitis, would question an obstructing calculus in the proximal main duct. Consider ERCP. 6 cm cystic mass along the posterior pancreatic head and uncinate process. Some features suggesting a serous cystic neoplasm, but not entirely classic appearance. This would be extremely large for a side branch intraductal papillary mucinous neoplasm, but this possibility is not excluded. I am not confident that this is a pseudocyst. Consideration for a endoscopic ultrasound evaluation. If this is not pursued, would at least recommend a 6 month follow-up to assess for stability. (5) Electrolyte imbalance (6) HTN (hypertension) (7) FRANCISCA (acute kidney injury) (8) DMII (diabetes mellitus, type 2) (9) Small bowel obstruction Assessment & Plan: Was not able to tolerate the small bowel series yesterday had large emesis did not like the contrast. CT reviewed and ordered after i dentifying still potential bowel obstruction with transition point. Patient has had multiple prior surgeries including large open right cholecystectomy many years ago prior C-sections prior ventral hernia repair with mesh and is a very high risk patient. I do long discussion with the patient and her daughter over the phone in regards to the findings and care plan. Patient presented with pancreatitis which is resolved but continued to develop a new different type of abdominal pain which and work-up identified a small bowel obstruction. Given she is fairly stable examination is fairly benign we have plan together to initiate nonoperative management with NG tube decompression and bowel rest. If potential improvement with resolution of obstruction patient has a chance otherwise we will plan surgical intervention which is very high risk and complicated given her extensive surgical abdominal history. Patient and daughter expressed understanding expressed similar concerns given her history and understanding of choices including the risk benefits and alternatives to the current care plan. Dependent atelectatic changes noted in the lung bases. Multifocal subsegmental atelectasis versus early infiltrate noted in the right lower lobe. No pneumothorax or pleural effusion. Partially imaged heart is mildly enlarged. There are coronary arterial and cardiac valvular calcifications. And punctate foci of pneumobilia again noted, similar to the prior exam. Hepatic contour is smooth. Patient again noted be status post cholecystectomy. Hepatic veins and portal veins appear patent. Spleen, adrenal glands unremarkable. Unchanged appearance of the pancreas with dilatation of the pancreatic duct and cystic lesion with calcifications in the region of the pancreatic head. No discrete peripancreatic inflammatory changes seen presently. Kidneys enhance symmetrically. The small cortical cysts are noted in the upper pole bilaterally. No hydronephrosis or perinephric collections. Patient again noted to be status post hysterectomy. Bladder is mildly distended but otherwise unremarkable. Persistent abnormal distention of small bowel loops concerning for a small bowel obstruction. Again there is a transition point in the right lower abdomen, area of the mid to distal ileum. The loops distal to the area of transition are decompressed. The appendix is normal in caliber and there are no periappendiceal inflammatory changes. No abnormal distention of the colon. There are colonic diverticula. No evidence of acute diverticulitis. Small amount of free fluid is noted within the peritoneal cavity, layering dependently in the pelvis. No free intraperitoneal air is seen. No pneumatosis intestinalis. Again there postsurgical changes underlying the anterior abdominal wall at the level of the umbilicus suggesting possible prior hernia repair (axial image #48). Small hiatal hernia is again seen. Extensive atherosclerotic vessel calcifications are noted. There are degenerative and postoperative changes in the spine with laminectomies and posterior fusion spanning from L1 to L3. IMPRESSION: * Persistent small bowel obstruction with transition point in the right lower abdomen, region of the mid to distal ileum. Findings are overall similar compared to exam of 12/01/2020. Small amount of free intraperitoneal fluid but no free peritoneal air. * Diverticulosis without evidence of acute diverticulitis. Normal appendix. * Status post hysterectomy and cholecystectomy. Surgical material adjacent to the anterior abdominal wall suggesting possible prior ventral hernia repair. * Small hiatal hernia and mild distal esophageal wall thickening. * Coronary arterial calcifications. * Postoperative changes of the lumbar spine, similar to the prior exam. * Interval development of some patchy opacities in the right lower lobe which may be related to dependent atelectasis although developing pneumonia not excluded. KUB improving sbft neg ng d/c diet Eriberto Bailey Dec 11, 2020 10:52
[2020-12-11 12:05] VITALS: BP 130/77
--- NOTE | 2020-12-11 12:29 | Nephrology Progress Note ---
Assessment/Plan Problem List: (1) FRANCISCA (acute kidney injury) (2) DMII (diabetes mellitus, type 2) (3) HTN (hypertension) (4) Electrolyte imbalance (5) Dehydration (6) UTI (urinary tract infection) (7) Pancreatitis Assessment 70-year-old female admitted with abdominal pain Serum creatinine 2.1 on admission Acute kidney injury Dehydration Diabetes type 2 Pancreatitis Hypertension Thyroid disease Asthma Previous ERCP UTI Plan December 11. Labs reviewed. Low magnesium and low potassium addressed. Continue per consultants. December 10: No CHEM panel drawn today. Status quo. Labs reviewed. Blood pressure medication adjusted. Check lab tomorrow. December 09: Labs reviewed. Renal parameters stable. Abnormal electrolytes addressed. Per orders. Norvasc for high blood pressure initiated. December 08: Labs reviewed. Renal parameters stable. Continue per consultants. Abnormal electrolytes addressed. December 07: Labs reviewed. Serum creatinine within normal limits. Low potassium addressed. Continue per consultants. December 06: Labs reviewed. Serum creatinine up to 1.5. Patient offers no complaint. Medication list reviewed. Continue per GI. Continue to monitor renal parameters. December 05: Labs reviewed. Renal parameters stable. Serum creatinine 1.3. Medication list reviewed. Not much to add from renal standpoint of view. Adjust blood pressure medication. Continue per consultants. December 04: Labs reviewed. Serum creatinine almost within normal limit. Serum creatinine of 2.1 is down to 1.4. Patient on clear liquid diet. Small bowel follow-through order is in process. Continue per consultants. December 03: Labs reviewed. Serum creatinine 1.7. Patient on clear liquid. Clinically appears stable. Continue per GI. Patient has a small bowel obstruction on CT. December 02: Labs reviewed. Serum creatinine lowering. Electrolytes within normal limits. On clear liquid. Continue per consultants. Previously: Hydrate BP control, adjust blood pressure medications Keep the blood sugar in check Avoid nephrotoxic's Urine studies Monitor renal parameters Per consultants Subjective ROS Limited/Unobtainable: No Constitutional: Reports: malaise Objective Objective Last 24 Hour Vital Signs Date Time Temp Pulse Resp B/P (MAP) Pulse Ox O2 Delivery O2 Flow Rate FiO2 12/11/20 12:05 98.9 74 18 130/77 (94) 97 12/11/20 08:35 Room Air 12/11/20 08:30 98.1 79 17 133/77 (95) 99 12/11/20 08:23 75 145/74 12/11/20 04:00 98.1 75 17 145/74 (97) 99 12/11/20 00:00 98.1 88 20 143/84 (103) 96 12/10/20 20:53 160/81 12/10/20 20:43 Room Air 12/10/20 20:00 98.2 94 18 160/81 (107) 97 12/10/20 17:19 100 134/75 12/10/20 16:07 98.9 100 20 134/75 (94) 94 Intake and Output 12/10/20 12/11/20 19:00 07:00 Intake Total 600 ml 360 ml Balance 600 ml 360 ml Intake Oral 600 ml 360 ml # Voids 4 1 # Bowel Movements 3 Current Medications Medications (Trade) Dose Ordered Sig/Angely Route PRN Reason Start Time Stop Time Status Last Admin Dose Admin Acetaminophen (Tylenol) 650 mg Q4H PRN RECTAL Mild Pain (Pain Scale 1-3) 12/06/20 10:15 01/05/21 10:14 Amlodipine Besylate (Norvasc) 5 mg BID ORAL 12/10/20 18:00 01/08/21 12:44 12/11/20 08:23 Clonidine HCl (Catapres Tab) 0.1 mg Q4H PRN ORAL BP above 160 syst 12/01/20 12:45 03/01/21 12:44 12/10/20 20:53 Dextrose 1,000 ml @ 50 mls/hr Q20H IV 12/09/20 09:00 01/08/21 08:59 12/10/20 04:53 Dextrose (Dextrose 50%) 25 ml Q30M PRN IV Hypoglycemia 11/30/20 20:45 02/28/21 20:44 Dextrose (Dextrose 50%) 50 ml Q30M PRN IV Hypoglycemia 11/30/20 20:45 02/28/21 20:44 Famotidine (Pepcid I.v.) 20 mg Q12HR IVP 12/01/20 21:00 12/31/20 20:59 12/11/20 08:23 Heparin Sodium (Porcine) (Heparin 5000 units/ml) 5,000 units EVERY 8 HOURS SUBQ 11/30/20 22:00 01/14/21 21:59 12/11/20 05:34 Insulin Aspart (NovoLOG) BEFORE MEALS AND HS SUBQ 11/30/20 22:00 02/28/21 21:59 12/11/20 12:12 Morphine Sulfate (Morphine Sulfate) 2 mg Q4H PRN IVP Moderate Pain (Pain Scale 4-6) 12/07/20 23:00 12/14/20 22:59 12/11/20 12:15 Morphine Sulfate (Morphine Sulfate) 4 mg Q4H PRN IVP Severe Pain (Pain Scale 7-10) 12/11/20 08:15 12/14/20 22:59 12/11/20 08:27 Ondansetron HCl (Zofran) 4 mg Q4H PRN IVP Nausea & Vomiting 11/30/20 20:45 12/30/20 20:44 12/11/20 08:30 Potassium Chloride (K-Dur) 40 meq TWICE A DAY ORAL 12/11/20 11:15 03/11/21 11:14 12/11/20 12:12 Laboratory Tests 12/10/20 16:59: POC Whole Blood Glucose [Pending] 12/11/20 06:15: White Blood Count 7.1, Red Blood Count 3.86L, Hemoglobin 9.6L, Hematocrit 31.0L, Mean Corpuscular Volume 80, Mean Corpuscular Hemoglobin 25.0L, Mean Corpuscular Hemoglobin Concent 31.1L, Red Cell Distribution Width 12.7, Platelet Count 214, Mean Platelet Volume 6.3L, Neutrophils (%) (Auto) 52.4, Lymphocytes (%) (Auto) 32.5, Monocytes (%) (Auto) 10.4H, Eosinophils (%) (Auto) 3.5H, Basophils (%) (Auto) 1.2, Sodium Level 144, Potassium Level 2.9L, Chloride Level 107, Carbon Dioxide Level 27, Anion Gap 10, Blood Urea Nitrogen 5L, Creatinine 1.1, Estimat Glomerular Filtration Rate 59.5, Glucose Level 98, Calcium Level 8.4L, Phosphorus Level 4.5, Magnesium Level 1.6L, Total Bilirubin 0.4, Aspartate Amino Transf (AST/SGOT) 18, Alanine Aminotransferase (ALT/SGPT) 22, Alkaline Phosphatase 89, Total Protein 6.3L, Albumin 3.0L, Globulin 3.3, Albumin/Globulin Ratio 0.9L Height (Feet): 5 Height (Inches): 3.00 Weight (Pounds): 171 General Appearance: no apparent distress Cardiovascular: normal rate Respiratory/Chest: decreased breath sounds Abdomen: soft Bhupinder Huynh MD Dec 11, 2020 12:29
--- NOTE | 2020-12-11 14:43 | NUR ---
NURSE HAND-OFF: Important Events on Shift:[Pain management, magnesium replacement] Patient Status: [stable] Diet: [regular] Pending Orders: [stable] Pending Results/Labs:[none] Pending MD notification:[none] Latest Vital Signs: Temperature 98.9 , Pulse 74 , B/P 130 /77 , Respiratory Rate 18 , O2 SAT 97 , Room Air, O2 Flow Rate . Vital Sign Comment: [stable] Latest Montesinos Fall Score: 50 Fall Risk: High Risk Safety Measures: Call light Within Reach, Bed Alarm Zone 1, Side Rails Side Rails x2, Bed position Low and Locked. Fall Precautions: Door Sign Patient Fall Education Report given to [GONZALES SALINAS].
--- NOTE | 2020-12-11 15:12 | Internal Med Progress Note ---
Subjective Date of Service: Dec 11, 2020 Physician Name Sánchez,Pierce Attending Physician Zacarias Escobar MD Current Medications Medications (Trade) Dose Ordered Sig/Angely Route PRN Reason Start Time Stop Time Status Last Admin Dose Admin Acetaminophen (Tylenol) 650 mg Q4H PRN RECTAL Mild Pain (Pain Scale 1-3) 12/06/20 10:15 01/05/21 10:14 Amlodipine Besylate (Norvasc) 5 mg BID ORAL 12/10/20 18:00 01/08/21 12:44 12/11/20 08:23 Clonidine HCl (Catapres Tab) 0.1 mg Q4H PRN ORAL BP above 160 syst 12/01/20 12:45 03/01/21 12:44 12/10/20 20:53 Dextrose 1,000 ml @ 50 mls/hr Q20H IV 12/09/20 09:00 01/08/21 08:59 12/10/20 04:53 Dextrose (Dextrose 50%) 25 ml Q30M PRN IV Hypoglycemia 11/30/20 20:45 02/28/21 20:44 Dextrose (Dextrose 50%) 50 ml Q30M PRN IV Hypoglycemia 11/30/20 20:45 02/28/21 20:44 Famotidine (Pepcid I.v.) 20 mg Q12HR IVP 12/01/20 21:00 12/31/20 20:59 12/11/20 08:23 Heparin Sodium (Porcine) (Heparin 5000 units/ml) 5,000 units EVERY 8 HOURS SUBQ 11/30/20 22:00 01/14/21 21:59 12/11/20 13:40 Insulin Aspart (NovoLOG) BEFORE MEALS AND HS SUBQ 11/30/20 22:00 02/28/21 21:59 12/11/20 12:12 Morphine Sulfate (Morphine Sulfate) 2 mg Q4H PRN IVP Moderate Pain (Pain Scale 4-6) 12/07/20 23:00 12/14/20 22:59 12/11/20 12:15 Morphine Sulfate (Morphine Sulfate) 4 mg Q4H PRN IVP Severe Pain (Pain Scale 7-10) 12/11/20 08:15 12/14/20 22:59 12/11/20 08:27 Ondansetron HCl (Zofran) 4 mg Q4H PRN IVP Nausea & Vomiting 11/30/20 20:45 12/30/20 20:44 12/11/20 08:30 Potassium Chloride (K-Dur) 40 meq TWICE A DAY ORAL 12/11/20 11:15 03/11/21 11:14 12/11/20 12:12 Allergies: Coded Allergies: CODEINE (Verified Allergy, Severe, Itching, 10/10/20) ROS Limited/Unobtainable: No Constitutional: Reports: no symptoms HEENT: Reports: no symptoms Cardiovascular: Reports: no symptoms Respiratory: Reports: no symptoms Gastrointestinal/Abdominal: Reports: abdominal pain Genitourinary: Reports: no symptoms Neurologic/Psychiatric: Reports: no symptoms Subjective 70 YO F admitted with epigastric pain. Now pancreatitis and small bowel obstruction. Cover for Int [facility]-Dr Escobar. Tolerating clear liquid diet Objective Last Vital Signs Date Time Temp Pulse Resp B/P (MAP) Pulse Ox O2 Delivery O2 Flow Rate FiO2 12/11/20 12:05 98.9 74 18 130/77 (94) 97 12/11/20 08:35 Room Air Laboratory Tests Test 12/10/20 16:59 12/11/20 06:15 POC Whole Blood Glucose Pending White Blood Count 7.1 K/UL (4.8-10.8) Red Blood Count 3.86 M/UL (4.20-5.40) L Hemoglobin 9.6 G/DL (12.0-16.0) L Hematocrit 31.0 % (37.0-47.0) L Mean Corpuscular Volume 80 FL (80-99) Mean Corpuscular Hemoglobin 25.0 PG (27.0-31.0) L Mean Corpuscular Hemoglobin Concent 31.1 G/DL (32.0-36.0) L Red Cell Distribution Width 12.7 % (11.6-14.8) Platelet Count 214 K/UL (150-450) Mean Platelet Volume 6.3 FL (6.5-10.1) L Neutrophils (%) (Auto) 52.4 % (45.0-75.0) Lymphocytes (%) (Auto) 32.5 % (20.0-45.0) Monocytes (%) (Auto) 10.4 % (1.0-10.0) H Eosinophils (%) (Auto) 3.5 % (0.0-3.0) H Basophils (%) (Auto) 1.2 % (0.0-2.0) Sodium Level 144 MMOL/L (136-145) Potassium Level 2.9 MMOL/L (3.5-5.1) L Chloride Level 107 MMOL/L (98-107) Carbon Dioxide Level 27 MMOL/L (21-32) Anion Gap 10 mmol/L (5-15) Blood Urea Nitrogen 5 mg/dL (7-18) L Creatinine 1.1 MG/DL (0.55-1.30) Estimat Glomerular Filtration Rate 59.5 mL/min (>60) Glucose Level 98 MG/DL (74-106) Calcium Level 8.4 MG/DL (8.5-10.1) L Phosphorus Level 4.5 MG/DL (2.5-4.9) Magnesium Level 1.6 MG/DL (1.8-2.4) L Total Bilirubin 0.4 MG/DL (0.2-1.0) Aspartate Amino Transf (AST/SGOT) 18 U/L (15-37) Alanine Aminotransferase (ALT/SGPT) 22 U/L (12-78) Alkaline Phosphatase 89 U/L (46-116) Total Protein 6.3 G/DL (6.4-8.2) L Albumin 3.0 G/DL (3.4-5.0) L Globulin 3.3 g/dL Albumin/Globulin Ratio 0.9 (1.0-2.7) L Intake and Output 12/10/20 12/11/20 19:00 07:00 Intake Total 600 ml 360 ml Balance 600 ml 360 ml Intake Oral 600 ml 360 ml # Voids 4 1 # Bowel Movements 3 Objective Objective General: No acute distress, awake and alert HEENT: NCAT, sclera anicteric, PERRL, EOMI. Neck: Supple, no significant jugular venous distention, Lungs: Good inspiratory effort, no accessory muscle use, clear to auscultation bilaterally, no Wheeze or Rales. Heart: Regular rate and rhythm, normal S1/S2, no murmurs/gallops Abdomen: soft, decreased epigastric tenderness, nondistended. Normoactive bowel sounds. / Rectal: Refused and deferred. Extremities: No Cyanosis , clubbing or edema. Neuro: A&O x 3, Able to move all extremities Skin: warm, no rashes or lesions Psych: Normal mood and affect Assessment/Plan Assessment/Plan Assessment/Plan Assessment/Plan (1) Acute kidney injury on chronic renal insufficiency. (2) Abdominal pain most likely due to acute pancreatitis. (3) Dehydration (4) Acute recurrent Pancreatitis (5) Diabetic type II (6) hypertension. (7) dyslipidemia. 8. Small bowel obstruction/ileus 9. hypokalemia Plan: Monitor laboratory Pain medication IV hydration clear liquid diet CODE STATUS: Full code DVT prophylaxis: Heparin subcu Follow-up with GI, nephrology, surgery recommendations. NG tube discontinued KCL oral replacement Pierce Sánchez MD Dec 11, 2020 15:11
[2020-12-11 16:00] VITALS: BP 120/64
--- NOTE | 2020-12-11 19:16 | NUR ---
NURSE NOTES: Patient refusing D5W.
--- NOTE | 2020-12-11 19:20 | NUR ---
NURSE HAND-OFF: Important Events on Shift: Pain treated with morphine, patient tolerating regular diet. Patient refusing D5W. Blood sugar treated with Novolog. Electrolyte imbalance treated with magnesium IV and potassium. Patient Status: In no apparent distress. Diet: Regular Pending Orders: N/A Pending Results/Labs:N/A Pending MD notification:N/A Latest Vital Signs: Temperature 97.1 , Pulse 71 , B/P 120 /64 , Respiratory Rate 20 , O2 SAT 97 , Room Air, O2 Flow Rate . Vital Sign Comment: N/A Latest Montesinos Fall Score: 50 Fall Risk: High Risk Safety Measures: Call light Within Reach, Bed Alarm Zone 1, Side Rails Side Rails x2, Bed position Low and Locked. Fall Precautions: Door Sign Patient Fall Education Report given to Luana Franco RN.
--- NOTE | 2020-12-11 19:35 | NUR ---
NURSE NOTES: Patient in bed, awake and alert. In no apparent distress. IV intact and patent. Bed locked and in lowest position. Call light in reach. Will continue plan of care.
[2020-12-11 20:00] VITALS: BP 131/71
--- NOTE | 2020-12-11 20:46 | General Progress Note ---
Subjective Allergies: Coded Allergies: CODEINE (Verified Allergy, Severe, Itching, 10/10/20) Subjective above note tolerating PO pain better Objective Last 24 Hour Vital Signs Date Time Temp Pulse Resp B/P (MAP) Pulse Ox O2 Delivery O2 Flow Rate FiO2 12/11/20 17:03 97.1 12/11/20 17:02 71 120/64 12/11/20 16:00 97.1 71 20 120/64 (82) 97 12/11/20 12:05 98.9 74 18 130/77 (94) 97 12/11/20 08:35 Room Air 12/11/20 08:30 98.1 79 17 133/77 (95) 99 12/11/20 08:23 75 145/74 12/11/20 04:00 98.1 75 17 145/74 (97) 99 12/11/20 00:00 98.1 88 20 143/84 (103) 96 12/10/20 20:53 160/81 Intake and Output 12/10/20 12/11/20 19:00 07:00 Intake Total 600 ml 360 ml Balance 600 ml 360 ml Intake Oral 600 ml 360 ml # Voids 4 1 # Bowel Movements 3 Laboratory Tests 12/11/20 06:15: White Blood Count 7.1, Red Blood Count 3.86L, Hemoglobin 9.6L, Hematocrit 31.0L, Mean Corpuscular Volume 80, Mean Corpuscular Hemoglobin 25.0L, Mean Corpuscular Hemoglobin Concent 31.1L, Red Cell Distribution Width 12.7, Platelet Count 214, Mean Platelet Volume 6.3L, Neutrophils (%) (Auto) 52.4, Lymphocytes (%) (Auto) 32.5, Monocytes (%) (Auto) 10.4H, Eosinophils (%) (Auto) 3.5H, Basophils (%) (Auto) 1.2, Sodium Level 144, Potassium Level 2.9L, Chloride Level 107, Carbon Dioxide Level 27, Anion Gap 10, Blood Urea Nitrogen 5L, Creatinine 1.1, Estimat Glomerular Filtration Rate 59.5, Glucose Level 98, Calcium Level 8.4L, Phosphorus Level 4.5, Magnesium Level 1.6L, Total Bilirubin 0.4, Aspartate Amino Transf (AST/SGOT) 18, Alanine Aminotransferase (ALT/SGPT) 22, Alkaline Phosphat ase 89, Total Protein 6.3L, Albumin 3.0L, Globulin 3.3, Albumin/Globulin Ratio 0.9L 12/11/20 16:26: POC Whole Blood Glucose 164H Height (Feet): 5 Height (Inches): 3.00 Weight (Pounds): 171 Objective WDWN NCAT supple CTA RR abd soft NT, slightly tympanitic no edema Assessment/Plan Status: stable Assessment/Plan: Assessment: pancreatitis abd pain nausea anemia pancreatic cyst SBO Plans s/p recent ERCP pain control creon tirso ct>> SBO>>>fu surg bowel regimen improved amylase and lipase Nirmal Pardo MD Dec 11, 2020 20:46
--- NOTE | 2020-12-11 21:19 | NUR ---
NURSE NOTES: D5W IV fluid discontinued per Dr. Escobar.
[2020-12-12] VITALS (7 sets, daily range): BP systolic 136–159; BP diastolic 52–99
[2020-12-12] MEDS: Morphine Sulfate 2mg/ml Inj(IV/IM USE ONLY) IVP PRN ×5 (01:27→20:10)
[2020-12-12] MEDS: Heparin 5000 units/ml inj SUBQ SCH ×3 (06:00→21:04)
[2020-12-12] MEDS: NovoLOG Insulin Flexpen SUBQ SCH ×4 (06:00→20:16)
--- NOTE | 2020-12-12 06:30 | NUR ---
NURSE NOTES: Patient had loose stool x2. Collected C diff specimen per protocol. Sent to lab.
--- NOTE | 2020-12-12 06:47 | NUR ---
NURSE HAND-OFF: Important Events on Shift: Loose stools x2; C diff collected. No acute events Patient Status: Stable Diet: Reg Pending Orders: N/A Pending Results/Labs: Lipase, C diff toxin Pending MD notification: N/A Latest Vital Signs: Temperature 97.8 , Pulse 73 , B/P 155 /99 , Respiratory Rate 20 , O2 SAT 95 , Room Air, O2 Flow Rate 2.0 . Vital Sign Comment: [] Latest Montesinos Fall Score: 50 Fall Risk: High Risk Safety Measures: Call light Within Reach, Bed Alarm Zone 1, Side Rails Side Rails x2, Bed position Low and Locked. Fall Precautions: Door Sign Patient Fall Education Addendum: 12/12/20 at 0715 by JACKIE ANGULO RN Report given to GONZALES Burgess
--- NOTE | 2020-12-12 07:00 | NUR ---
NURSE NOTES: Received hand-off report from Luana Franco RN. Patient in stable condition, breathing even and unlabored on 2L nasal cannula, alert and oriented x4, complained of diarrhea last night and c. diff specimens were collected per protocol. Bed in lowest and locked position, side rails upx2, bedside commode bedside, call light within reach, bed alarm on.
--- NOTE | 2020-12-12 07:34 | General Progress Note ---
Subjective ROS Limited/Unobtainable: Yes Allergies: Coded Allergies: CODEINE (Verified Allergy, Severe, Itching, 10/10/20) Objective Last 24 Hour Vital Signs Date Time Temp Pulse Resp B/P (MAP) Pulse Ox O2 Delivery O2 Flow Rate FiO2 12/12/20 04:00 97.0 73 20 155/99 (117) 95 12/12/20 00:00 97.8 71 20 136/73 (94) 93 12/11/20 21:00 Nasal Cannula 2.0 12/11/20 20:00 98.0 75 20 131/71 (91) 94 12/11/20 17:03 97.1 12/11/20 17:02 71 120/64 12/11/20 16:00 97.1 71 20 120/64 (82) 97 12/11/20 12:05 98.9 74 18 130/77 (94) 97 12/11/20 08:35 Room Air 12/11/20 08:30 98.1 79 17 133/77 (95) 99 12/11/20 08:23 75 145/74 Intake and Output 12/11/20 12/12/20 19:00 07:00 Intake Total 800 ml 300 ml Balance 800 ml 300 ml Intake Oral 600 ml 300 ml IV Total 200 ml # Voids 4 2 # Bowel Movements 1 1 Laboratory Tests 12/11/20 16:26: POC Whole Blood Glucose 164H 12/12/20 05:55: POC Whole Blood Glucose [Pending] Height (Feet): 5 Height (Inches): 3.00 Weight (Pounds): 171 General Appearance: no apparent distress EENT: normal ENT inspection Neck: supple Cardiovascular: normal rate Respiratory/Chest: decreased breath sounds Abdomen: normal bowel sounds, non tender, soft Extremities: non-tender Assessment/Plan Status: stable Assessment/Plan: Assessment/Plan Assessment/Plan: pancreatitis abd pain nausea anemia pancreatic cyst SBO diarrhea over night recent ERCP pain control creon tirso on diet improved amylase and lipase repeat labs in am Nikolas Celestin MD Dec 12, 2020 07:34
--- NOTE | 2020-12-12 09:50 | NUR ---
PT NOTE Attempted to see patient for PT treatment. Patient declining to participate with PT, c/o diarrhea. Will re-attempt later as schedule permits.
--- NOTE | 2020-12-12 10:53 | Nephrology Progress Note ---
Assessment/Plan Problem List: (1) FRANCISCA (acute kidney injury) (2) DMII (diabetes mellitus, type 2) (3) HTN (hypertension) (4) Electrolyte imbalance (5) Dehydration (6) UTI (urinary tract infection) (7) Pancreatitis Assessment 70-year-old female admitted with abdominal pain Serum creatinine 2.1 on admission Acute kidney injury Dehydration Diabetes type 2 Pancreatitis Hypertension Thyroid disease Asthma Previous ERCP UTI Plan December 12: No chemistry panel drawn today. Will check lab tomorrow. Lipase is lowering. Continue to monitor renal parameters. Medication list reviewed. Continue per consultants. December 11. Labs reviewed. Low magnesium and low potassium addressed. Continue per consultants. December 10: No CHEM panel drawn today. Status quo. Labs reviewed. Blood pressure medication adjusted. Check lab tomorrow. December 09: Labs reviewed. Renal parameters stable. Abnormal electrolytes addressed. Per orders. Norvasc for high blood pressure initiated. December 08: Labs reviewed. Renal parameters stable. Continue per consultants. Abnormal electrolytes addressed. December 07: Labs reviewed. Serum creatinine within normal limits. Low potassium addressed. Continue per consultants. December 06: Labs reviewed. Serum creatinine up to 1.5. Patient offers no complaint. Medication list reviewed. Continue per GI. Continue to monitor renal parameters. December 05: Labs reviewed. Renal parameters stable. Serum creatinine 1.3. Medication list reviewed. Not much to add from renal standpoint of view. Adjust blood pressure medication. Continue per consultants. December 04: Labs reviewed. Serum creatinine almost within normal limit. Serum creatinine of 2.1 is down to 1.4. Patient on clear liquid diet. Small bowel follow-through order is in process. Continue per consultants. December 03: Labs reviewed. Serum creatinine 1.7. Patient on clear liquid. Clinically appears stable. Continue per GI. Patient has a small bowel obstruction on CT. December 02: Labs reviewed. Serum creatinine lowering. Electrolytes within normal limits. On clear liquid. Continue per consultants. Previously: Hydrate BP control, adjust blood pressure medications Keep the blood sugar in check Avoid nephrotoxic's Urine studies Monitor renal parameters Per consultants Subjective ROS Limited/Unobtainable: No Constitutional: Reports: malaise Objective Objective Last 24 Hour Vital Signs Date Time Temp Pulse Resp B/P (MAP) Pulse Ox O2 Delivery O2 Flow Rate FiO2 12/12/20 09:14 70 136/78 12/12/20 08:00 98.2 70 18 136/78 (97) 94 12/12/20 04:00 97.0 73 20 155/99 (117) 95 12/12/20 00:00 97.8 71 20 136/73 (94) 93 12/11/20 21:00 Nasal Cannula 2.0 12/11/20 20:00 98.0 75 20 131/71 (91) 94 12/11/20 17:03 97.1 12/11/20 17:02 71 120/64 12/11/20 16:00 97.1 71 20 120/64 (82) 97 12/11/20 12:05 98.9 74 18 130/77 (94) 97 Intake and Output 12/11/20 12/12/20 19:00 07:00 Intake Total 800 ml 300 ml Balance 800 ml 300 ml Intake Oral 600 ml 300 ml IV Total 200 ml # Voids 4 2 # Bowel Movements 1 1 Current Medications Medications (Trade) Dose Ordered Sig/Angely Route PRN Reason Start Time Stop Time Status Last Admin Dose Admin Acetaminophen (Tylenol) 650 mg Q4H PRN RECTAL Mild Pain (Pain Scale 1-3) 12/06/20 10:15 01/05/21 10:14 Amlodipine Besylate (Norvasc) 5 mg BID ORAL 12/10/20 18:00 01/08/21 12:44 12/12/20 09:14 Clonidine HCl (Catapres Tab) 0.1 mg Q4H PRN ORAL BP above 160 syst 12/01/20 12:45 03/01/21 12:44 12/10/20 20:53 Dextrose (Dextrose 50%) 25 ml Q30M PRN IV Hypoglycemia 11/30/20 20:45 02/28/21 20:44 Dextrose (Dextrose 50%) 50 ml Q30M PRN IV Hypoglycemia 11/30/20 20:45 02/28/21 20:44 Famotidine (Pepcid I.v.) 20 mg Q12HR IVP 12/01/20 21:00 12/31/20 20:59 12/12/20 09:13 Heparin Sodium (Porcine) (Heparin 5000 units/ml) 5,000 units EVERY 8 HOURS SUBQ 11/30/20 22:00 01/14/21 21:59 12/12/20 06:00 Insulin Aspart (NovoLOG) BEFORE MEALS AND HS SUBQ 11/30/20 22:00 02/28/21 21:59 12/11/20 21:06 Morphine Sulfate (Morphine Sulfate) 2 mg Q4H PRN IVP Moderate Pain (Pain Scale 4-6) 12/07/20 23:00 12/14/20 22:59 12/12/20 10:26 Morphine Sulfate (Morphine Sulfate) 4 mg Q4H PRN IVP Severe Pain (Pain Scale 7-10) 12/11/20 08:15 12/14/20 22:59 12/12/20 05:55 Ondansetron HCl (Zofran) 4 mg Q4H PRN IVP Nausea & Vomiting 11/30/20 20:45 12/30/20 20:44 12/12/20 09:16 Potassium Chloride (K-Dur) 40 meq TWICE A DAY ORAL 12/11/20 11:15 03/11/21 11:14 12/12/20 09:14 Laboratory Tests 12/11/20 16:26: POC Whole Blood Glucose 164H 12/12/20 05:55: POC Whole Blood Glucose [Pending] 12/12/20 07:33: Lipase 458H Height (Feet): 5 Height (Inches): 3.00 Weight (Pounds): 171 General Appearance: no apparent distress Cardiovascular: normal rate Respiratory/Chest: decreased breath sounds Abdomen: distended Bhupinder Huynh MD Dec 12, 2020 10:53
--- NOTE | 2020-12-12 12:33 | Surgery Progress Note ---
Surgery Progress Note Subjective Symptoms: improved, tolerating diet, voiding well, passing flatus, BM, pain decreased Additional Comments diarrhea Objective Last 24 Hour Vital Signs Date Time Temp Pulse Resp B/P (MAP) Pulse Ox O2 Delivery O2 Flow Rate FiO2 12/12/20 10:56 98.2 12/12/20 09:14 70 136/78 12/12/20 08:00 98.2 70 18 136/78 (97) 94 12/12/20 04:00 97.0 73 20 155/99 (117) 95 12/12/20 00:00 97.8 71 20 136/73 (94) 93 12/11/20 21:00 Nasal Cannula 2.0 12/11/20 20:00 98.0 75 20 131/71 (91) 94 12/11/20 17:03 97.1 12/11/20 17:02 71 120/64 12/11/20 16:00 97.1 71 20 120/64 (82) 97 I&O Intake and Output 12/11/20 12/12/20 19:00 07:00 Intake Total 800 ml 300 ml Balance 800 ml 300 ml Intake Oral 600 ml 300 ml IV Total 200 ml # Voids 4 2 # Bowel Movements 1 1 Cardiovascular: RSR Respiratory: clear Abdomen: soft, flat, non-tender, present bowel sounds, non-distended Extremities: no edema, no tenderness, no cyanosis Laboratory Tests Test 12/11/20 16:26 12/12/20 05:55 12/12/20 07:33 POC Whole Blood Glucose 164 MG/DL (74-106) H Pending Lipase 458 U/L (73-393) H Plan Problems: (1) UTI (urinary tract infection) (2) Abdominal pain Assessment & Plan: imaging noted possible sbo but likely ileus await small bowel study (3) Dehydration (4) Pancreatitis Assessment & Plan: 70-year-old female with recurrent pancreatitis. History of cholecystectomy. Nausea vomiting now resolving. Abdominal pain significant states that this is a much worse episode than priors. Labs noted. No current imaging. Imaging from last admission about a month ago reviewed. Recommend repeating CT/MRI to ensure no pancreatic necrosis or complication or worsening fluid collection or cyst. N.p.o. IV fluids IV antibiotics pain control monitor urine output with fall with recommendations. Thank you letting participate in patient's care improving CT noted MRI noted ? sbo small bowel series likely ileus given severity of pancreatitis MRI from 10/2020 As noted on the CT scan, there is extensive pancreatic ductal dilation. This is most pronounced proximally, where the duct measures up to 1.3 cm in diameter. There is some distal tapering, but still with substantial dilation out to the tail. Side branches are also distended. There are calcifications in the region of the pancreatic head, better demonstrated on CT. Some of these presumably reflect sequela of chronic pancreatitis. 1 of these calcifications may correlate with a filling defect in the proximal duct in the pancreatic head measuring maximum of 8 mm in the coronal plane on series 3, image 21 and 6 mm in the axial plane on series 5, image 25. Question an intraductal stone contributing to the dilation/obstruction. Complicating assessment is a mass along the posterior-leftward aspect of the pancreatic head and uncinate process. This correlates with the cystic lesion seen on CT. It measures 6 x 3.4 x 3 cm in greatest craniocaudal, transverse, and anteroposterior dimensions respectively on series 9, image 67 and series 5, image 26. The mass is markedly hyperintense on T2 and mildly hypointense on T1-weighted sequences. It is primarily cystic with numerous locules. Postcontrast, there is no clear enhancing nodular or other component. It is difficult to exclude a connection with the main pancreatic duct as this is immediately adjacent. The common bile duct is of normal caliber for patient's age. No choledocholithiasis is. The gallbladder is absent. Bilateral renal cysts, largest in the parapelvic lower pole measures 2 cm. No hydronephrosis. Incidental note of cardiomegaly, colonic diverticula, and lumbar fusion. IMPRESSION: Pancreatic ductal dilation. While this can be seen with chronic pancreatitis, would question an obstructing calculus in the proximal main duct. Consider ERCP. 6 cm cystic mass along the posterior pancreatic head and uncinate process. Some features suggesting a serous cystic neoplasm, but not entirely classic appearance. This would be extremely large for a side branch intraductal papillary mucinous neoplasm, but this possibility is not excluded. I am not confident that this is a pseudocyst. Consideration for a endoscopic ultrasound evaluation. If this is not pursued, would at least recommend a 6 month follow-up to assess for stability. (5) Electrolyte imbalance (6) HTN (hypertension) (7) FRANCISCA (acute kidney injury) (8) DMII (diabetes mellitus, type 2) (9) Small bowel obstruction Assessment & Plan: Was not able to tolerate the small bowel series yesterday had large emesis did not like the contrast. CT reviewed and ordered after identifying still potential bowel obstruction with transition point. Patient has had multiple prior surgeries including large open right cholecystectomy many years ago prior C-sections prior ventral hernia repair with mesh and is a very high risk patient. I do long discussion with the patient and her daughter over the phone in regards to the findings and care plan. Patient presented with pancreatitis which is resolved but continued to develop a new different type of abdominal pain which and work-up identified a small bowel obstruction. Given she is fairly stable examination is fairly benign we have plan together to initiate nonoperative management with NG tube decompression and bowel rest. If potential improvement with resolution of obstruction patient has a chance otherwise we will plan surgical intervention which is very high risk and complicated given her extensive surgical abdominal history. Patient and daughter expressed understanding expressed similar concerns given her history and understanding of choices including the risk benefits and alternatives to the current care plan. Dependent atelectatic changes noted in the lung bases. Multifocal subsegmental atelectasis versus early infiltrate noted in the right lower lobe. No pneumothorax or pleural effusion. Partially imaged heart is mildly enlarged. There are coronary arterial and cardiac valvular calcifications. And punctate foci of pneumobilia again noted, similar to the prior exam. Hepatic contour is smooth. Patient again noted be status post cholecystectomy. Hepatic veins and portal veins appear patent. Spleen, adrenal glands unremarkable. Unchanged appearance of the pancreas with dilatation of the pancreatic duct and cystic lesion with calcifications in the region of the pancreatic head. No discrete peripancreatic inflammatory changes seen presently. Kidneys enhance symmetrically. The small cortical cysts are noted in the upper pole bilaterally. No hydronephrosis or perinephric collections. Patient again noted to be status post hysterectomy. Bladder is mildly distended but otherwise unremarkable. Persistent abnormal distention of small bowel loops concerning for a small bowel obstruction. Again there is a transition point in the right lower abdomen, area of the mid to distal ileum. The loops distal to the area of transition are decompressed. The appendix is normal in caliber and there are no periappendiceal inflammatory changes. No abnormal distention of the colon. There are colonic diverticula. No evidence of acute diverticulitis. Small amount of free fluid is noted within the peritoneal cavity, layering dependently in the pelvis. No free intraperitoneal air is seen. No pneumatosis intestinalis. Again there postsurgical changes underlying the anterior abdominal wall at the level of the umbilicus suggesting possible prior hernia repair (axial image #48). Small hiatal hernia is again seen. Extensive atherosclerotic vessel calcifications are noted. There are degenerative and postoperative changes in the spine with laminectomies and posterior fusion spanning from L1 to L3. IMPRESSION: * Persistent small bowel obstruction with transition point in the right lower abdomen, region of the mid to distal ileum. Findings are overall similar compared to exam of 12/01/2020. Small amount of free intraperitoneal fluid but no free peritoneal air. * Diverticulosis without evidence of acute diverticulitis. Normal appendix. * Status post hysterectomy and cholecystectomy. Surgical material adjacent to the anterior abdominal wall suggesting possible prior ventral hernia repair. * Small hiatal hernia and mild distal esophageal wall thickening. * Coronary arterial calcifications. * Postoperative changes of the lumbar spine, similar to the prior exam. * Interval development of some patchy opacities in the right lower lobe which may be related to dependent atelectasis although developing pneumonia not excluded. KUB improving sbft neg ng d/c diet patient does not want to go home yet cont diet d/c planning Eriberto Bailey Dec 12, 2020 12:33
--- NOTE | 2020-12-12 19:13 | NUR ---
NURSE HAND-OFF: Important Events on Shift: pain management Patient Status: full code, stable condition Diet: regular Pending Orders: [] Pending Results/Labs:[] Pending MD notification:[] Latest Vital Signs: Temperature 98.8 , Pulse 67 , B/P 148 /82 , Respiratory Rate 18 , O2 SAT 94 , Room Air, O2 Flow Rate 2.0 . Vital Sign Comment: [] Latest Montesinos Fall Score: 50 Fall Risk: High Risk Safety Measures: Call light Within Reach, Bed Alarm Zone 1, Side Rails Side Rails x2, Bed position Low and Locked. Fall Precautions: Door Sign Patient Fall Education Report given to Teri Bautista RN.
--- NOTE | 2020-12-12 19:28 | Internal Med Progress Note ---
Subjective Date of Service: Dec 12, 2020 Physician Name Pierce Sánchez Attending Physician Zacarias Escobar MD Current Medications Medications (Trade) Dose Ordered Sig/Angely Route PRN Reason Start Time Stop Time Status Last Admin Dose Admin Acetaminophen (Tylenol) 650 mg Q4H PRN RECTAL Mild Pain (Pain Scale 1-3) 12/06/20 10:15 01/05/21 10:14 Amlodipine Besylate (Norvasc) 5 mg BID ORAL 12/10/20 18:00 01/08/21 12:44 12/12/20 17:25 Clonidine HCl (Catapres Tab) 0.1 mg Q4H PRN ORAL BP above 160 syst 12/01/20 12:45 03/01/21 12:44 12/10/20 20:53 Dextrose (Dextrose 50%) 25 ml Q30M PRN IV Hypoglycemia 11/30/20 20:45 02/28/21 20:44 Dextrose (Dextrose 50%) 50 ml Q30M PRN IV Hypoglycemia 11/30/20 20:45 02/28/21 20:44 Famotidine (Pepcid I.v.) 20 mg Q12HR IVP 12/01/20 21:00 12/31/20 20:59 12/12/20 09:13 Heparin Sodium (Porcine) (Heparin 5000 units/ml) 5,000 units EVERY 8 HOURS SUBQ 11/30/20 22:00 01/14/21 21:59 12/12/20 13:29 Insulin Aspart (NovoLOG) BEFORE MEALS AND HS SUBQ 11/30/20 22:00 02/28/21 21:59 12/11/20 21:06 Morphine Sulfate (Morphine Sulfate) 2 mg Q4H PRN IVP Moderate Pain (Pain Scale 4-6) 12/07/20 23:00 12/14/20 22:59 12/12/20 10:26 Morphine Sulfate (Morphine Sulfate) 4 mg Q4H PRN IVP Severe Pain (Pain Scale 7-10) 12/11/20 08:15 12/14/20 22:59 12/12/20 15:16 Ondansetron HCl (Zofran) 4 mg Q4H PRN IVP Nausea & Vomiting 11/30/20 20:45 12/30/20 20:44 12/12/20 09:16 Potassium Chloride (K-Dur) 40 meq TWICE A DAY ORAL 12/11/20 11:15 03/11/21 11:14 12/12/20 17:25 Allergies: Coded Allergies: CODEINE (Verified Allergy, Severe, Itching, 10/10/20) ROS Limited/Unobtainable: No Constitutional: Reports: no symptoms HEENT: Reports: no symptoms Cardiovascular: Reports: no symptoms Respiratory: Reports: no symptoms Gastrointestinal/Abdominal: Reports: no symptoms Genitourinary: Reports: no symptoms Neurologic/Psychiatric: Reports: no symptoms Subjective 70 YO F admitted with epigastric pain. Now pancreatitis and small bowel obstruction. Cover for Int Med-Dr Escobar. Tolerating regular diet Objective Last Vital Signs Date Time Temp Pulse Resp B/P (MAP) Pulse Ox O2 Delivery O2 Flow Rate FiO2 12/12/20 17:25 67 148/82 12/12/20 16:00 98.8 18 94 12/12/20 09:00 Nasal Cannula 2.0 Laboratory Tests Test 12/12/20 05:55 12/12/20 07:33 12/12/20 17:20 POC Whole Blood Glucose Pending 119 MG/DL (74-106) H Lipase 458 U/L (73-393) H Intake and Output 12/11/20 12/12/20 19:00 07:00 Intake Total 800 ml 300 ml Balance 800 ml 300 ml Intake Oral 600 ml 300 ml IV Total 200 ml # Voids 4 2 # Bowel Movements 1 1 Objective Objective General: No acute distress, awake and alert HEENT: NCAT, sclera anicteric, PERRL, EOMI. Neck: Supple, no significant jugular venous distention, Lungs: Good inspiratory effort, no accessory muscle use, clear to auscultation bilaterally, no Wheeze or Rales. Heart: Regular rate and rhythm, normal S1/S2, no murmurs/gallops Abdomen: soft, decreased epigastric tenderness, nondistended. Normoactive bowel sounds. / Rectal: Refused and deferred. Extremities: No Cyanosis , clubbing or edema. Neuro: A&O x 3, Able to move all extremities Skin: warm, no rashes or lesions Psych: Normal mood and affect Assessment/Plan Assessment/Plan Assessment/Plan Assessment/Plan (1) Acute kidney injury on chronic renal insufficiency. (2) Abdominal pain most likely due to acute pancreatitis. (3) Dehydration (4) Acute recurrent Pancreatitis (5) Diabetic type II (6) hypertension. (7) dyslipidemia. 8. Small bowel obstruction/ileus 9. hypokalemia Plan: Monitor laboratory Pain medication IV hydration clear liquid diet CODE STATUS: Full code DVT prophylaxis: Heparin subcu Follow-up with GI, nephrology, surgery recommendations. NG tube discontinued KCL oral replacement tolerating regular diet Pierce Sánchez MD Dec 12, 2020 19:28
--- NOTE | 2020-12-12 19:32 | NUR ---
NURSE NOTES: Patient awake in bed, alert and oriented x4, on nasal cannula 2LPM oxygen, no complaint of SOB at this time. IV access on the right forearm saline lock. Instructed to use call light for assistance. Bed in lowest and lock engaged. Will continue plan of care.
[2020-12-13] MEDS: Morphine Sulfate 2mg/ml Inj(IV/IM USE ONLY) IVP PRN ×2 (02:40→11:11)
[2020-12-13 04:00] VITALS: BP 154/85
[2020-12-13] MEDS: Heparin 5000 units/ml inj SUBQ SCH ×2 (05:26→14:27)
[2020-12-13] MEDS: NovoLOG Insulin Flexpen SUBQ SCH ×2 (05:27→11:30)
[2020-12-13 06:35] LABS: EOSINOPHILS % (AUTO) 3.8 % (0.0-3.0); HEMATOCRIT 30.9 % (37.0-47.0); HEMOGLOBIN 9.4 G/DL (12.0-16.0); LYMPHOCYTES % (AUTO) 32.6 % (20.0-45.0); MEAN CORPUSCULAR VOLUME 80 FL (80-99); MONOCYTES % (AUTO) 17.7 % (1.0-10.0); NEUTROPHILS % (AUTO) 44.9 % (45.0-75.0); PLATELET COUNT 215 K/UL (150-450); RED BLOOD COUNT 3.86 M/UL (4.20-5.40); RED CELL DISTRIBUTION WIDTH 12.7 % (11.6-14.8); WHITE BLOOD COUNT 5.1 K/UL (4.8-10.8)
[2020-12-13 06:55] LABS: ALBUMIN 3.1 G/DL (3.4-5.0); ALBUMIN/GLOBULIN RATIO 0.9 (1.0-2.7); BILIRUBIN,TOTAL 0.3 MG/DL (0.2-1.0); CALCIUM 9.2 MG/DL (8.5-10.1); CREATININE 1.2 MG/DL (0.55-1.30); PHOSPHORUS 3.6 MG/DL (2.5-4.9); POTASSIUM 4.3 MMOL/L (3.5-5.1)
--- NOTE | 2020-12-13 07:06 | NUR ---
NURSE HAND-OFF: Important Events on Shift: pain mgt, accucheck Patient Status: Diet: Pending Orders: Pending Results/Labs: Pending MD notification: Latest Vital Signs: Temperature 98.3 , Pulse 76 , B/P 154 /85 , Respiratory Rate 18 , O2 SAT 94 , Room Air, O2 Flow Rate 2.0 . Vital Sign Comment: Latest Montesinos Fall Score: 50 Fall Risk: High Risk Safety Measures: Call light Within Reach, Bed Alarm Zone 1, Side Rails Side Rails x2, Bed position Low and Locked. Fall Precautions: Door Sign Patient Fall Education Report given to GONZALES Oleary.
[2020-12-13 08:00] VITALS: BP 151/78
--- NOTE | 2020-12-13 09:00 | NUR ---
RD ASSESSMENT & RECOMMENDATIONS SEE CARE ACTIVITY FOR COMPLETE ASSESSMENT DAILY ESTIMATED NEEDS: Needs based on Pancreatitis 60kg abw 25-30 kcals/kg 7224-8275 total kcals 1-1.5 g protein/kg 60-90 g total protein 25-30 mL/kg 5121-4405 total fluid mLs NUTRITION DIAGNOSIS: Decreased fat needs r/t pancreatitis as evidenced by elevated Lipase ([id number]->397), NGT to LIS now removed, diet advanced to CLD-> regular. CURRENT DIET:REGULAR PO DIET RECOMMENDATIONS: LOW FAT, CCHO MED ADDITIONAL RECOMMENDATIONS: 1) Soft easy chew r/t poor dentition 2) Niss / accuchecks -> now added, monitor for hypolygcemia w/ variable intake 3) Monitor po intake, tolerance-> now NGT to LIS removed diet advanced to regular 4) Maintain Ensure Clear TID w/ meals (0g fat) 5) Monitor lytes, replete as needed (low mag)
--- NOTE | 2020-12-13 10:10 | General Progress Note ---
Subjective ROS Limited/Unobtainable: Yes Allergies: Coded Allergies: CODEINE (Verified Allergy, Severe, Itching, 10/10/20) Objective Last 24 Hour Vital Signs Date Time Temp Pulse Resp B/P (MAP) Pulse Ox O2 Delivery O2 Flow Rate FiO2 12/13/20 08:39 74 147/71 12/13/20 08:00 98.6 69 18 151/78 (102) 96 12/13/20 04:00 98.3 76 18 154/85 (108) 94 12/12/20 23:47 98.7 80 18 159/52 (87) 94 12/12/20 20:36 Nasal Cannula 2.0 12/12/20 20:00 98.6 78 20 148/78 (101) 96 12/12/20 17:25 67 148/82 12/12/20 16:00 98.8 67 18 148/82 (104) 94 12/12/20 15:46 97.7 12/12/20 12:00 97.7 87 19 149/81 (103) 97 12/12/20 10:56 98.2 Intake and Output 12/12/20 12/13/20 19:00 07:00 Intake Total 480 ml Output Total 200 ml Balance 480 ml -200 ml Intake Oral 480 ml Output Urine Total 200 ml # Voids 3 1 # Bowel Movements 2 Laboratory Tests 12/12/20 10:25: POC Whole Blood Glucose 119H 12/12/20 17:20: POC Whole Blood Glucose 119H 12/12/20 20:00: POC Whole Blood Glucose [Pending] 12/13/20 04:53: White Blood Count 5.1, Red Blood Count 3.86L, Hemoglobin 9.4L, Hematocrit 30.9L, Mean Corpuscular Volume 80, Mean Corpuscular Hemoglobin 24.5L, Mean Corpuscular Hemoglobin Concent 30.6L, Red Cell Distribution Width 12.7, Platelet Count 215, Mean Platelet Volume 5.4L, Neutrophils (%) (Auto) 44.9L, Lymphocytes (%) (Auto) 32.6, Monocytes (%) (Auto) 17.7H, Eosinophils (%) (Auto) 3.8H, Basophils (%) (Auto) 1.0, Sodium Level 136, Potassium Level 4.3, Chloride Level 103, Carbon Dioxide Level 24, Anion Gap 9, Blood Urea Nitrogen 4L, Creatinine 1.2, Estimat Glomerular Filtration Rate 53.8, Glucose Level 102, Calcium Level 9.2, Phosphorus Level 3.6, Magnesium Level 1.9, Total Bilirubin 0.3, Aspartate Amino Transf (AST/SGOT) 36, Alanine Aminotransferase (ALT/SGPT) 33, Alkaline Phosphatase 105, Total Protein 6.6, Albumin 3.1L, Globulin 3.5, Albumin/Globulin Ratio 0.9L, Amylase Level 46, Lipase 397H 12/13/20 05:26: POC Whole Blood Glucose 109H Height (Feet): 5 Height (Inches): 3.00 Weight (Pounds): 171 General Appearance: no apparent distress EENT: normal ENT inspection Neck: supple Cardiovascular: normal rate Respiratory/Chest: decreased breath sounds Abdomen: normal bowel sounds, non tender, soft Extremities: non-tender Assessment/Plan Status: stable Assessment/Plan: Assessment/Plan Assessment/Plan: pancreatitis abd pain nausea anemia pancreatic cyst SBO diarrhea over night recent ERCP pain control creon [place] on diet improved amylase and lipase repeat labs in Nikolas Fraser MD Dec 13, 2020 10:10
--- NOTE | 2020-12-13 11:09 | NUR ---
PT NOTE Attempted to see patient for PT x 2. Patient declining to participate with PT due to c/o SOB and pain. Mamta ROLON notified, will follow.
--- NOTE | 2020-12-13 11:58 | Surgery Progress Note ---
Surgery Progress Note Subjective Symptoms: improved, tolerating diet, voiding well, passing flatus, BM, pain decreased Objective Last 24 Hour Vital Signs Date Time Temp Pulse Resp B/P (MAP) Pulse Ox O2 Delivery O2 Flow Rate FiO2 12/13/20 09:00 Nasal Cannula 2.0 12/13/20 08:39 74 147/71 12/13/20 08:00 98.6 69 18 151/78 (102) 96 12/13/20 04:00 98.3 76 18 154/85 (108) 94 12/12/20 23:47 98.7 80 18 159/52 (87) 94 12/12/20 20:36 Nasal Cannula 2.0 12/12/20 20:00 98.6 78 20 148/78 (101) 96 12/12/20 17:25 67 148/82 12/12/20 16:00 98.8 67 18 148/82 (104) 94 12/12/20 15:46 97.7 12/12/20 12:00 97.7 87 19 149/81 (103) 97 I&O Intake and Output 12/12/20 12/13/20 19:00 07:00 Intake Total 480 ml Output Total 200 ml Balance 480 ml -200 ml Intake Oral 480 ml Output Urine Total 200 ml # Voids 3 1 # Bowel Movements 2 Cardiovascular: RSR Respiratory: clear Abdomen: soft, flat, non-tender, present bowel sounds, non-distended Extremities: no edema, no tenderness, no cyanosis Laboratory Tests Test 12/12/20 17:20 12/12/20 20:00 12/13/20 04:53 12/13/20 05:26 POC Whole Blood Glucose 119 MG/DL (74-106) H Pending 109 MG/DL (74-106) H White Blood Count 5.1 K/UL (4.8-10.8) Red Blood Count 3.86 M/UL (4.20-5.40) L Hemoglobin 9.4 G/DL (12.0-16.0) L Hematocrit 30.9 % (37.0-47.0) L Mean Corpuscular Volume 80 FL (80-99) Mean Corpuscular Hemoglobin 24.5 PG (27.0-31.0) L Mean Corpuscular Hemoglobin Concent 30.6 G/DL (32.0-36.0) L Red Cell Distribution Width 12.7 % (11.6-14.8) Platelet Count 215 K/UL (150-450) Mean Platelet Volume 5.4 FL (6.5-10.1) L Neutrophils (%) (Auto) 44.9 % (45.0-75.0) L Lymphocytes (%) (Auto) 32.6 % (20.0-45.0) Monocytes (%) (Auto) 17.7 % (1.0-10.0) H Eosinophils (%) (Auto) 3.8 % (0.0-3.0) H Basophils (%) (Auto) 1.0 % (0.0-2.0) Sodium Level 136 MMOL/L (136-145) Potassium Level 4.3 MMOL/L (3.5-5.1) Chloride Level 103 MMOL/L (98-107) Carbon Dioxide Level 24 MMOL/L (21-32) Anion Gap 9 mmol/L (5-15) Blood Urea Nitrogen 4 mg/dL (7-18) L Creatinine 1.2 MG/DL (0.55-1.30) Estimat Glomerular Filtration Rate 53.8 mL/min (>60) Glucose Level 102 MG/DL (74-106) Calcium Level 9.2 MG/DL (8.5-10.1) Phosphorus Level 3.6 MG/DL (2.5-4.9) Magnesium Level 1.9 MG/DL (1.8-2.4) Total Bilirubin 0.3 MG/DL (0.2-1.0) Aspartate Amino Transf (AST/SGOT) 36 U/L (15-37) Alanine Aminotransferase (ALT/SGPT) 33 U/L (12-78) Alkaline Phosphatase 105 U/L (46-116) Total Protein 6.6 G/DL (6.4-8.2) Albumin 3.1 G/DL (3.4-5.0) L Globulin 3.5 g/dL Albumin/Globulin Ratio 0.9 (1.0-2.7) L Amylase Level 46 U/L (25-115) Lipase 397 U/L (73-393) H Plan Problems: (1) UTI (urinary tract infection) (2) Abdominal pain Assessment & Plan: imaging noted possible sbo but likely ileus await small bowel study (3) Dehydration (4) Pancreatitis Assessment & Plan: 70-year-old female with recurrent pancreatitis. History of cholecystectomy. Nausea vomiting now resolving. Abdominal pain significant states that this is a much worse episode than priors. Labs noted. No current imaging. Imaging from last admission about a month ago reviewed. Recommend repeating CT/MRI to ensure no pancreatic necrosis or complication or worsening fluid collection or cyst. N.p.o. IV fluids IV antibiotics pain control monitor urine output with fall with recommendations. Thank you letting participate in patient's care improving CT noted MRI noted ? sbo small bowel series likely ileus given severity of pancreatitis MRI from 10/2020 As noted on the CT scan, there is extensive pancreatic ductal dilation. This is most pronounced proximally, where the duct measures up to 1.3 cm in diameter. There is some distal tapering, but still with substantial dilation out to the tail. Side branches are also distended. There are calcifications in the region of the pancreatic head, better demonstrated on CT. Some of these presumably reflect sequela of chronic pancreatitis. 1 of these calcifications may correlate with a filling defect in the proximal duct in the pancreatic head measuring maximum of 8 mm in the coronal plane on series 3, image 21 and 6 mm in the axial plane on series 5, image 25. Question an intraductal stone contributing to the dilation/obstruction. Complicating assessment is a mass along the posterior-leftward aspect of the pancreatic head and uncinate process. This correlates with the cystic lesion seen on CT. It measures 6 x 3.4 x 3 cm in greatest craniocaudal, transverse, and anteroposterior dimensions respectively on series 9, image 67 and series 5, image 26. The mass is markedly hyperintense on T2 and mildly hypointense on T1-weighted sequences. It is primarily cystic with numerous locules. Postcontrast, there is no clear enhancing nodular or other component. It is difficult to exclude a connection with the main pancreatic duct as this is immediately adjacent. The common bile duct is of normal caliber for patient's age. No choledocholithiasis is. The gallbladder is absent. Bilateral renal cysts, largest in the parapelvic lower pole measures 2 cm. No hydronephrosis. Incidental note of cardiomegaly, colonic diverticula, and lumbar fusion. IMPRESSION: Pancreatic ductal dilation. While this can be seen with chronic pancreatitis, would question an obstructing calculus in the proximal main duct. Consider ERCP. 6 cm cystic mass along the posterior pancreatic head and uncinate process. Some features suggesting a serous cystic neoplasm, but not entirely classic appearance. This would be extremely large for a side branch intraductal papillary mucinous neoplasm, but this possibility is not excluded. I am not confident that this is a pseudocyst. Consideration for a endoscopic ultrasound evaluation. If this is not pursued, would at least recommend a 6 month follow-up to assess for stability. (5) Electrolyte imbalance (6) HTN (hypertension) (7) FRANCISCA (acute kidney injury) (8) DMII (diabetes mellitus, type 2) (9) Small bowel obstruction Assessment & Plan: Was not able to tolerate the small bowel series yesterday had large emesis did not like the contrast. CT reviewed and ordered after identifying still potential bowel obstruction with transition point. Patient has had multiple prior surgeries including large open right cholecystectomy many years ago prior C-sections prior ventral hernia repair with mesh and is a very high risk patient. I do long discussion with the patient and her daughter over the phone in regards to the findings and care plan. Patient presented with pancreatitis which is resolved but continued to develop a new different type of abdominal pain which and work-up identified a small bowel obstruction. Given she is fairly stable examination is fairly benign we have plan together to initiate nonoperative management with NG tube decompression and bowel rest. If potential improvement with resolution of obstruction patient has a chance otherwise we will plan surgical intervention which is very high risk and complicated given her extensive surgical abdominal history. Patient and boo grande expressed understanding expressed similar concerns given her history and understanding of choices including the risk benefits and alternatives to the current care plan. Dependent atelectatic changes noted in the lung bases. Multifocal subsegmental atelectasis versus early infiltrate noted in the right lower lobe. No pneumothorax or pleural effusion. Partially imaged heart is mildly enlarged. There are coronary arterial and cardiac valvular calcifications. And punctate foci of pneumobilia again noted, similar to the prior exam. Hepatic contour is smooth. Patient again noted be status post cholecystectomy. Hepatic veins and portal veins appear patent. Spleen, adrenal glands unremarkable. Unchanged appearance of the pancreas with dilatation of the pancreatic duct and cystic lesion with calcifications in the region of the pancreatic head. No discrete peripancreatic inflammatory changes seen presently. Kidneys enhance symmetrically. The small cortical cysts are noted in the upper pole bilaterally. No hydronephrosis or perinephric collections. Patient again noted to be status post hysterectomy. Bladder is mildly distended but otherwise unremarkable. Persistent abnormal distention of small bowel loops concerning for a small bowel obstruction. Again there is a transition point in the right lower abdomen, area of the mid to distal ileum. The loops distal to the area of transition are decompressed. The appendix is normal in caliber and there are no periappendiceal inflammatory changes. No abnormal distention of the colon. There are colonic diverticula. No evidence of acute diverticulitis. Small amount of free fluid is noted within the peritoneal cavity, layering dependently in the pelvis. No free intraperitoneal air is seen. No pneumatosis intestinalis. Again there postsurgical changes underlying the anterior abdominal wall at the level of the umbilicus suggesting possible prior hernia repair (axial image #48). Small hiatal hernia is again seen. Extensive atherosclerotic vessel calcifications are noted. There are degenerative and postoperative changes in the spine with laminectomies and posterior fusion spanning from L1 to L3. IMPRESSION: * Persistent small bowel obstruction with transition point in the right lower abdomen, region of the mid to distal ileum. Findings are overall similar compared to exam of 12/01/2020. Small amount of free intraperitoneal fluid but no free kylah toneal air. * Diverticulosis without evidence of acute diverticulitis. Normal appendix. * Status post hysterectomy and cholecystectomy. Surgical material adjacent to the anterior abdominal wall suggesting possible prior ventral hernia repair. * Small hiatal hernia and mild distal esophageal wall thickening. * Coronary arterial calcifications. * Postoperative changes of the lumbar spine, similar to the prior exam. * Interval development of some patchy opacities in the right lower lobe which may be related to dependent atelectasis although developing pneumonia not excluded. KUB improving sbft neg ng d/c diet patient does not want to go home yet cont diet d/c planning Eriberto Bailey Dec 13, 2020 11:58
[2020-12-13 12:00] VITALS: BP 166/87
[2020-12-13 12:17] VITALS: BP 166/87
--- NOTE | 2020-12-13 13:20 | Nephrology Progress Note ---
Assessment/Plan Problem List: (1) FRANCISCA (acute kidney injury) (2) DMII (diabetes mellitus, type 2) (3) HTN (hypertension) (4) Electrolyte imbalance (5) Dehydration (6) UTI (urinary tract infection) (7) Pancreatitis Assessment 70-year-old female admitted with abdominal pain Serum creatinine 2.1 on admission Acute kidney injury Dehydration Diabetes type 2 Pancreatitis Hypertension Thyroid disease Asthma Previous ERCP UTI Plan December 13: Labs reviewed. Renal parameters and electrolytes stable. Medication list reviewed. Serum lipase is lowering. Continue per consultants. December 12: No chemistry panel drawn today. Will check lab tomorrow. Lipase is lowering. Continue to monitor renal parameters. Medication list reviewed. Continue per consultants. December 11. Labs reviewed. Low magnesium and low potassium addressed. Continue per consultants. December 10: No CHEM panel drawn today. Status quo. Labs reviewed. Blood pressure medication adjusted. Check lab tomorrow. December 09: Labs reviewed. Renal parameters stable. Abnormal electrolytes addressed. Per orders. Norvasc for high blood pressure initiated. December 08: Labs reviewed. Renal parameters stable. Continue per consultants. Abnormal electrolytes addressed. December 07: Labs reviewed. Serum creatinine within normal limits. Low potassium addressed. Continue per consultants. December 06: Labs reviewed. Serum creatinine up to 1.5. Patient offers no complaint. Medication list reviewed. Continue per GI. Continue to monitor renal parameters. December 05: Labs reviewed. Renal parameters stable. Serum creatinine 1.3. Medication list reviewed. Not much to add from renal standpoint of view. Adjust blood pressure medication. Continue per consultants. December 04: Labs reviewed. Serum creatinine almost within normal limit. Serum creatinine of 2.1 is down to 1.4. Patient on clear liquid diet. Small bowel follow-through order is in process. Continue per consultants. December 03: Labs reviewed. Serum creatinine 1.7. Patient on clear liquid. Clinically appears stable. Continue per GI. Patient has a small bowel obstruction on CT. December 02: Labs reviewed. Serum creatinine lowering. Electrolytes within normal limits. On clear liquid. Continue per consultants. Previously: Hydrate BP control, adjust blood pressure medications Keep the blood sugar in check Avoid nephrotoxic's Urine studies Monitor renal parameters Per consultants Subjective ROS Limited/Unobtainable: No Objective Objective Last 24 Hour Vital Signs Date Time Temp Pulse Resp B/P (MAP) Pulse Ox O2 Delivery O2 Flow Rate FiO2 3/2/21 12:17 166/87 12/13/20 12:00 98.5 75 18 166/87 (113) 95 12/13/20 09:00 Nasal Cannula 2.0 12/13/20 08:39 74 147/71 12/13/20 08:00 98.6 69 18 151/78 (102) 96 12/13/20 04:00 98.3 76 18 154/85 (108) 94 12/12/20 23:47 98.7 80 18 159/52 (87) 94 12/12/20 20:36 Nasal Cannula 2.0 12/12/20 20:00 98.6 78 20 148/78 (101) 96 12/12/20 17:25 67 148/82 12/12/20 16:00 98.8 67 18 148/82 (104) 94 12/12/20 15:46 97.7 Intake and Output 12/12/20 12/13/20 19:00 07:00 Intake Total 480 ml Output Total 200 ml Balance 480 ml -200 ml Intake Oral 480 ml Output Urine Total 200 ml # Voids 3 1 # Bowel Movements 2 Current Medications Medications (Trade) Dose Ordered Sig/Angely Route PRN Reason Start Time Stop Time Status Last Admin Dose Admin Acetaminophen (Tylenol) 650 mg Q4H PRN RECTAL Mild Pain (Pain Scale 1-3) 12/06/20 10:15 01/05/21 10:14 Amlodipine Besylate (Norvasc) 5 mg BID ORAL 12/10/20 18:00 01/08/21 12:44 12/13/20 08:39 Clonidine HCl (Catapres Tab) 0.1 mg Q4H PRN ORAL BP above 160 syst 12/01/20 12:45 03/01/21 12:44 12/13/20 12:17 Dextrose (Dextrose 50%) 25 ml Q30M PRN IV Hypoglycemia 11/30/20 20:45 02/28/21 20:44 Dextrose (Dextrose 50%) 50 ml Q30M PRN IV Hypoglycemia 11/30/20 20:45 02/28/21 20:44 Famotidine (Pepcid I.v.) 20 mg Q12HR IVP 12/01/20 21:00 12/31/20 20:59 12/13/20 08:40 Heparin Sodium (Porcine) (Heparin 5000 units/ml) 5,000 units EVERY 8 HOURS SUBQ 11/30/20 22:00 01/14/21 21:59 12/12/20 13:29 Insulin Aspart (NovoLOG) BEFORE MEALS AND HS SUBQ 11/30/20 22:00 02/28/21 21:59 12/11/20 21:06 Morphine Sulfate (Morphine Sulfate) 2 mg Q4H PRN IVP Moderate Pain (Pain Scale 4-6) 12/07/20 23:00 12/14/20 22:59 12/12/20 10:26 Morphine Sulfate (Morphine Sulfate) 4 mg Q4H PRN IVP Severe Pain (Pain Scale 7-10) 12/11/20 08:15 12/14/20 22:59 12/13/20 11:11 Ondansetron HCl (Zofran) 4 mg Q4H PRN IVP Nausea & Vomiting 11/30/20 20:45 12/30/20 20:44 12/13/20 02:39 Potassium Chloride (K-Dur) 40 meq TWICE A DAY ORAL 12/11/20 11:15 03/11/21 11:14 12/13/20 08:40 Laboratory Tests 12/12/20 17:20: POC Whole Blood Glucose 119H 12/12/20 20:00: POC Whole Blood Glucose [Pending] 12/13/20 04:53: White Blood Count 5.1, Red Blood Count 3.86L, Hemoglobin 9.4L, Hematocrit 30.9L, Mean Corpuscular Volume 80, Mean Corpuscular Hemoglobin 24.5L, Mean Corpuscular Hemoglobin Concent 30.6L, Red Cell Distribution Width 12.7, Platelet Count 215, Mean Platelet Volume 5.4L, Neutrophils (%) (Auto) 44.9L, Lymphocytes (%) (Auto) 32.6, Monocytes (%) (Auto) 17.7H, Eosinophils (%) (Auto) 3.8H, Basophils (%) (Auto) 1.0, Sodium Level 136, Potassium Level 4.3, Chloride Level 103, Carbon Dioxide Level 24, Anion Gap 9, Blood Urea Nitrogen 4L, Creatinine 1.2, Estimat Glomerular Filtration Rate 53.8, Glucose Level 102, Calcium Level 9.2, Phosphorus Level 3.6, Magnesium Level 1.9, Total Bilirubin 0.3, Aspartate Amino Transf (AST/SGOT) 36, Alanine Aminotransferase (ALT/SGPT) 33, Alkaline Phosphatase 105, Total Protein 6.6, Albumin 3.1L, Globulin 3.5, Albumin/Globulin Ratio 0.9L, Amylase Level 46, Lipase 397H 12/13/20 05:26: POC Whole Blood Glucose 109H Height (Feet): 5 Height (Inches): 3.00 Weight (Pounds): 171 General Appearance: no apparent distress Cardiovascular: normal rate Respiratory/Chest: decreased breath sounds Abdomen: soft Bhupinder Huynh MD Dec 13, 2020 13:20
--- NOTE | 2020-12-13 15:42 | NUR ---
NURSE NOTES: Patient discharge,IV removed and ID hospital band removed.Discharge instructions given.Patient discharge instructions given.Patient has belongings.Patient accompany down to private vehicle.patient daughter here to take patient home.
--- NOTE | 2020-12-14 13:57 | Discharge Summary ---
Discharge Summary Discharge Summary _ Date of admission: 11/30/2020 Date of discharge: 12/13/[address] Escobar History of Present Illness and Brief Hospital Course Ms. Estrada is a 70-year-old female with past medical history of idiopathic pancreatitis, who presented to the ED for evaluation of abdominal pain, nausea and vomiting x3 days. Patient had similar pancreatic attacks in the past. Patient was hemodynamically stable and neurovascularly intact in the ER but required multiple doses of antiemetics and analgesic medications. Her lipase was elevated. She also had evidence of UTI and was treated with ceftriaxone. Patient was admitted to the hospital for further management. Patient had multiple prior surgeries including large open right cholecystectomy many years ago, C-sections, and ventral hernia repair with mesh. Patient presented with pancreatitis which resolved but she was identified to have a small bowel obstruction in the abdomen/pelvis CT. Patient was fairly stable and she opted to continue nonoperative management with NG tube decompression and bowel rest. Her amylase and lipase improved. The NG tube was removed. Patient began tolerating clear liquid diet then eventually regular diet. A repeat x-ray of small bowel with Gastrografin showed a mild generalized ileus but no evidence of small bowel obstruction. Patient's medical condition improved and was stable for discharge and was discharged home on 12/13/2020. Consultants: Nephrology Dr. Costello Surgery Dr. Bailey Discharge Condition Improved and stable Discharge Diet Advance as tolerated Final diagnoses Acute kidney injury on chronic renal insufficiency Acute recurrent pancreatitis Dehydration Diabetes mellitus type 2 Hypertension Dyslipidemia Small bowel obstruction Small bowel ileus Hypokalemia I have been assigned to dictate discharge summary for this account. I was not involved in the patient's management Wild Barlow Dec 14, 2020 13:57
== END 2020-12-13 15:35 | disposition home or self-care (01) | DRG 282 ==
LOC: EMR 16:10 → 4E 17:20 → EDBEDREQ 18:38
DX: K85.90 Acute pancreatitis without necrosis or infection, unspecified (principal); K56.609 Unspecified intestinal obstruction, unspecified as to partial versus complete obstruction; N17.9 Acute kidney failure, unspecified; E86.0 Dehydration; N39.0 Urinary tract infection, site not specified; E11.65 Type 2 diabetes mellitus with hyperglycemia; K56.7 Ileus, unspecified; I12.9 Hypertensive chronic kidney disease with stage 1 through stage 4 chronic kidney disease, or unspecified chronic kidney disease; N18.9 Chronic kidney disease, unspecified; J45.909 Unspecified asthma, uncomplicated; E78.5 Hyperlipidemia, unspecified; Z88.6 Allergy status to analgesic agent; K86.2 Cyst of pancreas; K57.90 Diverticulosis of intestine, part unspecified, without perforation or abscess without bleeding; K44.9 Diaphragmatic hernia without obstruction or gangrene; Z90.49 Acquired absence of other specified parts of digestive tract; E87.6 Hypokalemia
CPT/HCPCS: 36415; 74018; 74176; 74177; 74181; 74250; 80048; 80053; 80061; 80307; 81003; 82150; 82306; 82550; 82607; 82746; 82962; 82977; 83036; 83605; 83690; 83735; 83880; 84100; 84300; 84439; 84443; 84481; 84484; 84550; 85025; 85610; 85651; 85730; 86140; 87324; 93005; 96361; 96365; 96375; 96376; 99285; G0480; J1815; J2405; J7030; J8499